=== PATIENT | female | born 1930 | race Caucasian/White ===

== ENCOUNTER 2018-10-23 19:58 | Emergency (ER) | payer MEDICARE ==
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
[2018-10-23 20:38] LABS: ABS Basophils 0 10^3/ul (0-0.2); ABS Eosinophils 0 10^3/ul (0-0.6); ABS Lymphocytes 1.3 10^3/ul (1.0-4.8); ABS Monocytes 0.5 10^3/ul (0-0.8); ABS Neutrophils 2.3 10^3/ul (1.5-7.7); ABS Nucleated RBC 0 10^3/ul; Hematocrit 35 % (33-41); Lymphocyte % 30.7 %; Mean Corpuscular HGB Conc 34 g/dL (31-36); Mean Corpuscular Hemoglobin 31 pg (27-31); Mean Corpuscular Volume 90 fL (80-97); Mean Platelet Volume 8.4 fL (7.4-10.4); Nucleated Red Blood Cells % 0; Platelet Count 196 10^3/uL (150-450); Red Blood Count 3.91 10^6 /uL (3.70-4.87); Red Cell Distribution Width 14 % (10.5-15); White Blood Count 4.1 10^3/uL (3.5-10.8)
[2018-10-23 20:58] LABS: Albumin 4.2 g/dL (3.2-5.2); Albumin/Globulin Ratio 1.6 (1-3); BUN/Creatinine Ratio 32.9 (8-20); Calcium 9.5 mg/dL (8.6-10.3); EGFR Non-African American 75.2 (>60); Globulin 2.7 g/dL (2-4); Total Bilirubin 0.3 mg/dL (0.2-1.0); Total Protein 6.9 g/dL (6.4-8.9)
[2018-10-23 21:25] LABS: TSH (Thyroid Stimulating Horm) 1.6 mcIU/mL (0.34-5.60)
[2018-10-23 22:38] LABS: Urine Appearance Cloudy; Urine Bacteria Absent (Absent); Urine Bilirubin Negative (Negative); Urine Blood Negative (Negative); Urine Color Yellow; Urine Glucose Negative (Negative); Urine Ketones Negative (Negative); Urine Nitrite Negative (Negative); Urine Protein Negative (Negative); Urine Red Blood Cell Trace(0-2/hpf) (Absent); Urine Specific Gravity 1.014 (1.010-1.030); Urine Squamous Epithelial Cell Present (Absent); Urine Urobilinogen Negative (Negative); Urine White Blood Cell Trace(0-5/hpf) (Absent)
[2018-10-24 02:00] VITALS: BP 172/67
== END 2018-10-24 02:04 | disposition home or self-care (01) ==
LOC: ED 19:58
DX: G30.9 Alzheimer's disease, unspecified (principal); F02.81 Dementia in other diseases classified elsewhere, unspecified severity, with behavioral disturbance; R42 Dizziness and giddiness; R19.7 Diarrhea, unspecified; I10 Essential (primary) hypertension; K21.9 Gastro-esophageal reflux disease without esophagitis; F32.9 Major depressive disorder, single episode, unspecified; Z88.6 Allergy status to analgesic agent; Z88.4 Allergy status to anesthetic agent; Z88.5 Allergy status to narcotic agent; Z88.0 Allergy status to penicillin
CPT/HCPCS: 36415; 80053; 81003; 81015; 84443; 85025; 87086; 99284

== ENCOUNTER 2019-06-10 03:41 | Emergency (ER) | payer MEDICARE ==
[2019-06-10] MEDS ORDERED: Acetaminophen TAB* 325 MG PO ONE (03:51)
--- OUTSIDE RECORDS SUMMARY | 2019-06-10 04:03 | XMS REPORT | Continuity of Care Document ---
:1930 External Reference #:[id number] Author Name Manan Muniz N.P. (transmitted by agent of provider Arminda Reyes) Address [address], [address] Unavailable [place] [id number] Care Team Providers Name Role Phone Other Physician Practices Care Team Information Attending Ambulatory Care Unavailable Marcel Guadarrama D.O. - Family Medicine Care Team Information Attending Ambulatory Care [phone] Problems Description No Information Available Social History Type Date Description Comments Sex Female ETOH Use Denies alcohol use Tobacco Use Start: Unknown End: Unknown Patient is a former smoker Smoking Status Reviewed: 04/25/19 Patient is a former smoker Allergies, Adverse Reactions, Alerts Active Allergies Reaction Severity Comments Date Aspirin 04/25/2019 Dilaudid 04/25/2019 Morphine 04/25/2019 Naproxen 04/25/2019 Novocaine 04/25/2019 NSAIDS 04/25/2019 Penicillin 04/25/2019 Tramadol 04/25/2019 Medications Active Medications SIG Qnty Indications Ordering Provider Date Tylenol 8 Hour 1 by mouth three Unknown 650mg Tablets times a day as ER needed for pain Calcium one by mouth Unknown Carb-Cholecalciferol twice daily [id number] Tablets Citalopram Hydrobromide 1 by mouth every Unknown 20mg day Tablets Restasis Unknown 0.05% Emulsion Donepezil HCL 1 every day Unknown 5mg Tablets Ferrous Fumarate 1 tab by mouth a Unknown 324(106Fe) day mg Tablets Latanoprost 1 drop at Unknown 0.005% Solution bedtime Imodium A-D take 1 tablets Unknown 2mg Capsules as needed Melatonin take 6 mg at Unknown 1mg Capsules bedtime as needed Methylcellulose take 1 packet Unknown Powder twice daily Lopressor take 1 tab twice Unknown 50mg Tablets daily Omeprazole 1 by mouth every Unknown 40mg Capsules DR day Rivastigmine Tartrate 1 by mouth twice Unknown 1.5mg a day Capsules Immunizations Description No Information Available Vital Signs Date Vital Result Comment 04/25/2019 1:47pm Height 62 inches 5'2" Weight 157.00 lb Heart Rate 74 /min BP Systolic Sitting 120 mmHg BP Diastolic Sitting 62 mmHg Respiratory Rate 18 /min BMI (Body Mass Index) 28.7 kg/m2 Results Description No Information Available Procedures Description No Information Available Medical Devices Description No Information Available Encounters Description No Information Available Assessments Date Code Description Provider 04/25/2019 R41.3 Other amnesia Manan Muniz, N.P. 04/25/2019 R53.83 Other fatigue Manan Muniz N.P. 04/25/2019 R25.1 Tremor, unspecified Manan Muniz N.P. Plan of Treatment Future Appointment(s):2019 3:45 pm - Dell Cope M.D. at [facility]04/25/2019 - Manan Muniz, N.P.R41.3 Other amnesiaFollow up:[address] Willoughbymendations:HUMERA I need the disc from your MRI please sign a release for this.R53.83 Other [id number] Tremor, unspecified Functional Status Description No Information Available Mental Status Description No Information Available Referrals Description No Information Available
--- NOTE | 2019-06-10 04:23 | ED ---
Complex/Multi-Sys Presentation - HPI Summary HPI Summary: Patient is an 88 y/o F presenting to the ED via EMS for a chief complaint of headache after a fall out of her bed. Patient has several abrasions on her forehead, pain in the lumbar region, and a headache. Patient was found on the floor and is unsure how long she was on the floor. Patient is able to walk with a walker. Patient is a resident at [facility]. - History Of Current Complaint Chief Complaint: EDFall Hx Obtained From: Patient Onset/Duration: Sudden Onset, Resolved Timing: Constant Severity Currently: Moderate Severity Initially: Moderate Associated Signs And Symptoms: Positive: Headache, Back Pain - Lumbar region, Other - Positive abrasions on the forehead - Allergies/Home Medications Allergies/Adverse Reactions: Allergies Allergy/AdvReac Type Severity Reaction Status Date / Time aspirin Allergy Unknown Verified 06/10/19 03:53 Reaction Details hydromorphone [From Dilaudid] Allergy Unknown Verified 06/10/19 03:53 Reaction Details morphine Allergy Unknown Verified 06/10/19 03:53 Reaction Details naproxen Allergy Unknown Verified 06/10/19 03:53 Reaction Details NSAIDS (Non-Steroidal Allergy Unknown Verified 06/10/19 03:53 Anti-Inflamma Reaction Details Penicillins Allergy Unknown Verified 06/10/19 03:53 Reaction Details procaine [From Novocain] Allergy Unknown Verified 06/10/19 03:53 Reaction Details tramadol Allergy Unknown Verified 06/10/19 03:53 Reaction Details Home Medications: Home Medications Diphenoxylat/Atrop 2.5-0.025M* [Lomotil TAB*] 1 tab PO SEE INSTRUCTIONS PRN 07/17 [History Confirmed 06/10/19] Loperamide CAP* [Imodium CAP*] 2 mg PO SEE INSTRUCTIONS PRN 06/10/19 [History Confirmed 06/10/19] Vit C/E/Zn/Coppr/Lutein/Zeaxan [Preservision Areds 2 Softgel] 1 cap PO BID 06/10 [History Confirmed 06/10/19] PMH/Surg Hx/FS Hx/Imm Hx Previously Healthy: Yes Endocrine/Hematology History: Denies: Hx Diabetes Cardiovascular History: Reports: Hx Hypertension Denies: Hx Hypercholesterolemia GI History: Reports: Hx Diverticulosis, Hx Gastroesophageal Reflux Disease, Hx Irritable Bowel Sensory History: Denies: Hx Legally Blind, Hx Deafness Opthamlomology History: Denies: Hx Legally Blind EENT History: Denies: Hx Deafness Neurological History: Reports: Hx Dementia, Other Neuro Impairments/Disorders - Alz Psychiatric History: Reports: Hx Depression, Hx of Violent Episodes Against Others - Surgical History Surgical History: None Surgery Procedure, Year, and Place: None - Immunization History Date of Influenza Vaccine: UTD Infectious Disease History: No Infectious Disease History: Denies: Traveled Outside the [place] in Last 30 Days - Family History Known Family History: Negative: Cardiac Disease Family History: LEVEL 5: FHx limited due to pt condition, dementia, alz. - Social History Occupation: Retired Lives: Assisted Living Alcohol Use: Occasionally Hx Substance Use: No Substance Use Type: Reports: None Hx Tobacco Use: Yes Smoking Status (MU): Former Smoker Review of Systems Positive: Myalgia - Back pain in lumbar region Positive: Other - Positive abrasions on forehead Positive: Headache All Other Systems Reviewed And Are Negative: Yes Physical Exam - Summary Physical Exam Summary: Appearance: Well-appearing, Well-nourished, lying in bed comfortably. Elderly woman in no acute distress Skin: Warm, dry, no obvious rash Eyes: sclera anicteric, no conjunctival pallor ENT: mucous membranes moist, pharynx appears normal. Abrasion on the bridge of the nose and contusions on the adjacent forehead, no periorbital tenderness, eyes do not appear injured. Neck: Supple, nontender Respiratory: Clear to auscultation, no signs of respiratory distress Cardiovascular: Normal S1, S2. No murmurs. Normal distal pulses in tibial and radial bilaterally. Abdomen: Soft, nontender, normal active bowel sounds present Musculoskeletal: Normal, Strength/ROM Intact Neurological: A&Ox3, awake and alert, mentation is normal, speech is fluent and appropriate Psychiatric: affect is normal, does not appear anxious or depressed Triage Information Reviewed: Yes Vital Signs On Initial Exam: Initial Vitals Temp Pulse Resp BP Pulse Ox 98.1 F 69 17 162/71 94 06/10/19 03:47 06/10/19 03:47 06/10/19 03:47 06/10/19 03:47 06/10/19 03:47 Vital Signs Reviewed: Yes - Radha Coma Scale Best Eye Response: 4 - Spontaneous Best Motor Response: 6 - Obeys Commands Best Verbal Response: 5 - Oriented Coma Scale Total: 15 Procedures - Sedation Patient Received Moderate/Deep Sedation with Procedure: No Diagnostics - Vital Signs Vital Signs Temp Pulse Resp BP Pulse Ox 06/10/19 03:47 98.1 F 69 17 162/71 94 - Laboratory Lab Statement: Any lab studies that have been ordered have been reviewed, and results considered in the medical decision making process. - CT Brain CT CT Interpretation Completed By: Radiologist Summary of CT Findings: Brain CT IMPRESSION: No acute intracranial abnormality. Reviewed by ED physician. Complex Multi-Symp Course/Dx Course Of Treatment: Patient is an 88 y/o F presenting to the ED via EMS for a chief complaint of headache after a fall out of her bed. Patient has several abrasions on her forehead, pain in the lumbar region, and a headache. Patient was found on the floor and is unsure how long she was on the floor. Patient is able to walk with a walker. Patient is a resident at [facility]. On exam, elderly woman in no acute distress, abrasion on the bridge of the nose and contusions on the adjacent forehead, no periorbial tenderness, eyes do not appear injured. In the ED course, patient was given acetaminophen [address] IMPRESSION: No acute intracranial abnormality. Patient will be discharged with a diagnosis of fall and facial contusion. Follow up with PCP in 2 days. - Diagnoses Provider Diagnoses: Fall, Facial contusion Discharge ED - Sign-Out/Discharge Documenting (check all that apply): Patient Departure - Discharge - Discharge Plan Condition: Good Disposition: HOME Patient Education Materials: Black Eye (ED), Fall Prevention for Older Adults ( ED) Referrals: Marcel Guadarrama DO [Primary Care Provider] - If Needed - Billing Disposition and Condition Condition: GOOD Disposition: Home - Attestation Statements Document Initiated by Scribe: Yes Documenting Scribe: Shira Mcfadden Provider For Whom Alcon is Documenting (Include Credential): Stanton Manning MD Scribe Attestation: Shira Feng scribed for Stanton Manning MD on 06/13/19 at 0310. Scribe Documentation Reviewed: Yes Provider Attestation: The documentation as recorded by the Shira wisdom accurately reflects the service I personally performed and the decisions made by Stanton jimenez MD Status of Scribe Document: Viewed
[2019-06-10 07:51] VITALS: BP 136/79
== END 2019-06-10 07:52 | disposition home or self-care (01) ==
LOC: ED 03:41
DX: S00.83XA Contusion of other part of head, initial encounter (principal); S00.81XA Abrasion of other part of head, initial encounter; S00.31XA Abrasion of nose, initial encounter; M54.5 Low back pain; R51 Headache; W06.XXXA Fall from bed, initial encounter; Y92.122 Bedroom in nursing home as the place of occurrence of the external cause; I10 Essential (primary) hypertension; G30.9 Alzheimer's disease, unspecified; F02.80 Dementia in other diseases classified elsewhere, unspecified severity, without behavioral disturbance, psychotic disturbance, mood disturbance, and anxiety; Z88.6 Allergy status to analgesic agent; Z88.4 Allergy status to anesthetic agent; Z88.5 Allergy status to narcotic agent; Z88.0 Allergy status to penicillin; Z87.891 Personal history of nicotine dependence
CPT/HCPCS: 70450; 99283; A9270-GY

== ENCOUNTER 2019-07-13 22:50 | Emergency (ER) | payer MEDICARE ==
--- NOTE | 2019-07-13 23:05 | ED ---
Complex/Multi-Sys Presentation - HPI Summary HPI Summary: 89 year old F brought in by EMS to [facility] from [place] complains of left knee pain rated 7/10 in severity s/p mechanical fall from standing position minutes prior to arrival. Patient states she was lying in bed, got up to turn on the radio in her room, and had mechanical fall from standing. Unsure why she fell. Patient states she is almost blind and is supposed to use walker but didn't use one to get up to turn on the radio this evening. Was unable to get up after she fell. Crawled into the hallway and had someone help her. Patient states she has been feeling unwell, and has had decreased appetite and urinary incontinence recently. No fever, cough, congestion, abdominal pain, fecal dysfunction. Symptoms aggravated by nothing. Symptoms alleviated by nothing. - History Of Current Complaint Time Seen by Provider: 07/13/19 22:54 Hx Obtained From: Patient Onset/Duration: Lasting Minutes, Still Present Timing: Constant Severity Currently: Moderate - 7/10 Aggravating Factor(s): Nothing Alleviating Factor(s): Nothing - Allergies/Home Medications Allergies/Adverse Reactions: Allergies Allergy/AdvReac Type Severity Reaction Status Date / Time aspirin Allergy Unknown Verified 07/13/19 22:58 Reaction Details hydromorphone [From Dilaudid] Allergy Unknown Verified 07/13/19 22:58 Reaction Details morphine Allergy Unknown Verified 07/13/19 22:58 Reaction Details naproxen Allergy Unknown Verified 07/13/19 22:58 Reaction Details NSAIDS (Non-Steroidal Allergy Unknown Verified 07/13/19 22:58 Anti-Inflamma Reaction Details Penicillins Allergy Unknown Verified 07/13/19 22:58 Reaction Details procaine [From Novocain] Allergy Unknown Verified 07/13/19 22:58 Reaction Details tramadol Allergy Unknown Verified 07/13/19 22:58 Reaction Details PMH/Surg Hx/FS Hx/Imm Hx Endocrine/Hematology History: Denies: Hx Diabetes Cardiovascular History: Reports: Hx Hypertension Denies: Hx Hypercholesterolemia GI History: Reports: Hx Diverticulosis, Hx Gastroesophageal Reflux Disease, Hx Irritable Bowel Sensory History: Denies: Hx Legally Blind, Hx Deafness Opthamlomology History: Denies: Hx Legally Blind Neurological History: Reports: Hx Dementia, Other Neuro Impairments/Disorders - Alz Psychiatric History: Reports: Hx Depression, Hx of Violent Episodes Against Others - Surgical History Surgery Procedure, Year, and Place: hip - Immunization History Date of Influenza Vaccine: UTD Infectious Disease History: No Infectious Disease History: Denies: Traveled Outside the [place] in Last 30 Days - Family History Known Family History: Negative: Cardiac Disease - Social History Alcohol Use: None Hx Substance Use: No Substance Use Type: Reports: None Hx Tobacco Use: Yes Smoking Status (MU): Former Smoker Review of Systems Negative: Fever ENT: Negative - congestion Negative: Cough Gastrointestinal: Negative - fecal dysfunction Positive: Other - decreased appetite. Negative: Abdominal Pain Positive: incontinence Positive: Other - left knee pain All Other Systems Reviewed And Are Negative: Yes Physical Exam - Summary Physical Exam Summary: Appearance: Well-appearing, Well-nourished, lying in bed comfortably Skin: Warm, dry, no obvious rash Eyes: sclera anicteric, no conjunctival pallor ENT: mucous membranes moist, pharynx appears normal Neck: Supple, nontender Respiratory: Clear to auscultation, no signs of respiratory distress Cardiovascular: Normal S1, S2. No murmurs. Normal distal pulses in tibial and radial bilaterally. Abdomen: Soft, nontender, normal active bowel sounds present Musculoskeletal: Normal, Strength/ROM Intact Neurological: A&Ox3, awake and alert, mentation is normal, speech is fluent and appropriate Psychiatric: affect is normal, does not appear anxious or depressed Triage Information Reviewed: Yes Vital Signs On Initial Exam: Initial Vitals Temp Pulse Resp BP Pulse Ox 99.1 F 64 22 135/52 97 07/13/19 22:54 07/13/19 22:54 07/13/19 22:54 07/13/19 22:54 07/13/19 22:54 Vital Signs Reviewed: Yes Procedures - Sedation Patient Received Moderate/Deep Sedation with Procedure: No Diagnostics - Vital Signs Vital Signs Temp Pulse Resp BP Pulse Ox 07/13/19 22:54 99.1 F 64 22 135/52 97 - Laboratory Result Diagrams: 07/13/19 23:28 07/13/19 23:28 Lab Statement: Any lab studies that have been ordered have been reviewed, and results considered in the medical decision making process. Complex Multi-Symp Course/Dx Course Of Treatment: 89 year old F brought in by EMS from [place] complains of left knee pain s/p mechanical fall from standing position minutes prior to arrival. Unsure why she fell. Was unable to get up after she fell. Crawled into the hallway and had someone help her. Patient states she has been feeling unwell , and has had decreased appetite and urinary incontinence recently. Physical exam unremarkable. Bloodwork results with no significant abnormalities except for RBC 3.61, Hgb 11.5, Hct 34, MCH 32, platelets 141, BUN/creatinine 21.4, total protein 6.3. Urinalysis results with no significant abnormalities except for specific gravity 1.006, trace leukocyte estserase, squamous epithelial cells , and ascorbic acid. Patient will be discharged home with follow up from primary care provider as soon as possible. Patient was instructed to return to Emergency Department for new or worsening symptoms. Patient understands and is agreeable to this plan. - Diagnoses Provider Diagnoses: Fall Discharge ED - Sign-Out/Discharge Documenting (check all that apply): Patient Departure - Discharge Plan Condition: Good Disposition: HOME Patient Education Materials: Fall Prevention for Older Adults (ED) Referrals: Marcel Guadarrama, DO [Primary Care Provider] - As Soon As Possible - Billing Disposition and Condition Condition: GOOD Disposition: Home - Attestation Statements Document Initiated by Alcon: Yes Documenting Scribe: Amalia Orellana Provider For Whom Alcon is Documenting (Include Credential): Stanton Manning MD Scribe Attestation: IAmalia, scribed for Stanton Manning MD on 07/14/19 at 0544. Scribe Documentation Reviewed: Yes Provider Attestation: The documentation as recorded by the Amalia wisdom accurately reflects the service I personally performed and the decisions made by me, Stanton Manning MD Status of Scribe Document: Viewed
--- OUTSIDE RECORDS SUMMARY | 2019-07-13 23:16 | XMS REPORT ---
:1930 Author Organization [facility] Care Team Providers Name Role Phone Unavailable Unavailable Unavailable Problems Condition Condition Condition Status Onset Resolution Last Treating Comments Name Details Category Date Date Treatment Clinician Date Pain frequent Pain Mgmt Active 2018-07 Breana pain 08-19 (Marina) 08:40: Escobar 00 [id number] Respiratory dyspnea Respirator Active 2018-07 Breana present y 08-19 (Marina) 08:40: Escobar 00 [id number] Sensory impaired Sensory Active 2018-07 Breana hearing 08-19 (Marina) 08:40: Escobar 00 [id number] Integument skin Integument Active 2018-07 Breana integrity 08-19 (Marina) risk 08:40: Escobar 00 [id number] Elimination urinary Eliminatio Active 2018-07 Breana incontinenc n 08-19 (Marina) e 08:40: Escobar 00 [id number] Neuro confusion Neuro/Emot Active 2018-07 Breana present ion 08-19 (Marina) 08:40: Escobar 00 [id number] 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 ion 08-19 (Marina) anatoliy 08:40: Escobar 00 [id number] Neuro memory Neuro/Emot Active 2018-07 Breana deficit ion 08-19 (Marina) needing 08:40: Escobar supervision 00 [id number] Activity ADL Activity Active 2018-07 Breana assistance 08-19 (Marina) required 08:40: Escobar 00 [id number] Activity self-care Activity Active 2018-07 Breana deficit 08-19 (Marina) 08:40: Escobar 00 [id number] Safety fall risk Safety Active 2018-07 Breana factor 08-19 (Marina) present 08:40: Escobar 00 [id number] Safety cannot be Safety Active 2018-07 Breana left alone 08-19 (Marina) 08:40: Escobar 00 [id number] Safety risk for Safety Active 2018-07 Breana hospitaliza 08-19 (Marina) tion 08:40: Escobar [id number] Medication oral med Meds Active 2018-07 Breana assistance 08-19 (Marina) required 08:40: Escobar [id number] Musculoskel transfer Musculoske Active 2018-07 Breana etal assistance letal 08-19 (Marina) required 08:40: Escobar [id number] Musculoskel requires Musculoske Active 2018-07 Breana etal human letal 08-19 (Marina) assist to 08:40: Escobar leave home [id number] Safety knowledge/s Safety Active 2018-07 Betsy kill 08-19 Isaacs deficit: pt 14:36: [id number] Bed mobility/tr PT/OT: Bed Active 2018-07 Betsy Mobility/Tr ansfer Mobility/T 08-19 Isaacs ansfer device ransfer 14:36: [id number] present 00 Bed transfer PT/OT: Bed Active 2018-07 Betsy Mobility/Tr deficit: Mobility/T 08-19 Isaacs ansfer sit/stand ransfer 14:36: [id number] 00 Bed transfer PT/OT: Bed Active 2018-07 Betsy Mobility/Tr deficit: Mobility/T 08-19 Isaacs ansfer standing ransfer 14:36: [id number] pivot 00 Bed transfer PT/OT: Bed Active 2018-07 Betsy Mobility/Tr deficit: Mobility/T 08-19 Isaacs ansfer toilet/comm ransfer 14:36: [id number] ode 00 Bed transfer PT/OT: Bed Active 2018-07 Betsy Mobility/Tr deficit: Mobility/T 08-19 Isaacs ansfer shower/tub ransfer 14:36: [id number] 00 Bed bed PT/OT: Bed Active 2018-07 Betsy Mobility/Tr mobility Mobility/T 08-19 Isaacs ansfer deficit ransfer 14:36: [id number] 00 Balance/End balance/career services coordinator PT/OT: Active 2018-07 Betsy urance rdination Balance/En 08-19 Isaacs deficit durance 14:36: [id number] 00 Gait/Locomo gait PT/OT: Active 2018-07 Betsy tion assistive Gait/Locom 08-19 Isaacs problems device otion 14:36: [id number] present 00 Gait/Locomo gait PT/OT: Active 2018-07 Betsy tion deficit Gait/Locom 08-19 Isaacs problems otion 14:36: [id number] 00 Allergies, Adverse Reactions, Alerts Allergy Name Allergy Status Severity Reaction(s) Onset Inactive Treating Comments Type Date Date Clinician aspirin Base Active Unknown Reaction 2018-07 Andreia Beam Ingredient Unknown 08-18 Dilaudid Medication Active Unknown Reaction 2018-07 Andreia Beam Name ID Unknown 08-18 morphine Base Active Unknown Reaction 2018-07 Andreia Beam Ingredient Unknown 08-18 naproxen Base Active Unknown Reaction 2018-07 Andreia Beam Ingredient Unknown 08-18 Novocain Medication Active Unknown Reaction 2018-07 Andreia Beam Name ID Unknown 08-18 NSAIDS Allergen Active Unknown Reaction 2018-07 Andreia Beam (Non-Steroid Group Unknown 08-18 al Anti-Inflamm atory Drug) Penicillins Allergen Active Unknown Reaction 2018-07 Andreia Beam Group Unknown 08-18 tramadol Base Active Unknown Reaction 2018-07 Andreia Beam Ingredient Unknown 08-18 Medications Ordered Filled Start Stop Current Ordering Indication Dosage Frequency Signature Comments Components Medication Medication Date Date Medication? Clinician (SIG) Name Name Tylenol Tylenol 2018-07 Yes Anatoliy Unknown Unknown Arthritis Arthritis 08-19 Noel [place] Pain 650 mg Pain 650 mg pher M tablet,exte tablet,exte nded nded release release Calcium 600 Calcium 600 2018-07 Yes Unknown Unknown + D(3) 600 + D(3) 600 08-19 Noel [place] mg (1,500 mg (1,500 pher M mg)-400 mg)-400 unit tablet unit tablet citalopram citalopram 2018-07 Yes Anatoliy Unknown Unknown 20 mg 20 mg 08-19 Noel [place] tablet tablet pher M Restasis Restasis 2018-07 Yes Anatoliy Unknown Unknown MultiDose MultiDose 08-19 Noel [place] 0.05 % eye 0.05 % eye pher M drops drops ferrous ferrous 2018-07 Yes Anatoliy Unknown Unknown fumarate fumarate 08-19 Noel [place] 324 mg (106 324 mg (106 pher M mg iron) mg iron) tablet tablet latanoprost latanoprost 2018-07 Yes Anatoliy Unknown Unknown 0.005 % eye 0.005 % eye 08-19 Noel [place] drops drops pher M Imodium A-D Imodium A-D 2018-07 Yes Anatoliy Unknown Unknown 2 mg tablet 2 mg tablet 08-19 Noel [place] pher M melatonin 1 melatonin 1 2018-07 Yes Anatoliy Unknown Unknown mg tablet mg tablet 08-19 Noel [place] pher M methylcellu methylcellu 2018-07 Yes Anatoliy Unknown Unknown lose lose 08-19 Noel [place] (laxative) (laxative) pher M oral powder oral powder Lopressor Lopressor 2018-07 Yes Anatoliy Unknown Unknown 50 mg 50 mg 08-19 Noel [place] tablet tablet pher M omeprazole omeprazole 2018-07 Yes Anatoliy Unknown Unknown 40 mg 40 mg 08-19 Noel [place] capsule,del capsule,del pher M ayed ayed release release rivastigmin rivastigmin 2018-07 Yes Anatoliy Unknown Unknown e 1.5 mg e 1.5 mg 08-19 Noel [place] capsule capsule pher M donepezil 5 donepezil 5 2018-07 Yes Anatoliy Unknown Unknown mg tablet mg tablet 08-19 Noel [place] pher M Vital Signs Vital Name Observation Time Observation Value Comments SYSTOLIC mm[Hg] 2019-07-10 18:09:19 120 mm[Hg] mm[Hg] Method: Sit SYSTOLIC mm[Hg] 2019-06-22 18:09:01 130 mm[Hg] mm[Hg] Method: Stand DIASTOLIC mm[Hg] 2019-07-10 18:09:19 70 mm[Hg] mm[Hg] Method: Sit DIASTOLIC mm[Hg] 2019-06-22 18:09:01 76 mm[Hg] mm[Hg] Method: Stand PULSE 2019-07-10 18:09:19 68 /min /min RESP RATE 2019-06-22 18:09:01 17 /min /min TEMP 2019-07-10 18:09:19 98.4 [degF] Procedures This patient has no known procedures. Results This patient has no known results.
--- OUTSIDE RECORDS SUMMARY | 2019-07-13 23:16 | XMS REPORT ---
:1930 Author Organization [facility] Care Team Providers Name Role Phone Unavailable Unavailable Unavailable Problems Condition Condition Condition Status Onset Resolution Last Treating Comments Name Details Category Date Date Treatment Clinician Date Pain frequent Pain Mgmt Active 2018-07 Breana pain 08-19 (Marina) 08:40: Escobar 00 [id number] Respiratory dyspnea Respirator Active 2018-07 Breana present y 08-19 (Marina) 08:40: Escobar 00 [id number] Sensory impaired Sensory Active 2018-07 Breana hearing 08-19 (Marina) 08:40: Escobar 00 [id number] Integument skin Integument Active 2018-07 Breana integrity 08-19 (Marina) risk 08:40: Escobar 00 [id number] Elimination urinary Eliminatio Active 2018-07 Breana incontinenc n 08-19 (Marina) e 08:40: Escobar 00 [id number] Neuro confusion Neuro/Emot Active 2018-07 Breana present ion 08-19 (Marina) 08:40: Escobar 00 [id number] 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 ion 08-19 (Marina) anatoliy 08:40: Escobar 00 [id number] Neuro memory Neuro/Emot Active 2018-07 Breana deficit ion 08-19 (Marina) needing 08:40: Escobar supervision 00 [id number] Activity ADL Activity Active 2018-07 Berana assistance 08-19 (Marina) required 08:40: Escobar 00 [id number] Activity self-care Activity Active 2018-07 Breana deficit 08-19 (Marina) 08:40: Escobar 00 [id number] Safety fall risk Safety Active 2018-07 Breana factor 08-19 (Marina) present 08:40: Escobar 00 [id number] Safety cannot be Safety Active 2018-07 Breana left alone 08-19 (Marina) 08:40: Escobar 00 [id number] Safety risk for Safety Active 2018-07 Breana hospitaliza 08-19 (Marina) tion 08:40: Escobar [id number] Medication oral med Meds Active 2018-07 Breana assistance 08-19 (Marina) required 08:40: Escobar [id number] Musculoskel transfer Musculoske Active 2018-07 Breana etal assistance letal 08-19 (Marina) required 08:40: Escobar [id number] Musculoskel requires Musculoske Active 2018-07 Breana etal human letal 08-19 (Marina) assist to 08:40: Escobar leave home [id number] Safety knowledge/s Safety Active 2018-07 Betsy kill 08-19 Isaacs deficit: pt 14:36: [id number] 00 Bed mobility/tr PT/OT: Bed Active 2018-07 Betsy Mobility/Tr ansfer Mobility/T 08-19 Isaacs ansfer device ransfer 14:36: [id number] present 00 Bed transfer PT/OT: Bed Active 2018-07 Betsy Mobility/Tr deficit: Mobility/T 08-19 Isaacs ansfer sit/stand ransfer 14:36: [id number] 00 Bed transfer PT/OT: Bed Active 2018-07 Betsy Mobility/Tr deficit: Mobility/T 08-19 Isaacs ansfer standing ransfer 14:36: [id number] pivot 00 Bed transfer PT/OT: Bed Active 2018-07 Betsy Mobility/Tr deficit: Mobility/T 08-19 Isaacs ansfer toilet/comm ransfer 14:36: [id number] ode 00 Bed transfer PT/OT: Bed Active 2018-07 Betsy Mobility/Tr deficit: Mobility/T 08-19 Isaacs ansfer shower/tub ransfer 14:36: [id number] 00 Bed bed PT/OT: Bed Active 2018-07 Betsy Mobility/Tr mobility Mobility/T 08-19 Isaacs ansfer deficit ransfer 14:36: [id number] 00 Balance/End balance/coordinating producer PT/OT: Active 2018-07 Betsy urance rdination Balance/En 08-19 Isaacs deficit durance 14:36: [id number] 00 Gait/Locomo gait PT/OT: Active 2018-07 Betsy tion assistive Gait/Locom 08-19 Isaacs problems device otion 14:36: [id number] present 00 Gait/Locomo gait PT/OT: Active 2018-07 Betsy tion deficit Gait/Locom 08-19 Isaacs problems otion 14:36: [id number] 00 Allergies, Adverse Reactions, Alerts Allergy Name [...]
--- OUTSIDE RECORDS SUMMARY | 2019-07-13 23:16 | XMS REPORT ---
:1930 Author Organization [facility] Care Team Providers Name Role Phone Unavailable Unavailable Unavailable Problems Condition Condition Condition Status Onset Resolution Last Treating Comments Name Details Category Date Date Treatment Clinician Date Pain frequent Pain Mgmt Active 2018-07 Breana pain 08-19 (Marina) 08:40: Escobar 00 [id number] Respiratory dyspnea Respirator Active 2018-07 Breana present y 08-19 (Marina) 08:40: Escobar 00 [id number] Sensory impaired Sensory Active 2018-07 Breana hearing 08-19 (Marina) 08:40: Escobar 00 [id number] Integument skin Integument Active 2018-07 Breana integrity 08-19 (Marina) risk 08:40: Escobar 00 [id number] Elimination urinary Eliminatio Active 2018-07 Breana incontinenc n 08-19 (Marina) e 08:40: Escobar 00 [id number] Neuro confusion Neuro/Emot Active 2018-07 Breana present ion 08-19 (Marina) 08:40: Escobar 00 [id number] 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 ion 08-19 (Marina) anatoliy 08:40: Escobar 00 [id number] Neuro memory Neuro/Emot Active 2018-07 Breana deficit ion 08-19 (Marina) needing 08:40: Escobar supervision 00 [id number] Activity ADL Activity Active 2018-07 Breana assistance 08-19 (Marnia) required 08:40: Escobar 00 [id number] Activity self-care Activity Active 2018-07 Breana deficit 08-19 (Marina) 08:40: Escobar 00 [id number] Safety fall risk Safety Active 2018-07 Breana factor 08-19 (Marina) present 08:40: Escobar 00 [id number] Safety cannot be Safety Active 2018-07 Breana left alone 08-19 (Marina) 08:40: Escobar 00 [id number] Safety risk for Safety Active 2018-07 Breana hospitaliza 08-19 (Marina) tion 08:40: Escobar [id number] Medication oral med Meds Active 2018-07 Breana assistance 08-19 (Marina) required 08:40: Escobar [id number] Musculoskel transfer Musculoske Active 2018-07 Breana etal assistance letal 08-19 (Marina) required 08:40: Escobar [id number] Musculoskel requires Musculoske Active 2018-07 Breana etal human letal 08-19 (Marina) assist to 08:40: Escobar leave home [id number] Safety knowledge/s Safety Active 2018-07 Betsy kill 08-19 Isaacs deficit: pt 14:36: [id number] 00 Bed mobility/tr PT/OT: Bed Active 2018-07 Betsy Mobility/Tr ansfer Mobility/T 08-19 Isaacs ansfer device ransfer 14:36: [id number] present 00 Bed transfer PT/OT: Bed Active 2018-07 Betsy Mobility/Tr deficit: Mobility/T 08-19 Isaacs ansfer sit/stand ransfer 14:36: [id number] 00 Bed transfer PT/OT: Bed Active 2018-07 Betsy Mobility/Tr deficit: Mobility/T 08-19 Isaacs ansfer standing ransfer 14:36: [id number] pivot 00 Bed transfer PT/OT: Bed Active 2018-07 Betsy Mobility/Tr deficit: Mobility/T 08-19 Isaacs ansfer toilet/comm ransfer 14:36: [id number] ode 00 Bed transfer PT/OT: Bed Active 2018-07 Betsy Mobility/Tr deficit: Mobility/T 08-19 Isaacs ansfer shower/tub ransfer 14:36: [id number] 00 Bed bed PT/OT: Bed Active 2018-07 Ebtsy Mobility/Tr mobility Mobility/T 08-19 Isaacs ansfer deficit ransfer 14:36: [id number] 00 Balance/End balance/cookie mixer helper PT/OT: Active 2018-07 Betsy urance rdination Balance/En 08-19 Isaacs deficit durance 14:36: [id number] 00 Gait/Locomo gait PT/OT: Active 2018-07 Betsy tion assistive Gait/Locom 08-19 Isaacs problems device otion 14:36: [id number] present 00 Gait/Locomo gait PT/OT: Active 2018-07 Betsy tion deficit Gait/Locom 08-19 Isaacs problems otion 14:36: [id number] 00 Allergies, Adverse Reactions, Alerts Allergy Name [...] Observation Time Observation Value Comments SYSTOLIC mm[Hg] 2019-07-07 18:09:16 120 mm[Hg] mm[Hg] Method: Sit SYSTOLIC mm[Hg] 2019-06-22 18:09:01 130 mm[Hg] mm[Hg] Method: Stand DIASTOLIC mm[Hg] 2019-07-07 18:09:16 70 mm[Hg] mm[Hg] Method: Sit DIASTOLIC mm[Hg] 2019-06-22 18:09:01 76 mm[Hg] mm[Hg] Method: Stand PULSE 2019-07-07 18:09:16 68 /min /min RESP RATE 2019-06-22 18:09:01 17 /min /min TEMP 2019-07-07 18:09:16 98.2 [degF] Procedures This patient has no known procedures. Results This patient has no known results.
--- OUTSIDE RECORDS SUMMARY | 2019-07-13 23:17 | XMS REPORT ---
:1930 Author Organization [facility] Care Team Providers Name Role Phone Unavailable Unavailable Unavailable Problems Condition Condition Condition Status Onset Resolution Last Treating Comments Name Details Category Date Date Treatment Clinician Date Safety knowledge/s Safety Active 2018-07 Betsy kill 08-19 Isaacs deficit: pt 14:36: [id number] 00 Safety fall risk Safety Active 2018-07 Betsy factor 08-19 Isaacs present 14:36: [id number] 00 Bed mobility/tr PT/OT: Bed Active 2018-07 Betsy Mobility/Tr ansfer Mobility/T 08-19 Isaacs ansfer device ransfer 14:36: [id number] present 00 Bed transfer PT/OT: Bed Active 2018-07 Betsy Mobility/Tr deficit: Mobility/T 08-19 Isaacs ansfer sit/stand ransfer 14:36: [id number] Bed transfer PT/OT: Bed Active 2018-07 Betsy Mobility/Tr deficit: Mobility/T 08-19 Isaacs ansfer standing ransfer 14:36: [id number] pivot 00 Bed transfer PT/OT: Bed Active 2018-07 Betsy Mobility/Tr deficit: Mobility/T 08-19 Isaacs ansfer toilet/comm ransfer 14:36: [id number] ode 00 Bed transfer PT/OT: Bed Active 2018-07 Betsy Mobility/Tr deficit: Mobility/T 08-19 Isaacs ansfer shower/tub ransfer 14:36: [id number] 00 Bed bed PT/OT: Bed Active 2018-07 Betsy Mobility/Tr mobility Mobility/T 08-19 Isaacs ansfer deficit ransfer 14:36: [id number] 00 Balance/End balance/management coordinator PT/OT: Active 2018-07 Betsy urance rdination Balance/En 08-19 Isaacs deficit durance 14:36: [id number] 00 Gait/Locomo gait PT/OT: Active 2018-07 Betsy tion assistive Gait/Locom - Isaacs problems device otion 14:36: [id number] present 00 Gait/Locomo gait PT/OT: Active 2018-07 Betsy tion deficit Gait/Locom - Isaacs problems otion 14:36: [id number] 00 Allergies, Adverse Reactions, Alerts Allergy Name [...] Reaction 2018-07 Andreia Beam Name ID Unknown - NSAIDS Allergen Active Unknown Reaction 2018-07 Andreia Beam (Non-Steroid Group Unknown 08-18 al Anti-Inflamm atory Drug) Penicillins Allergen Active Unknown Reaction 2018-07 Andreia Beam Group Unknown 08-18 tramadol Base Active Unknown Reaction 2018-07 Andreia Beam Ingredient Unknown 20 Medications Ordered Filled Start Stop Current Ordering Indication Dosage Frequency Signature Comments Components Medication Medication Date Date Medication? Clinician (SIG) Name Name No Known No Known No None None None Medications Medications For This For This Patient Patient Vital Signs Vital Name Observation Time Observation Value Comments SYSTOLIC mm[Hg] 2019-06-19 18:08:58 140 mm[Hg] mm[Hg] Method: Sit DIASTOLIC mm[Hg] 2019-06-19 18:08:58 70 mm[Hg] mm[Hg] Method: Sit PULSE 2019-06-19 18:08:58 64 /min /min TEMP 2019-06-19 18:08:58 98.6 [degF] Procedures This patient has no known procedures. Results This patient has no known results.
--- OUTSIDE RECORDS SUMMARY | 2019-07-13 23:17 | XMS REPORT ---
:1930 Author Organization [facility] Care Team Providers Name Role Phone Unavailable Unavailable Unavailable Problems Condition Condition Condition Status Onset Resolution Last Treating Comments Name Details Category Date Date Treatment Clinician Date Pain frequent Pain Mgmt Active 2018-07 Breana pain 08-19 (Marina) 08:40: Escobar 00 [id number] Respiratory dyspnea Respirator Active 2018-07 Breana present y 08-19 (Marina) 08:40: Escobar 00 [id number] Sensory impaired Sensory Active 2018-07 Breana hearing 08-19 (Marina) 08:40: Escobar 00 [id number] Integument skin Integument Active 2018-07 Breana integrity 08-19 (Marina) risk 08:40: Escobar 00 [id number] Elimination urinary Eliminatio Active 2018-07 Breana incontinenc n 08-19 (Marina) e 08:40: Escobar 00 [id number] Neuro confusion Neuro/Emot Active 2018-07 Breana present ion 08-19 (Marina) 08:40: Escobar 00 [id number] 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 ion 08-19 (Marina) anatoliy 08:40: Escobar 00 [id number] Neuro memory Neuro/Emot Active 2018-07 Breana deficit ion 08-19 (Marina) needing 08:40: Escobar supervision 00 [id number] Activity ADL Activity Active 2018-07 Breana assistance 08-19 (Marina) required 08:40: Escobar 00 [id number] Activity self-care Activity Active 2018-07 Breana deficit 08-19 (Marina) 08:40: Escobar 00 [id number] Safety fall risk Safety Active 2018-07 Breana factor 08-19 (Marina) present 08:40: Escobar 00 [id number] Safety cannot be Safety Active 2018-07 Breana left alone 08-19 (Marina) 08:40: Escobar 00 [id number] Safety risk for Safety Active 2018-07 Breana hospitaliza 08-19 (Marina) tion 08:40: Escobar [id number] Medication oral med Meds Active 2018-07 Breana assistance 08-19 (Marina) required 08:40: Escobar [id number] Musculoskel transfer Musculoske Active 2018-07 Breana etal assistance letal 08-19 (Marina) required 08:40: Escobar [id number] Musculoskel requires Musculoske Active 2018-07 Breana etal human letal 08-19 (Marina) assist to 08:40: Escobar leave home [id number] Safety knowledge/s Safety Active 2018-07 Betsy kill 08-19 Isaacs deficit: pt 14:36: [id number] 00 Bed mobility/tr PT/OT: Bed Active 2018-07 Betsy Mobility/Tr ansfer Mobility/T 08-19 Isaacs ansfer device ransfer 14:36: [id number] present 00 Bed transfer PT/OT: Bed Active 2018-07 Betsy Mobility/Tr deficit: Mobility/T 08-19 Isaacs ansfer sit/stand ransfer 14:36: [id number] 00 Bed transfer PT/OT: Bed Active 2018-07 Betsy Mobility/Tr deficit: Mobility/T 08-19 Isaacs ansfer standing ransfer 14:36: [id number] pivot 00 Bed transfer PT/OT: Bed Active 2018-07 Betsy Mobility/Tr deficit: Mobility/T 08-19 Isaacs ansfer toilet/comm ransfer 14:36: [id number] ode 00 Bed transfer PT/OT: Bed Active 2018-07 Betsy Mobility/Tr deficit: Mobility/T 08-19 Isaacs ansfer shower/tub ransfer 14:36: [id number] 00 Bed bed PT/OT: Bed Active 2018-07 Betsy Mobility/Tr mobility Mobility/T 08-19 Isaacs ansfer deficit ransfer 14:36: [id number] 00 Balance/End balance/care team coordinator scheduler PT/OT: Active 2018-07 Betsy urance rdination Balance/En 08-19 Isaacs deficit durance 14:36: [id number] 00 Gait/Locomo gait PT/OT: Active 2018-07 Betsy tion assistive Gait/Locom 08-19 Isaacs problems device otion 14:36: [id number] present 00 Gait/Locomo gait PT/OT: Active 2018-07 Betsy tion deficit Gait/Locom 08-19 Isaacs problems otion 14:36: [id number] 00 Allergies, Adverse Reactions, Alerts Allergy Name [...] Observation Time Observation Value Comments SYSTOLIC mm[Hg] 2019-06-22 18:09:01 160 mm[Hg] mm[Hg] Method: Sit SYSTOLIC mm[Hg] 2019-06-22 18:09:01 130 mm[Hg] mm[Hg] Method: Stand DIASTOLIC mm[Hg] 2019-06-22 18:09:01 60 mm[Hg] mm[Hg] Method: Sit DIASTOLIC mm[Hg] 2019-06-22 18:09:01 76 mm[Hg] mm[Hg] Method: Stand PULSE 2019-06-22 18:09:01 68 /min /min RESP RATE 2019-06-22 18:09:01 17 /min /min TEMP 2019-06-22 18:09:01 99.3 [degF] Procedures This patient has no known procedures. Results This patient has no known results.
--- OUTSIDE RECORDS SUMMARY | 2019-07-13 23:17 | XMS REPORT ---
:1930 Author Organization [facility] Care Team Providers Name Role Phone Unavailable Unavailable Unavailable Problems Condition Condition Condition Status Onset Resolution Last Treating Comments Name Details Category Date Date Treatment Clinician Date Pain frequent Pain Mgmt Active 2018-07 Breana pain 08-19 (Marina) 08:40: Escobar 00 [id number] Respiratory dyspnea Respirator Active 2018-07 Breana present y 08-19 (Marina) 08:40: Escobar 00 [id number] Sensory impaired Sensory Active 2018-07 Breana hearing 08-19 (Marina) 08:40: Escobar 00 [id number] Integument skin Integument Active 2018-07 Breana integrity 08-19 (Marina) risk 08:40: Escobar 00 [id number] Elimination urinary Eliminatio Active 2018-07 Breana incontinenc n 08-19 (Marina) e 08:40: Escobar 00 [id number] Neuro confusion Neuro/Emot Active 2018-07 Breana present ion 08-19 (Marina) 08:40: Escobar 00 [id number] 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 ion 08-19 (Marina) anatoily 08:40: Escobar 00 [id number] Neuro memory Neuro/Emot Active 2018-07 Breana deficit ion 08-19 (Marina) needing 08:40: Escobar supervision 00 [id number] Activity ADL Activity Active 2018-07 Breana assistance 08-19 (Marina) required 08:40: Escobar 00 [id number] Activity self-care Activity Active 2018-07 Breana deficit 08-19 (Marina) 08:40: Escobar 00 [id number] Safety fall risk Safety Active 2018-07 Breana factor 08-19 (Marina) present 08:40: Escobar 00 [id number] Safety cannot be Safety Active 2018-07 Breana left alone 08-19 (Marina) 08:40: Escobar 00 [id number] Safety risk for Safety Active 2018-07 Breana hospitaliza 08-19 (Marina) tion 08:40: Escobar [id number] Medication oral med Meds Active 2018-07 Breana assistance 08-19 (Marina) required 08:40: Escobar [id number] Musculoskel transfer Musculoske Active 2018-07 Breana etal assistance letal 08-19 (Marina) required 08:40: Escobar [id number] Musculoskel requires Musculoske Active 2018-07 Breana etal human letal 08-19 (Marina) assist to 08:40: Escobar leave home [id number] Safety knowledge/s Safety Active 2018-07 Betsy kill 08-19 Isaacs deficit: pt 14:36: [id number] 00 Bed mobility/tr PT/OT: Bed Active 2018-07 Betsy Mobility/Tr ansfer Mobility/T 08-19 Isaacs ansfer device ransfer 14:36: [id number] present 00 Bed transfer PT/OT: Bed Active 2018-07 Betsy Mobility/Tr deficit: Mobility/T 08-19 Isaacs ansfer sit/stand ransfer 14:36: [id number] 00 Bed transfer PT/OT: Bed Active 2018-07 Betsy Mobility/Tr deficit: Mobility/T 08-19 Isaacs ansfer standing ransfer 14:36: [id number] pivot 00 Bed transfer PT/OT: Bed Active 2018-07 Betsy Mobility/Tr deficit: Mobility/T 08-19 Isaacs ansfer toilet/comm ransfer 14:36: [id number] ode 00 Bed transfer PT/OT: Bed Active 2018-07 Betsy Mobility/Tr deficit: Mobility/T 08-19 Isaacs ansfer shower/tub ransfer 14:36: [id number] 00 Bed bed PT/OT: Bed Active 2018-07 Betsy Mobility/Tr mobility Mobility/T 08-19 Isaacs ansfer deficit ransfer 14:36: [id number] 00 Balance/End balance/cook dinner PT/OT: Active 2018-07 Betsy urance rdination Balance/En 08-19 Isaacs deficit durance 14:36: [id number] 00 Gait/Locomo gait PT/OT: Active 2018-07 Betsy tion assistive Gait/Locom 08-19 Isaacs problems device otion 14:36: [id number] present 00 Gait/Locomo gait PT/OT: Active 2018-07 Betsy tion deficit Gait/Locom 08-19 Isaacs problems otion 14:36: [id number] 00 Allergies, Adverse Reactions, Alerts Allergy Name [...] Observation Time Observation Value Comments SYSTOLIC mm[Hg] 2019-06-26 18:09:05 110 mm[Hg] mm[Hg] Method: Sit SYSTOLIC mm[Hg] 2019-06-22 18:09:01 130 mm[Hg] mm[Hg] Method: Stand DIASTOLIC mm[Hg] 2019-06-26 18:09:05 70 mm[Hg] mm[Hg] Method: Sit DIASTOLIC mm[Hg] 2019-06-22 18:09:01 76 mm[Hg] mm[Hg] Method: Stand PULSE 2019-06-26 18:09:05 68 /min /min RESP RATE 2019-06-22 18:09:01 17 /min /min TEMP 2019-06-26 18:09:05 98.5 [degF] Procedures This patient has no known procedures. Results This patient has no known results.
--- OUTSIDE RECORDS SUMMARY | 2019-07-13 23:17 | XMS REPORT ---
:1930 Author Organization [facility] Care Team Providers Name Role Phone Unavailable Unavailable Unavailable Problems This patient has no known problems. Allergies, Adverse Reactions, Alerts Allergy Name Allergy Status Severity Reaction(s) Onset Inactive Treating Comments Type Date Date Clinician aspirin Base Active Unknown Reaction 2018-07 Andreia Beam Ingredient Unknown 1-20 Dilaudid Medication Active Unknown Reaction 2018-07 Andreia Beam Name ID Unknown 1-20 morphine Base Active Unknown Reaction 2018-07 Andreia Beam Ingredient Unknown 1-20 naproxen Base Active Unknown Reaction 2018-07 Andreia Beam Ingredient Unknown 1-20 Novocain Medication Active Unknown Reaction 2018-07 Andreia Beam Name ID Unknown 1-20 NSAIDS Allergen Active Unknown Reaction 2018-07 Andreia Beam (Non-Steroid Group Unknown 1-20 al Anti-Inflamm atory Drug) Penicillins Allergen Active Unknown Reaction 2018-07 Andreia Beam Group Unknown 1-20 tramadol Base Active Unknown Reaction 2018-07 Andreia Beam Ingredient Unknown 1-20 Medications Ordered Filled Start Stop Current Ordering [...]
--- OUTSIDE RECORDS SUMMARY | 2019-07-13 23:17 | XMS REPORT ---
:1930 Author Organization [facility] Care Team Providers Name Role Phone Unavailable Unavailable Unavailable Problems Condition Condition Condition Status Onset Resolution Last Treating Comments Name Details Category Date Date Treatment Clinician Date Pain frequent Pain Mgmt Active 2018-07 Breana pain 08-19 (Marina) 08:40: Escobar 00 [id number] Respiratory dyspnea Respirator Active 2018-07 Breana present y 08-19 (Marina) 08:40: Escobar 00 [id number] Sensory impaired Sensory Active 2018-07 Breana hearing 08-19 (Marina) 08:40: Escobar 00 [id number] Integument skin Integument Active 2018-07 Breana integrity 08-19 (Marina) risk 08:40: Escobar 00 [id number] Elimination urinary Eliminatio Active 2018-07 Breana incontinenc n 08-19 (Marina) e 08:40: Escobar 00 [id number] Neuro confusion Neuro/Emot Active 2018-07 Breana present ion 08-19 (Marina) 08:40: Escobar 00 [id number] 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 ion 08-19 (Marina) anatoliy 08:40: Escobar 00 [id number] Neuro memory Neuro/Emot Active 2018-07 Breana deficit ion 08-19 (Marina) needing 08:40: Escobar supervision 00 [id number] Activity ADL Activity Active 2018-07 Breana assistance 08-19 (Marina) required 08:40: Escobar 00 [id number] Activity self-care Activity Active 2018-07 Breana deficit 08-19 (Marina) 08:40: Escobar 00 [id number] Safety fall risk Safety Active 2018-07 Breana factor 08-19 (Marina) present 08:40: Escobar 00 [id number] Safety cannot be Safety Active 2018-07 Breana left alone 08-19 (Marina) 08:40: Escobar 00 [id number] Safety risk for Safety Active 2018-07 Breana hospitaliza 08-19 (Marina) tion 08:40: Escobar [id number] Medication oral med Meds Active 2018-07 Breana assistance 08-19 (Marina) required 08:40: Escobar [id number] Musculoskel transfer Musculoske Active 2018-07 Breana etal assistance letal 08-19 (Marina) required 08:40: Escobar [id number] Musculoskel requires Musculoske Active 2018-07 Breana etal human letal 08-19 (Marina) assist to 08:40: Escobar leave home [id number] Safety knowledge/s Safety Active 2018-07 Betsy kill 08-19 Isaacs deficit: pt 14:36: [id number] 00 Bed mobility/tr PT/OT: Bed Active 2018-07 Betsy Mobility/Tr ansfer Mobility/T 08-19 Isaacs ansfer device ransfer 14:36: [id number] present 00 Bed transfer PT/OT: Bed Active 2018-07 Betsy Mobility/Tr deficit: Mobility/T 08-19 Isaacs ansfer sit/stand ransfer 14:36: [id number] 00 Bed transfer PT/OT: Bed Active 2018-07 Betsy Mobility/Tr deficit: Mobility/T 08-19 Isaacs ansfer standing ransfer 14:36: [id number] pivot 00 Bed transfer PT/OT: Bed Active 2018-07 Betsy Mobility/Tr deficit: Mobility/T 08-19 Isaacs ansfer toilet/comm ransfer 14:36: [id number] ode 00 Bed transfer PT/OT: Bed Active 2018-07 Betsy Mobility/Tr deficit: Mobility/T 08-19 Isaacs ansfer shower/tub ransfer 14:36: [id number] 00 Bed bed PT/OT: Bed Active 2018-07 Betsy Mobility/Tr mobility Mobility/T 08-19 Isaacs ansfer deficit ransfer 14:36: [id number] 00 Balance/End balance/content coordinator PT/OT: Active 2018-07 Betsy urance rdination Balance/En 08-19 Isaacs deficit durance 14:36: [id number] 00 Gait/Locomo gait PT/OT: Active 2018-07 Betsy tion assistive Gait/Locom 08-19 Isaacs problems device otion 14:36: [id number] present 00 Gait/Locomo gait PT/OT: Active 2018-07 Betsy tion deficit Gait/Locom 08-19 Isaacs problems otion 14:36: [id number] 00 Allergies, Adverse Reactions, Alerts Allergy Name [...]
--- OUTSIDE RECORDS SUMMARY | 2019-07-13 23:17 | XMS REPORT ---
:1930 Author Organization [facility] Care Team Providers Name Role Phone Unavailable Unavailable Unavailable Problems Condition Condition Condition Status Onset Resolution Last Treating Comments Name Details Category Date Date Treatment Clinician Date Pain frequent Pain Mgmt Active 2018-07 Breana pain 08-19 (Marina) 08:40: Escobar 00 [id number] Respiratory dyspnea Respirator Active 2018-07 Breana present y 08-19 (Marina) 08:40: Escobar 00 [id number] Sensory impaired Sensory Active 2018-07 Breana hearing 08-19 (Marina) 08:40: Escobar 00 [id number] Integument skin Integument Active 2018-07 Breana integrity 08-19 (Marina) risk 08:40: Escobar 00 [id number] Elimination urinary Eliminatio Active 2018-07 Breana incontinenc n 08-19 (Marina) e 08:40: Escobar 00 [id number] Neuro confusion Neuro/Emot Active 2018-07 Breana present ion 08-19 (Marina) 08:40: Escobar 00 [id number] 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 ion 08-19 (Marina) anatoliy 08:40: Escobar 00 [id number] Neuro memory Neuro/Emot Active 2018-07 Breana deficit ion 08-19 (Marina) needing 08:40: Escobar supervision 00 [id number] Activity ADL Activity Active 2018-07 Breana assistance 08-19 (Marina) required 08:40: Escobar 00 [id number] Activity self-care Activity Active 2018-07 Breana deficit 08-19 (Marina) 08:40: Escobar 00 [id number] Safety fall risk Safety Active 2018-07 Breana factor 08-19 (Marina) present 08:40: Escobar 00 [id number] Safety cannot be Safety Active 2018-07 Breana left alone 08-19 (Marina) 08:40: Escobar 00 [id number] Safety risk for Safety Active 2018-07 Breana hospitaliza 08-19 (Marina) tion 08:40: Escobar [id number] Medication oral med Meds Active 2018-07 Breana assistance 08-19 (Marina) required 08:40: Escobar [id number] Musculoskel transfer Musculoske Active 2018-07 Breana etal assistance letal 08-19 (Marina) required 08:40: Escobar [id number] Musculoskel requires Musculoske Active 2018-07 Breana etal human letal 08-19 (Marina) assist to 08:40: Escobar leave home [id number] Safety knowledge/s Safety Active 2018-07 Betsy kill 08-19 Isaacs deficit: pt 14:36: [id number] 00 Bed mobility/tr PT/OT: Bed Active 2018-07 Betsy Mobility/Tr ansfer Mobility/T 08-19 Isaacs ansfer device ransfer 14:36: [id number] present 00 Bed transfer PT/OT: Bed Active 2018-07 Betsy Mobility/Tr deficit: Mobility/T 08-19 Isaacs ansfer sit/stand ransfer 14:36: [id number] 00 Bed transfer PT/OT: Bed Active 2018-07 Betsy Mobility/Tr deficit: Mobility/T 08-19 Isaacs ansfer standing ransfer 14:36: [id number] pivot 00 Bed transfer PT/OT: Bed Active 2018-07 Betsy Mobility/Tr deficit: Mobility/T 08-19 Isaacs ansfer toilet/comm ransfer 14:36: [id number] ode 00 Bed transfer PT/OT: Bed Active 2018-07 Betsy Mobility/Tr deficit: Mobility/T 08-19 Isaacs ansfer shower/tub ransfer 14:36: [id number] 00 Bed bed PT/OT: Bed Active 2018-07 Betsy Mobility/Tr mobility Mobility/T 08-19 Isaacs ansfer deficit ransfer 14:36: [id number] 00 Balance/End balance/vocational coordinator PT/OT: Active 2018-07 Betsy urance rdination Balance/En 08-19 Isaacs deficit durance 14:36: [id number] 00 Gait/Locomo gait PT/OT: Active 2018-07 Betsy tion assistive Gait/Locom 08-19 Isaacs problems device otion 14:36: [id number] present 00 Gait/Locomo gait PT/OT: Active 2018-07 Betsy tion deficit Gait/Locom 08-19 Isaacs problems otion 14:36: [id number] 00 Allergies, Adverse Reactions, Alerts Allergy Name [...] Observation Time Observation Value Comments SYSTOLIC mm[Hg] 2019-07-03 18:09:12 110 mm[Hg] mm[Hg] Method: Sit SYSTOLIC mm[Hg] 2019-06-22 18:09:01 130 mm[Hg] mm[Hg] Method: Stand DIASTOLIC mm[Hg] 2019-07-03 18:09:12 70 mm[Hg] mm[Hg] Method: Sit DIASTOLIC mm[Hg] 2019-06-22 18:09:01 76 mm[Hg] mm[Hg] Method: Stand PULSE 2019-07-03 18:09:12 72 /min /min RESP RATE 2019-06-22 18:09:01 17 /min /min TEMP 2019-07-03 18:09:12 98.2 [degF] Procedures This patient has no known procedures. Results This patient has no known results.
--- OUTSIDE RECORDS SUMMARY | 2019-07-13 23:17 | XMS REPORT ---
:1930 Author Organization [facility] Care Team Providers Name Role Phone Unavailable Unavailable Unavailable Problems Condition Condition Condition Status Onset Resolution Last Treating Comments Name Details Category Date Date Treatment Clinician Date Pain frequent Pain Mgmt Active 2018-07 Breana pain 08-19 (Marina) 08:40: Escobar 00 [id number] Respiratory dyspnea Respirator Active 2018-07 Breana present y 08-19 (Marina) 08:40: Escobar 00 [id number] Sensory impaired Sensory Active 2018-07 Breana hearing 08-19 (Marina) 08:40: Escobar 00 [id number] Integument skin Integument Active 2018-07 Breana integrity 08-19 (Marina) risk 08:40: Escobar 00 [id number] Elimination urinary Eliminatio Active 2018-07 Breana incontinenc n 08-19 (Marina) e 08:40: Escobar 00 [id number] Neuro confusion Neuro/Emot Active 2018-07 Breana present ion 08-19 (Marina) 08:40: Escobar 00 [id number] 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 ion 08-19 (Marina) anatoliy 08:40: Escobar 00 [id number] Neuro memory Neuro/Emot Active 2018-07 Breana deficit ion 08-19 (Marina) needing 08:40: Escobar supervision 00 [id number] Activity ADL Activity Active 2018-07 Breana assistance 08-19 (Marina) required 08:40: Escobar 00 [id number] Activity self-care Activity Active 2018-07 Breana deficit 08-19 (Marina) 08:40: Escobar 00 [id number] Safety fall risk Safety Active 2018-07 Breana factor 08-19 (Marina) present 08:40: Escobar 00 [id number] Safety cannot be Safety Active 2018-07 Breana left alone 08-19 (Marina) 08:40: Escobar 00 [id number] Safety risk for Safety Active 2018-07 Breana hospitaliza 08-19 (Marina) tion 08:40: Escobar [id number] Medication oral med Meds Active 2018-07 Breana assistance 08-19 (Marina) required 08:40: Escobar [id number] Musculoskel transfer Musculoske Active 2018-07 Breana etal assistance letal 08-19 (Marina) required 08:40: Escobar [id number] Musculoskel requires Musculoske Active 2018-07 Breana etal human letal 08-19 (Marina) assist to 08:40: Escobar leave home [id number] Safety knowledge/s Safety Active 2018-07 Betsy kill 08-19 Isaacs deficit: pt 14:36: [id number] 00 Bed mobility/tr PT/OT: Bed Active 2018-07 Betsy Mobility/Tr ansfer Mobility/T 08-19 Isaacs ansfer device ransfer 14:36: [id number] present 00 Bed transfer PT/OT: Bed Active 2018-07 Betsy Mobility/Tr deficit: Mobility/T 08-19 Isaacs ansfer sit/stand ransfer 14:36: [id number] 00 Bed transfer PT/OT: Bed Active 2018-07 Betsy Mobility/Tr deficit: Mobility/T 08-19 Isaacs ansfer standing ransfer 14:36: [id number] pivot 00 Bed transfer PT/OT: Bed Active 2018-07 Betsy Mobility/Tr deficit: Mobility/T 08-19 Isaacs ansfer toilet/comm ransfer 14:36: [id number] ode 00 Bed transfer PT/OT: Bed Active 2018-07 Betsy Mobility/Tr deficit: Mobility/T 08-19 Isaacs ansfer shower/tub ransfer 14:36: [id number] 00 Bed bed PT/OT: Bed Active 2018-07 Betsy Mobility/Tr mobility Mobility/T 08-19 Isaacs ansfer deficit ransfer 14:36: [id number] 00 Balance/End balance/client services coordinator PT/OT: Active 2018-07 Betsy urance rdination Balance/En 08-19 Isaacs deficit durance 14:36: [id number] 00 Gait/Locomo gait PT/OT: Active 2018-07 Betsy tion assistive Gait/Locom 08-19 Isaacs problems device otion 14:36: [id number] present 00 Gait/Locomo gait PT/OT: Active 2018-07 Betsy tion deficit Gait/Locom 08-19 Isaacs problems otion 14:36: [id number] 00 Allergies, Adverse Reactions, Alerts Allergy Name [...] Unknown mg tablet mg tablet 08-19 Noel CUNINNGHAM pher M methylcellu methylcellu 2018-07 Yes Anatoliy [...] Observation Time Observation Value Comments SYSTOLIC mm[Hg] 2019-06-30 18:09:09 130 mm[Hg] mm[Hg] Method: Sit SYSTOLIC mm[Hg] 2019-06-22 18:09:01 130 mm[Hg] mm[Hg] Method: Stand DIASTOLIC mm[Hg] 2019-06-30 18:09:09 70 mm[Hg] mm[Hg] Method: Sit DIASTOLIC mm[Hg] 2019-06-22 18:09:01 76 mm[Hg] mm[Hg] Method: Stand PULSE 2019-06-30 18:09:09 72 /min /min RESP RATE 2019-06-22 18:09:01 17 /min /min TEMP 2019-06-30 18:09:09 98.5 [degF] Procedures This patient has no known procedures. Results This patient has no known results.
--- OUTSIDE RECORDS SUMMARY | 2019-07-13 23:17 | XMS REPORT ---
:1930 Author Organization [facility] Care Team Providers Name Role Phone Unavailable Unavailable Unavailable Problems Condition Condition Condition Status Onset Resolution Last Treating Comments Name Details Category Date Date Treatment Clinician Date Pain frequent Pain Mgmt Active 2018-07 Breana pain 08-19 (Marina) 08:40: Escobar 00 [id number] Respiratory dyspnea Respirator Active 2018-07 Breana present y 08-19 (Marina) 08:40: Escobar 00 [id number] Sensory impaired Sensory Active 2018-07 Breana hearing 08-19 (Marina) 08:40: Escobar 00 [id number] Integument skin Integument Active 2018-07 Breana integrity 08-19 (Marina) risk 08:40: Escobar 00 [id number] Elimination urinary Eliminatio Active 2018-07 Breana incontinenc n 08-19 (Marina) e 08:40: Escobar 00 [id number] Neuro confusion Neuro/Emot Active 2018-07 Breana present ion 08-19 (Marina) 08:40: Escobar 00 [id number] 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 ion 08-19 (Marina) anatoliy 08:40: Escobar 00 [id number] Neuro memory Neuro/Emot Active 2018-07 Breana deficit ion 08-19 (Marina) needing 08:40: Escobar supervision 00 [id number] Activity ADL Activity Active 2018-07 Breana assistance 08-19 (Marina) required 08:40: Escobar 00 [id number] Activity self-care Activity Active 2018-07 Breana deficit 08-19 (Marina) 08:40: Escobar 00 [id number] Safety fall risk Safety Active 2018-07 Breana factor 08-19 (Marina) present 08:40: Escobar 00 [id number] Safety cannot be Safety Active 2018-07 Breana left alone 08-19 (Marina) 08:40: Escobar 00 [id number] Safety risk for Safety Active 2018-07 Breana hospitaliza 08-19 (Marina) tion 08:40: Escobar [id number] Medication oral med Meds Active 2018-07 Breana assistance 08-19 (Marina) required 08:40: Escobar [id number] Musculoskel transfer Musculoske Active 2018-07 Breana etal assistance letal 08-19 (Marina) required 08:40: Escobar [id number] Musculoskel requires Musculoske Active 2018-07 Breana etal human letal 08-19 (Marina) assist to 08:40: Escobar leave home [id number] Safety knowledge/s Safety Active 2018-07 Betsy kill 08-19 Isaacs deficit: pt 14:36: [id number] 00 Bed mobility/tr PT/OT: Bed Active 2018-07 Betsy Mobility/Tr ansfer Mobility/T 08-19 Isaacs ansfer device ransfer 14:36: [id number] present 00 Bed transfer PT/OT: Bed Active 2018-07 Betsy Mobility/Tr deficit: Mobility/T 08-19 Isaacs ansfer sit/stand ransfer 14:36: [id number] 00 Bed transfer PT/OT: Bed Active 2018-07 Betsy Mobility/Tr deficit: Mobility/T 08-19 Isaacs ansfer standing ransfer 14:36: [id number] pivot 00 Bed transfer PT/OT: Bed Active 2018-07 Betsy Mobility/Tr deficit: Mobility/T 08-19 Isaacs ansfer toilet/comm ransfer 14:36: [id number] ode 00 Bed transfer PT/OT: Bed Active 2018-07 Betsy Mobility/Tr deficit: Mobility/T 08-19 Isaacs ansfer shower/tub ransfer 14:36: [id number] 00 Bed bed PT/OT: Bed Active 2018-07 Betsy Mobility/Tr mobility Mobility/T 08-19 Isaacs ansfer deficit ransfer 14:36: [id number] 00 Balance/End balance/clinical rehabilitation coordinator PT/OT: Active 2018-07 Betsy urance rdination Balance/En 08-19 Isaacs deficit durance 14:36: [id number] 00 Gait/Locomo gait PT/OT: Active 2018-07 Betsy tion assistive Gait/Locom 08-19 Isaacs problems device otion 14:36: [id number] present 00 Gait/Locomo gait PT/OT: Active 2018-07 Betsy tion deficit Gait/Locom 08-19 Isaacs problems otion 14:36: [id number] 00 Allergies, Adverse Reactions, Alerts Allergy Name [...]
--- OUTSIDE RECORDS SUMMARY | 2019-07-13 23:17 | XMS REPORT ---
:1930 Author Organization [facility] Care Team Providers Name Role Phone Unavailable Unavailable Unavailable Problems Condition Condition Condition Status Onset Resolution Last Treating Comments Name Details Category Date Date Treatment Clinician Date Pain frequent Pain Mgmt Active 2018-07 Breana pain 08-19 (Marina) 08:40: Escobar 00 [id number] Respiratory dyspnea Respirator Active 2018-07 Breana present y 08-19 (Marina) 08:40: Escobar 00 [id number] Sensory impaired Sensory Active 2018-07 Breana hearing 08-19 (Marina) 08:40: Escobar 00 [id number] Integument skin Integument Active 2018-07 Breana integrity 08-19 (Marina) risk 08:40: Escobar 00 [id number] Elimination urinary Eliminatio Active 2018-07 Breana incontinenc n 08-19 (Marina) e 08:40: Escobar 00 [id number] Neuro confusion Neuro/Emot Active 2018-07 Breana present ion 08-19 (Marina) 08:40: Escobar 00 [id number] 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 ion 08-19 (Marina) anatoliy 08:40: Escobar 00 [id number] Neuro memory Neuro/Emot Active 2018-07 Breana deficit ion 08-19 (Marina) needing 08:40: Escobar supervision 00 [id number] Activity ADL Activity Active 2018-07 Breana assistance 08-19 (Marina) required 08:40: Escobar 00 [id number] Activity self-care Activity Active 2018-07 Breana deficit 08-19 (Marina) 08:40: Escobar 00 [id number] Safety fall risk Safety Active 2018-07 Breana factor 08-19 (Marina) present 08:40: Escobar 00 [id number] Safety cannot be Safety Active 2018-07 Breana left alone 08-19 (Marina) 08:40: Escobar 00 [id number] Safety risk for Safety Active 2018-07 Breana hospitaliza 08-19 (Marina) tion 08:40: Escobar [id number] Medication oral med Meds Active 2018-07 Breana assistance 08-19 (Marina) required 08:40: Escobar [id number] Musculoskel transfer Musculoske Active 2018-07 Breana etal assistance letal 08-19 (Marina) required 08:40: Escobar [id number] Musculoskel requires Musculoske Active 2018-07 Breana etal human letal 08-19 (Marina) assist to 08:40: Escobar leave home [id number] Safety knowledge/s Safety Active 2018-07 Betsy kill 08-19 Isaacs deficit: pt 14:36: [id number] 00 Bed mobility/tr PT/OT: Bed Active 2018-07 Betsy Mobility/Tr ansfer Mobility/T 08-19 Isaacs ansfer device ransfer 14:36: [id number] present 00 Bed transfer PT/OT: Bed Active 2018-07 Betsy Mobility/Tr deficit: Mobility/T 08-19 Isaacs ansfer sit/stand ransfer 14:36: [id number] 00 Bed transfer PT/OT: Bed Active 2018-07 Betsy Mobility/Tr deficit: Mobility/T 08-19 Isaacs ansfer standing ransfer 14:36: [id number] pivot 00 Bed transfer PT/OT: Bed Active 2018-07 Betsy Mobility/Tr deficit: Mobility/T 08-19 Isaacs ansfer toilet/comm ransfer 14:36: [id number] ode 00 Bed transfer PT/OT: Bed Active 2018-07 Betsy Mobility/Tr deficit: Mobility/T 08-19 Isaacs ansfer shower/tub ransfer 14:36: [id number] 00 Bed bed PT/OT: Bed Active 2018-07 Betsy Mobility/Tr mobility Mobility/T 08-19 Isaacs ansfer deficit ransfer 14:36: [id number] 00 Balance/End balance/emergency response coordinator PT/OT: Active 2018-07 Betsy urance rdination Balance/En 08-19 Isaacs deficit durance 14:36: [id number] 00 Gait/Locomo gait PT/OT: Active 2018-07 Betsy tion assistive Gait/Locom 08-19 Isaacs problems device otion 14:36: [id number] present 00 Gait/Locomo gait PT/OT: Active 2018-07 Betsy tion deficit Gait/Locom 08-19 Isaacs problems otion 14:36: [id number] 00 Allergies, Adverse Reactions, Alerts Allergy Name [...]
--- OUTSIDE RECORDS SUMMARY | 2019-07-13 23:17 | XMS REPORT ---
:1930 Author Organization [facility] Care Team Providers Name Role Phone Unavailable [...] Medications For This For This Patient Patient Procedures This patient has no known procedures. Results This patient has no known results.
--- OUTSIDE RECORDS SUMMARY | 2019-07-13 23:17 | XMS REPORT ---
:1930 Author Organization [facility] Care Team Providers Name Role Phone Unavailable Unavailable Unavailable Problems Condition Condition Condition Status Onset Resolution Last Treating Comments Name Details Category Date Date Treatment Clinician Date Pain frequent Pain Mgmt Active 2018-07 Breana pain 08-19 (Marian) 08:40: Escobar 00 [id number] Respiratory dyspnea Respirator Active 2018-07 Breana present y 08-19 (Marina) 08:40: Escobar 00 [id number] Sensory impaired Sensory Active 2018-07 Breana hearing 08-19 (Marina) 08:40: Escobar 00 [id number] Integument skin Integument Active 2018-07 Breana integrity 08-19 (Marina) risk 08:40: Escobar 00 [id number] Elimination urinary Eliminatio Active 2018-07 Breana incontinenc n 08-19 (Marina) e 08:40: Escobar 00 [id number] Neuro confusion Neuro/Emot Active 2018-07 Breana present ion 08-19 (Marina) 08:40: Escobar 00 [id number] 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 ion 08-19 (Marina) anatoliy 08:40: Escobar 00 [id number] Neuro memory Neuro/Emot Active 2018-07 Breana deficit ion 08-19 (Marina) needing 08:40: Escobar supervision 00 [id number] Activity ADL Activity Active 2018-07 Breana assistance 08-19 (Marina) required 08:40: Escobar 00 [id number] Activity self-care Activity Active 2018-07 Breana deficit 08-19 (Marina) 08:40: Escobar 00 [id number] Safety fall risk Safety Active 2018-07 Breana factor 08-19 (Marina) present 08:40: Escobar 00 [id number] Safety cannot be Safety Active 2018-07 Breana left alone 08-19 (Marina) 08:40: Escobar 00 [id number] Safety risk for Safety Active 2018-07 Breana hospitaliza 08-19 (Marina) tion 08:40: Escobar [id number] Medication oral med Meds Active 2018-07 Breana assistance 08-19 (Marina) required 08:40: Escobar [id number] Musculoskel transfer Musculoske Active 2018-07 Breana etal assistance letal 08-19 (Marina) required 08:40: Escobar [id number] Musculoskel requires Musculoske Active 2018-07 Breana etal human letal 08-19 (Marina) assist to 08:40: Escobar leave home [id number] Safety knowledge/s Safety Active 2018-07 Betsy kill 08-19 Isaacs deficit: pt 14:36: [id number] Bed mobility/tr PT/OT: Bed Active 2018-07 Betsy Mobility/Tr ansfer Mobility/T 08-19 Isaacs ansfer device ransfer 14:36: [id number] present 00 Bed transfer PT/OT: Bed Active 2018-07 Betsy Mobility/Tr deficit: Mobility/T 08-19 Isaacs ansfer sit/stand ransfer 14:36: [id number] Bed transfer PT/OT: Bed Active 2018-07 Betsy Mobility/Tr deficit: Mobility/T 08-19 Isaacs ansfer standing ransfer 14:36: [id number] pivot 00 Bed transfer PT/OT: Bed Active 2018-07 Betsy Mobility/Tr deficit: Mobility/T 08-19 Isaacs ansfer toilet/comm ransfer 14:36: [id number] ode 00 Bed transfer PT/OT: Bed Active 2018-07 Betsy Mobility/Tr deficit: Mobility/T 08-19 Isaacs ansfer shower/tub ransfer 14:36: [id number] Bed bed PT/OT: Bed Active 2018-07 Betsy Mobility/Tr mobility Mobility/T 08-19 Isaacs ansfer deficit ransfer 14:36: [id number] 00 Balance/End balance/agency service coordinator PT/OT: Active 2018-07 Betsy urance rdination Balance/En 08-19 Isaacs deficit durance 14:36: [id number] 00 Gait/Locomo gait PT/OT: Active 2018-07 Betsy tion assistive Gait/Locom 08-19 Isaacs problems device otion 14:36: [id number] present 00 Gait/Locomo gait PT/OT: Active 2018-07 Betsy tion deficit Gait/Locom 08-19 Isaacs problems otion 14:36: [id number] 00 Allergies, Adverse Reactions, Alerts Allergy Name [...]
--- OUTSIDE RECORDS SUMMARY | 2019-07-13 23:17 | XMS REPORT ---
:1930 Author Organization [facility] Care Team Providers Name Role Phone Unavailable Unavailable Unavailable Problems Condition Condition Condition Status Onset Resolution Last Treating Comments Name Details Category Date Date Treatment Clinician Date Safety knowledge/s Safety Active 2018-07 Betsy kill 08-19 Isaacs deficit: pt 14:36: [id number] Allergies, Adverse Reactions, Alerts Allergy Name [...] Reaction 2018-07 Andreia Beam (Non-Steroid Group Unknown -20 al Anti-Inflamm atory Drug) Penicillins Allergen Active [...]
--- OUTSIDE RECORDS SUMMARY | 2019-07-13 23:17 | XMS REPORT ---
:1930 Author Organization [facility] Care Team Providers Name Role Phone Unavailable Unavailable Unavailable Problems Condition Condition Condition Status Onset Resolution Last Treating Comments Name Details Category Date Date Treatment Clinician Date Pain frequent Pain Mgmt Active 2018-07 Breana pain 08-19 (Marina) 08:40: Escobar 00 [id number] Respiratory dyspnea Respirator Active 2018-07 Breana present y 08-19 (Marina) 08:40: Escobar 00 [id number] Sensory impaired Sensory Active 2018-07 Breana hearing 08-19 (Marina) 08:40: Escobar 00 [id number] Integument skin Integument Active 2018-07 Breana integrity 08-19 (Marina) risk 08:40: Escobar 00 [id number] Elimination urinary Eliminatio Active 2018-07 Berana incontinenc n 08-19 (Marina) e 08:40: Escobar 00 [id number] Neuro confusion Neuro/Emot Active 2018-07 Breana present ion 08-19 (Marina) 08:40: Escobar 00 [id number] 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 ion 08-19 (Marina) anatoliy 08:40: Escobar 00 [id number] Neuro memory Neuro/Emot Active 2018-07 Breana deficit ion 08-19 (Marina) needing 08:40: Escobar supervision 00 [id number] Activity ADL Activity Active 2018-07 Breana assistance 08-19 (Marina) required 08:40: Escobar 00 [id number] Activity self-care Activity Active 2018-07 Breana deficit 08-19 (Marina) 08:40: Escobar 00 [id number] Safety fall risk Safety Active 2018-07 Breana factor 08-19 (Marina) present 08:40: Escobar 00 [id number] Safety cannot be Safety Active 2018-07 Breana left alone 08-19 (Marina) 08:40: Escobar 00 [id number] Safety risk for Safety Active 2018-07 Breana hospitaliza 08-19 (Marina) tion 08:40: Escobar [id number] Medication oral med Meds Active 2018-07 Breana assistance 08-19 (Marina) required 08:40: Escobar [id number] Musculoskel transfer Musculoske Active 2018-07 Breana etal assistance letal 08-19 (Marina) required 08:40: Escobar [id number] Musculoskel requires Musculoske Active 2018-07 Breana etal human letal 08-19 (Marina) assist to 08:40: Escobar leave home [id number] Safety knowledge/s Safety Active 2018-07 Betsy kill 08-19 Isaacs deficit: pt 14:36: [id number] 00 Bed mobility/tr PT/OT: Bed Active 2018-07 Betsy Mobility/Tr ansfer Mobility/T 08-19 Isaacs ansfer device ransfer 14:36: [id number] present 00 Bed transfer PT/OT: Bed Active 2018-07 Betsy Mobility/Tr deficit: Mobility/T 08-19 Isaacs ansfer sit/stand ransfer 14:36: [id number] 00 Bed transfer PT/OT: Bed Active 2018-07 Betsy Mobility/Tr deficit: Mobility/T 08-19 Isaacs ansfer standing ransfer 14:36: [id number] pivot 00 Bed transfer PT/OT: Bed Active 2018-07 Betsy Mobility/Tr deficit: Mobility/T 08-19 Isaacs ansfer toilet/comm ransfer 14:36: [id number] ode 00 Bed transfer PT/OT: Bed Active 2018-07 Betsy Mobility/Tr deficit: Mobility/T 08-19 Isaacs ansfer shower/tub ransfer 14:36: [id number] 00 Bed bed PT/OT: Bed Active 2018-07 Betsy Mobility/Tr mobility Mobility/T 08-19 Isaacs ansfer deficit ransfer 14:36: [id number] Balance/End balance/community outreach coordinator PT/OT: Active 2018-07 Betsy urance rdination Balance/En 08-19 Isaacs deficit durance 14:36: [id number] 00 Gait/Locomo gait PT/OT: Active 2018-07 Betsy tion assistive Gait/Locom 08-19 Isaacs problems device otion 14:36: [id number] present 00 Gait/Locomo gait PT/OT: Active 2018-07 Betsy tion deficit Gait/Locom 08-19 Isaacs problems otion 14:36: [id number] 00 Allergies, Adverse Reactions, Alerts Allergy Name [...]
--- OUTSIDE RECORDS SUMMARY | 2019-07-13 23:17 | XMS REPORT ---
:1930 Author Organization [facility] Care Team Providers Name Role Phone Unavailable Unavailable Unavailable Problems Condition Condition Condition Status Onset Resolution Last Treating Comments Name Details Category Date Date Treatment Clinician Date Pain frequent Pain Mgmt Active 2018-07 Breana pain 08-19 (Marina) 08:40: Escobar 00 [id number] Respiratory dyspnea Respirator Active 2018-07 Breana present y 08-19 (Marina) 08:40: Escobar 00 [id number] Sensory impaired Sensory Active 2018-07 Breana hearing 08-19 (Marina) 08:40: Escobar 00 [id number] Integument skin Integument Active 2018-07 Breana integrity 08-19 (Marina) risk 08:40: Escobar 00 [id number] Elimination urinary Eliminatio Active 2018-07 Breana incontinenc n 08-19 (Marina) e 08:40: Escobar 00 [id number] Neuro confusion Neuro/Emot Active 2018-07 Breana present ion 08-19 (Marina) 08:40: Escobar 00 [id number] 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 ion 08-19 (Marina) anatoliy 08:40: Escobar 00 [id number] Neuro memory Neuro/Emot Active 2018-07 Breana deficit ion 08-19 (Marina) needing 08:40: Escobar supervision 00 [id number] Activity ADL Activity Active 2018-07 Breana assistance 08-19 (Marina) required 08:40: Escobar 00 [id number] Activity self-care Activity Active 2018-07 Breana deficit 08-19 (Marina) 08:40: Escobar 00 [id number] Safety fall risk Safety Active 2018-07 Breana factor 08-19 (Marina) present 08:40: Escobar 00 [id number] Safety cannot be Safety Active 2018-07 Breana left alone 08-19 (Marina) 08:40: Escobar 00 [id number] Safety risk for Safety Active 2018-07 Breana hospitaliza 08-19 (Marina) tion 08:40: Escobar [id number] Medication oral med Meds Active 2018-07 Breana assistance 08-19 (Marina) required 08:40: Escobar [id number] Musculoskel transfer Musculoske Active 2018-07 Breana etal assistance letal 08-19 (Marina) required 08:40: Escobar [id number] Musculoskel requires Musculoske Active 2018-07 Breana etal human letal 08-19 (Marina) assist to 08:40: Escobar leave home [id number] Safety knowledge/s Safety Active 2018-07 Betsy kill 08-19 Isaacs deficit: pt 14:36: [id number] 00 Bed mobility/tr PT/OT: Bed Active 2018-07 Betsy Mobility/Tr ansfer Mobility/T 08-19 Isaacs ansfer device ransfer 14:36: [id number] present 00 Bed transfer PT/OT: Bed Active 2018-07 Betsy Mobility/Tr deficit: Mobility/T 08-19 Isaacs ansfer sit/stand ransfer 14:36: [id number] 00 Bed transfer PT/OT: Bed Active 2018-07 Betsy Mobility/Tr deficit: Mobility/T 08-19 Isaacs ansfer standing ransfer 14:36: [id number] pivot 00 Bed transfer PT/OT: Bed Active 2018-07 Betsy Mobility/Tr deficit: Mobility/T 08-19 Isaacs ansfer toilet/comm ransfer 14:36: [id number] ode 00 Bed transfer PT/OT: Bed Active 2018-07 Betsy Mobility/Tr deficit: Mobility/T 08-19 Isaacs ansfer shower/tub ransfer 14:36: [id number] 00 Bed bed PT/OT: Bed Active 2018-07 Betsy Mobility/Tr mobility Mobility/T 08-19 Isaacs ansfer deficit ransfer 14:36: [id number] 00 Balance/End balance/import coordination and production head PT/OT: Active 2018-07 Betsy urance rdination Balance/En 08-19 Isaacs deficit durance 14:36: [id number] 00 Gait/Locomo gait PT/OT: Active 2018-07 Betsy tion assistive Gait/Locom 08-19 Isaacs problems device otion 14:36: [id number] present 00 Gait/Locomo gait PT/OT: Active 2018-07 Betsy tion deficit Gait/Locom 08-19 Isaacs problems otion 14:36: [id number] 00 Allergies, Adverse Reactions, Alerts Allergy Name [...]
--- OUTSIDE RECORDS SUMMARY | 2019-07-13 23:17 | XMS REPORT | Continuity of Care Document ---
:1930 External Reference #:[id number] Author Name Dell Cope M.D. (transmitted by agent of provider Nikki Xavier) Address [address], [address] Unavailable [place] [id number] Care Team Providers Name Role Phone Other Physician Practices Care Team Information Quality Control Representative Unavailable Marcel Salinas D.O. - Family Medicine Care Team Information Quality Control Representative Problems Active Problems Provider Date Abnormal involuntary movement Dell Cope M.D. Onset: 2019 Amnesia Dell Cope M.D. Onset: 2019 Social History Type Date Description Comments Sex Female ETOH Use Denies alcohol use Tobacco Use Start: Unknown End: Unknown Patient is a former smoker Recreational Drug Use Denies Drug Use Smoking Status Reviewed: 06/16/19 Patient is a former smoker Allergies, Adverse Reactions, Alerts Active Allergies Reaction Severity Comments Date Aspirin 04/25/2019 Dilaudid 04/25/2019 Morphine 04/25/2019 Naproxen 04/25/2019 Novocaine 04/25/2019 NSAIDS 04/25/2019 Penicillin 04/25/2019 Tramadol 04/25/2019 Medications Active Medications SIG Qnty Indications Ordering Provider Date Donepezil HCL 1 by mouth 30tabs R41.3 Dell Cope, 2019 10mg Tablets every day M.D. Tylenol 8 Hour 1 by mouth Unknown 650mg three times a Tablets ER day as needed for pain Calcium one by mouth Unknown Carb-Cholecalciferol twice daily [id number] Tablets Citalopram Hydrobromide 1 by mouth Unknown every day 20mg Tablets Restasis Unknown 0.05% Emulsion Ferrous Fumarate 1 tab by mouth Unknown 324(106Fe) a day mg Tablets Latanoprost 1 drop at Unknown 0.005% Solution bedtime Imodium A-D take 1 tablets Unknown 2mg Capsules as needed Melatonin take 6 mg at Unknown 1mg Capsules bedtime as needed Methylcellulose take 1 packet Unknown Powder twice daily Lopressor take 1 tab Unknown 50mg Tablets twice daily Omeprazole 1 by mouth Unknown 40mg Capsules DR every day Rivastigmine Tartrate 1 by mouth Unknown 1.5mg twice a day Capsules History Medications Donepezil HCL 1 tablet twice 60tabs R41.3 Dell Cope, 2019 - 5mg a day M.D. 2019 Tablets Immunizations Description No Information Available Vital Signs Date Vital Result Comment 2019 3:40pm Height 62 inches 5'2" Weight 153.00 lb Heart Rate 73 /min BP Systolic 102 mmHg BP Diastolic 66 mmHg BMI (Body Mass Index) 28.0 kg/m2 04/25/2019 1:47pm Height 62 inches 5'2" Weight 157.00 lb Heart Rate 74 /min BP Systolic Sitting 120 mmHg BP Diastolic Sitting 62 mmHg Respiratory Rate 18 /min BMI (Body Mass Index) 28.7 kg/m2 Results Test Acquired Date Facility Test Result H/L Range Note CBC Auto 04/25/2019 [facility] White Blood 4.0 10^3/uL Normal 3.5-10.[address] [place] [address] [phone] Red Blood Count 3.76 10^6/uL Normal 3.70-4.87 Hemoglobin 12.0 g/dL Normal 12.0-16.0 Hematocrit 35 % Normal 35-47 Mean Corpuscular Volume 94 fL Normal 80-97 Mean Corpuscular Hemoglobin 32 pg High 27-31 Mean Corpuscular HGB Conc 34 g/dL Normal 31-36 Red Cell Distribution Width 14 % Normal 10-15 Platelet Count 163 10^3/uL Normal 150-450 Mean Platelet Volume 9.1 fL Normal 7.4-10.4 Abs Neutrophils 2.2 10^3/uL Normal 1.5-7.7 Abs Lymphocytes 1.3 10^3/uL Normal 1.0-4.8 Abs Monocytes 0.4 10^3/uL Normal 0-0.8 Abs Eosinophils 0.0 10^3/uL Normal 0-0.6 Abs Basophils 0.0 10^3/uL Normal 0-0.2 Abs Nucleated RBC 0.0 10^3/uL Granulocyte % 56.1 % Lymphocyte % 31.8 % Monocyte % 10.7 % Eosinophil % 0.8 % Basophil % 0.6 % Nucleated Red Blood Cells % 0.1 Comp Metabolic 04/25/2019 [facility] Sodium 135 mmol/L Normal 135-[address] [place] [address] [phone] Potassium 4.2 mmol/L Normal 3.5-5.0 Chloride 100 mmol/L Low 101-111 Co2 Carbon Dioxide 30 mmol/L Normal 22-32 Anion Gap 5 mmol/L Normal 2-11 Glucose 97 mg/dL Normal 70-100 Blood Urea Nitrogen 17 mg/dL Normal 6-24 Creatinine 0.67 mg/dL Normal 0.51-0.95 BUN/Creatinine Ratio 25.4 High 8-20 Calcium 9.3 mg/dL Normal 8.6-10.3 Total Protein 6.7 g/dL Normal 6.4-8.9 Albumin 4.2 g/dL Normal 3.2-5.2 Globulin 2.5 g/dL Normal 2-4 Albumin/Globulin Ratio 1.7 Normal 1-3 Total Bilirubin 0.30 mg/dL Normal 0.2-1.0 Alkaline Phosphatase 51 U/L Normal 34-104 Alt 6 U/L Low 7-52 Ast 13 U/L Normal 13-39 Egfr Non- 83.1 >60 Egfr 100.5 >60 1 Laboratory test 04/25/2019 [facility] Erythrocyte Sed 52 mm/Hr High 0-29 [address] [place] [address] [phone] C Reactive Protein 1.14 mg/L Normal <8.01 3 Vitamin B12 04/25/2019 [facility] Vitamin B12 334 pg/mL Normal 180-914 [address] Folate [address] [place] [address] [phone] Folic Acid (Folate) 8.88 ng/mL >3.99 5 Laboratory 04/25/2019 [facility] TSH (Thyroid 1.32 Normal 0.34 -5.60 [address] Stim Horm) mcIU/[place] [address] [phone] Free T4 (Free Thyroxine) 0.66 ng/dL Normal 0.61-1.12 7 Copper, Serum 0.83 g/mL 0.75-1.45 8 Ceruloplasmin 20.2 mg/dL 9 1 Because ethnic data is not always readily available, this report includes an eGFR for both -Americans and non- Americans. The National Kidney Disease Education Program (NKDEP) does not endorse the use of the MDRD equation for patients that are not between the ages of 18 and 70, are , have extremes of body size, muscle mass, or nutritional status, or are non- or non-. According to the National Kidney Foundation, irrespective of diagnosis, the stage of the disease is based on the level of kidney function: Stage Description GFR(mL/min/1.73 m(2)) 1 Kidney damage with normal or decreased GFR 90 2 Kidney damage with mild decrease in GFR 60-89 3 Moderate decrease in GFR 30-59 4 Severe decrease in GFR 15-29 5 Kidney failure <15 (or dialysis) 2 Copy Result to: MARCEL SALINAS ([id number]) 3 Copy Result to: MARCEL SALINAS ([id number]) 4 Normal Range 180 to 914 Indeterminate Range 145 to 180 Deficient Range <145 5 Copy Result to: MARCEL SALINAS ([id number]) 6 Copy Result to: MARCEL SALINAS ([id number]) 7 Copy Result to: MARCEL SALINAS ([id number]) 8 ADDITIONAL INFORMATION This test was developed and its performance characteristics determined by [facility] in a manner consistent with CLIA requirements. This test has not been cleared or approved by the U.S. Food and Drug Administration. Test Performed by: [facility] [address] [place] [address] Association Executive: Hieu Cohn M.D. Ph.D.; CLIA# [id number] 9 REFERENCE VALUE 20.0 - 51.0 Test Performed by: [address] [address] Association Executive: Hieu Cohn M.D. Ph.D.; CLIA# [id number] Procedures Description No Information Available Medical Devices Description No Information Available Encounters Type Date Location Provider Dx Diagnosis Office Visit 2019 [facility] Dell Cope R41.3 Other amnesia 3:[facility] R25.1 Tremor, unspecified Assessments Date Code Description Provider 2019 R41.3 Other amnesia Dell Cope M.D. 2019 R25.1 Tremor, unspecified Dell Cope M.D. 04/25/2019 R41.3 Other amnesia Manan Muniz, N.P. 04/25/2019 R53.83 Other fatigue Manan Muniz, N.P. 04/25/2019 R25.1 Tremor, unspecified Manan Muniz, N.P. Plan of Treatment Future Appointment(s):09/26/2019 2:15 pm - Dell Cope M.D. at [facility]2019 - Dell Cope M.D.R41.3 Other amnesiaNew Medication:Donepezil HCL 10 mg - 1 by mouth every dayDonepezil HCL 5 mg - 1 tablet twice a dayFollow up:Follow up in 3 monthsRecommendations:The plan is to increase her her Donepezil to 10mg once a day. Use your walker AT ALL NXGNIG28.1 Tremor, unspecified Functional Status Description No Information Available Mental Status Description No Information Available Referrals Refer to Reason for Referral Status Appt Date [facility] [address] [place] [address] [phone]
[2019-07-13 23:34] LABS: ABS Lymphocytes 1.4 10^3/ul (1.0-4.8); ABS Monocytes 0.5 10^3/ul (0-0.8); ABS Neutrophils 2.2 10^3/ul (1.5-7.7); Eosinophil % 0.6 %; Hematocrit 34 % (35-47); Hemoglobin 11.5 g/dL (12.0-16.0); Lymphocyte % 34.9 %; Mean Corpuscular HGB Conc 34 g/dL (31-36); Mean Corpuscular Hemoglobin 32 pg (27-31); Mean Corpuscular Volume 94 fL (80-97); Nucleated Red Blood Cells % 0.1; Platelet Count 141 10^3/uL (150-450); Red Blood Count 3.61 10^6 /uL (3.70-4.87); Red Cell Distribution Width 14 % (10-15); White Blood Count 4.1 10^3/uL (3.5-10.8)
[2019-07-13 23:51] LABS: Albumin 3.7 g/dL (3.2-5.2); Albumin/Globulin Ratio 1.4 (1-3); BUN/Creatinine Ratio 21.4 (8-20); Calcium 9.5 mg/dL (8.6-10.3); EGFR African American 95.3 (>60); EGFR Non-African American 78.8 (>60); Globulin 2.6 g/dL (2-4); Potassium 3.8 mmol/L (3.5-5.0); Total Bilirubin 0.7 mg/dL (0.2-1.0); Total Protein 6.3 g/dL (6.4-8.9)
[2019-07-14 02:05] LABS: Urine Appearance Clear; Urine Bilirubin Negative (Negative); Urine Blood Negative (Negative); Urine Color Straw; Urine Glucose Negative (Negative); Urine Ketones Negative (Negative); Urine Nitrite Negative (Negative); Urine Protein Negative (Negative); Urine Specific Gravity 1.006 (1.010-1.030); Urine Urobilinogen Negative (Negative)
[2019-07-14 02:07] LABS: Urine Bacteria Absent (Absent); Urine Red Blood Cell Trace(0-2/hpf) (Absent); Urine Squamous Epithelial Cell Present (Absent); Urine White Blood Cell Trace(0-5/hpf) (Absent)
[2019-07-14 04:45] VITALS: BP 122/66
== END 2019-07-14 04:13 | disposition home or self-care (01) ==
LOC: ED 22:50
DX: M25.562 Pain in left knee (principal); Z91.81 History of falling; Z87.891 Personal history of nicotine dependence; I10 Essential (primary) hypertension; K21.9 Gastro-esophageal reflux disease without esophagitis; K57.90 Diverticulosis of intestine, part unspecified, without perforation or abscess without bleeding; F32.9 Major depressive disorder, single episode, unspecified
CPT/HCPCS: 36415; 80053; 81003; 81015; 83605; 85025; 87086; 99282

== ENCOUNTER 2019-09-10 18:28 | Emergency (ER) | payer MEDICARE ==
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
--- OUTSIDE RECORDS SUMMARY | 2019-09-10 18:59 | XMS REPORT ---
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 08-19 Alon [id number] Cardiac Cardiac Diagnosis Active 2018-07 Joni arrhythmia, arrhythmia, 08-19 Alon unspecified unspecified [id number] History of History of Diagnosis Active 2018-07 Joni falling falling 08-19 Alon [id number] Pain frequent Pain Mgmt Resolve 2018-072019-08-14 Breana pain d 08-19 13:00:00 (Marina) 08:40: Escobar 00 [id number] Respiratory dyspnea Respirator Resolve 2018-072019-08-14 Breana present y d 08-19 13:00:00 (Marina) 08:40: Escobar 00 [id number] Sensory impaired Sensory Resolve 2018-072019-08-14 Breana hearing d 08-19 13:00:00 (Marina) 08:40: Escobar 00 [id number] Integument skin Integument Resolve 2018-072019-08-14 Breana integrity d 08-19 13:00:00 (Marina) risk 08:40: Escobar 00 [id number] Elimination urinary Eliminatio Resolve 2018-072019-08-14 Breana incontinenc n d 08-19 13:00:00 (Marina) e 08:40: Escobar 00 [id number] Neuro confusion Neuro/Emot Resolve 2018-072019-08-14 Breana present ion d 08-19 13:00:00 (Marina) 08:40: Escobar 00 [id number] Neuro impaired Neuro/Emot Resolve 2018-072019-08-14 Breana decision-ma ion d 08-19 13:00:00 (Marina) anatoliy 08:40: Escobar 00 [id number] Neuro memory Neuro/Emot Resolve 2018-072019-08-14 Breana deficit ion d - 13:00:00 (Marina) needing 08:40: Escobar supervision 00 [id number] Activity ADL Activity Resolve 2018-072019-08-14 Breana assistance d - 13:00:00 (Marina) required 08:40: Escobar 00 [id number] Activity self-care Activity Resolve 2018-072019-08-14 Breana deficit d 08-19 13:00:00 (Marina) 08:40: Escobar 00 [id number] Safety fall risk Safety Resolve 2018-072019-08-14 Breana factor d 08-19 13:00:00 (Marina) present 08:40: Escobar 00 [id number] Safety cannot be Safety Resolve 2018-072019-08-14 Breana left alone d 08-19 13:00:00 (Marina) 08:40: Escobar 00 [id number] Safety risk for Safety Resolve 2018-072019-08-14 Breana hospitaliza d 08-19 13:00:00 (Marina) tion 08:40: Escobar 00 [id number] Medication oral med Meds Resolve 2018-072019-08-14 Breana assistance d 08-19 13:00:00 (Marina) required 08:40: Escobar 00 [id number] Musculoskel transfer Musculoske Resolve 2018-072019-08-14 Breana etal assistance letal d 08-19 13:00:00 (Marina) required 08:40: Escobar 00 [id number] Musculoskel requires Musculoske Resolve 2018-072019-08-14 Breana etal human letal d 08-19 13:00:00 (Marina) assist to 08:40: Escobar leave home 00 [id number] Safety knowledge/s Safety Resolve 2018-072019-08-14 Betsy kill d 08-19 13:00:00 Isaacs deficit: pt 14:36: [id number] Bed mobility/tr PT/OT: Bed Resolve 2018-072019-08-14 Betsy Mobility/Tr ansfer Mobility/T d 08-19 13:00:00 Isaacs ansfer device ransfer 14:36: [id number] present 00 Bed transfer PT/OT: Bed Resolve 2018-072019-08-14 Betsy Mobility/Tr deficit: Mobility/T d 08-19 13:00:00 Isaacs ansfer sit/stand ransfer 14:36: [id number] 00 Bed transfer PT/OT: Bed Resolve 2018-072019-08-14 Betsy Mobility/Tr deficit: Mobility/T d 1-21 13:00:00 Ferny sofia standing ransfer 14:36: [id number] pivot 00 Bed transfer PT/OT: Bed Resolve 2018-072019-08-14 Betsy Mobility/Tr deficit: Mobility/T d 1-21 13:00:00 Ferny sofia toilet/comm ransfer 14:36: [id number] ode 00 Bed transfer PT/OT: Bed Resolve 2018-072019-08-14 Betsy Mobility/Tr deficit: Mobility/T d 1- 13:00:00 Ferny sofia shower/tub ransfer 14:36: [id number] 00 Bed bed PT/OT: Bed Resolve 2018-072019-08-14 Betsy Mobility/Tr mobility Mobility/T d 1 13:00:00 Ferny sofia deficit ransfer 14:36: [id number] 00 Balance/End balance/chuck wagon cook PT/OT: Resolve 2018-072019-08-14 Betsy urance rdination Balance/En d 08-19 13:00:00 Isaacs deficit durance 14:36: [id number] 00 Gait/Locomo gait PT/OT: Resolve 2018-072019-08-14 Betsy tion assistive Gait/Locom d 1-21 13:00:00 Isaacs problems device otion 14:36: [id number] present 00 Gait/Locomo gait PT/OT: Resolve 2018-072019-08-14 Betsy tion deficit Gait/Locom d 08-19 13:00:00 Isaacs problems otion 14:36: [id number] 00 Allergies, Adverse Reactions, Alerts Allergy Name [...] Medication? Clinician (SIG) Name Name Tylenol Tylenol 2018-07- Yes Anatoliy Unknown Unknown Arthritis Arthritis 08-19 Noel [place] Pain 650 mg Pain 650 mg pher M tablet,exte tablet,exte nded nded release release Calcium 600 Calcium 600 2018-07- Yes Anatoliy Unknown Unknown + D(3) 600 + D(3) 600 08-19 Noel [place] mg (1,500 mg (1,500 pher M mg)-400 mg)-400 unit tablet unit tablet citalopram citalopram 2018-07- Yes Anatoliy Unknown Unknown 20 mg 20 mg 08-19 Noel [place] tablet tablet pher M Restasis Restasis 2018-07- Yes Anatoliy Unknown Unknown MultiDose MultiDose 08-19 Noel [place] 0.05 % eye 0.05 % eye pher M drops drops ferrous ferrous 2018-07- Yes Anatoliy Unknown Unknown fumarate fumarate 08-19 Noel [place] 324 mg (106 324 mg (106 pher M mg iron) mg iron) tablet tablet latanoprost latanoprost 2018-07- Yes Anatoliy Unknown Unknown 0.005 % eye 0.005 % eye 08-19 Noel [place] drops drops pher M Imodium A-D Imodium A-D 2018-07- Yes Anatoliy Unknown Unknown 2 mg tablet 2 mg tablet 08-19 Noel [place] pher M melatonin 1 melatonin 1 2018-07- Yes Anatoliy Unknown Unknown mg tablet mg tablet 08-19 Noel [place] pher M methylcellu methylcellu 2018-07- Yes Anatoliy Unknown Unknown lose lose 08-19 Noel [place] (laxative) (laxative) pher M oral powder oral powder Lopressor Lopressor 2018-07- Yes Anatoliy Unknown Unknown 50 mg 50 mg 08-19 Noel [place] tablet tablet pher M omeprazole omeprazole 2018-07- Yes Unknown Unknown 40 mg 40 mg 08-19 ,Noel capsule,del capsule,del pher M ayed ayed release release rivastigmin rivastigmin 2018-07- Yes Unknown Unknown e 1.5 mg e 1.5 mg 08-19 ,Noel capsule capsule pher M donepezil 5 donepezil 5 2018-07- Yes Unknown Unknown mg tablet mg tablet 08-19 Noel [place] pher M Vital Signs Vital Name Observation Time Observation Value Comments SYSTOLIC mm[Hg] 2019-08-15 18:09:55 130 mm[Hg] mm[Hg] Method: Sit SYSTOLIC mm[Hg] 2019-06-22 18:09:01 130 mm[Hg] mm[Hg] Method: Stand DIASTOLIC mm[Hg] 2019-08-15 18:09:55 80 mm[Hg] mm[Hg] Method: Sit DIASTOLIC mm[Hg] 2019-06-22 18:09:01 76 mm[Hg] mm[Hg] Method: Stand PULSE 2019-08-15 18:09:55 60 /min /min TEMP 2019-08-15 18:09:55 98.2 [degF] Procedures This patient has no known procedures. Results This patient has no known results.
--- OUTSIDE RECORDS SUMMARY | 2019-09-10 18:59 | XMS REPORT ---
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 08-19 Alon [id number] Cardiac Cardiac Diagnosis Active 2018-07 Joni arrhythmia, arrhythmia, 08-19 Alon unspecified unspecified [id number] History of History of Diagnosis Active 2018-07 Joni falling falling 08-19 Alon [id number] Pain frequent Pain Mgmt Active 2018-07 Breana pain 08-19 (Marina) 08:40: Shawn [id number] Respiratory dyspnea Respirator Active 2018-07 Breana present y 08-19 (Marina) 08:40: Shawn [id number] Sensory impaired Sensory Active 2018-07 Breana hearing 08-19 (Marina) 08:40: Escobar [id number] Integument skin Integument Active 2018-07 Breana integrity 08-19 (Marina) risk 08:40: Escobar [id number] Elimination urinary Eliminatio Active 2018-07 Breana incontinenc n 08-19 (Marina) e 08:40: Shawn [id number] Neuro confusion Neuro/Emot Active 2018-07 Breana present ion 08-19 (Marina) 08:40: Escobar [id number] 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 ion 08-19 (Marina) anatoliy 08:40: Shawn [id number] Neuro memory Neuro/Emot Active 2018-07 Breana deficit ion 08-19 (Marina) needing 08:40: Shawn supervision 00 [id number] Activity ADL Activity Active 2018-07 Breana assistance 08-19 (Marina) required 08:40: Shawn [id number] Activity self-care Activity Active 2018-07 Breana deficit 08-19 (Marina) 08:40: Shawn [id number] Safety fall risk Safety Active 2018-07 Breana factor 08-19 (Marina) present 08:40: Escobar [id number] Safety cannot be Safety Active 2018-07 Breana left alone 08-19 (Marina) 08:40: Escobar [id number] Safety risk for Safety Active 2018-07 Breana hospitaliza 08-19 (Marina) tion 08:40: Escobar [id number] Medication oral med Meds Active 2018-07 Breana assistance 08-19 (Marina) required 08:40: Escobra [id number] Musculoskel transfer Musculoske Active 2018-07 Breana etal assistance letal 08-19 (Marina) required 08:40: Escobar [id number] Musculoskel requires Musculoske Active 2018-07 Breana etal human letal 08-19 (Marina) assist to 08:40: Shawn leave home [id number] Safety knowledge/s Safety Active 2018-07 Betsy kill 08-19 Isaacs deficit: pt 14:36: [id number] Bed mobility/tr PT/OT: Bed Active 2018-07 Betsy Mobility/Tr ansfer Mobility/T 08-19 Isaacs ansfer device ransfer 14:36: [id number] present 00 Bed transfer PT/OT: Bed Active 2018-07 Betsy Mobility/Tr deficit: Mobility/T 08-19 Isaacs ansfer sit/stand ransfer 14:36: [id number] Bed transfer PT/OT: Bed Active 2018-07 Betsy Mobility/Tr deficit: Mobility/T 08-19 Isaacs ansfer standing ransfer 14:36: [id number] pivot 00 Bed transfer PT/OT: Bed Active 2018-07 Betsy Mobility/Tr deficit: Mobility/T 08-19 Isaacs ansfer toilet/comm ransfer 14:36: [id number] ode 00 Bed transfer PT/OT: Bed Active 2018-07 Betsy Mobility/Tr deficit: Mobility/T 08-19 Isaacs ansfer shower/tub ransfer 14:36: [id number] 00 Bed bed PT/OT: Bed Active 2018-07 Betsy Mobility/Tr mobility Mobility/T 08-19 Isaacs ansfer deficit ransfer 14:36: [id number] 00 Balance/End balance/title i coordinator PT/OT: Active 2018-07 Betsy curryance rdination Balance/En 08-19 Isaacs deficit durance 14:36: [id number] 00 Gait/Locomo gait PT/OT: Active 2018-07 Betsy tion assistive Gait/Locom 08-19 Isaacs problems device otion 14:36: [id number] present 00 Gait/Locomo gait PT/OT: Active 2018-07 Betsy tion deficit Gait/Locom 08-19 Isaacs problems otion 14:36: [id number] 00 Allergies, Adverse Reactions, Alerts Allergy Name [...] release Calcium 600 Calcium 600 2018-07 Yes Anatoliy Unknown Unknown + D(3) 600 [...] Observation Time Observation Value Comments SYSTOLIC mm[Hg] 2019-08-07 18:09:47 110 mm[Hg] mm[Hg] Method: Sit SYSTOLIC mm[Hg] 2019-06-22 18:09:01 130 mm[Hg] mm[Hg] Method: Stand DIASTOLIC mm[Hg] 2019-08-07 18:09:47 60 mm[Hg] mm[Hg] Method: Sit DIASTOLIC mm[Hg] 2019-06-22 18:09:01 76 mm[Hg] mm[Hg] Method: Stand PULSE 2019-08-07 18:09:47 68 /min /min RESP RATE 2019-06-22 18:09:01 17 /min /min TEMP 2019-08-07 18:09:47 98.2 [degF] Procedures This patient has no known procedures. Results This patient has no known results.
--- OUTSIDE RECORDS SUMMARY | 2019-09-10 18:59 | XMS REPORT ---
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 08-19 Alon [id number] Cardiac Cardiac Diagnosis Active 2018-07 Joni arrhythmia, arrhythmia, 08-19 Alon unspecified unspecified [id number] History of History of Diagnosis Active 2018-07 Joni falling falling 08-19 Alon [id number] Pain frequent Pain Mgmt Active 2018-07 Breana pain 08-19 (Marina) 08:40: Shawn [id number] Respiratory dyspnea Respirator Active 2018-07 Breana present y 08-19 (Marina) 08:40: Shawn [id number] Sensory impaired Sensory Active 2018-07 Breana hearing 08-19 (Marina) 08:40: Escobar [id number] Integument skin Integument Active 2018-07 Breana integrity 08-19 (Marina) risk 08:40: Escobar [id number] Elimination urinary Eliminatio Active 2018-07 Breana incontinenc n 08-19 (Marina) e 08:40: Shawn [id number] Neuro confusion Neuro/Emot Active 2018-07 Breana present ion 08-19 (Marina) 08:40: Escobar [id number] 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 ion 08-19 (Marina) anatoliy 08:40: Shawn [id number] Neuro memory Neuro/Emot Active 2018-07 Breana deficit ion 08-19 (Marina) needing 08:40: Shawn supervision 00 [id number] Activity ADL Activity Active 2018-07 Breana assistance 08-19 (Marina) required 08:40: Shawn [id number] Activity self-care Activity Active 2018-07 Breana deficit 08-19 (Marina) 08:40: Shawn [id number] Safety fall risk Safety Active 2018-07 Breana factor 08-19 (Marina) present 08:40: Escobar [id number] Safety cannot be Safety Active 2018-07 Breana left alone 08-19 (Marian) 08:40: Escobar [id number] Safety risk for Safety Active 2018-07 Breana hospitaliza 08-19 (Marina) tion 08:40: Escobar [id number] Medication oral med Meds Active 2018-07 Breana assistance 08-19 (Marina) required 08:40: Escobar [id number] Musculoskel transfer Musculoske Active 2018-07 Breaan etal assistance letal 08-19 (Marina) required 08:40: Escobar [id number] Musculoskel requires Musculoske Active 2018-07 Breana etal human letal 08-19 (Marina) assist to 08:40: Shawn leave home [id number] Safety knowledge/s Safety Active 2018-07 Betsy kill 08-19 Isaacs deficit: pt 14:36: [id number] Bed mobility/tr PT/OT: Bed Active 2018-07 Betsy Mobility/Tr ansfer Mobility/T 08-19 Isaacs ansfer device ransfer 14:36: [id number] present 00 Bed transfer PT/OT: Bed Active 2018-07 Betsy Mobility/Tr deficit: Mobility/T 08-19 Isaacs ansfer sit/stand ransfer 14:36: [id number] 00 Bed transfer PT/OT: Bed Active 2018-07 Betsy Mobility/Tr deficit: Mobility/T 08-19 Isaacs ansfer standing ransfer 14:36: [id number] pivot 00 Bed transfer PT/OT: Bed Active 2018-07 Betsy Mobility/Tr deficit: Mobility/T 08-19 Isaacs ansfer toilet/comm ransfer 14:36: [id number] ode 00 Bed transfer PT/OT: Bed Active 2018-07 Betsy Mobility/Tr deficit: Mobility/T 08-19 Isaacs ansfer shower/tub ransfer 14:36: [id number] 00 Bed bed PT/OT: Bed Active 2018-07 Betsy Mobility/Tr mobility Mobility/T 08-19 Isaacs ansfer deficit ransfer 14:36: [id number] 00 Balance/End balance/cook jelly PT/OT: Active 2018-07 Betsy curryance rdination Balance/En 08-19 Isaacs deficit durance 14:36: [id number] 00 Gait/Locomo gait PT/OT: Active 2018-07 Betsy tion assistive Gait/Locom 08-19 Isaacs problems device otion 14:36: [id number] present 00 Gait/Locomo gait PT/OT: Active 2018-07 Betsy tion deficit Gait/Locom 08-19 Isaacs problems otion 14:36: [id number] 00 Allergies, Adverse Reactions, Alerts Allergy Name [...] Observation Time Observation Value Comments SYSTOLIC mm[Hg] 2019-07-31 18:09:40 130 mm[Hg] mm[Hg] Method: Sit SYSTOLIC mm[Hg] 2019-06-22 18:09:01 130 mm[Hg] mm[Hg] Method: Stand DIASTOLIC mm[Hg] 2019-07-31 18:09:40 70 mm[Hg] mm[Hg] Method: Sit DIASTOLIC mm[Hg] 2019-06-22 18:09:01 76 mm[Hg] mm[Hg] Method: Stand PULSE 2019-07-31 18:09:40 64 /min /min RESP RATE 2019-06-22 18:09:01 17 /min /min TEMP 2019-07-31 18:09:40 98.7 [degF] Procedures This patient has no known procedures. Results This patient has no known results.
--- OUTSIDE RECORDS SUMMARY | 2019-09-10 18:59 | XMS REPORT ---
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 08-19 Alon [id number] Cardiac Cardiac Diagnosis Active 2018-07 Joni arrhythmia, arrhythmia, 08-19 Alon unspecified unspecified [id number] History of History of Diagnosis Active 2018-07 Joni falling falling 08-19 Alon [id number] Pain frequent Pain Mgmt Resolve 2018-072019-08-14 Breana pain d 08-19 13:00:00 (Marina) 08:40: Escobar 00 [id number] Respiratory dyspnea Respirator Resolve 2018-072019-08-14 Breana present y d 08-19 13:00:00 (Marina) 08:40: Escobar 00 [id number] Sensory impaired Sensory Resolve 2018-072019-08-14 Breana hearing d 08-19 13:00:00 (Marina) 08:40: Escobar 00 [id number] Integument skin Integument Resolve 2018-072019-08-14 Breana integrity d 08-19 13:00:00 (Marina) risk 08:40: Escobar 00 [id number] Elimination urinary Eliminatio Resolve 2018-072019-08-14 Breana incontinenc n d 08-19 13:00:00 (Marina) e 08:40: Escobar 00 [id number] Neuro confusion Neuro/Emot Resolve 2018-072019-08-14 Breana present ion d 08-19 13:00:00 (Marina) 08:40: Escobar 00 [id number] Neuro impaired Neuro/Emot Resolve 2018-072019-08-14 Breana decision-ma ion d 08-19 13:00:00 (Marina) anatoliy 08:40: Escobar 00 [id number] Neuro memory Neuro/Emot Resolve 2018-072019-08-14 Breana deficit ion d - 13:00:00 (Marina) needing 08:40: Escobar supervision 00 [id number] Activity ADL Activity Resolve 2018-072019-08-14 Breana assistance d - 13:00:00 (Marina) required 08:40: Escobar 00 [id number] Activity self-care Activity Resolve 2018-072019-08-14 Breana deficit d 08-19 13:00:00 (Marina) 08:40: Escobar 00 [id number] Safety fall risk Safety Resolve 2018-072019-08-14 Breana factor d 08-19 13:00:00 (Marina) present 08:40: Escobar 00 [id number] Safety cannot be Safety Resolve 2018-072019-08-14 Breana left alone d 08-19 13:00:00 (Marina) 08:40: Escobar 00 [id number] Safety risk for Safety Resolve 2018-072019-08-14 Breana hospitaliza d 08-19 13:00:00 (Marina) tion 08:40: Escobar 00 [id number] Medication oral med Meds Resolve 2018-072019-08-14 Breana assistance d 08-19 13:00:00 (Marina) required 08:40: Escobar 00 [id number] Musculoskel transfer Musculoske Resolve 2018-072019-08-14 Breana etal assistance letal d 08-19 13:00:00 (Marina) required 08:40: Escobar 00 [id number] Musculoskel requires Musculoske Resolve 2018-072019-08-14 Breana etal human letal d 08-19 13:00:00 (Marina) assist to 08:40: Escobar leave home 00 [id number] Safety knowledge/s Safety Resolve 2018-072019-08-14 Betsy kill d 08-19 13:00:00 Isaacs deficit: pt 14:36: [id number] 00 Bed mobility/tr PT/OT: Bed Resolve 2018-072019-08-14 Betsy Mobility/Tr ansfer Mobility/T d 08-19 13:00:00 Isaacs ansfer device ransfer 14:36: [id number] present 00 Bed transfer PT/OT: Bed Resolve 2018-072019-08-14 Betsy Mobility/Tr deficit: Mobility/T d 08-19 13:00:00 Isaacs ansfer sit/stand ransfer 14:36: [id number] 00 Bed transfer PT/OT: Bed Resolve 2018-072019-08-14 Betsy Mobility/Tr deficit: Mobility/T d 1-21 13:00:00 Ferny sofia standing ransfer 14:36: [id number] pivot 00 Bed transfer PT/OT: Bed Resolve 2018-072019-08-14 Betsy Mobility/Tr deficit: Mobility/T d 1-21 13:00:00 Ferny sofia toilet/comm ransfer 14:36: [id number] ode 00 Bed transfer PT/OT: Bed Resolve 2018-072019-08-14 Betsy Mobility/Tr deficit: Mobility/T d 1- 13:00:00 Ferny sofia shower/tub ransfer 14:36: [id number] 00 Bed bed PT/OT: Bed Resolve 2018-072019-08-14 Betsy Mobility/Tr mobility Mobility/T d 1 13:00:00 Ferny sofia deficit ransfer 14:36: [id number] 00 Balance/End balance/prep cook PT/OT: Resolve 2018-072019-08-14 Betsy urance rdination Balance/En d 08-19 13:00:00 Isaacs deficit durance 14:36: [id number] 00 Gait/Locomo gait PT/OT: Resolve 2018-072019-08-14 Betsy tion assistive Gait/Locom d 1-21 13:00:00 Isaacs problems device otion 14:36: [id number] present 00 Gait/Locomo gait PT/OT: Resolve 2018-072019-08-14 Betsy tion deficit Gait/Locom d 08-19 13:00:00 Isaacs problems otion 14:36: [id number] 00 Allergies, Adverse Reactions, Alerts Allergy Name [...]
--- OUTSIDE RECORDS SUMMARY | 2019-09-10 18:59 | XMS REPORT ---
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 08-19 Alon [id number] Cardiac Cardiac Diagnosis Active 2018-07 Joni arrhythmia, arrhythmia, 08-19 Alon unspecified unspecified [id number] History of History of Diagnosis Active 2018-07 Joni falling falling 08-19 Alon [id number] Pain frequent Pain Mgmt Active 2018-07 Breana pain 08-19 (Marina) 08:40: Shawn [id number] Respiratory dyspnea Respirator Active 2018-07 Breana present y 08-19 (Marina) 08:40: Shawn [id number] Sensory impaired Sensory Active 2018-07 Breana hearing 08-19 (Marina) 08:40: Escobar [id number] Integument skin Integument Active 2018-07 Breana integrity 08-19 (Marina) risk 08:40: Escobar [id number] Elimination urinary Eliminatio Active 2018-07 Breana incontinenc n 08-19 (Marina) e 08:40: Shawn [id number] Neuro confusion Neuro/Emot Active 2018-07 Breana present ion 08-19 (Marina) 08:40: Escobar [id number] 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 ion 08-19 (Marina) anatoliy 08:40: Shawn [id number] Neuro memory Neuro/Emot Active 2018-07 Breana deficit ion 08-19 (Marina) needing 08:40: Shawn supervision 00 [id number] Activity ADL Activity Active 2018-07 Breana assistance 08-19 (Marina) required 08:40: Shawn [id number] Activity self-care Activity Active 2018-07 Breana deficit 08-19 (Marina) 08:40: Shawn [id number] Safety fall risk Safety Active 2018-07 Breana factor 08-19 (Marina) present 08:40: Escobar [id number] Safety cannot be Safety Active 2018-07 Breana left alone 08-19 (Marina) 08:40: Escobar [id number] Safety risk for Safety Active 2018-07 Breana hospitaliza 08-19 (Marina) tion 08:40: Escobar [id number] Medication oral med Meds Active 2018-07 Breana assistance 08-19 (Marina) required 08:40: Escobar [id number] Musculoskel transfer Musculoske Active 2018-07 Breana etal assistance letal 08-19 (Marina) required 08:40: Escobar [id number] Musculoskel requires Musculoske Active 2018-07 Breana etal human letal 08-19 (Marina) assist to 08:40: Shawn leave home [id number] Safety knowledge/s Safety Active 2018-07 Betsy kill 08-19 Isaacs deficit: pt 14:36: [id number] 00 Bed mobility/tr PT/OT: Bed Active 2018-07 Betsy Mobility/Tr ansfer Mobility/T 08-19 Isaacs ansfer device ransfer 14:36: [id number] present 00 Bed transfer PT/OT: Bed Active 2018-07 Betsy Mobility/Tr deficit: Mobility/T 08-19 Isaacs ansfer sit/stand ransfer 14:36: [id number] 00 Bed transfer PT/OT: Bed Active 2018-07 Betsy Mobility/Tr deficit: Mobility/T 08-19 Isaacs ansfer standing ransfer 14:36: [id number] pivot 00 Bed transfer PT/OT: Bed Active 2018-07 Betsy Mobility/Tr deficit: Mobility/T 08-19 Isaacs ansfer toilet/comm ransfer 14:36: [id number] ode 00 Bed transfer PT/OT: Bed Active 2018-07 Betsy Mobility/Tr deficit: Mobility/T 08-19 Isaacs ansfer shower/tub ransfer 14:36: [id number] 00 Bed bed PT/OT: Bed Active 2018-07 Betsy Mobility/Tr mobility Mobility/T 08-19 Isaacs ansfer deficit ransfer 14:36: [id number] 00 Balance/End balance/taxicab coordinator PT/OT: Active 2018-07 Betsy curryance rdination Balance/En 08-19 Isaacs deficit durance 14:36: [id number] 00 Gait/Locomo gait PT/OT: Active 2018-07 Betsy tion assistive Gait/Locom 08-19 Isaacs problems device otion 14:36: [id number] present 00 Gait/Locomo gait PT/OT: Active 2018-07 Betsy tion deficit Gait/Locom 08-19 Isaacs problems otion 14:36: [id number] 00 Allergies, Adverse Reactions, Alerts Allergy Name [...]
--- OUTSIDE RECORDS SUMMARY | 2019-09-10 18:59 | XMS REPORT ---
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 08-19 Alon [id number] Cardiac Cardiac Diagnosis Active 2018-07 Joni arrhythmia, arrhythmia, 08-19 Alon unspecified unspecified [id number] History of History of Diagnosis Active 2018-07 Joni falling falling 08-19 Alon [id number] Pain frequent Pain Mgmt Active 2018-07 Breana pain 08-19 (Marina) 08:40: Shawn [id number] Respiratory dyspnea Respirator Active 2018-07 Breana present y 08-19 (Marina) 08:40: Shawn [id number] Sensory impaired Sensory Active 2018-07 Breana hearing 08-19 (Marina) 08:40: Escobar [id number] Integument skin Integument Active 2018-07 Breana integrity 08-19 (Marina) risk 08:40: Escobar [id number] Elimination urinary Eliminatio Active 2018-07 Breana incontinenc n 08-19 (Marina) e 08:40: Shawn [id number] Neuro confusion Neuro/Emot Active 2018-07 Breana present ion 08-19 (Marina) 08:40: Escobar [id number] 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 ion 08-19 (Marina) anatoliy 08:40: Escobar [id number] Neuro memory Neuro/Emot Active 2018-07 Breana deficit ion 08-19 (Marina) needing 08:40: Shawn supervision 00 [id number] Activity ADL Activity Active 2018-07 Breana assistance 08-19 (Marina) required 08:40: Shawn [id number] Activity self-care Activity Active 2018-07 Breana deficit 08-19 (Marina) 08:40: Shawn [id number] Safety fall risk Safety Active 2018-07 Breana factor 08-19 (Marina) present 08:40: Escobar [id number] Safety cannot be Safety Active 2018-07 Breana left alone 08-19 (Marina) 08:40: Escobar [id number] Safety risk for Safety Active 2018-07 Breana hospitaliza 08-19 (Marina) tion 08:40: Escobar [id number] Medication oral med Meds Active 2018-07 Breana assistance 08-19 (Marina) required 08:40: Escobar [id number] Musculoskel transfer Musculoske Active 2018-07 Breana etal assistance letal 08-19 (Marina) required 08:40: Escobar [id number] Musculoskel requires Musculoske Active 2018-07 Breana etal human letal 08-19 (Marina) assist to 08:40: Shawn leave home [id number] Safety knowledge/s Safety Active 2018-07 Betsy kill 08-19 Isaacs deficit: pt 14:36: [id number] Bed mobility/tr PT/OT: Bed Active 2018-07 Betsy Mobility/Tr ansfer Mobility/T 08-19 Isaacs ansfer device ransfer 14:36: [id number] present 00 Bed transfer PT/OT: Bed Active 2018-07 Betsy Mobility/Tr deficit: Mobility/T 08-19 Isaacs ansfer sit/stand ransfer 14:36: [id number] 00 Bed transfer PT/OT: Bed Active 2018-07 Betsy Mobility/Tr deficit: Mobility/T 08-19 Isaacs ansfer standing ransfer 14:36: [id number] pivot 00 Bed transfer PT/OT: Bed Active 2018-07 Betsy Mobility/Tr deficit: Mobility/T 08-19 Isaacs ansfer toilet/comm ransfer 14:36: [id number] ode 00 Bed transfer PT/OT: Bed Active 2018-07 Betsy Mobility/Tr deficit: Mobility/T 08-19 Isaacs ansfer shower/tub ransfer 14:36: [id number] Bed bed PT/OT: Bed Active 2018-07 Betsy Mobility/Tr mobility Mobility/T 08-19 Isaacs ansfer deficit ransfer 14:36: [id number] 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/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/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 PT/OT: Active 2018-07 Betsy curryance rdination Balance/En 08-19 Isaacs deficit durance 14:36: [id number] 00 Gait/Locomo gait PT/OT: Active 2018-07 Betsy tion assistive Gait/Locom 08-19 Isaacs problems device otion 14:36: [id number] present 00 Gait/Locomo gait PT/OT: Active 2018-07 Betsy tion deficit Gait/Locom 08-19 Isaacs problems otion 14:36: [id number] 00 Allergies, Adverse Reactions, Alerts Allergy Name [...] Observation Time Observation Value Comments SYSTOLIC mm[Hg] 2019-07-28 18:09:37 100 mm[Hg] mm[Hg] Method: Sit SYSTOLIC mm[Hg] 2019-06-22 18:09:01 130 mm[Hg] mm[Hg] Method: Stand DIASTOLIC mm[Hg] 2019-07-28 18:09:37 60 mm[Hg] mm[Hg] Method: Sit DIASTOLIC mm[Hg] 2019-06-22 18:09:01 76 mm[Hg] mm[Hg] Method: Stand PULSE 2019-07-28 18:09:37 60 /min /min RESP RATE 2019-06-22 18:09:01 17 /min /min TEMP 2019-07-28 18:09:37 98.9 [degF] Procedures This patient has no known procedures. Results This patient has no known results.
--- OUTSIDE RECORDS SUMMARY | 2019-09-10 18:59 | XMS REPORT ---
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 08-19 Alon [id number] Cardiac Cardiac Diagnosis Active 2018-07 Joni arrhythmia, arrhythmia, 08-19 Alon unspecified unspecified [id number] History of History of Diagnosis Active 2018-07 Joni falling falling 08-19 Alon [id number] Pain frequent Pain Mgmt Active 2018-07 Breana pain 08-19 (Marina) 08:40: Shawn [id number] Respiratory dyspnea Respirator Active 2018-07 Breana present y 08-19 (Marina) 08:40: Shawn [id number] Sensory impaired Sensory Active 2018-07 Breana hearing 08-19 (Marina) 08:40: Escobar [id number] Integument skin Integument Active 2018-07 Breana integrity 08-19 (Marina) risk 08:40: Escobar [id number] Elimination urinary Eliminatio Active 2018-07 Breana incontinenc n 08-19 (Marina) e 08:40: Shawn [id number] Neuro confusion Neuro/Emot Active 2018-07 Breana present ion 08-19 (Marina) 08:40: Escobar [id number] 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 ion 08-19 (Marina) anatoliy 08:40: Shawn [id number] Neuro memory Neuro/Emot Active 2018-07 Breana deficit ion 08-19 (Marina) needing 08:40: Shawn supervision 00 [id number] Activity ADL Activity Active 2018-07 Breana assistance 08-19 (Marina) required 08:40: Shawn [id number] Activity self-care Activity Active 2018-07 Breana deficit 08-19 (Marina) 08:40: Shawn [id number] Safety fall risk Safety Active 2018-07 Breana factor 08-19 (Marina) present 08:40: Escobar [id number] Safety cannot be Safety Active 2018-07 Breana left alone 08-19 (Marina) 08:40: Escobar [id number] Safety risk for Safety Active 2018-07 Breana hospitaliza 08-19 (Marina) tion 08:40: Escobar [id number] Medication oral med Meds Active 2018-07 Breana assistance 08-19 (Marina) required 08:40: Escobar [id number] Musculoskel transfer Musculoske Active 2018-07 Breana etal assistance letal 08-19 (Marina) required 08:40: Escobar [id number] Musculoskel requires Musculoske Active 2018-07 Breana etal human letal 08-19 (Marina) assist to 08:40: Shawn leave home [id number] Safety knowledge/s Safety Active 2018-07 Betsy kill 08-19 Isaacs deficit: pt 14:36: [id number] Bed mobility/tr PT/OT: Bed Active 2018-07 Betsy Mobility/Tr ansfer Mobility/T 08-19 Isaacs ansfer device ransfer 14:36: [id number] present 00 Bed transfer PT/OT: Bed Active 2018-07 Betsy Mobility/Tr deficit: Mobility/T 08-19 Isaacs ansfer sit/stand ransfer 14:36: [id number] 00 Bed transfer PT/OT: Bed Active 2018-07 Betsy Mobility/Tr deficit: Mobility/T 08-19 Isaacs ansfer standing ransfer 14:36: [id number] pivot 00 Bed transfer PT/OT: Bed Active 2018-07 Betsy Mobility/Tr deficit: Mobility/T 08-19 Isaacs ansfer toilet/comm ransfer 14:36: [id number] ode 00 Bed transfer PT/OT: Bed Active 2018-07 Betsy Mobility/Tr deficit: Mobility/T 08-19 Isaacs ansfer shower/tub ransfer 14:36: [id number] 00 Bed bed PT/OT: Bed Active 2018-07 Betsy Mobility/Tr mobility Mobility/T 08-19 Isaacs ansfer deficit ransfer 14:36: [id number] 00 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 PT/OT: Active 2018-07 Betsy curryance rdination Balance/En 08-19 Isaacs deficit durance 14:36: [id number] 00 Gait/Locomo gait PT/OT: Active 2018-07 Betsy tion assistive Gait/Locom 08-19 Isaacs problems device otion 14:36: [id number] present 00 Gait/Locomo gait PT/OT: Active 2018-07 Betsy tion deficit Gait/Locom 08-19 Isaacs problems otion 14:36: [id number] 00 Allergies, Adverse Reactions, Alerts Allergy Name [...] powder oral powder Lopressor Lopressor 2018-07 Yes Naatoliy Unknown Unknown 50 mg 50 mg 08-19 [...] Observation Time Observation Value Comments SYSTOLIC mm[Hg] 2019-08-11 18:09:51 130 mm[Hg] mm[Hg] Method: Sit SYSTOLIC mm[Hg] 2019-06-22 18:09:01 130 mm[Hg] mm[Hg] Method: Stand DIASTOLIC mm[Hg] 2019-08-11 18:09:51 70 mm[Hg] mm[Hg] Method: Sit DIASTOLIC mm[Hg] 2019-06-22 18:09:01 76 mm[Hg] mm[Hg] Method: Stand PULSE 2019-08-11 18:09:51 68 /min /min RESP RATE 2019-06-22 18:09:01 17 /min /min TEMP 2019-08-11 18:09:51 98.2 [degF] Procedures This patient has no known procedures. Results This patient has no known results.
--- OUTSIDE RECORDS SUMMARY | 2019-09-10 18:59 | XMS REPORT ---
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 08-19 Alon [id number] Cardiac Cardiac Diagnosis Active 2018-07 Joni arrhythmia, arrhythmia, 08-19 Alon unspecified unspecified [id number] History of History of Diagnosis Active 2018-07 Joni falling falling 08-19 Alon [id number] Pain frequent Pain Mgmt Active 2018-07 Breana pain 08-19 (Marina) 08:40: Shawn [id number] Respiratory dyspnea Respirator Active 2018-07 Breana present y 08-19 (Marina) 08:40: Shawn [id number] Sensory impaired Sensory Active 2018-07 Breana hearing 08-19 (Marina) 08:40: Escobar [id number] Integument skin Integument Active 2018-07 Breana integrity 08-19 (Marina) risk 08:40: Escobar [id number] Elimination urinary Eliminatio Active 2018-07 Breana incontinenc n 08-19 (Marina) e 08:40: Shawn [id number] Neuro confusion Neuro/Emot Active 2018-07 Breana present ion 08-19 (Marina) 08:40: Escobar [id number] 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 ion 08-19 (Marina) anatoliy 08:40: Shawn [id number] Neuro memory Neuro/Emot Active 2018-07 Breana deficit ion 08-19 (Marina) needing 08:40: Shawn supervision 00 [id number] Activity ADL Activity Active 2018-07 Breana assistance 08-19 (Marina) required 08:40: Shawn [id number] Activity self-care Activity Active 2018-07 Breana deficit 08-19 (Marina) 08:40: Shawn [id number] Safety fall risk Safety Active 2018-07 Breana factor 08-19 (Marina) present 08:40: Escobar [id number] Safety cannot be Safety Active 2018-07 Breana left alone 08-19 (Marina) 08:40: Escobar [id number] Safety risk for Safety Active 2018-07 Breana hospitaliza 08-19 (Marina) tion 08:40: Escobar [id number] Medication oral med Meds Active 2018-07 Breana assistance 08-19 (Marina) required 08:40: Escobar [id number] Musculoskel transfer Musculoske Active 2018-07 Breana etal assistance letal 08-19 (Marina) required 08:40: Escobar [id number] Musculoskel requires Musculoske Active 2018-07 Breana etal human letal 08-19 (Marina) assist to 08:40: Shawn leave home [id number] Safety knowledge/s Safety Active 2018-07 Betsy kill 08-19 Isaacs deficit: pt 14:36: [id number] Bed mobility/tr PT/OT: Bed Active 2018-07 Betsy Mobility/Tr ansfer Mobility/T 08-19 Isaacs ansfer device ransfer 14:36: [id number] present 00 Bed transfer PT/OT: Bed Active 2018-07 Betsy Mobility/Tr deficit: Mobility/T 08-19 Isaacs ansfer sit/stand ransfer 14:36: [id number] 00 Bed transfer PT/OT: Bed Active 2018-07 Betsy Mobility/Tr deficit: Mobility/T 08-19 Isaacs ansfer standing ransfer 14:36: [id number] pivot 00 Bed transfer PT/OT: Bed Active 2018-07 Betsy Mobility/Tr deficit: Mobility/T 08-19 Isaacs ansfer toilet/comm ransfer 14:36: [id number] ode 00 Bed transfer PT/OT: Bed Active 2018-07 Betsy Mobility/Tr deficit: Mobility/T 08-19 Isaacs ansfer shower/tub ransfer 14:36: [id number] 00 Bed bed PT/OT: Bed Active 2018-07 Betsy Mobility/Tr mobility Mobility/T 08-19 Isaacs ansfer deficit ransfer 14:36: [id number] 00 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
--- OUTSIDE RECORDS SUMMARY | 2019-09-10 18:59 | XMS REPORT ---
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 08-19 Alon [id number] Cardiac Cardiac Diagnosis Active 2018-07 Joni arrhythmia, arrhythmia, 08-19 Alon unspecified unspecified [id number] History of History of Diagnosis Active 2018-07 Joni falling falling 08-19 Alon [id number] Pain frequent Pain Mgmt Resolve 2018-072019-08-14 Breana pain d 08-19 13:00:00 (Marina) 08:40: Escobar 00 [id number] Respiratory dyspnea Respirator Resolve 2018-072019-08-14 Breana present y d 08-19 13:00:00 (Marina) 08:40: Escobar 00 [id number] Sensory impaired Sensory Resolve 2018-072019-08-14 Breana hearing d 08-19 13:00:00 (Marina) 08:40: Escobar 00 [id number] Integument skin Integument Resolve 2018-072019-08-14 Breana integrity d 08-19 13:00:00 (Marina) risk 08:40: Escobar 00 [id number] Elimination urinary Eliminatio Resolve 2018-072019-08-14 Breana incontinenc n d 08-19 13:00:00 (Marina) e 08:40: Escobar 00 [id number] Neuro confusion Neuro/Emot Resolve 2018-072019-08-14 Breana present ion d 08-19 13:00:00 (Marina) 08:40: Escobar 00 [id number] Neuro impaired Neuro/Emot Resolve 2018-072019-08-14 Breana decision-ma ion d 08-19 13:00:00 (Marina) anatoliy 08:40: Escobar 00 [id number] Neuro memory Neuro/Emot Resolve 2018-072019-08-14 Breana deficit ion d - 13:00:00 (Marina) needing 08:40: Escobar supervision 00 [id number] Activity ADL Activity Resolve 2018-072019-08-14 Breana assistance d - 13:00:00 (Marina) required 08:40: Escobar 00 [id number] Activity self-care Activity Resolve 2018-072019-08-14 Breana deficit d 08-19 13:00:00 (Marina) 08:40: Escobar 00 [id number] Safety fall risk Safety Resolve 2018-072019-08-14 Breana factor d 08-19 13:00:00 (Marina) present 08:40: Escobar 00 [id number] Safety cannot be Safety Resolve 2018-072019-08-14 Breana left alone d 08-19 13:00:00 (Marina) 08:40: Escobar 00 [id number] Safety risk for Safety Resolve 2018-072019-08-14 Breana hospitaliza d 08-19 13:00:00 (Marina) tion 08:40: Escobar 00 [id number] Medication oral med Meds Resolve 2018-072019-08-14 Breana assistance d 08-19 13:00:00 (Marina) required 08:40: Escobar 00 [id number] Musculoskel transfer Musculoske Resolve 2018-072019-08-14 Breana etal assistance letal d 08-19 13:00:00 (Marina) required 08:40: Escobar 00 [id number] Musculoskel requires Musculoske Resolve 2018-072019-08-14 Breana etal human letal d 08-19 13:00:00 (Marina) assist to 08:40: Escobar leave home 00 [id number] Safety knowledge/s Safety Resolve 2018-072019-08-14 Betsy kill d 08-19 13:00:00 Isaacs deficit: pt 14:36: [id number] 00 Bed mobility/tr PT/OT: Bed Resolve 2018-072019-08-14 Betsy Mobility/Tr ansfer Mobility/T d 08-19 13:00:00 Isaacs ansfer device ransfer 14:36: [id number] present 00 Bed transfer PT/OT: Bed Resolve 2018-072019-08-14 Betsy Mobility/Tr deficit: Mobility/T d 08-19 13:00:00 Isaacs ansfer sit/stand ransfer 14:36: [id number] 00 Bed transfer PT/OT: Bed Resolve 2018-072019-08-14 Betsy Mobility/Tr deficit: Mobility/T d 1-21 13:00:00 Ferny sofia standing ransfer 14:36: [id number] pivot 00 Bed transfer PT/OT: Bed Resolve 2018-072019-08-14 Betsy Mobility/Tr deficit: Mobility/T d 1-21 13:00:00 Ferny sofia toilet/comm ransfer 14:36: [id number] ode 00 Bed transfer PT/OT: Bed Resolve 2018-072019-08-14 Betsy Mobility/Tr deficit: Mobility/T d 1- 13:00:00 Ferny sofia shower/tub ransfer 14:36: [id number] 00 Bed bed PT/OT: Bed Resolve 2018-072019-08-14 Betsy Mobility/Tr mobility Mobility/T d 1 13:00:00 Ferny sofia deficit ransfer 14:36: [id number] 00 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/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
--- OUTSIDE RECORDS SUMMARY | 2019-09-10 18:59 | XMS REPORT ---
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 08-19 Alon [id number] Cardiac Cardiac Diagnosis Active 2018-07 Joni arrhythmia, arrhythmia, 08-19 Alon unspecified unspecified [id number] History of History of Diagnosis Active 2018-07 Joni falling falling 08-19 Alon [id number] Pain frequent Pain Mgmt Active 2018-07 Breana pain 08-19 (Marina) 08:40: Shawn [id number] Respiratory dyspnea Respirator Active 2018-07 Breana present y 08-19 (Marina) 08:40: Shawn [id number] Sensory impaired Sensory Active 2018-07 Breana hearing 08-19 (Marina) 08:40: Escobar [id number] Integument skin Integument Active 2018-07 Breana integrity 08-19 (Marina) risk 08:40: Escobar [id number] Elimination urinary Eliminatio Active 2018-07 Breana incontinenc n 08-19 (Marina) e 08:40: Shawn [id number] Neuro confusion Neuro/Emot Active 2018-07 Breana present ion 08-19 (Marina) 08:40: Escobar [id number] 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 ion 08-19 (Marina) anatoliy 08:40: Escobar [id number] Neuro memory Neuro/Emot Active 2018-07 Breana deficit ion 08-19 (Marina) needing 08:40: Shawn supervision 00 [id number] Activity ADL Activity Active 2018-07 Breana assistance 08-19 (Marina) required 08:40: Shawn [id number] Activity self-care Activity Active 2018-07 Breana deficit 08-19 (Marina) 08:40: Shawn [id number] Safety fall risk Safety Active 2018-07 Breana factor 08-19 (Marina) present 08:40: Escobar [id number] Safety cannot be Safety Active 2018-07 Breana left alone 08-19 (Marina) 08:40: Escobar [id number] Safety risk for Safety Active 2018-07 Breana hospitaliza 08-19 (Marina) tion 08:40: Escobar [id number] Medication oral med Meds Active 2018-07 Breana assistance 08-19 (Marina) required 08:40: Escobar [id number] Musculoskel transfer Musculoske Active 2018-07 Breana etal assistance letal 08-19 (Marina) required 08:40: Escobar [id number] Musculoskel requires Musculoske Active 2018-07 Breana etal human letal 08-19 (Marina) assist to 08:40: Shawn leave home [id number] Safety knowledge/s Safety Active 2018-07 Betsy kill 08-19 Isaacs deficit: pt 14:36: [id number] 00 Bed mobility/tr PT/OT: Bed Active 2018-07 Betsy Mobility/Tr ansfer Mobility/T 08-19 Isaacs ansfer device ransfer 14:36: [id number] present 00 Bed transfer PT/OT: Bed Active 2018-07 Betsy Mobility/Tr deficit: Mobility/T 08-19 Isaacs ansfer sit/stand ransfer 14:36: [id number] 00 Bed transfer PT/OT: Bed Active 2018-07 Betsy Mobility/Tr deficit: Mobility/T 08-19 Isaacs ansfer standing ransfer 14:36: [id number] pivot 00 Bed transfer PT/OT: Bed Active 2018-07 Betsy Mobility/Tr deficit: Mobility/T 08-19 Isaacs ansfer toilet/comm ransfer 14:36: [id number] ode 00 Bed transfer PT/OT: Bed Active 2018-07 Betsy Mobility/Tr deficit: Mobility/T 08-19 Isaacs ansfer shower/tub ransfer 14:36: [id number] 00 Bed bed PT/OT: Bed Active 2018-07 Betsy Mobility/Tr mobility Mobility/T 08-19 Isaacs ansfer deficit ransfer 14:36: [id number] 00 Balance/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 balance/health and safety coordinator PT/OT: Active 2018-07 Betsy curryance rdination Balance/En 08-19 Isaacs deficit durance 14:36: [id number] 00 Gait/Locomo gait PT/OT: Active 2018-07 Betsy tion assistive Gait/Locom 08-19 Isaacs problems device otion 14:36: [id number] present 00 Gait/Locomo gait PT/OT: Active 2018-07 Betsy tion deficit Gait/Locom 08-19 Isaacs problems otion 14:36: [id number] 00 Allergies, Adverse Reactions, Alerts Allergy Name [...] Observation Time Observation Value Comments SYSTOLIC mm[Hg] 2019-07-24 18:09:33 110 mm[Hg] mm[Hg] Method: Sit SYSTOLIC mm[Hg] 2019-06-22 18:09:01 130 mm[Hg] mm[Hg] Method: Stand DIASTOLIC mm[Hg] 2019-07-24 18:09:33 60 mm[Hg] mm[Hg] Method: Sit DIASTOLIC mm[Hg] 2019-06-22 18:09:01 76 mm[Hg] mm[Hg] Method: Stand PULSE 2019-07-24 18:09:33 60 /min /min RESP RATE 2019-06-22 18:09:01 17 /min /min TEMP 2019-07-24 18:09:33 99.0 [degF] Procedures This patient has no known procedures. Results This patient has no known results.
--- OUTSIDE RECORDS SUMMARY | 2019-09-10 18:59 | XMS REPORT ---
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 08-19 Alon [id number] Cardiac Cardiac Diagnosis Active 2018-07 Joni arrhythmia, arrhythmia, 08-19 Alon unspecified unspecified [id number] History of History of Diagnosis Active 2018-07 Joni falling falling 08-19 Alon [id number] Pain frequent Pain Mgmt Resolve 2018-072019-08-14 Breana pain d 08-19 13:00:00 (Marina) 08:40: Escobar 00 [id number] Respiratory dyspnea Respirator Resolve 2018-072019-08-14 Breana present y d 08-19 13:00:00 (Marina) 08:40: Escobar 00 [id number] Sensory impaired Sensory Resolve 2018-072019-08-14 Breana hearing d 08-19 13:00:00 (Marina) 08:40: Escobar 00 [id number] Integument skin Integument Resolve 2018-072019-08-14 Breana integrity d 08-19 13:00:00 (Marina) risk 08:40: Escobar 00 [id number] Elimination urinary Eliminatio Resolve 2018-072019-08-14 Breana incontinenc n d 08-19 13:00:00 (Marina) e 08:40: Escobar 00 [id number] Neuro confusion Neuro/Emot Resolve 2018-072019-08-14 Breana present ion d 08-19 13:00:00 (Marina) 08:40: Escobar 00 [id number] Neuro impaired Neuro/Emot Resolve 2018-072019-08-14 Breana decision-ma ion d 08-19 13:00:00 (Marina) anatoliy 08:40: Escobar 00 [id number] Neuro memory Neuro/Emot Resolve 2018-072019-08-14 Breana deficit ion d - 13:00:00 (Marina) needing 08:40: Escobar supervision 00 [id number] Activity ADL Activity Resolve 2018-072019-08-14 Breana assistance d - 13:00:00 (Marina) required 08:40: Escobar 00 [id number] Activity self-care Activity Resolve 2018-072019-08-14 Breana deficit d 08-19 13:00:00 (Marina) 08:40: Escobar 00 [id number] Safety fall risk Safety Resolve 2018-072019-08-14 Breana factor d 08-19 13:00:00 (Marina) present 08:40: Escobar 00 [id number] Safety cannot be Safety Resolve 2018-072019-08-14 Breana left alone d 08-19 13:00:00 (Marina) 08:40: Escobar 00 [id number] Safety risk for Safety Resolve 2018-072019-08-14 Breana hospitaliza d 08-19 13:00:00 (Marina) tion 08:40: Escobar 00 [id number] Medication oral med Meds Resolve 2018-072019-08-14 Breana assistance d 08-19 13:00:00 (Marina) required 08:40: Escobar 00 [id number] Musculoskel transfer Musculoske Resolve 2018-072019-08-14 Breana etal assistance letal d 08-19 13:00:00 (Marina) required 08:40: Escobar 00 [id number] Musculoskel requires Musculoske Resolve 2018-072019-08-14 Breana etal human letal d 08-19 13:00:00 (Marina) assist to 08:40: Escobar leave home 00 [id number] Safety knowledge/s Safety Resolve 2018-072019-08-14 Betsy kill d 08-19 13:00:00 Isaacs deficit: pt 14:36: [id number] 00 Bed mobility/tr PT/OT: Bed Resolve 2018-072019-08-14 Betsy Mobility/Tr ansfer Mobility/T d 08-19 13:00:00 Isaacs ansfer device ransfer 14:36: [id number] present 00 Bed transfer PT/OT: Bed Resolve 2018-072019-08-14 Betsy Mobility/Tr deficit: Mobility/T d 08-19 13:00:00 Isaacs ansfer sit/stand ransfer 14:36: [id number] 00 Bed transfer PT/OT: Bed Resolve 2018-072019-08-14 Betsy Mobility/Tr deficit: Mobility/T d 1-21 13:00:00 Ferny sofia standing ransfer 14:36: [id number] pivot 00 Bed transfer PT/OT: Bed Resolve 2018-072019-08-14 Betsy Mobility/Tr deficit: Mobility/T d 1-21 13:00:00 Ferny sofia toilet/comm ransfer 14:36: [id number] ode 00 Bed transfer PT/OT: Bed Resolve 2018-072019-08-14 Betsy Mobility/Tr deficit: Mobility/T d 1- 13:00:00 Ferny sofia shower/tub ransfer 14:36: [id number] 00 Bed bed PT/OT: Bed Resolve 2018-072019-08-14 Betsy Mobility/Tr mobility Mobility/T d 1 13:00:00 Ferny sofia deficit ransfer 14:36: [id number] 00 Balance/End balance/lactation coordinator PT/OT: Resolve 2018-072019-08-14 Betsy urance rdination Balance/En d 08-19 13:00:00 Isaacs deficit durance 14:36: [id number] 00 Gait/Locomo gait PT/OT: Resolve 2018-072019-08-14 Betsy tion assistive Gait/Locom d 1-21 13:00:00 Isaacs problems device otion 14:36: [id number] present 00 Gait/Locomo gait PT/OT: Resolve 2018-072019-08-14 Betsy tion deficit Gait/Locom d 08-19 13:00:00 Isaacs problems otion 14:36: [id number] 00 Allergies, Adverse Reactions, Alerts Allergy Name [...] Yes Anatoliy Unknown Unknown Arthritis Arthritis 08-19 oNel CUNN[place] Pain 650 mg Pain 650 mg [...]
--- OUTSIDE RECORDS SUMMARY | 2019-09-10 18:59 | XMS REPORT ---
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 08-19 Alon [id number] Cardiac Cardiac Diagnosis Active 2018-07 Joni arrhythmia, arrhythmia, 08-19 Alon unspecified unspecified [id number] History of History of Diagnosis Active 2018-07 Joni falling falling 08-19 Alon [id number] Pain frequent Pain Mgmt Active 2018-07 Breana pain 08-19 (Marina) 08:40: Shawn [id number] Respiratory dyspnea Respirator Active 2018-07 Breana present y 08-19 (Marina) 08:40: Shawn [id number] Sensory impaired Sensory Active 2018-07 Breana hearing 08-19 (Marina) 08:40: Escobar [id number] Integument skin Integument Active 2018-07 Breana integrity 08-19 (Marina) risk 08:40: Escobar [id number] Elimination urinary Eliminatio Active 2018-07 Breana incontinenc n 08-19 (Marina) e 08:40: Shawn [id number] Neuro confusion Neuro/Emot Active 2018-07 Breana present ion 08-19 (Marina) 08:40: Escobar [id number] 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 ion 08-19 (Marina) anatoliy 08:40: Shawn [id number] Neuro memory Neuro/Emot Active 2018-07 Breana deficit ion 08-19 (Marina) needing 08:40: Shawn supervision 00 [id number] Activity ADL Activity Active 2018-07 Breana assistance 08-19 (Marina) required 08:40: Shawn [id number] Activity self-care Activity Active 2018-07 Breana deficit 08-19 (Marina) 08:40: Shawn [id number] Safety fall risk Safety Active 2018-07 Breana factor 08-19 (Marina) present 08:40: Escobar [id number] Safety cannot be Safety Active 2018-07 Breana left alone 08-19 (Marina) 08:40: Escobar [id number] Safety risk for Safety Active 2018-07 Breana hospitaliza 08-19 (Marina) tion 08:40: Escobar [id number] Medication oral med Meds Active 2018-07 Breana assistance 08-19 (Marina) required 08:40: Escobar [id number] Musculoskel transfer Musculoske Active 2018-07 Breana etal assistance letal 08-19 (Marina) required 08:40: Escobar [id number] Musculoskel requires Musculoske Active 2018-07 Breana etal human letal 08-19 (Marina) assist to 08:40: Shawn leave home [id number] Safety knowledge/s Safety Active 2018-07 Betsy kill 08-19 Isaacs deficit: pt 14:36: [id number] Bed mobility/tr PT/OT: Bed Active 2018-07 Betsy Mobility/Tr ansfer Mobility/T 08-19 Isaacs ansfer device ransfer 14:36: [id number] present 00 Bed transfer PT/OT: Bed Active 2018-07 Betsy Mobility/Tr deficit: Mobility/T 08-19 Isaacs ansfer sit/stand ransfer 14:36: [id number] 00 Bed transfer PT/OT: Bed Active 2018-07 Betsy Mobility/Tr deficit: Mobility/T 08-19 Isaacs ansfer standing ransfer 14:36: [id number] pivot 00 Bed transfer PT/OT: Bed Active 2018-07 Betsy Mobility/Tr deficit: Mobility/T 08-19 Isaacs ansfer toilet/comm ransfer 14:36: [id number] ode 00 Bed transfer PT/OT: Bed Active 2018-07 Betsy Mobility/Tr deficit: Mobility/T 08-19 Isaacs ansfer shower/tub ransfer 14:36: [id number] 00 Bed bed PT/OT: Bed Active 2018-07 Betsy Mobility/Tr mobility Mobility/T 08-19 Isaacs ansfer deficit ransfer 14:36: [id number] 00 Balance/End balance/production control coordinator PT/OT: Active 2018-07 Betsy curryance rdination Balance/En 08-19 Isaacs deficit durance 14:36: [id number] 00 Gait/Locomo gait PT/OT: Active 2018-07 Betsy tion assistive Gait/Locom 08-19 Isaacs problems device otion 14:36: [id number] present 00 Gait/Locomo gait PT/OT: Active 2018-07 Betsy tion deficit Gait/Locom 08-19 Isaacs problems otion 14:36: [id number] 00 Allergies, Adverse Reactions, Alerts Allergy Name [...]
--- OUTSIDE RECORDS SUMMARY | 2019-09-10 18:59 | XMS REPORT ---
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 08-19 Alon [id number] Cardiac Cardiac Diagnosis Active 2018-07 Joni arrhythmia, arrhythmia, 08-19 Alon unspecified unspecified [id number] History of History of Diagnosis Active 2018-07 Joni falling falling 08-19 Alon [id number] Pain frequent Pain Mgmt Active 2018-07 Breana pain 08-19 (Marina) 08:40: Shawn [id number] Respiratory dyspnea Respirator Active 2018-07 Breana present y 08-19 (Marina) 08:40: Shawn [id number] Sensory impaired Sensory Active 2018-07 Breana hearing 08-19 (Marina) 08:40: Escobar [id number] Integument skin Integument Active 2018-07 Breana integrity 08-19 (Marina) risk 08:40: Escobar [id number] Elimination urinary Eliminatio Active 2018-07 Breana incontinenc n 08-19 (Marina) e 08:40: Shawn [id number] Neuro confusion Neuro/Emot Active 2018-07 Breana present ion 08-19 (Marina) 08:40: Escobar [id number] 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 ion 08-19 (Marina) anatoliy 08:40: Shanw [id number] Neuro memory Neuro/Emot Active 2018-07 Breana deficit ion 08-19 (Marina) needing 08:40: Shawn supervision 00 [id number] Activity ADL Activity Active 2018-07 Breana assistance 08-19 (Marina) required 08:40: Shawn [id number] Activity self-care Activity Active 2018-07 Breana deficit 08-19 (Marina) 08:40: Shawn [id number] Safety fall risk Safety Active 2018-07 Breana factor 08-19 (Marina) present 08:40: Escobar [id number] Safety cannot be Safety Active 2018-07 Breana left alone 08-19 (Marina) 08:40: Escobar [id number] Safety risk for Safety Active 2018-07 Breana hospitaliza 08-19 (Marina) tion 08:40: Escobar [id number] Medication oral med Meds Active 2018-07 Breana assistance 08-19 (Marina) required 08:40: Escobar [id number] Musculoskel transfer Musculoske Active 2018-07 Breana etal assistance letal 08-19 (Marina) required 08:40: Escobar [id number] Musculoskel requires Musculoske Active 2018-07 Breana etal human letal 08-19 (Marina) assist to 08:40: Shawn leave home [id number] Safety knowledge/s Safety Active 2018-07 Betsy kill 08-19 Isaacs deficit: pt 14:36: [id number] 00 Bed mobility/tr PT/OT: Bed Active 2018-07 Betsy Mobility/Tr ansfer Mobility/T 08-19 Isaacs ansfer device ransfer 14:36: [id number] present 00 Bed transfer PT/OT: Bed Active 2018-07 Betsy Mobility/Tr deficit: Mobility/T 08-19 Isaacs ansfer sit/stand ransfer 14:36: [id number] 00 Bed transfer PT/OT: Bed Active 2018-07 Betsy Mobility/Tr deficit: Mobility/T 08-19 Isaacs ansfer standing ransfer 14:36: [id number] pivot 00 Bed transfer PT/OT: Bed Active 2018-07 Betsy Mobility/Tr deficit: Mobility/T 08-19 Isaacs ansfer toilet/comm ransfer 14:36: [id number] ode 00 Bed transfer PT/OT: Bed Active 2018-07 Betsy Mobility/Tr deficit: Mobility/T 08-19 Isaacs ansfer shower/tub ransfer 14:36: [id number] 00 Bed bed PT/OT: Bed Active 2018-07 Betsy Mobility/Tr mobility Mobility/T 08-19 Isaacs ansfer deficit ransfer 14:36: [id number] 00 Balance/End balance/review scheduling coordinator PT/OT: Active 2018-07 Betsy curryance rdination Balance/En 08-19 Isaacs deficit durance 14:36: [id number] 00 Gait/Locomo gait PT/OT: Active 2018-07 Betsy tion assistive Gait/Locom 08-19 Isaacs problems device otion 14:36: [id number] present 00 Gait/Locomo gait PT/OT: Active 2018-07 Betsy tion deficit Gait/Locom 08-19 Isaacs problems otion 14:36: [id number] 00 Allergies, Adverse Reactions, Alerts Allergy Name [...] Observation Time Observation Value Comments SYSTOLIC mm[Hg] 2019-08-04 18:09:44 110 mm[Hg] mm[Hg] Method: Sit SYSTOLIC mm[Hg] 2019-06-22 18:09:01 130 mm[Hg] mm[Hg] Method: Stand DIASTOLIC mm[Hg] 2019-08-04 18:09:44 60 mm[Hg] mm[Hg] Method: Sit DIASTOLIC mm[Hg] 2019-06-22 18:09:01 76 mm[Hg] mm[Hg] Method: Stand PULSE 2019-08-04 18:09:44 68 /min /min RESP RATE 2019-06-22 18:09:01 17 /min /min TEMP 2019-08-04 18:09:44 98.4 [degF] Procedures This patient has no known procedures. Results This patient has no known results.
--- OUTSIDE RECORDS SUMMARY | 2019-09-10 18:59 | XMS REPORT ---
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 08-19 Alon [id number] Cardiac Cardiac Diagnosis Active 2018-07 Joni arrhythmia, arrhythmia, 08-19 Alon unspecified unspecified [id number] History of History of Diagnosis Active 2018-07 Joni falling falling 08-19 Alon [id number] Pain frequent Pain Mgmt Active 2018-07 Breana pain 08-19 (Marina) 08:40: Shawn [id number] Respiratory dyspnea Respirator Active 2018-07 Breana present y 08-19 (Amrina) 08:40: hSawn [id number] Sensory impaired Sensory Active 2018-07 Breana hearing 08-19 (Marina) 08:40: Escobar [id number] Integument skin Integument Active 2018-07 Breana integrity 08-19 (Marina) risk 08:40: Escobar [id number] Elimination urinary Eliminatio Active 2018-07 Breana incontinenc n 08-19 (Marina) e 08:40: Shawn [id number] Neuro confusion Neuro/Emot Active 2018-07 Breana present ion 08-19 (Marina) 08:40: Escobar [id number] 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 ion 08-19 (Marina) anatoliy 08:40: Shawn [id number] Neuro memory Neuro/Emot Active 2018-07 Breana deficit ion 08-19 (Marina) needing 08:40: Shawn supervision 00 [id number] Activity ADL Activity Active 2018-07 Breana assistance 08-19 (Marina) required 08:40: Shawn [id number] Activity self-care Activity Active 2018-07 Breana deficit 08-19 (Marina) 08:40: Shawn [id number] Safety fall risk Safety Active 2018-07 Breana factor 08-19 (Marina) present 08:40: Escobar [id number] Safety cannot be Safety Active 2018-07 Breana left alone 08-19 (Marina) 08:40: Escobar [id number] Safety risk for Safety Active 2018-07 Breana hospitaliza 08-19 (Marina) tion 08:40: Escobar [id number] Medication oral med Meds Active 2018-07 Breana assistance 08-19 (Marina) required 08:40: Escobar [id number] Musculoskel transfer Musculoske Active 2018-07 Breana etal assistance letal 08-19 (Marina) required 08:40: Escobar [id number] Musculoskel requires Musculoske Active 2018-07 Breana etal human letal 08-19 (Marina) assist to 08:40: Shawn leave home [id number] Safety knowledge/s Safety Active 2018-07 Betsy kill 08-19 Isaacs deficit: pt 14:36: [id number] 00 Bed mobility/tr PT/OT: Bed Active 2018-07 Betsy Mobility/Tr ansfer Mobility/T 08-19 Isaacs ansfer device ransfer 14:36: [id number] present 00 Bed transfer PT/OT: Bed Active 2018-07 Betsy Mobility/Tr deficit: Mobility/T 08-19 Isaacs ansfer sit/stand ransfer 14:36: [id number] 00 Bed transfer PT/OT: Bed Active 2018-07 Betsy Mobility/Tr deficit: Mobility/T 08-19 Isaacs ansfer standing ransfer 14:36: [id number] pivot 00 Bed transfer PT/OT: Bed Active 2018-07 Betsy Mobility/Tr deficit: Mobility/T 08-19 Isaacs ansfer toilet/comm ransfer 14:36: [id number] ode 00 Bed transfer PT/OT: Bed Active 2018-07 Betsy Mobility/Tr deficit: Mobility/T 08-19 Isaacs ansfer shower/tub ransfer 14:36: [id number] 00 Bed bed PT/OT: Bed Active 2018-07 Betsy Mobility/Tr mobility Mobility/T 08-19 Isaacs ansfer deficit ransfer 14:36: [id number] 00 Balance/End balance/digital account coordinator PT/OT: Active 2018-07 Betsy curryance rdination Balance/En 08-19 Isaacs deficit durance 14:36: [id number] 00 Gait/Locomo gait PT/OT: Active 2018-07 Betsy tion assistive Gait/Locom 08-19 Isaacs problems device otion 14:36: [id number] present 00 Gait/Locomo gait PT/OT: Active 2018-07 Betsy tion deficit Gait/Locom 08-19 Isaacs problems otion 14:36: [id number] 00 Allergies, Adverse Reactions, Alerts Allergy Name [...]
--- OUTSIDE RECORDS SUMMARY | 2019-09-10 18:59 | XMS REPORT ---
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 08-19 Alon [id number] Cardiac Cardiac Diagnosis Active 2018-07 Joni arrhythmia, arrhythmia, 08-19 Alon unspecified unspecified [id number] History of History of Diagnosis Active 2018-07 Joni falling falling 08-19 Alon [id number] Pain frequent Pain Mgmt Active 2018-07 Breana pain 08-19 (Marina) 08:40: Shawn [id number] Respiratory dyspnea Respirator Active 2018-07 Breana present y 08-19 (Marina) 08:40: Shawn [id number] Sensory impaired Sensory Active 2018-07 Breana hearing 08-19 (Marina) 08:40: Escobar [id number] Integument skin Integument Active 2018-07 Breana integrity 08-19 (Marina) risk 08:40: Escobar [id number] Elimination urinary Eliminatio Active 2018-07 Breana incontinenc n 08-19 (Marina) e 08:40: Shawn [id number] Neuro confusion Neuro/Emot Active 2018-07 Breana present ion 08-19 (Marina) 08:40: Escobar [id number] 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 ion 08-19 (Marina) anatoliy 08:40: Escobar [id number] Neuro memory Neuro/Emot Active 2018-07 Breana deficit ion 08-19 (Marina) needing 08:40: Shawn supervision 00 [id number] Activity ADL Activity Active 2018-07 Breana assistance 08-19 (Marina) required 08:40: Shawn [id number] Activity self-care Activity Active 2018-07 Breana deficit 08-19 (Marina) 08:40: Shawn [id number] Safety fall risk Safety Active 2018-07 Breana factor 08-19 (Marina) present 08:40: Escobar [id number] Safety cannot be Safety Active 2018-07 Breana left alone 08-19 (Marina) 08:40: Escobar [id number] Safety risk for Safety Active 2018-07 Breana hospitaliza 08-19 (Marina) tion 08:40: Escobar [id number] Medication oral med Meds Active 2018-07 Breana assistance 08-19 (Marina) required 08:40: Escobar [id number] Musculoskel transfer Musculoske Active 2018-07 Breana etal assistance letal 08-19 (Marina) required 08:40: Escobar [id number] Musculoskel requires Musculoske Active 2018-07 Breana etal human letal 08-19 (Marina) assist to 08:40: Shawn leave home [id number] Safety knowledge/s Safety Active 2018-07 Betsy kill 08-19 Isaacs deficit: pt 14:36: [id number] 00 Bed mobility/tr PT/OT: Bed Active 2018-07 Betsy Mobility/Tr ansfer Mobility/T 08-19 Isaacs ansfer device ransfer 14:36: [id number] present 00 Bed transfer PT/OT: Bed Active 2018-07 Betsy Mobility/Tr deficit: Mobility/T 08-19 Isaacs ansfer sit/stand ransfer 14:36: [id number] 00 Bed transfer PT/OT: Bed Active 2018-07 Betsy Mobility/Tr deficit: Mobility/T 08-19 Isaacs ansfer standing ransfer 14:36: [id number] pivot 00 Bed transfer PT/OT: Bed Active 2018-07 Betsy Mobility/Tr deficit: Mobility/T 08-19 Isaacs ansfer toilet/comm ransfer 14:36: [id number] ode 00 Bed transfer PT/OT: Bed Active 2018-07 Betsy Mobility/Tr deficit: Mobility/T 08-19 Isaacs ansfer shower/tub ransfer 14:36: [id number] 00 Bed bed PT/OT: Bed Active 2018-07 Betsy Mobility/Tr mobility Mobility/T 08-19 Isaacs ansfer deficit ransfer 14:36: [id number] 00 Balance/End balance/blending coordinator PT/OT: Active 2018-07 Besty curryance rdination Balance/En 08-19 Isaacs deficit durance 14:36: [id number] 00 Gait/Locomo gait PT/OT: Active 2018-07 Betsy tion assistive Gait/Locom 08-19 Isaacs problems device otion 14:36: [id number] present 00 Gait/Locomo gait PT/OT: Active 2018-07 Betsy tion deficit Gait/Locom 08-19 Isaacs problems otion 14:36: [id number] 00 Allergies, Adverse Reactions, Alerts Allergy Name [...] Yes Anatoliy Unknown Unknown Arthritis Arthritis 08-19 Neol [place]UN[place] Pain 650 mg Pain 650 mg [...]
--- OUTSIDE RECORDS SUMMARY | 2019-09-10 18:59 | XMS REPORT ---
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 08-19 Alon [id number] Cardiac Cardiac Diagnosis Active 2018-07 Joni arrhythmia, arrhythmia, 08-19 Alon unspecified unspecified [id number] History of History of Diagnosis Active 2018-07 Joni falling falling 08-19 Alon [id number] Pain frequent Pain Mgmt Active 2018-07 Breana pain 08-19 (Marina) 08:40: Shawn [id number] Respiratory dyspnea Respirator Active 2018-07 Breana present y 08-19 (Marina) 08:40: Shawn [id number] Sensory impaired Sensory Active 2018-07 Breana hearing 08-19 (Marina) 08:40: Escobar [id number] Integument skin Integument Active 2018-07 Breana integrity 08-19 (Marina) risk 08:40: Escobar [id number] Elimination urinary Eliminatio Active 2018-07 Breana incontinenc n 08-19 (Marina) e 08:40: Shawn [id number] Neuro confusion Neuro/Emot Active 2018-07 Breana present ion 08-19 (Marina) 08:40: Escobar [id number] 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 ion 08-19 (Marina) anatoliy 08:40: Shawn [id number] Neuro memory Neuro/Emot Active 2018-07 Breana deficit ion 08-19 (Marina) needing 08:40: Shawn supervision 00 [id number] Activity ADL Activity Active 2018-07 Breana assistance 08-19 (Marina) required 08:40: Shawn [id number] Activity self-care Activity Active 2018-07 Breana deficit 08-19 (Marina) 08:40: Shawn [id number] Safety fall risk Safety Active 2018-07 Breana factor 08-19 (Marina) present 08:40: Escobar [id number] Safety cannot be Safety Active 2018-07 Breana left alone 08-19 (Marina) 08:40: Escobar [id number] Safety risk for Safety Active 2018-07 Breana hospitaliza 08-19 (Marina) tion 08:40: Escobar [id number] Medication oral med Meds Active 2018-07 Breana assistance 08-19 (Marina) required 08:40: Escobar [id number] Musculoskel transfer Musculoske Active 2018-07 Breana etal assistance letal 08-19 (Marina) required 08:40: Escobar [id number] Musculoskel requires Musculoske Active 2018-07 Breana etal human letal 08-19 (Marina) assist to 08:40: Shawn leave home [id number] Safety knowledge/s Safety Active 2018-07 Betsy kill 08-19 Isaacs deficit: pt 14:36: [id number] 00 Bed mobility/tr PT/OT: Bed Active 2018-07 Betsy Mobility/Tr ansfer Mobility/T 08-19 Isaacs ansfer device ransfer 14:36: [id number] present 00 Bed transfer PT/OT: Bed Active 2018-07 Betsy Mobility/Tr deficit: Mobility/T 08-19 Isaacs ansfer sit/stand ransfer 14:36: [id number] 00 Bed transfer PT/OT: Bed Active 2018-07 Betsy Mobility/Tr deficit: Mobility/T 08-19 Isaacs ansfer standing ransfer 14:36: [id number] pivot 00 Bed transfer PT/OT: Bed Active 2018-07 Betsy Mobility/Tr deficit: Mobility/T 08-19 Isaacs ansfer toilet/comm ransfer 14:36: [id number] ode 00 Bed transfer PT/OT: Bed Active 2018-07 Betsy Mobility/Tr deficit: Mobility/T 08-19 Isaacs ansfer shower/tub ransfer 14:36: [id number] 00 Bed bed PT/OT: Bed Active 2018-07 Betsy Mobility/Tr mobility Mobility/T 08-19 Isaacs ansfer deficit ransfer 14:36: [id number] 00 Balance/End balance/emergency management coordinator PT/OT: Active 2018-07 Betsy curryance rdination Balance/En 08-19 Isaacs deficit durance 14:36: [id number] 00 Gait/Locomo gait PT/OT: Active 2018-07 Betsy tion assistive Gait/Locom 08-19 Isaacs problems device otion 14:36: [id number] present 00 Gait/Locomo gait PT/OT: Active 2018-07 Betsy tion deficit Gait/Locom 08-19 Isaacs problems otion 14:36: [id number] 00 Allergies, Adverse Reactions, Alerts Allergy Name [...]
--- OUTSIDE RECORDS SUMMARY | 2019-09-10 18:59 | XMS REPORT ---
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 08-19 Alon [id number] Cardiac Cardiac Diagnosis Active 2018-07 Joni arrhythmia, arrhythmia, 08-19 Alon unspecified unspecified [id number] History of History of Diagnosis Active 2018-07 Joni falling falling 08-19 Alon [id number] Pain frequent Pain Mgmt Active 2018-07 Breana pain 08-19 (Marina) 08:40: Shawn [id number] Respiratory dyspnea Respirator Active 2018-07 Breana present y 08-19 (Marina) 08:40: Shawn [id number] Sensory impaired Sensory Active 2018-07 Breana hearing 08-19 (Marina) 08:40: Escobar [id number] Integument skin Integument Active 2018-07 Breana integrity 08-19 (Marina) risk 08:40: Escobar [id number] Elimination urinary Eliminatio Active 2018-07 Breana incontinenc n 08-19 (Marina) e 08:40: Shawn [id number] Neuro confusion Neuro/Emot Active 2018-07 Breana present ion 08-19 (Marina) 08:40: Escobar [id number] 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 ion 08-19 (Marina) anatoliy 08:40: Shawn [id number] Neuro memory Neuro/Emot Active 2018-07 Breana deficit ion 08-19 (Marina) needing 08:40: Shawn supervision 00 [id number] Activity ADL Activity Active 2018-07 Breana assistance 08-19 (Marina) required 08:40: Shawn [id number] Activity self-care Activity Active 2018-07 Breana deficit 08-19 (Marina) 08:40: Shawn [id number] Safety fall risk Safety Active 2018-07 Breana factor 08-19 (Marina) present 08:40: Escobar [id number] Safety cannot be Safety Active 2018-07 Breana left alone 08-19 (Marina) 08:40: Escobar [id number] Safety risk for Safety Active 2018-07 Breana hospitaliza 08-19 (Marina) tion 08:40: Escobar [id number] Medication oral med Meds Active 2018-07 Breana assistance 08-19 (Marina) required 08:40: Escobar [id number] Musculoskel transfer Musculoske Active 2018-07 Breana etal assistance letal 08-19 (Marina) required 08:40: Escobar [id number] Musculoskel requires Musculoske Active 2018-07 Breana etal human letal 08-19 (Marina) assist to 08:40: Shawn leave home [id number] Safety knowledge/s Safety Active 2018-07 Betsy kill 08-19 Isaacs deficit: pt 14:36: [id number] Bed mobility/tr PT/OT: Bed Active 2018-07 Betsy Mobility/Tr ansfer Mobility/T 08-19 Isaacs ansfer device ransfer 14:36: [id number] present 00 Bed transfer PT/OT: Bed Active 2018-07 Betsy Mobility/Tr deficit: Mobility/T 08-19 Isaacs ansfer sit/stand ransfer 14:36: [id number] 00 Bed transfer PT/OT: Bed Active 2018-07 Betsy Mobility/Tr deficit: Mobility/T 08-19 Isaacs ansfer standing ransfer 14:36: [id number] pivot 00 Bed transfer PT/OT: Bed Active 2018-07 Betsy Mobility/Tr deficit: Mobility/T 08-19 Isaacs ansfer toilet/comm ransfer 14:36: [id number] ode 00 Bed transfer PT/OT: Bed Active 2018-07 Betsy Mobility/Tr deficit: Mobility/T 08-19 Isaacs ansfer shower/tub ransfer 14:36: [id number] 00 Bed bed PT/OT: Bed Active 2018-07 Betsy Mobility/Tr mobility Mobility/T 08-19 Isaacs ansfer deficit ransfer 14:36: [id number] 00 Balance/End balance/grievance and appeals coordinator PT/OT: Active 2018-07 Betsy curryance rdination Balance/En 08-19 Isaacs deficit durance 14:36: [id number] 00 Gait/Locomo gait PT/OT: Active 2018-07 Betsy tion assistive Gait/Locom 08-19 Isaacs problems device otion 14:36: [id number] present 00 Gait/Locomo gait PT/OT: Active 2018-07 Betsy tion deficit Gait/Locom 08-19 Isaacs problems otion 14:36: [id number] 00 Allergies, Adverse Reactions, Alerts Allergy Name [...]
--- OUTSIDE RECORDS SUMMARY | 2019-09-10 18:59 | XMS REPORT ---
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 08-19 Alon [id number] Cardiac Cardiac Diagnosis Active 2018-07 Joni arrhythmia, arrhythmia, 08-19 Alon unspecified unspecified [id number] History of History of Diagnosis Active 2018-07 Joni falling falling 08-19 Alon [id number] Pain frequent Pain Mgmt Resolve 2018-072019-08-14 Breana pain d 08-19 13:00:00 (Marina) 08:40: Escobar 00 [id number] Respiratory dyspnea Respirator Resolve 2018-072019-08-14 Breana present y d 08-19 13:00:00 (Marina) 08:40: Escobar 00 [id number] Sensory impaired Sensory Resolve 2018-072019-08-14 Breana hearing d 08-19 13:00:00 (Marina) 08:40: Escobar 00 [id number] Integument skin Integument Resolve 2018-072019-08-14 Breana integrity d 08-19 13:00:00 (Marina) risk 08:40: Escobar 00 [id number] Elimination urinary Eliminatio Resolve 2018-072019-08-14 Breana incontinenc n d 08-19 13:00:00 (Marina) e 08:40: Escobar 00 [id number] Neuro confusion Neuro/Emot Resolve 2018-072019-08-14 Breana present ion d 08-19 13:00:00 (Marina) 08:40: Escobar 00 [id number] Neuro impaired Neuro/Emot Resolve 2018-072019-08-14 Breana decision-ma ion d 08-19 13:00:00 (Marina) anatoliy 08:40: Escobar 00 [id number] Neuro memory Neuro/Emot Resolve 2018-072019-08-14 Breana deficit ion d - 13:00:00 (Marina) needing 08:40: Escobar supervision 00 [id number] Activity ADL Activity Resolve 2018-072019-08-14 Breana assistance d - 13:00:00 (Marina) required 08:40: Escobar 00 [id number] Activity self-care Activity Resolve 2018-072019-08-14 Breana deficit d 08-19 13:00:00 (Marina) 08:40: Escobar 00 [id number] Safety fall risk Safety Resolve 2018-072019-08-14 Breana factor d 08-19 13:00:00 (Marina) present 08:40: Escobar 00 [id number] Safety cannot be Safety Resolve 2018-072019-08-14 Breana left alone d 08-19 13:00:00 (Marina) 08:40: Escobar 00 [id number] Safety risk for Safety Resolve 2018-072019-08-14 Breana hospitaliza d 08-19 13:00:00 (Marina) tion 08:40: Escobar 00 [id number] Medication oral med Meds Resolve 2018-072019-08-14 Breana assistance d 08-19 13:00:00 (Marina) required 08:40: Escobar 00 [id number] Musculoskel transfer Musculoske Resolve 2018-072019-08-14 Breana etal assistance letal d 08-19 13:00:00 (Marina) required 08:40: Escobar 00 [id number] Musculoskel requires Musculoske Resolve 2018-072019-08-14 Breana etal human letal d 08-19 13:00:00 (Marina) assist to 08:40: Escobar leave home 00 [id number] Safety knowledge/s Safety Resolve 2018-072019-08-14 Betsy kill d 08-19 13:00:00 Isaacs deficit: pt 14:36: [id number] Bed mobility/tr PT/OT: Bed Resolve 2018-072019-08-14 Betsy Mobility/Tr ansfer Mobility/T d 08-19 13:00:00 Isaacs ansfer device ransfer 14:36: [id number] present 00 Bed transfer PT/OT: Bed Resolve 2018-072019-08-14 Betsy Mobility/Tr deficit: Mobility/T d 08-19 13:00:00 Isaacs ansfer sit/stand ransfer 14:36: [id number] 00 Bed transfer PT/OT: Bed Resolve 2018-072019-08-14 Betsy Mobility/Tr deficit: Mobility/T d 1-21 13:00:00 Ferny sofia standing ransfer 14:36: [id number] pivot 00 Bed transfer PT/OT: Bed Resolve 2018-072019-08-14 Betsy Mobility/Tr deficit: Mobility/T d 1-21 13:00:00 Ferny sofia toilet/comm ransfer 14:36: [id number] ode 00 Bed transfer PT/OT: Bed Resolve 2018-072019-08-14 Betsy Mobility/Tr deficit: Mobility/T d 1- 13:00:00 Ferny sofia shower/tub ransfer 14:36: [id number] 00 Bed bed PT/OT: Bed Resolve 2018-072019-08-14 Betsy Mobility/Tr mobility Mobility/T d 1 13:00:00 Ferny sofia deficit ransfer 14:36: [id number] 00 Balance/End balance/ad operations coordinator PT/OT: Resolve 2018-072019-08-14 Betsy urance rdination Balance/En d 08-19 13:00:00 Isaacs deficit durance 14:36: [id number] 00 Gait/Locomo gait PT/OT: Resolve 2018-072019-08-14 Betsy tion assistive Gait/Locom d 1-21 13:00:00 Isaacs problems device otion 14:36: [id number] present 00 Gait/Locomo gait PT/OT: Resolve 2018-072019-08-14 Betsy tion deficit Gait/Locom d 08-19 13:00:00 Isaacs problems otion 14:36: [id number] 00 Allergies, Adverse Reactions, Alerts Allergy Name [...]
--- OUTSIDE RECORDS SUMMARY | 2019-09-10 18:59 | XMS REPORT ---
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 08-19 Alon [id number] Cardiac Cardiac Diagnosis Active 2018-07 Joni arrhythmia, arrhythmia, 08-19 Alon unspecified unspecified [id number] History of History of Diagnosis Active 2018-07 Joni falling falling 08-19 Alon [id number] Pain frequent Pain Mgmt Active 2018-07 Breana pain 08-19 (Marina) 08:40: Shawn [id number] Respiratory dyspnea Respirator Active 2018-07 Breana present y 08-19 (Marina) 08:40: Shawn [id number] Sensory impaired Sensory Active 2018-07 Breana hearing 08-19 (Marina) 08:40: Escobar [id number] Integument skin Integument Active 2018-07 Breana integrity 08-19 (Marina) risk 08:40: Escobar [id number] Elimination urinary Eliminatio Active 2018-07 Breana incontinenc n 08-19 (Marina) e 08:40: Shawn [id number] Neuro confusion Neuro/Emot Active 2018-07 Breana present ion 08-19 (Marina) 08:40: Escobar [id number] 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 ion 08-19 (Marina) anatoliy 08:40: Shawn [id number] Neuro memory Neuro/Emot Active 2018-07 Breana deficit ion 08-19 (Marina) needing 08:40: Shawn supervision 00 [id number] Activity ADL Activity Active 2018-07 Breana assistance 08-19 (Marina) required 08:40: Shawn [id number] Activity self-care Activity Active 2018-07 Breana deficit 08-19 (Marina) 08:40: Shawn [id number] Safety fall risk Safety Active 2018-07 Breana factor 08-19 (Marina) present 08:40: Escobar [id number] Safety cannot be Safety Active 2018-07 Breana left alone 08-19 (Marina) 08:40: Escobar [id number] Safety risk for Safety Active 2018-07 Breana hospitaliza 08-19 (Marina) tion 08:40: Escobar [id number] Medication oral med Meds Active 2018-07 Breana assistance 08-19 (Marina) required 08:40: Escobar [id number] Musculoskel transfer Musculoske Active 2018-07 Breana etal assistance letal 08-19 (Marina) required 08:40: Escobar [id number] Musculoskel requires Musculoske Active 2018-07 Breana etal human letal 08-19 (Marina) assist to 08:40: Shawn leave home [id number] Safety knowledge/s Safety Active 2018-07 Betsy kill 08-19 Isaacs deficit: pt 14:36: [id number] Bed mobility/tr PT/OT: Bed Active 2018-07 Betsy Mobility/Tr ansfer Mobility/T 08-19 Isaacs ansfer device ransfer 14:36: [id number] present 00 Bed transfer PT/OT: Bed Active 2018-07 Betsy Mobility/Tr deficit: Mobility/T 08-19 Isaacs ansfer sit/stand ransfer 14:36: [id number] 00 Bed transfer PT/OT: Bed Active 2018-07 Betsy Mobility/Tr deficit: Mobility/T 08-19 Isaacs ansfer standing ransfer 14:36: [id number] pivot 00 Bed transfer PT/OT: Bed Active 2018-07 Betsy Mobility/Tr deficit: Mobility/T 08-19 Isaacs ansfer toilet/comm ransfer 14:36: [id number] ode 00 Bed transfer PT/OT: Bed Active 2018-07 Betsy Mobility/Tr deficit: Mobility/T 08-19 Isaacs ansfer shower/tub ransfer 14:36: [id number] 00 Bed bed PT/OT: Bed Active 2018-07 Betsy Mobility/Tr mobility Mobility/T 08-19 Isaacs ansfer deficit ransfer 14:36: [id number] 00 Balance/End balance/pilates coordinator PT/OT: Active 2018-07 Betsy curryance rdination Balance/En 08-19 Isaacs deficit durance 14:36: [id number] 00 Gait/Locomo gait PT/OT: Active 2018-07 Betsy tion assistive Gait/Locom 08-19 Isaacs problems device otion 14:36: [id number] present 00 Gait/Locomo gait PT/OT: Active 2018-07 Betsy tion deficit Gait/Locom 08-19 Isaacs problems otion 14:36: [id number] 00 Allergies, Adverse Reactions, Alerts Allergy Name [...] tablet unit tablet citalopram citalopram 2018-07 Yes Naatoliy Unknown Unknown 20 mg 20 mg 08-19 [...]
--- OUTSIDE RECORDS SUMMARY | 2019-09-10 19:00 | XMS REPORT ---
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 08-19 Alon [id number] Cardiac Cardiac Diagnosis Active 2018-07 Joni arrhythmia, arrhythmia, 08-19 Alon unspecified unspecified [id number] History of History of Diagnosis Active 2018-07 Joni falling falling 08-19 Alon [id number] Pain frequent Pain Mgmt Active 2018-07 Breana pain 08-19 (Marina) 08:40: Shawn [id number] Respiratory dyspnea Respirator Active 2018-07 Breana present y 08-19 (Marina) 08:40: Shawn [id number] Sensory impaired Sensory Active 2018-07 Breana hearing 08-19 (Marina) 08:40: Escobar [id number] Integument skin Integument Active 2018-07 Breana integrity 08-19 (Marina) risk 08:40: Escobar [id number] Elimination urinary Eliminatio Active 2018-07 Breana incontinenc n 08-19 (Marina) e 08:40: Shawn [id number] Neuro confusion Neuro/Emot Active 2018-07 Breana present ion 08-19 (Marina) 08:40: Escobar [id number] 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 ion 08-19 (Marina) anatoliy 08:40: Escobar [id number] Neuro memory Neuro/Emot Active 2018-07 Breana deficit ion 08-19 (Marina) needing 08:40: Shawn supervision 00 [id number] Activity ADL Activity Active 2018-07 Breana assistance 08-19 (Marina) required 08:40: Shawn [id number] Activity self-care Activity Active 2018-07 Breana deficit 08-19 (Marina) 08:40: Shawn [id number] Safety fall risk Safety Active 2018-07 Breana factor 08-19 (Marina) present 08:40: Escobar [id number] Safety cannot be Safety Active 2018-07 Breana left alone 08-19 (Marina) 08:40: Escobar [id number] Safety risk for Safety Active 2018-07 Breana hospitaliza 08-19 (Marina) tion 08:40: Escobar [id number] Medication oral med Meds Active 2018-07 Breana assistance 08-19 (Marina) required 08:40: Escobar [id number] Musculoskel transfer Musculoske Active 2018-07 Breana etal assistance letal 08-19 (Marina) required 08:40: Escobar [id number] Musculoskel requires Musculoske Active 2018-07 Breana etal human letal 08-19 (Marina) assist to 08:40: Shawn leave home [id number] Safety knowledge/s Safety Active 2018-07 Betsy kill 08-19 Isaacs deficit: pt 14:36: [id number] 00 Bed mobility/tr PT/OT: Bed Active 2018-07 Betsy Mobility/Tr ansfer Mobility/T 08-19 Isaacs ansfer device ransfer 14:36: [id number] present 00 Bed transfer PT/OT: Bed Active 2018-07 Betsy Mobility/Tr deficit: Mobility/T 08-19 Isaacs ansfer sit/stand ransfer 14:36: [id number] 00 Bed transfer PT/OT: Bed Active 2018-07 Betsy Mobility/Tr deficit: Mobility/T 08-19 Isaacs ansfer standing ransfer 14:36: [id number] pivot 00 Bed transfer PT/OT: Bed Active 2018-07 Betsy Mobility/Tr deficit: Mobility/T 08-19 Isaacs ansfer toilet/comm ransfer 14:36: [id number] ode 00 Bed transfer PT/OT: Bed Active 2018-07 Betsy Mobility/Tr deficit: Mobility/T 08-19 Isaacs ansfer shower/tub ransfer 14:36: [id number] 00 Bed bed PT/OT: Bed Active 2018-07 Betsy Mobility/Tr mobility Mobility/T 08-19 Isaacs ansfer deficit ransfer 14:36: [id number] 00 Balance/End balance/scan coordinator PT/OT: Active 2018-07 Betsy curryance rdination Balance/En 08-19 Isaacs deficit durance 14:36: [id number] 00 Gait/Locomo gait PT/OT: Active 2018-07 Betsy tion assistive Gait/Locom 08-19 Isaacs problems device otion 14:36: [id number] present 00 Gait/Locomo gait PT/OT: Active 2018-07 Betsy tion deficit Gait/Locom 08-19 Isaacs problems otion 14:36: [id number] 00 Allergies, Adverse Reactions, Alerts Allergy Name [...] Observation Time Observation Value Comments SYSTOLIC mm[Hg] 2019-07-17 18:09:26 110 mm[Hg] mm[Hg] Method: Sit SYSTOLIC mm[Hg] 2019-06-22 18:09:01 130 mm[Hg] mm[Hg] Method: Stand DIASTOLIC mm[Hg] 2019-07-17 18:09:26 60 mm[Hg] mm[Hg] Method: Sit DIASTOLIC mm[Hg] 2019-06-22 18:09:01 76 mm[Hg] mm[Hg] Method: Stand PULSE 2019-07-17 18:09:26 64 /min /min RESP RATE 2019-06-22 18:09:01 17 /min /min TEMP 2019-07-17 18:09:26 98.9 [degF] Procedures This patient has no known procedures. Results This patient has no known results.
--- OUTSIDE RECORDS SUMMARY | 2019-09-10 19:00 | XMS REPORT ---
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 08-19 Alon [id number] Cardiac Cardiac Diagnosis Active 2018-07 Joni arrhythmia, arrhythmia, 08-19 Alon unspecified unspecified [id number] History of History of Diagnosis Active 2018-07 Joni falling falling 08-19 Alon [id number] Pain frequent Pain Mgmt Active 2018-07 Breana pain 08-19 (Marina) 08:40: Shawn [id number] Respiratory dyspnea Respirator Active 2018-07 Breana present y 08-19 (Marina) 08:40: Shawn [id number] Sensory impaired Sensory Active 2018-07 Breana hearing 08-19 (Marina) 08:40: Escobar [id number] Integument skin Integument Active 2018-07 Breana integrity 08-19 (Marina) risk 08:40: Escobar [id number] Elimination urinary Eliminatio Active 2018-07 Breana incontinenc n 08-19 (Marina) e 08:40: Shawn [id number] Neuro confusion Neuro/Emot Active 2018-07 Breana present ion 08-19 (Marina) 08:40: Escobar [id number] 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 ion 08-19 (Marina) anatoliy 08:40: Escobar [id number] Neuro memory Neuro/Emot Active 2018-07 Breana deficit ion 08-19 (Marina) needing 08:40: Shawn supervision 00 [id number] Activity ADL Activity Active 2018-07 Breana assistance 08-19 (Marina) required 08:40: Shawn [id number] Activity self-care Activity Active 2018-07 Breana deficit 08-19 (Marina) 08:40: Shawn [id number] Safety fall risk Safety Active 2018-07 Breana factor 08-19 (Marina) present 08:40: Escobar [id number] Safety cannot be Safety Active 2018-07 Breana left alone 08-19 (Marina) 08:40: Escobar [id number] Safety risk for Safety Active 2018-07 Breana hospitaliza 08-19 (Marina) tion 08:40: Escobar [id number] Medication oral med Meds Active 2018-07 Breana assistance 08-19 (Marina) required 08:40: Escobar [id number] Musculoskel transfer Musculoske Active 2018-07 Breana etal assistance letal 08-19 (Marina) required 08:40: Escobar [id number] Musculoskel requires Musculoske Active 2018-07 Breana etal human letal 08-19 (Marina) assist to 08:40: Shawn leave home [id number] Safety knowledge/s Safety Active 2018-07 Betsy kill 08-19 Isaacs deficit: pt 14:36: [id number] Bed mobility/tr PT/OT: Bed Active 2018-07 Betsy Mobility/Tr ansfer Mobility/T 08-19 Isaacs ansfer device ransfer 14:36: [id number] present 00 Bed transfer PT/OT: Bed Active 2018-07 Betsy Mobility/Tr deficit: Mobility/T 08-19 Isaacs ansfer sit/stand ransfer 14:36: [id number] 00 Bed transfer PT/OT: Bed Active 2018-07 Betsy Mobility/Tr deficit: Mobility/T 08-19 Isaacs ansfer standing ransfer 14:36: [id number] pivot 00 Bed transfer PT/OT: Bed Active 2018-07 Betsy Mobility/Tr deficit: Mobility/T 08-19 Isaacs ansfer toilet/comm ransfer 14:36: [id number] ode 00 Bed transfer PT/OT: Bed Active 2018-07 Betsy Mobility/Tr deficit: Mobility/T 08-19 Isaacs ansfer shower/tub ransfer 14:36: [id number] 00 Bed bed PT/OT: Bed Active 2018-07 Betsy Mobility/Tr mobility Mobility/T 08-19 Isaacs ansfer deficit ransfer 14:36: [id number] 00 Balance/End balance/volunteer recruitment coordinator PT/OT: Active 2018-07 Betsy curryance rdination Balance/En 08-19 Isaacs deficit durance 14:36: [id number] 00 Gait/Locomo gait PT/OT: Active 2018-07 Betsy tion assistive Gait/Locom 08-19 Isaacs problems device otion 14:36: [id number] present 00 Gait/Locomo gait PT/OT: Active 2018-07 Betsy tion deficit Gait/Locom 08-19 Isaacs problems otion 14:36: [id number] 00 Allergies, Adverse Reactions, Alerts Allergy Name [...] 08-18 NSAIDS Allergen Active Unknown Reaction 2018-07 Anrdeia Beam (Non-Steroid Group Unknown 08-18 al Anti-Inflamm [...] tablet pher M omeprazole omeprazole 2018-07 Yes Naatoliy Unknown Unknown 40 mg 40 mg 08-19 [...]
--- OUTSIDE RECORDS SUMMARY | 2019-09-10 19:00 | XMS REPORT ---
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 08-19 Alon [id number] Cardiac Cardiac Diagnosis Active 2018-07 Joni arrhythmia, arrhythmia, 08-19 Alon unspecified unspecified [id number] History of History of Diagnosis Active 2018-07 Joni falling falling 08-19 Alon [id number] Pain frequent Pain Mgmt Active 2018-07 Breana pain 08-19 (Marina) 08:40: Shawn [id number] Respiratory dyspnea Respirator Active 2018-07 Breana present y 08-19 (Marina) 08:40: Shawn [id number] Sensory impaired Sensory Active 2018-07 Breana hearing 08-19 (Marina) 08:40: Escobar [id number] Integument skin Integument Active 2018-07 Breana integrity 08-19 (Marina) risk 08:40: Escobar [id number] Elimination urinary Eliminatio Active 2018-07 Breana incontinenc n 08-19 (Marina) e 08:40: Shawn [id number] Neuro confusion Neuro/Emot Active 2018-07 Breana present ion 08-19 (Marina) 08:40: Escobar [id number] 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 ion 08-19 (Marina) anatoliy 08:40: Escobar [id number] Neuro memory Neuro/Emot Active 2018-07 Breana deficit ion 08-19 (Marina) needing 08:40: Shawn supervision 00 [id number] Activity ADL Activity Active 2018-07 Breana assistance 08-19 (Marina) required 08:40: Shawn [id number] Activity self-care Activity Active 2018-07 Breana deficit 08-19 (Marina) 08:40: Shawn [id number] Safety fall risk Safety Active 2018-07 Breana factor 08-19 (Marina) present 08:40: Escobar [id number] Safety cannot be Safety Active 2018-07 Breana left alone 08-19 (Marina) 08:40: Escobar [id number] Safety risk for Safety Active 2018-07 Breana hospitaliza 08-19 (Marina) tion 08:40: Escobar [id number] Medication oral med Meds Active 2018-07 Breana assistance 08-19 (Marina) required 08:40: Escobar [id number] Musculoskel transfer Musculoske Active 2018-07 Breana etal assistance letal 08-19 (Marina) required 08:40: Escobar [id number] Musculoskel requires Musculoske Active 2018-07 Breana etal human letal 08-19 (Marina) assist to 08:40: Shawn leave home [id number] Safety knowledge/s Safety Active 2018-07 Betsy kill 08-19 Isaacs deficit: pt 14:36: [id number] Bed mobility/tr PT/OT: Bed Active 2018-07 Betsy Mobility/Tr ansfer Mobility/T 08-19 Isaacs ansfer device ransfer 14:36: [id number] present 00 Bed transfer PT/OT: Bed Active 2018-07 Betsy Mobility/Tr deficit: Mobility/T 08-19 Isaacs ansfer sit/stand ransfer 14:36: [id number] Bed transfer PT/OT: Bed Active 2018-07 Betsy Mobility/Tr deficit: Mobility/T 08-19 Isaacs ansfer standing ransfer 14:36: [id number] pivot 00 Bed transfer PT/OT: Bed Active 2018-07 Betsy Mobility/Tr deficit: Mobility/T 08-19 Isaacs ansfer toilet/comm ransfer 14:36: [id number] ode 00 Bed transfer PT/OT: Bed Active 2018-07 Betsy Mobility/Tr deficit: Mobility/T 08-19 Isaacs ansfer shower/tub ransfer 14:36: [id number] Bed bed PT/OT: Bed Active 2018-07 Betsy Mobility/Tr mobility Mobility/T 08-19 Isaacs ansfer deficit ransfer 14:36: [id number] Balance/End balance/compensation coordinator PT/OT: Active 2018-07 Betsy curryance rdination Balance/En 08-19 Isaacs deficit durance 14:36: [id number] Gait/Locomo gait PT/OT: Active 2018-07 Betsy tion assistive Gait/Locom 08-19 Isaacs problems device otion 14:36: [id number] present 00 Gait/Locomo gait PT/OT: Active 2018-07 Betsy tion deficit Gait/Locom 08-19 Isaacs problems otion 14:36: [id number] 00 Allergies, Adverse Reactions, Alerts Allergy Name [...] Observation Time Observation Value Comments SYSTOLIC mm[Hg] 2019-07-21 18:09:30 120 mm[Hg] mm[Hg] Method: Sit SYSTOLIC mm[Hg] 2019-06-22 18:09:01 130 mm[Hg] mm[Hg] Method: Stand DIASTOLIC mm[Hg] 2019-07-21 18:09:30 60 mm[Hg] mm[Hg] Method: Sit DIASTOLIC mm[Hg] 2019-06-22 18:09:01 76 mm[Hg] mm[Hg] Method: Stand PULSE 2019-07-21 18:09:30 60 /min /min RESP RATE 2019-06-22 18:09:01 17 /min /min TEMP 2019-07-21 18:09:30 98.8 [degF] Procedures This patient has no known procedures. Results This patient has no known results.
--- OUTSIDE RECORDS SUMMARY | 2019-09-10 19:00 | XMS REPORT ---
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 08-19 Alon [id number] Cardiac Cardiac Diagnosis Active 2018-07 Joni arrhythmia, arrhythmia, 08-19 Alon unspecified unspecified [id number] History of History of Diagnosis Active 2018-07 Joni falling falling 08-19 Alon [id number] Pain frequent Pain Mgmt Active 2018-07 Breana pain 08-19 (Marina) 08:40: Shawn [id number] Respiratory dyspnea Respirator Active 2018-07 Breana present y 08-19 (Marina) 08:40: Shawn [id number] Sensory impaired Sensory Active 2018-07 Breana hearing 08-19 (Marina) 08:40: Escobar [id number] Integument skin Integument Active 2018-07 Breana integrity 08-19 (Marina) risk 08:40: Escobar [id number] Elimination urinary Eliminatio Active 2018-07 Breana incontinenc n 08-19 (Marina) e 08:40: Shawn [id number] Neuro confusion Neuro/Emot Active 2018-07 Breaan present ion 08-19 (Marina) 08:40: Escobar [id number] 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 ion 08-19 (Marina) anatoliy 08:40: Escobar [id number] Neuro memory Neuro/Emot Active 2018-07 Breana deficit ion 08-19 (Marina) needing 08:40: Shawn supervision 00 [id number] Activity ADL Activity Active 2018-07 Breana assistance 08-19 (Marina) required 08:40: Shawn [id number] Activity self-care Activity Active 2018-07 Breana deficit 08-19 (Marina) 08:40: Shawn [id number] Safety fall risk Safety Active 2018-07 Breana factor 08-19 (Marina) present 08:40: Escobar [id number] Safety cannot be Safety Active 2018-07 Breana left alone 08-19 (Marina) 08:40: Escobar [id number] Safety risk for Safety Active 2018-07 Breana hospitaliza 08-19 (Marina) tion 08:40: Escobar [id number] Medication oral med Meds Active 2018-07 Breana assistance 08-19 (Marina) required 08:40: Escobar [id number] Musculoskel transfer Musculoske Active 2018-07 Breana etal assistance letal 08-19 (Marina) required 08:40: Escobar [id number] Musculoskel requires Musculoske Active 2018-07 Breana etal human letal 08-19 (Marina) assist to 08:40: Shawn leave home [id number] Safety knowledge/s Safety Active 2018-07 Betsy kill 08-19 Isaacs deficit: pt 14:36: [id number] Bed mobility/tr PT/OT: Bed Active 2018-07 Betsy Mobility/Tr ansfer Mobility/T 08-19 Isaacs ansfer device ransfer 14:36: [id number] present 00 Bed transfer PT/OT: Bed Active 2018-07 Betsy Mobility/Tr deficit: Mobility/T 08-19 Isaacs ansfer sit/stand ransfer 14:36: [id number] Bed transfer PT/OT: Bed Active 2018-07 Betsy Mobility/Tr deficit: Mobility/T 08-19 Isaacs ansfer standing ransfer 14:36: [id number] pivot 00 Bed transfer PT/OT: Bed Active 2018-07 Betsy Mobility/Tr deficit: Mobility/T 08-19 Isaacs ansfer toilet/comm ransfer 14:36: [id number] ode 00 Bed transfer PT/OT: Bed Active 2018-07 Betsy Mobility/Tr deficit: Mobility/T 08-19 Isaacs ansfer shower/tub ransfer 14:36: [id number] Bed bed PT/OT: Bed Active 2018-07 Betsy Mobility/Tr mobility Mobility/T 08-19 Isaacs ansfer deficit ransfer 14:36: [id number] Balance/End balance/online content coordinator PT/OT: Active 2018-07 Betsy curryance rdination Balance/En 08-19 Isaacs deficit durance 14:36: [id number] Gait/Locomo gait PT/OT: Active 2018-07 Betsy tion assistive Gait/Locom 08-19 Isaacs problems device otion 14:36: [id number] present 00 Gait/Locomo gait PT/OT: Active 2018-07 Betsy tion deficit Gait/Locom 08-19 Isaacs problems otion 14:36: [id number] 00 Allergies, Adverse Reactions, Alerts Allergy Name [...] Observation Time Observation Value Comments SYSTOLIC mm[Hg] 2019-07-15 18:09:24 130 mm[Hg] mm[Hg] Method: Sit SYSTOLIC mm[Hg] 2019-06-22 18:09:01 130 mm[Hg] mm[Hg] Method: Stand DIASTOLIC mm[Hg] 2019-07-15 18:09:24 70 mm[Hg] mm[Hg] Method: Sit DIASTOLIC mm[Hg] 2019-06-22 18:09:01 76 mm[Hg] mm[Hg] Method: Stand PULSE 2019-07-15 18:09:24 76 /min /min RESP RATE 2019-06-22 18:09:01 17 /min /min TEMP 2019-07-15 18:09:24 98.3 [degF] Procedures This patient has no known procedures. Results This patient has no known results.
--- OUTSIDE RECORDS SUMMARY | 2019-09-10 19:00 | XMS REPORT ---
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 08-19 Alon [id number] Cardiac Cardiac Diagnosis Active 2018-07 Joni arrhythmia, arrhythmia, 08-19 Alon unspecified unspecified [id number] History of History of Diagnosis Active 2018-07 Joni falling falling 08-19 Alon [id number] Pain frequent Pain Mgmt Active 2018-07 Breana pain 08-19 (Marina) 08:40: Shawn [id number] Respiratory dyspnea Respirator Active 2018-07 Breana present y 08-19 (Marina) 08:40: Shawn [id number] Sensory impaired Sensory Active 2018-07 Breana hearing 08-19 (Marina) 08:40: Escobar [id number] Integument skin Integument Active 2018-07 Breana integrity 08-19 (Marina) risk 08:40: Escobar [id number] Elimination urinary Eliminatio Active 2018-07 Breana incontinenc n 08-19 (Marina) e 08:40: Shawn [id number] Neuro confusion Neuro/Emot Active 2018-07 Breana present ion 08-19 (Marina) 08:40: Escobar [id number] 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 ion 08-19 (Marina) anatoliy 08:40: Escobar [id number] Neuro memory Neuro/Emot Active 2018-07 Breana deficit ion 08-19 (Marina) needing 08:40: Shawn supervision 00 [id number] Activity ADL Activity Active 2018-07 Breana assistance 08-19 (Marina) required 08:40: Shawn [id number] Activity self-care Activity Active 2018-07 Breana deficit 08-19 (Marina) 08:40: Shawn [id number] Safety fall risk Safety Active 2018-07 Breana factor 08-19 (Marina) present 08:40: Escobar [id number] Safety cannot be Safety Active 2018-07 Breana left alone 08-19 (Marina) 08:40: Escobar [id number] Safety risk for Safety Active 2018-07 Breana hospitaliza 08-19 (Marina) tion 08:40: Escobar [id number] Medication oral med Meds Active 2018-07 Breana assistance 08-19 (Marina) required 08:40: Escobar [id number] Musculoskel transfer Musculoske Active 2018-07 Breana etal assistance letal 08-19 (Marina) required 08:40: Escobar [id number] Musculoskel requires Musculoske Active 2018-07 Breana etal human letal 08-19 (Marina) assist to 08:40: Shawn leave home [id number] Safety knowledge/s Safety Active 2018-07 Betsy kill 08-19 Isaacs deficit: pt 14:36: [id number] Bed mobility/tr PT/OT: Bed Active 2018-07 Betsy Mobility/Tr ansfer Mobility/T 08-19 Isaacs ansfer device ransfer 14:36: [id number] present 00 Bed transfer PT/OT: Bed Active 2018-07 Betsy Mobility/Tr deficit: Mobility/T 08-19 Isaacs ansfer sit/stand ransfer 14:36: [id number] 00 Bed transfer PT/OT: Bed Active 2018-07 Betsy Mobility/Tr deficit: Mobility/T 08-19 Isaacs ansfer standing ransfer 14:36: [id number] pivot 00 Bed transfer PT/OT: Bed Active 2018-07 Betsy Mobility/Tr deficit: Mobility/T 08-19 Isaacs ansfer toilet/comm ransfer 14:36: [id number] ode 00 Bed transfer PT/OT: Bed Active 2018-07 Betsy Mobility/Tr deficit: Mobility/T 08-19 Isaacs ansfer shower/tub ransfer 14:36: [id number] 00 Bed bed PT/OT: Bed Active 2018-07 Betsy Mobility/Tr mobility Mobility/T 08-19 Isaacs ansfer deficit ransfer 14:36: [id number] 00 Balance/End balance/cook short order PT/OT: Active 2018-07 Betsy curryance rdination Balance/En 08-19 Isaacs deficit durance 14:36: [id number] 00 Gait/Locomo gait PT/OT: Active 2018-07 Betsy tion assistive Gait/Locom 08-19 Isaacs problems device otion 14:36: [id number] present 00 Gait/Locomo gait PT/OT: Active 2018-07 Betsy tion deficit Gait/Locom 08-19 Isaacs problems otion 14:36: [id number] 00 Allergies, Adverse Reactions, Alerts Allergy Name [...]
--- OUTSIDE RECORDS SUMMARY | 2019-09-10 19:00 | XMS REPORT ---
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 08-19 Alon [id number] Cardiac Cardiac Diagnosis Active 2018-07 Joni arrhythmia, arrhythmia, 08-19 Alon unspecified unspecified [id number] History of History of Diagnosis Active 2018-07 Joni falling falling 08-19 Alon [id number] Pain frequent Pain Mgmt Active 2018-07 Breana pain 08-19 (Marina) 08:40: Shawn [id number] Respiratory dyspnea Respirator Active 2018-07 Breana present y 08-19 (Marina) 08:40: Shawn [id number] Sensory impaired Sensory Active 2018-07 Breana hearing 08-19 (Marina) 08:40: Escobar [id number] Integument skin Integument Active 2018-07 Breana integrity 08-19 (Marina) risk 08:40: Escobar [id number] Elimination urinary Eliminatio Active 2018-07 Breana incontinenc n 08-19 (Marina) e 08:40: Shawn [id number] Neuro confusion Neuro/Emot Active 2018-07 Breana present ion 08-19 (Marina) 08:40: Escobar [id number] 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 ion 08-19 (Marina) anatoliy 08:40: Escobar [id number] Neuro memory Neuro/Emot Active 2018-07 Breana deficit ion 08-19 (Marina) needing 08:40: Shawn supervision 00 [id number] Activity ADL Activity Active 2018-07 Breana assistance 08-19 (Marina) required 08:40: Shawn [id number] Activity self-care Activity Active 2018-07 Breana deficit 08-19 (Marina) 08:40: Shawn [id number] Safety fall risk Safety Active 2018-07 Breana factor 08-19 (Marina) present 08:40: Escobar [id number] Safety cannot be Safety Active 2018-07 Breana left alone 08-19 (Marina) 08:40: Escobar [id number] Safety risk for Safety Active 2018-07 Breana hospitaliza 08-19 (Marina) tion 08:40: Escobar [id number] Medication oral med Meds Active 2018-07 Breana assistance 08-19 (Marina) required 08:40: Escobar [id number] Musculoskel transfer Musculoske Active 2018-07 Breana etal assistance letal 08-19 (Marina) required 08:40: Escobar [id number] Musculoskel requires Musculoske Active 2018-07 Breana etal human letal 08-19 (Marina) assist to 08:40: Shawn leave home [id number] Safety knowledge/s Safety Active 2018-07 Betsy kill 08-19 Isaacs deficit: pt 14:36: [id number] Bed mobility/tr PT/OT: Bed Active 2018-07 Betsy Mobility/Tr ansfer Mobility/T 08-19 Isaacs ansfer device ransfer 14:36: [id number] present 00 Bed transfer PT/OT: Bed Active 2018-07 Betsy Mobility/Tr deficit: Mobility/T 08-19 Isaacs ansfer sit/stand ransfer 14:36: [id number] 00 Bed transfer PT/OT: Bed Active 2018-07 Betsy Mobility/Tr deficit: Mobility/T 08-19 Isaacs ansfer standing ransfer 14:36: [id number] pivot 00 Bed transfer PT/OT: Bed Active 2018-07 Betsy Mobility/Tr deficit: Mobility/T 08-19 Isaacs ansfer toilet/comm ransfer 14:36: [id number] ode 00 Bed transfer PT/OT: Bed Active 2018-07 Betsy Mobility/Tr deficit: Mobility/T 08-19 Isaacs ansfer shower/tub ransfer 14:36: [id number] 00 Bed bed PT/OT: Bed Active 2018-07 Betsy Mobility/Tr mobility Mobility/T 08-19 Isaacs ansfer deficit ransfer 14:36: [id number] 00 Balance/End balance/hospital cook PT/OT: Active 2018-07 Betsy curryance rdination Balance/En 08-19 Isaacs deficit durance 14:36: [id number] 00 Gait/Locomo gait PT/OT: Active 2018-07 Betsy tion assistive Gait/Locom 08-19 Isaacs problems device otion 14:36: [id number] present 00 Gait/Locomo gait PT/OT: Active 2018-07 Betsy tion deficit Gait/Locom 08-19 Isaacs problems otion 14:36: [id number] 00 Allergies, Adverse Reactions, Alerts Allergy Name [...]
[2019-09-10 19:05] LABS: ABS Lymphocytes 1.2 10^3/ul (1.0-4.8); ABS Monocytes 0.5 10^3/ul (0-0.8); ABS Neutrophils 2.2 10^3/ul (1.5-7.7); Eosinophil % 1.2 %; Hematocrit 32 % (35-47); Hemoglobin 11.2 g/dL (12.0-16.0); Lymphocyte % 30.6 %; Mean Corpuscular HGB Conc 35 g/dL (31-36); Mean Corpuscular Hemoglobin 32 pg (27-31); Mean Corpuscular Volume 91 fL (80-97); Mean Platelet Volume 8.5 fL (7.4-10.4); Nucleated Red Blood Cells % 0.1; Platelet Count 160 10^3/uL (150-450); Red Blood Count 3.49 10^6 /uL (3.70-4.87); Red Cell Distribution Width 14 % (10-15); White Blood Count 4.1 10^3/uL (3.5-10.8)
[2019-09-10 19:32] LABS: Albumin 4.1 g/dL (3.2-5.2); Albumin/Globulin Ratio 1.5 (1-3); Calcium 9.3 mg/dL (8.6-10.3); EGFR African American 92.3 (>60); EGFR Non-African American 76.3 (>60); Globulin 2.8 g/dL (2-4); Potassium 4.1 mmol/L (3.5-5.0); Total Bilirubin 0.3 mg/dL (0.2-1.0); Total Protein 6.9 g/dL (6.4-8.9)
[2019-09-10 20:46] LABS: Hepatitis B Surface Antigen Nonreactive (Nonreactive)
[2019-09-10 21:04] LABS: Hepatitis C Antibody Negative (Negative)
[2019-09-10 21:08] LABS: Urine Appearance Clear; Urine Bilirubin Negative (Negative); Urine Blood Negative (Negative); Urine Color Yellow; Urine Glucose Negative (Negative); Urine Ketones Negative (Negative); Urine Nitrite Negative (Negative); Urine Protein Negative (Negative); Urine Specific Gravity 1.011 (1.010-1.030); Urine Urobilinogen Negative (Negative)
[2019-09-10 21:15] LABS: Urine Bacteria Absent (Absent); Urine Red Blood Cell Trace(0-2/hpf) (Absent); Urine White Blood Cell Trace(0-5/hpf) (Absent)
[2019-09-10 22:26] VITALS: BP 158/80
[2019-09-11 14:28] LABS: Chlamydia trachomatis NAA Negative (Negative); Neisseria gonorrhoeae (GC) NAA Negative (Negative)
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
== END 2019-09-10 22:26 | disposition home or self-care (01) ==
LOC: ED 18:28
DX: T74.21XA Adult sexual abuse, confirmed, initial encounter (principal); Y92.129 Unspecified place in nursing home as the place of occurrence of the external cause; I10 Essential (primary) hypertension; K21.9 Gastro-esophageal reflux disease without esophagitis; F03.90 Unspecified dementia, unspecified severity, without behavioral disturbance, psychotic disturbance, mood disturbance, and anxiety; F32.9 Major depressive disorder, single episode, unspecified; Z90.49 Acquired absence of other specified parts of digestive tract; Z87.891 Personal history of nicotine dependence
CPT/HCPCS: 36415; 80053; 81003; 81015; 85025; 86803; 87077; 87086; 87186; 87340; 87491; 87591; 99284

== ENCOUNTER 2019-09-30 02:07 | Inpatient (IN) | payer MEDICARE ==
[2019-09-30] MEDS ORDERED: NS 0.9% 1000 ML** 1,000 ML IV ONE (02:18)
[2019-09-30] MEDS ORDERED: Ondansetron INJ* 2 MG/ML VIAL IV ONE (02:18)
--- NOTE | 2019-09-30 02:24 | ED ---
GI/ HPI - HPI Summary HPI Summary: 89-year-old male presents with vomiting and diarrhea today. She had diarrhea when she entered the room. She admits to abdominal pain. She states it feel that her stomach feels upset. She denies any chest pressure or shortness of breath. No cough. No urinary symptoms. Has not been on antibiotics recently. Has had her gallbladder appendix and uterus removed per the patient. She states she has history of diverticulitis. She denies any fevers. - History of Current Complaint Chief Complaint: EDNauseaVomitDiarrh Time Seen by Provider: 09/30/19 02:17 Stated Complaint: NAUSEA PER EMS Pain Intensity: 5 - Allergy/Home Medications Allergies/Adverse Reactions: Allergies Allergy/AdvReac Type Severity Reaction Status Date / Time aspirin Allergy Unknown Verified 09/30/19 02:09 Reaction Details hydromorphone [From Dilaudid] Allergy Unknown Verified 09/30/19 02:09 Reaction Details morphine Allergy Unknown Verified 09/30/19 02:09 Reaction Details naproxen Allergy Unknown Verified 09/30/19 02:09 Reaction Details NSAIDS (Non-Steroidal Allergy Unknown Verified 09/30/19 02:09 Anti-Inflamma Reaction Details Penicillins Allergy Unknown Verified 09/30/19 02:09 Reaction Details procaine [From Novocain] Allergy Unknown Verified 09/30/19 02:09 Reaction Details tramadol Allergy Unknown Verified 09/30/19 02:09 Reaction Details Home Medications: Home Medications Acetaminophen [Tylenol] 650 mg PO Q8HR PRN 10/23/18 [History Confirmed 09/30/19] Calcium Carbonate/Vitamin D3 [Calcium 600-Vit D3 400 Caplet] 1 tab PO BID [History Confirmed 09/30/19] Cyclosporine 0.05% OPHTH (NF) [Restasis 0.05% OPHTH] 1 drop BOTH EYES BID [History Confirmed 09/30/19] Latanoprost 0.005%* [Xalatan 0.005%*] 1 drop BOTH EYES BEDTIME 10/23/18 [ History Confirmed 09/30/19] Loperamide CAP* [Imodium CAP*] 2 mg PO DAILY PRN 06/10/19 [History Confirmed 10/16] Vit C/E/Zn/Coppr/Lutein/Zeaxan [Preservision Areds 2 Softgel] 1 cap PO BID 06/10 [History Confirmed 09/30/19] Acetaminophen TAB* [Tylenol TAB*] 650 mg PO TID 09/10/19 [History Confirmed 10/16] Citalopram TAB* [CeleXA TAB*] 30 mg PO DAILY 09/10/19 [History Confirmed ] Ferrous Fumarate 324 mg PO MOTHSA 09/10/19 [History Confirmed 09/30/19] Melatonin 1 mg PO BEDTIME 09/10/19 [History Confirmed 09/30/19] Memantine TAB* [Namenda TAB*] 5 mg PO BID 09/10/19 [History Confirmed 09/30/19] Metoprolol Tartrate TAB* [Lopressor TAB*] 25 mg PO QAM 09/10/19 [History Confirmed 09/30/19] Metoprolol Tartrate TAB* [Lopressor TAB*] 50 mg PO BEDTIME 09/10/19 [History Confirmed 09/30/19] Omeprazole (Nf) [Prilosec (NF)] 40 mg PO DAILY 09/10/19 [History Confirmed 09/29] PMH/Surg Hx/FS Hx/Imm Hx Endocrine/Hematology History: Denies: Hx Diabetes Cardiovascular History: Reports: Hx Hypertension Denies: Hx Hypercholesterolemia GI History: Reports: Hx Diverticulosis, Hx Gastroesophageal Reflux Disease, Hx Irritable Bowel Sensory History: Reports: Hx Contacts or Glasses, Hx Legally Blind Opthamlomology History: Reports: Hx Contacts or Glasses, Hx Legally Blind Neurological History: Reports: Hx Dementia, Other Neuro Impairments/Disorders - Alz Psychiatric History: Reports: Hx Depression, Hx of Violent Episodes Against Others - Surgical History Surgery Procedure, Year, and Place: right hip. cholecystectomy - Immunization History Date of Influenza Vaccine: UTD Infectious Disease History: No Infectious Disease History: Denies: Traveled Outside the [place] in Last 30 Days - Family History Known Family History: Negative: Cardiac Disease Family History: LEVEL 5: FHx limited due to pt condition, dementia, alz. - Social History Alcohol Use: None Hx Substance Use: No Substance Use Type: Reports: None Hx Tobacco Use: Yes Smoking Status (MU): Former Smoker Review of Systems Negative: Fever Negative: Chest Pain Negative: Shortness Of Breath Positive: Abdominal Pain, Vomiting, Diarrhea, Nausea All Other Systems Reviewed And Are Negative: Yes Physical Exam Triage Information Reviewed: Yes Vital Signs On Initial Exam: Initial Vitals Temp Pulse Resp BP Pulse Ox 99.5 F 75 18 159/78 98 09/30/19 02:12 09/30/19 02:12 09/30/19 02:12 09/30/19 02:12 09/30/19 02:12 Vital Signs Reviewed: Yes Appearance: Positive: Well-Appearing Skin: Positive: Warm, Dry Head/Face: Positive: Normal Head/Face Inspection Eyes: Positive: Normal, Conjunctiva Clear ENT: Positive: Pharynx normal Respiratory/Lung Sounds: Positive: Clear to Auscultation, Breath Sounds Present Cardiovascular: Positive: Normal, RRR Abdomen Description: Positive: Soft, Other: - tenderness in RUQ and RLQ Bowel Sounds: Positive: Present Musculoskeletal: Positive: Normal Neurological: Positive: Normal Psychiatric: Positive: Normal Procedures - Sedation Patient Received Moderate/Deep Sedation with Procedure: No Diagnostics - Vital Signs Vital Signs Temp Pulse Resp BP Pulse Ox 09/30/19 02:12 99.5 F 75 18 159/78 98 - Laboratory Lab Statement: Any lab studies that have been ordered have been reviewed, and results considered in the medical decision making process. GIGU Course/Dx - Course Course Of Treatment: 89-year-old male presents with vomiting and diarrhea today. She had diarrhea when she entered the room. She admits to abdominal pain. She states stomach feels upset. She denies any chest pressure or shortness of breath. No cough. No urinary symptoms. Has not been on antibiotics recently. Has had her gallbladder appendix and uterus removed per the patient. She states she has history of diverticulitis. She denies any fevers. On exam tenderness in the right upper quadrant and right lower quadrant. Patient signed out to Dr. Garcia pending lab work and CT. - Diagnoses Differential Diagnoses - Female: Colitis, Gastroenteritis (Viral), Gastroenteritis (Bacterial) Provider Diagnoses: Abdominal pain, Vomiting and diarrhea Discharge ED - Sign-Out/Discharge Documenting (check all that apply): Sign-Out Patient Signing out patient TO: Lilian Syed - Discharge Plan Condition: Stable Referrals: Marcel Guadarrama DO [Primary Care Provider] - - Billing Disposition and Condition Condition: STABLE
[2019-09-30 02:35] LABS: ABS Eosinophils 0.1 10^3/ul (0-0.6); ABS Lymphocytes 0.9 10^3/ul (1.0-4.8); ABS Monocytes 0.6 10^3/ul (0-0.8); ABS Neutrophils 4.5 10^3/ul (1.5-7.7); Eosinophil % 0.9 %; Hematocrit 38 % (35-47); Lymphocyte % 14.9 %; Mean Corpuscular HGB Conc 35 g/dL (31-36); Mean Corpuscular Hemoglobin 32 pg (27-31); Mean Corpuscular Volume 93 fL (80-97); Mean Platelet Volume 8.5 fL (7.4-10.4); Platelet Count 172 10^3/uL (150-450); Red Blood Count 4.06 10^6 /uL (3.70-4.87); Red Cell Distribution Width 14 % (10-15); White Blood Count 6.1 10^3/uL (3.5-10.8)
[2019-09-30 02:49] LABS: ALT 8 U/L (7-52); AST 17 U/L (13-39); Albumin 4.4 g/dL (3.2-5.2); Albumin/Globulin Ratio 1.4 (1-3); Alkaline Phosphatase 54 U/L (34-104); Anion Gap 8 mmol/L (2-11); BUN/Creatinine Ratio 17.9 (8-20); Blood Urea Nitrogen 12 mg/dL (6-24); C Reactive Protein < 1.00 mg/L (<8.01); CO2 Carbon Dioxide 27 mmol/L (22-32); Calcium 9.9 mg/dL (8.6-10.3); Chloride 101 mmol/L (101-111); EGFR African American 100.3 (>60); EGFR Non-African American 82.9 (>60); Globulin 3.1 g/dL (2-4); Glucose 123 mg/dL (70-100); Magnesium 2.1 mg/dL (1.9-2.7); Potassium 3.9 mmol/L (3.5-5.0); Sodium 136 mmol/L (135-145); Total Protein 7.5 g/dL (6.4-8.9)
--- NOTE | 2019-09-30 03:40 | ED ---
Progress - Progress Note Progress Note: The patient is a sign-out from ORLANDO Kinsey, to Dr. Lilian Rogers MD, at change of shift at 0230 on 09/30/2019, pending EKG, Abd/Pel CT, and disposition. Stool negative for C diff. EKG reveals normal sinus rhythm at 77 bpm, nml axis, nml HI, nml QRS, nml QTc, ST elevations in V1,V2, and V3, T wave nml. Abd/Pel CT impression is significant for umbilical hernia containing a loop of small bowel, a portion of which appears to be strangulated, small bowel obstruction proximal to the umbilical hernia, left renal mass, right renal cysts , hepatic cyst, coronary artery calcifications, and colonic diverticulosis. Dr. Davey from surgery will come see the patient in the ED with recommendation to have the hospitalist services become involved. Dr. Grossman is aware of the patient and accepts for admission. - Results/Orders Results/Orders: EKG [0433]: Normal sinus rhythm at 77 bpm, nml axis, nml HI, nml QRS, nml QTc, ST elevations in V1,V2, and V3, T wave nml. ED physician has reviewed and interpreted this EKG. Abd/Pel CT Impression: 1. Umbilical hernia which contains a loop of small bowel , a portion of which appears to be strangulated. 2. Small bowel obstruction proximal to the umbilical hernia. 3. Left renal mass. 4. Right renal cysts. 5. Hepatic cyst. 6. Coronary artery calcifications. 7. Colonic diverticulosis. ED physician has reviewed this report. Course/Dx - Course Course Of Treatment: The patient is a sign-out from ORLANDO Kinsey, to Dr. Lilian Syed MD, at change of shift at 0230 on 09/30/2019, pending EKG, Abd/Pel CT, and disposition. Stool negative for C diff. EKG reveals normal sinus rhythm at 77 bpm, nml axis, nml HI, nml QRS, nml QTc, ST elevations in V1,V2, and V3, T wave nml. Abd/Pel CT impression is significant for umbilical hernia containing a loop of small bowel, a portion of which appears to be strangulated, small bowel obstruction proximal to the umbilical hernia, left renal mass, right renal cysts, hepatic cyst, coronary artery calcifications, and colonic diverticulosis. Dr. Davey from surgery will come see the patient in the ED with recommendation to have the hospitalist services become involved. Dr. Grossman is aware of the patient and accepts for admission. - Diagnoses Provider Diagnoses: Diarrhea, Incarcerated hernia - Provider Notifications Discussed Care Of Patient With: Vidal Davey - surgery Time Discussed With Above Provider: 06:00 Instructed by Provider To: Other - I discussed the patients case with Dr. Davey, who will come see the patient in the ED with recommendation to have the hospitalist services become involved. Dr. Grossman is aware of the patient. Discharge ED - Sign-Out/Discharge Documenting (check all that apply): Patient Departure - Patient accepted for admission by Dr. Grossman., Receiving Sign-Out Receiving patient FROM: Ita Aj - Patient is a sign-out from ORLANDO Kinsey, at 0230 on 09/30/2019, pending EKG, Abd/Pel CT, and disposition. - Discharge Plan Condition: Stable Disposition: ADMITTED TO [facility] Referrals: Marcel Guadarrama DO [Primary Care Provider] - - Billing Disposition and Condition Condition: STABLE Disposition: Admitted to [facility] - Attestation Statements Document Initiated by Alcon: Yes Documenting Scribe: Dayanna Newman Provider For Whom lAcon is Documenting (Include Credential): Dr. Lilian Syed MD Scribe Attestation: Dayanna Feng scribed for Dr. Lilian Syed MD on 09/30/19 at 0659. Scribe Documentation Reviewed: Yes Provider Attestation: The documentation as recorded by the Dayanna wisdom accurately reflects the service I personally performed and the decisions made by me, Dr. Lilian Syed MD Status of Scribe Document: Viewed Procedures - Sedation Patient Received Moderate/Deep Sedation with Procedure: No
--- OUTSIDE RECORDS SUMMARY | 2019-09-30 03:46 | XMS REPORT | Continuity of Care Document ---
:1930 External Reference #:[id number] Author Name Hussein Manning M.D. Address [address] [place] [address] Care Team Providers Name Role Phone Marcel Guadarrama D.O. 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 Social History Type Date Description Comments Sex Unknown ETOH Use Rarely consumes liquor Tobacco Use Start: Unknown End: Unknown Patient is a former smoker Recreational Drug Use Denies Drug Use Smoking Status Reviewed: 09/17/19 Patient is a former smoker Allergies, Adverse Reactions, Alerts Active Allergies Reaction Severity Comments Date Aspirin 01/16/2019 Morphine 01/16/2019 Novocaine 01/16/2019 Naproxen 01/16/2019 NSAIDs 01/16/2019 Tramadol 01/16/2019 Dilaudid 01/16/2019 Penicillins 01/16/2019 Medications Active Medications SIG Qnty Indications Ordering Provider Date Prilosec 1 by mouth 60caps Hussein Manning, 01/16/[address] twice a day M.D. Preservision Areds 2 1 cap by mouth 360caps Hussein Manning, 01/16/2019 Areds twice a day M.DAnthony 2 Capsules Celexa Unknown 20mg Tablets Ferrous Sulfate Unknown Granules Calcium + Vitamin D3 Unknown [id number] Chewtabs Citrucel Unknown Powder Metoprolol Succinate ER Unknown 50mg Tablets ER 24HR Restasis 1 drops both 60units Hussein Manning, 0.05% Emulsion eyes twice a M.D. day Acetaminophen ER Unknown 650mg Tablets ER Latanoprost 1 drop both 7.5ml Hussein Manning, 0.005% Solution eyes every M.D. night Melatonin Unknown 3mg Capsules Loperamide HCL Unknown 2mg Capsules Tylenol Unknown 325mg Capsules Lomotil Unknown 2.5-0.025mg Tablets Immunizations Description No Information Available Vital Signs Description No Information Available Results Description No Information Available Procedures Description No Information Available Medical Devices Description No Information Available Encounters Description No Information Available Assessments Date Code Description Provider 09/17/2019 H35.3233 Exudative age-related macular Hussein Manning M.D. degeneration, bilateral, with 09/17/2019 H40.1131 Primary open-angle glaucoma, bilateral, Hussein Manning M.D. mild stage Plan of Treatment 09/17/2019 - Hussein Manning M.D.H35.3233 Exudative age-related macular degeneration, bilateral, withComments:Smoking can increase the risk of developing or worsening any eye related disease, as well as affect your overall health. If you are a smoker, we strongly recommend that you quit.If you are not a smoker, we strongly recommend that you do not start. The wet Macular Degeneration in both eyes appears danielle inactive at this time. Continue to monitor your vision, with each eye separately. Use your Amsler Grid and continue taking the AREDS 2 Formula Vitamins. If you notice any changes in your vision before your next appointment, please call the office at to schedule an appointment.Follow up:H40.1131 Primary open-angle glaucoma, bilateral, mild stageComments:Your glaucoma is stable at this time.Your eye pressure is within an acceptable range, and your testing does not show any further deterioration at this time. Please continue your treatment.Follow up:6 Month Follow Up IOP CHECK At your next visit, we are not planning to dilate your eyes. However, if you have any changes in your vision or new symptoms, there are certain situations that require us to dilate your eyes. If Dr. Manning requests any additional testing, that may require extra time. If you have any questions before your next appointment, please call our office at [phone]. Functional Status Description No Information Available Mental Status Description No Information Available Referrals Description No Information Available
[2019-09-30] MEDS ORDERED: Iohexol 300* (CONTRAST) 10 ML SDV IV ONE (03:49)
[2019-09-30 04:08] LABS: Urine Appearance Clear; Urine Bacteria Absent (Absent); Urine Bilirubin Negative (Negative); Urine Blood Negative (Negative); Urine Color Colorless; Urine Glucose Negative (Negative); Urine Ketones Negative (Negative); Urine Nitrite Negative (Negative); Urine Protein 1+(30 mg/dL) (Negative); Urine Red Blood Cell 2+(6-10/hpf) (Absent); Urine Specific Gravity 1.006 (1.010-1.030); Urine Urobilinogen Negative (Negative); Urine White Blood Cell Absent (Absent)
--- NOTE | 2019-09-30 07:47 | ED ---
Progress - Progress Note Progress Note: Patient is a sign out at 07:00 on 09/30/[address] Syed to Dr. Tori Morales at shift change, pending surgical consult and disposition. At 07:40, Dr. Vidal Davey assessed the patient and does not believe the patient requires surgery as her hernias are reducible. He recommends the hospitalist be consulted. At 07:43, Dr. Michelle Timmons reviewed the patients case and agrees to admit the patient to [facility] with a diagnosis of diarrhea. Course/Dx - Diagnoses Provider Diagnoses: Diarrhea, Incarcerated hernia - Provider Notifications Discussed Care Of Patient With: Vidal Davey - At 07:40, Dr. Vidal Davey assessed the patient and does not believe the patient requires surgery as her hernias are reducible. He recommends the hospitalist be consulted. At 07:43, Dr. Michelle Timmons reviewed the patients case and agrees to admit the patient to [facility] with a diagnosis of diarrhea. Time Discussed With Above Provider: 07:40 Instructed by Provider To: Admit As Inpatient Discharge ED - Sign-Out/Discharge Documenting (check all that apply): Patient Departure - Admit, Receiving Sign- Out Receiving patient FROM: Lilian Syed - Patient is a sign out at 07: 00 on 09/30/[address] Syed to Dr. Tori Morales at shift change, pending surgical consult and disposition. - Discharge Plan Condition: Stable Disposition: ADMITTED TO [facility] Referrals: Marcel Guadarrama DO [Primary Care Provider] - - Attestation Statements Document Initiated by Scribe: Yes Documenting Scribe: Shira Mcfadden Provider For Whom Scribe is Documenting (Include Credential): Tori Morales MD Scribe Attestation: Shira Feng, scribed for Tori Morales MD on 09/30/19 at 0749. Status of Scribe Document: Ready
--- NOTE | 2019-09-30 08:01 | PN ---
Progress Note - Progress Note Date of Service: 09/30/19 Note: Patient seen and examined She is a poor historian and is not oriented to place or time Records from [place] include only med list and legal paperwork-no clinical history for this visit Apparently sent to ER for N/V and copious diarrhea Labs noted CT reviewed-several midline hernias containing bowel. Abd is soft and non-distended--she has several midline incisional hernias that are easily reducible--fascial defects approximately 3-4 cms in diameter. No peritoneal irritation, bowel sounds present and not high pitched. No indication for emergent surgical intervention at this point. Recommend admission for observation for now. She is to be admitted to the hospitalist service.
[2019-09-30] MEDS ORDERED: Ondansetron INJ* 2 MG/ML VIAL IV PRN (08:49)
[2019-09-30] MEDS: Pantoprazole IV* 40 MG IV SCH (11:36)
[2019-09-30] MEDS: Metoprolol Tartrate IV* 1 MG/ML 5 ML VIAL IV SCH ×4 (11:36→22:25)
[2019-09-30] MEDS: NS 0.9% 1000 ML** 1,000 ML IV SCH (11:45)
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
[2019-09-30] MEDS: Heparin VIAL(*) 5000 UNITS/ML VIAL (FIVE THOUSAND) SUBCUT SCH ×2 (14:48→22:26)
--- NOTE | 2019-09-30 21:47 | HP ---
CC: Dr. Marcel Guadarrama * HISTORY AND PHYSICAL: DATE OF ADMISSION: 09/30/19 PRIMARY CARE PROVIDER: Dr. Marcel Guadarrama. CHIEF COMPLAINT: Abdominal pain, vomiting and diarrhea. HISTORY OF PRESENT ILLNESS: Ms. Bella is an 89-year-old female, resident of [facility], who was sent to the emergency room for evaluation of diarrhea and vomiting. The patient herself has a history of dementia and her history has been limited to the ER providers. Unfortunately at the time of my evaluation, she is drowsy. She wakes up and answers a couple questions for me, but she cannot provide any other history. According to ER notes on the afternoon of 09/29/19, she developed nausea, vomiting and diarrhea. She had been incontinent of stool. She underwent CT scan of the abdomen and pelvis, which revealed an umbilical hernia, which contains a loop of small bowel a portion of which appears to be strangulated. There is small bowel obstruction proximal to the umbilical hernia. There is a left renal mass, right renal cyst , hepatic cyst, coronary artery calcifications and colonic diverticulitis. Due to the concern for strangulated umbilical hernia with subsequent small bowel obstruction, General Surgery was consulted. Dr. aDvey evaluated the patient in the emergency room. He notes that she in fact had multiple abdominal wall hernias. He states that each of these was easily reducible. As there is a nonsurgical condition, I was asked that the hospitalist service admit the patient. PAST MEDICAL HISTORY: According to old records from [place]: 1. Hypertension. 2. Depression. 3. Dementia. 4. GERD. 5. Glaucoma. 6. Macular degeneration. PAST SURGICAL HISTORY: 1. Right hip surgery. 2. Appendectomy. 3. Cholecystectomy. 4. Hysterectomy. MEDICATIONS: 1. PreserVision AREDS 2 one cap p.o. b.i.d. 2. Omeprazole 40 mg p.o. daily. 3. Metoprolol tartrate 25 mg p.o. q.a.m., 50 mg p.o. q.h.s. 4. Tylenol 650 mg p.o. t.i.d. and q.8 hours p.r.n. pain. 5. Calcium plus D 1 tab p.o. b.i.d. 6. Celexa 30 mg p.o. daily. 7. Restasis 1 drop to both eyes b.i.d. 8. Ferrous fumarate 324 mg p.o. Sunday, , Sunday. 9. Xalatan 1 drop to both eyes at bedtime. 10. Loperamide 2 mg p.o. daily p.r.n. constipation. 11. Melatonin 1 mg p.o. q.h.s. 12. Namenda 5 mg p.o. b.i.d. ALLERGIES: ASPIRIN, DILAUDID, MORPHINE, NAPROXEN, NSAIDS, PENICILLINS, PROCAINE , TRAMADOL. FAMILY HISTORY: Unobtainable. SOCIAL HISTORY: Unobtainable. REVIEW OF SYSTEMS: Unobtainable from the patient. PHYSICAL EXAMINATION GENERAL: The patient is a well-developed elderly female seen lying on her left in the stretcher, in no acute distress. VITAL SIGNS: Blood pressure 110/74, pulse 83, respiration 20, temp 99.1, O2 sat 95% on room air. HEENT: Pupils are equal. Extraocular muscles are intact. Oropharynx is clear. Oral mucosa is somewhat dry. Her tongue has a brownish film. There is no submandibular, cervical, or supraclavicular adenopathy. PULMONARY: Lungs are clear to auscultation bilaterally. CARDIAC: Normal S1, S2. Regular rate and rhythm. I do not appreciate any murmurs. There is no lower extremity edema. ABDOMEN: Bowel sounds present. Abdomen is soft, nondistended. She is tender to palpation midline just under the umbilicus. MUSCULOSKELETAL: The patient moves all 4 extremities symmetrically and spontaneously. NEUROLOGIC: Unable to be performed as the patient does not cooperate. PSYCH: The patient is drowsy. SKIN: Visible areas of skin are warm, dry and without rash. DIAGNOSTIC STUDIES/LAB DATA: WBC 6.1, hemoglobin 13.0, hematocrit 38, platelets 172. Sodium 136, potassium 3.9, chloride 101, CO2 of 27, BUN 12, creatinine 0.67, glucose 123, lactic acid 1.6, calcium 9.9, magnesium 2.1. Bilirubin 0.5, AST 17, ALT 8, alk phos 54. CRP less than 1, albumin 4.4, lipase 60. Urinalysis reveals clear urine with specific gravity of 1.006, 2+ rbc, 1+ protein. CT abdomen and pelvis reveals an umbilical hernia, which contains a looped small bowel, a portion of which appears to be strangulated, so a small bowel obstruction proximal to the umbilical hernia. ASSESSMENT AND PLAN: Ms. Bella is an 89-year-old female with dementia, hypertension, and depression, who presented to the emergency room for nausea, vomiting, diarrhea and was found to have initial concern for strangulated umbilical hernia with subsequent small bowel obstruction and now is being admitted for management of small bowel obstruction. 1. Small bowel obstruction. The patient has been seen by General Surgery. At this time, she is felt to have a nonsurgical abdomen. They will continue to follow along. No NG tube is needed at this point. We will monitor for further episodes of vomiting or diarrhea. It is possible that she may have had a transient kink in her bowel leading to the obstruction. This may have resolved on its own or with the reducing of the umbilical hernia. I have a phone call out to the patient's son to talk with him about further her medical history as well as management options. 2. Hypertension. The patient typically takes metoprolol at baseline. Her blood pressures initially were quite elevated on presentation to the emergency room, but have improved over the course over time in the ER. We will continue to monitor this. 3. Dementia. The patient reportedly has violent outbursts. We will need to monitor for this. We will resume her Namenda when she is more alert and taking orals. 4. Depression. I am holding the patient's Celexa. 5. Gastroesophageal reflux disease. We will start IV Protonix. 6. DVT prophylaxis: According to the Adult Thrombosis Prophylaxis Risk Factor Assessment Guide, the patient has a total risk factor score of 4 making her high risk. She will be started on heparin 5000 units subcutaneous q.8 hours. 7. Code status is full as of now. We will discuss with the patient's son. TIME SPENT: Fifty minutes was spent reviewing past records and trying to obtain history and performing physical exam on the patient. [id number]/[facility] #: [id number] JULES
[2019-09-30] MEDS: Latanoprost 0.005%* 2.5 ml BTL BOTH EYES SCH (22:32)
[2019-10-01] MEDS: NS 0.9% 1000 ML** 1,000 ML IV SCH ×2 (00:31→14:39)
[2019-10-01] MEDS: Metoprolol Tartrate IV* 1 MG/ML 5 ML VIAL IV SCH ×4 (02:56→21:53)
[2019-10-01] MEDS: Heparin VIAL(*) 5000 UNITS/ML VIAL (FIVE THOUSAND) SUBCUT SCH ×3 (05:46→21:57)
--- NOTE | 2019-10-01 09:49 | PN ---
Subjective Date of Service: 10/01/19 Interval History: Pt is feeling poorly. She states she is tired and feels that her insides are "empty." She denies feeling hungry. She initially denies abdominal pain but then on exam she c/o diffuse abdominal pain. Objective Active Medications: Acetaminophen (Tylenol 650 Mg Supp) 650 mg ND Q4H PRN PRN Reason: MILD PAIN or TEMP > 100.4 Last Admin: 09/30/19 22:32 Dose: 650 mg Heparin Sodium (Porcine) (Heparin Vial(*)) 5,000 units SUBCUT Q8HR [facility] Last Admin: 10/01/19 05:46 Dose: 5,000 units Sodium Chloride (Ns 0.9% 1000 Ml) 1,000 mls @ 75 mls/hr IV PER RATE [facility] Last Admin: 10/01/19 00:31 Dose: 75 mls/hr Latanoprost (Xalatan 0.005%*) 1 drop BOTH EYES BEDTIME [facility] Last Admin: 09/30/19 22:32 Dose: 1 drop Metoprolol Tartrate (Lopressor Iv*) 5 mg IV Q6H [facility] Last Admin: 10/01/19 02:56 Dose: 5 mg Ondansetron HCl (Zofran Inj*) 4 mg IV Q6H PRN PRN Reason: NAUSEA Last Admin: 09/30/19 11:36 Dose: 4 mg Pantoprazole Sodium (Protonix Iv*) 40 mg IV DAILY [facility] Last Admin: 09/30/19 11:36 Dose: 40 mg Vital Signs - 8 hr 10/01/19 03:44 Temperature 98.8 F Pulse Rate 68 Respiratory 17 Rate Blood Pressure 116/53 (mmHg) O2 Sat by Pulse 95 Oximetry Oxygen Devices in Use Now: None Appearance: Elderly female laying on her L side in bed sleeping, awakens to voice, NAD Eyes: No Scleral Icterus Ears/Nose/Mouth/Throat: Mucous Membranes Moist Respiratory: Symmetrical Chest Expansion and Respiratory Effort, Clear to Auscultation Cardiovascular: NL Sounds; No Murmurs; No JVD, RRR, No Edema Abdominal: - - BS+ soft, ND, she is mildly diffusely tender to palpation Extremities: No Clubbing, Cyanosis Skin: No Nodules or Sclerosis Neurological: - - once awake, she is alert Result Diagrams: 09/30/19 02:25 09/30/19 02:25 Microbiology and Other Data: Microbiology 09/30/19 11:50 Nasal Screen MRSA (PCR) - Final Nasal Mrsa Not Detected 09/30/19 07:00 Nasal Screen MRSA (PCR) - Final Nasal Mrsa Not Detected 09/30/19 03:21 Stool Gross Appearance - Final Stool C. difficile DNA Amplification - Final 027 Presumptive NEGATIVE Toxigenic C.diff NEGATIVE 09/30/19 03:21 Stool Gross Appearance - Final Stool Assess/Plan/Problems-Billing Ms Bella is an 89 yo F who has a h/o HTN, dementia, GERD and multiple prior abdominal surgeries who presented to the ER with c/o profuse nausea, vomiting and diarrhea and was found to have a small bowel obstruction with initially concern for strangulated umbilical hernia but the hernia was easily reducible. - Patient Problems (1) Small bowel obstruction Current Visit: Yes Status: Acute Code(s): K56.609 - UNSP INTESTNL OBST, UNSP TO PARTIAL VERSUS COMPLETE OBST SNOMED Code(s): 308430685 Comment: Appears to be resolving. ? temporary kink in bowel related to it being herniated. She does continue to c/o abdominal pain on exam and she denies feeling hungry. AXR this am to me appears to have improvement. Await for further general surgery recommendations. (2) HTN (hypertension) Current Visit: Yes Status: Acute Code(s): I10 - ESSENTIAL (PRIMARY) HYPERTENSION SNOMED Code(s): 50879129 Comment: BP under acceptable control on IV metoprolol. (3) GERD (gastroesophageal reflux disease) Current Visit: Yes Status: Acute Code(s): K21.9 - GASTRO-ESOPHAGEAL REFLUX DISEASE WITHOUT ESOPHAGITIS SNOMED Code(s): 209191231 Comment: Continue IV protonix. (4) Dementia Current Visit: Yes Status: Acute Code(s): F03.90 - UNSPECIFIED DEMENTIA WITHOUT BEHAVIORAL DISTURBANCE SNOMED Code(s): 78560086 Comment: Seems less confused/agitated today. Monitor. (5) DVT prophylaxis Current Visit: Yes Status: Acute Code(s): Z29.9 - ENCOUNTER FOR PROPHYLACTIC MEASURES, UNSPECIFIED SNOMED Code(s): 419691674 Comment: SQ heparin (6) Full code status Current Visit: Yes Status: Acute Code(s): Z78.9 - OTHER SPECIFIED HEALTH STATUS SNOMED Code(s): 659205915
[2019-10-01] MEDS: Pantoprazole IV* 40 MG IV SCH (10:44)
[2019-10-01] MEDS ORDERED: Acetaminophen TAB* 325 MG PO PRN (13:34)
--- NOTE | 2019-10-01 13:34 | PN ---
Progress Note - Progress Note Date of Service: 10/01/19 SOAP: Subjective: NAD "I'm Thirsty" + BM's, No Nausea or vomiting, + BM's liquid stool [] Objective: Vital Signs Temp 97.5 F 10/01/19 11:37 Pulse 70 10/01/19 11:37 Resp 17 10/01/19 08:00 BP 130/63 10/01/19 11:37 Pulse Ox 94 10/01/19 11:37 Intake & Output 09/30/19 10/01/19 10/01/19 18:59 06:59 18:59 Intake Total 281 665 480 Balance 281 665 480 Weight 161 lb 6.4 oz Intake: IV Fluids 281 665 NS (0.9%) 281 665 Oral 0 0 480 Other: Estimated Void Medium # Bowel Movements 0 1 Estimated Stool Amount Medium Medium # Voids 1 PEX Gen: NAD, comfortable in bed Chest: CTAB CVS: CTAB ABD: soft, non distended, non tender, + BS's no hernias palpable Ext: calves soft, non tender [] Assessment: 89 yo female who presented with incarcerated, strangulated Abdominal hernias which were reduced in the ED by Dr Davey [] Plan: Start clears, advance diet as tolerated, OOB Ambulate, I's & O's, D/C Planning For D/C once tolerates diet trial. Patient also sen by Dr Davey []
[2019-10-01] MEDS: Latanoprost 0.005%* 2.5 ml BTL BOTH EYES SCH (21:53)
[2019-10-02] MEDS: Metoprolol Tartrate IV* 1 MG/ML 5 ML VIAL IV SCH ×2 (03:20→08:49)
[2019-10-02] MEDS: NS 0.9% 1000 ML** 1,000 ML IV SCH ×2 (04:25→17:58)
[2019-10-02] MEDS: Heparin VIAL(*) 5000 UNITS/ML VIAL (FIVE THOUSAND) SUBCUT SCH ×3 (05:43→21:05)
[2019-10-02] MEDS: Pantoprazole IV* 40 MG IV SCH (08:49)
[2019-10-02 09:26] LABS: Calcium 8.1 mg/dL (8.6-10.3); Potassium 3.7 mmol/L (3.5-5.0)
[2019-10-02 09:32] LABS: EGFR African American 140.6 (>60); EGFR Non-African American 116.2 (>60)
--- NOTE | 2019-10-02 09:50 | PN ---
Subjective Date of Service: 10/02/19 Interval History: Pt feels "terrible". Didn't sleep last night and is very tired, denies N/V, denies abd pain doesn't remember when her last BM was, but as per RN -pt had 2 BM's last night Objective Active Medications: Acetaminophen (Tylenol Tab*) 650 mg PO Q4H PRN PRN Reason: PAIN - MILD Last Admin: 10/01/19 13:49 Dose: 650 mg Heparin Sodium (Porcine) (Heparin Vial(*)) 5,000 units SUBCUT Q8HR [facility] Last Admin: 10/02/19 05:43 Dose: 5,000 units Sodium Chloride (Ns 0.9% 1000 Ml) 1,000 mls @ 75 mls/hr IV PER RATE [facility] Last Admin: 10/02/19 04:25 Dose: 75 mls/hr Latanoprost (Xalatan 0.005%*) 1 drop BOTH EYES BEDTIME [facility] Last Admin: 10/01/19 21:53 Dose: 1 drop Metoprolol Tartrate (Lopressor Iv*) 5 mg IV Q6H [facility] Last Admin: 10/02/19 08:49 Dose: 5 mg Ondansetron HCl (Zofran Inj*) 4 mg IV Q6H PRN PRN Reason: NAUSEA Last Admin: 09/30/19 11:36 Dose: 4 mg Pantoprazole Sodium (Protonix Iv*) 40 mg IV DAILY [facility] Last Admin: 10/02/19 08:49 Dose: 40 mg Vital Signs - 8 hr 10/02/19 10/02/19 03:15 07:20 Temperature 98.4 F 97.7 F Pulse Rate 71 69 Respiratory 16 Rate Blood Pressure 139/63 139/50 (mmHg) O2 Sat by Pulse 93 95 Oximetry Oxygen Devices in Use Now: None Appearance: 89 yo f in nAD, AAOx2 Eyes: No Scleral Icterus, PERRLA Ears/Nose/Mouth/Throat: NL Teeth, Lips, Gums, Mucous Membranes Moist Neck: NL Appearance and Movements; NL JVP, Trachea Midline Respiratory: Symmetrical Chest Expansion and Respiratory Effort, Clear to Auscultation Cardiovascular: NL Sounds; No Murmurs; No JVD, RRR Abdominal: - - mild tenderness, diffuse, no rebound, no guarding, BS+ Lymphatic: No Cervical Adenopathy Extremities: No Edema, No Clubbing, Cyanosis Skin: No Rash or Ulcers, No Nodules or Sclerosis Neurological: NL Muscle Strength and Tone Result Diagrams: 09/30/19 02:25 10/02/19 09:04 Microbiology and Other Data: Microbiology 09/30/19 11:50 Nasal Screen MRSA (PCR) - Final Nasal Mrsa Not Detected 09/30/19 07:00 Nasal Screen MRSA (PCR) - Final Nasal Mrsa Not Detected 09/30/19 03:21 Stool Gross Appearance - Final Stool C. difficile DNA Amplification - Final 027 Presumptive NEGATIVE Toxigenic C.diff NEGATIVE 09/30/19 03:21 Stool Gross Appearance - Final Stool Assess/Plan/Problems-Billing Ms Bella is an 89 yo F who has a h/o HTN, dementia, GERD and multiple prior abdominal surgeries who presented to the ER with c/o profuse nausea, vomiting and diarrhea and was found to have a small bowel obstruction with initially concern for strangulated umbilical hernia but the hernia was easily reducible. - Patient Problems (1) Small bowel obstruction Comment: Appears to be resolving. ? temporary kink in bowel related to it being herniated. She does continue to c/o abdominal tenderness. will advance diet to soft, monitor Await for further general surgery recommendations. (2) Dementia Comment: mild confusion at baseline. Monitor. (3) GERD (gastroesophageal reflux disease) Comment: Continue IV protonix. (4) HTN (hypertension) Comment: BP under acceptable control -will resume home metoprolol. (5) DVT prophylaxis Comment: SQ heparin
--- NOTE | 2019-10-02 11:57 | PN ---
Progress Note - Progress Note Date of Service: 10/02/19 SOAP: Subjective: NAD sleeping but arousable Has had Mult BM's [] Objective: Vital Signs Temp 98.5 F 10/02/19 11:40 Pulse 70 10/02/19 11:40 Resp 20 10/02/19 11:40 BP 173/73 10/02/19 11:40 Pulse Ox 95 10/02/19 11:40 Intake & Output 10/01/19 10/02/19 10/02/19 18:59 06:59 18:59 Intake Total 2425 702 0 Balance 2425 702 0 Intake: IV Fluids 1000 702 NS (0.9%) 1000 702 Oral 1425 0 0 Other: # Bowel Movements 1 Estimated Stool Amount Medium # Voids 2 PEX Gen: NAD, comfortable in bed Chest: CTAB CVS: RRR ABD: soft, non distended, minimal tenderness, + BS's no hernias palpable Ext: calves soft, non tender [] Assessment: 89 yo female who presented with incarcerated and strangulated Abdominal hernias which were reduced in the ED by Dr Davey tolerating diet, having bowel movements [] Plan: tolerated clears, would advance diet as tolerated, OOB Ambulate,no surgical issues at this time. D/W Dr Webb and Dr Davey
[2019-10-02] MEDS ORDERED: Metoprolol Tartrate TAB* 50 mg PO SCH (21:00)
[2019-10-02] MEDS: Latanoprost 0.005%* 2.5 ml BTL BOTH EYES SCH (21:05)
[2019-10-03] MEDS: Heparin VIAL(*) 5000 UNITS/ML VIAL (FIVE THOUSAND) SUBCUT SCH ×2 (06:20→14:04)
[2019-10-03] MEDS ORDERED: Metoprolol Tartrate TAB* 25 MG PO SCH (09:00)
[2019-10-03] MEDS: Pantoprazole IV* 40 MG IV SCH (10:48)
--- NOTE | 2019-10-03 12:01 | DS ---
CC: Primary care provider DISCHARGE SUMMARY: ADDENDUM: DATE OF DISCHARGE: 10/03/19 In regards to patient's 3.8 cm left kidney nodule/mass, I discussed this abnormality with the patient's healthcare proxy son, Lopez. At this point, Lopez is not sure if she would like any further evaluation. He is aware that his mother is not the best surgical candidate due to her advanced age and dementia. At this point, Lopez would like to discuss this abnormality with the patient's primary care provider, who knows her better. He knows that the option is to possibly another CT of the mass in 3 to 6 months to evaluate for increase in growth. Lopez was also offered an urology evaluation for further investigation of the mass, which he is aware of, but he would prefer to discuss it with the patient's primary care provider first. [id number]/[facility] #: [id number] MTDD
--- NOTE | 2019-10-03 12:01 | DS ---
ADDENDUM NOW INCLUDED ON THIS REPORT CC: Dr. Marcel Guadarrama; Dr. Davey * DISCHARGE SUMMARY: DATE OF ADMISSION: 09/30/19 DATE OF DISCHARGE: 10/03/19 PRIMARY CARE PROVIDER: Dr. Marcel Guadarrama. DISPOSITION AT DISCHARGE: To [facility]. CONDITION ON DISCHARGE: Stable. DIET AT DISCHARGE: Regular. DISCHARGE DIAGNOSIS: Small bowel obstruction due to incarcerated ventral incisional hernia that was reduced in the ED by Dr. Davey. SECONDARY DIAGNOSES: 1. Hypertension. 2. Depression. 3. Dementia. 4. Gastroesophageal reflux disease. 5. Glaucoma. 6. Macular degeneration. 7. Status post appendectomy. 8. History of cholecystectomy. 9. History of hysterectomy. MEDICATIONS AT DISCHARGE: Unchanged from admission and include: 1. Acetaminophen on a p.r.n. basis. 2. Calcium carbonate/vitamin D 1 tablet b.i.d. 3. Celexa 30 mg daily. 4. Cyclosporine ophthalmic solution 1 drop both eyes b.i.d. 5. Ferrous fumarate 324 mg on Mondays, , and Saturdays. 6. Xalatan eye drops 1 drop both eyes at bedtime. 7. Imodium 2 mg daily p.r.n. 8. Melatonin 1 mg at bedtime. 9. Namenda 5 mg b.i.d. 10. Metoprolol tartrate 25 mg q.a.m. and 50 mg at bedtime. 11. Prilosec 40 mg daily. 12. Multivitamin with zinc, copper, and lutein 1 tablet b.i.d. CONSULTATION DURING THE HOSPITAL STAY: Included Dr. Davey from Surgery. LABORATORY DATA AND STUDIES PERFORMED DURING THE HOSPITAL STAY: Included on 10/16, white blood cell count of 6.1, hemoglobin of 13, hematocrit of 38, and platelets of 171. On 10/02/19, sodium of 134, potassium 3.7, chloride 105, carbon dioxide 20, BUN 13, creatinine 0.5. CT of the abdomen and pelvis obtained at admission, impression: "Umbilical hernia which contains loop of small bowel, a portion of which appears to be strangulated. Small bowel obstruction proximal to the umbilical hernia. Left renal mass. Right renal cyst. Hepatic cyst. Coronary artery calcifications. Colonic diverticulosis." Furthermore in the body of the report, it was noted that the patient has left renal mass measuring 3.8 cm and simple right renal cyst measuring up to 5.9 cm. The patient also was noted to have old fracture deformities of the pubic ramus and transverse process of L3. Old compression fracture deformities of L2 and L3. HOSPITALIZATION COURSE: Chio Bella is an 89-year-old female who has history of dementia and she lives in assisted living facility, who presented complaining of abdominal pain. She was noted to have an incarcerated ventral abdominal hernia that was reduced in the ED. Inpatient admission for small bowel obstruction that was caused by an incarcerated abdominal hernia was requested by the ED provider. The patient was treated conservatively initially on n.p.o. diet and then diet was gradually reintroduced. Her abdomen continues to be "sore," but on the day of discharge she did not have any tenderness on palpation. She was tolerating soft diet on the day of discharge. Her hernia continued to be reduced and remained to be reduced throughout her hospital stay. She tolerated her p.o. diet and she had last bowel movement that was on 10/02/19 a day prior to discharge. She is going to be discharged back to her assisted living facility. We had a long discussion with the patient's son in regards to this abnormality and problems with her hernia may likely recur. She may have another episode of strangulation. She also may develop bowel necrosis from that. At this point, she is not a best candidate for surgery due to her advanced dementia and advanced age. We discussed it with surgeons, who at this point recommended conservative treatment. The son agrees with conservative treatment and continuation of diet, observation, and monitoring in her assisted living facility. It is recommended for the patient to follow up with Dr. Davey's service in 6 to 8 weeks in regards to further evaluation of her ventral hernias. The patient is also recommended to follow up with her primary care provider in approximately 3 to 7 days. PHYSICAL EXAMINATION: At the time of discharge, blood pressure of 136/60, heart rate of 63 and regular, respiratory rate 18, oxygen saturation 95% on room air, temperature 97.6. General: The patient is a very pleasant 89-year- old female, who is in no acute distress. The patient is oriented to self and she is able to provide me with correct information of her location. She does not remember her date of or the date. HEENT: Head: Atraumatic, normocephalic. Eyes: Pupils are equal, reactive to light and accommodation. Oropharynx is clear. Mucosa moist. Neck: Supple. No JVD. No bruits bilaterally. Cardiovascular: Regular rate and rhythm. No murmur. Respiratory : Clear to auscultation bilaterally. Abdomen: There are abdominal ventral defects noted on evaluation with mild hernias that contain no bowel at this point. Abdomen is soft, nontender. Bowel sounds are present in all 4 quadrants. Extremities: There is no edema. Pulses are 2+ bilaterally. No clubbing or cyanosis. On neuro evaluation, speech is clear. Cranial nerves II through XII grossly intact. Motor strength is 5/5 bilaterally. Please note that this is a short summary of the patient's hospital stay. Please refer to further medical records for details. TIME SPENT: Approximately 50 minutes was spent on the patient's discharge. ADDENDUM: DATE OF DISCHARGE: 10/03/19 In regards to patient's 3.8 cm left kidney nodule/mass, I discussed this abnormality with the patient's healthcare proxy son, Lopez. At this point, Lopez is not sure if she would like any further evaluation. He is aware that his mother is not the best surgical candidate due to her advanced age and dementia. At this point, Lopez would like to discuss this abnormality with the patient's primary care provider, who knows her better. He knows that the option is to possibly another CT of the mass in 3 to 6 months to evaluate for increase in growth. Lopez was also offered an urology evaluation for further investigation of the mass, which he is aware of, but he would prefer to discuss it with the patient's primary care provider first. [id number]/[facility] #: [id number] A- [id number]/[facility] #: [id number] MTDD
[2019-10-03 16:59] VITALS: BP 139/62
== END 2019-10-03 16:15 | DRG 395 ==
LOC: ED 02:07 → MED 08:49
PROVIDERS: ADMIT Hospitalist; ATTEND Internal Medicine
DX: K43.0 Incisional hernia with obstruction, without gangrene (principal); I10 Essential (primary) hypertension; K58.9 Irritable bowel syndrome, unspecified; F32.9 Major depressive disorder, single episode, unspecified; K57.90 Diverticulosis of intestine, part unspecified, without perforation or abscess without bleeding; H35.30 Unspecified macular degeneration; H54.8 Legal blindness, as defined in USA; K21.9 Gastro-esophageal reflux disease without esophagitis; G30.9 Alzheimer's disease, unspecified; F02.80 Dementia in other diseases classified elsewhere, unspecified severity, without behavioral disturbance, psychotic disturbance, mood disturbance, and anxiety; H40.9 Unspecified glaucoma; N28.89 Other specified disorders of kidney and ureter; N28.1 Cyst of kidney, acquired; Z90.710 Acquired absence of both cervix and uterus; Z88.6 Allergy status to analgesic agent; Z88.5 Allergy status to narcotic agent; Z87.891 Personal history of nicotine dependence; Z88.8 Allergy status to other drugs, medicaments and biological substances; Z88.0 Allergy status to penicillin; Z79.899 Other long term (current) drug therapy
CPT/HCPCS: 36415; 74018; 74177; 80048; 80053; 81003; 81015; 83605; 83690; 83735; 85025; 86140; 87045; 87046; 87077; 87493; 87641; 87899; 93005; 96374; 99284; A9270-GY; J1644; J2405; J3490; Q9967

== ENCOUNTER 2019-10-06 20:14 | Inpatient (IN) | payer MEDICARE ==
[2019-10-06] MEDS ORDERED: NS 0.9% 1000 ML** 1,000 ML IV ONE ×2 (20:39→21:56)
[2019-10-06] MEDS ORDERED: Pantoprazole IV* 40 MG IV ONE (20:39)
[2019-10-06] MEDS ORDERED: Ondansetron INJ* 2 MG/ML VIAL IV ONE (20:39)
[2019-10-06 21:03] LABS: ABS Lymphocytes 0.9 10^3/ul (1.0-4.8); ABS Monocytes 0.7 10^3/ul (0-0.8); ABS Neutrophils 4.6 10^3/ul (1.5-7.7); Eosinophil % 0.4 %; Hematocrit 41 % (35-47); Mean Corpuscular HGB Conc 34 g/dL (31-36); Mean Corpuscular Hemoglobin 32 pg (27-31); Mean Corpuscular Volume 93 fL (80-97); Mean Platelet Volume 8.7 fL (7.4-10.4); Nucleated Red Blood Cells % 0.1; Platelet Count 193 10^3/uL (150-450); Red Blood Count 4.44 10^6 /uL (3.70-4.87); Red Cell Distribution Width 14 % (10-15); White Blood Count 6.3 10^3/uL (3.5-10.8)
[2019-10-06 21:24] LABS: Albumin 5.1 g/dL (3.2-5.2); Albumin/Globulin Ratio 1.5 (1-3); BUN/Creatinine Ratio 22.1 (8-20); C Reactive Protein 1.48 mg/L (<8.01); Calcium 10.9 mg/dL (8.6-10.3); EGFR African American 75.2 (>60); EGFR Non-African American 62.1 (>60); Globulin 3.5 g/dL (2-4); Potassium 3.6 mmol/L (3.5-5.0); Total Bilirubin 0.6 mg/dL (0.2-1.0); Total Protein 8.6 g/dL (6.4-8.9)
[2019-10-06] MEDS ORDERED: Iohexol 300* (CONTRAST) 10 ML SDV IV ONE (21:29)
--- NOTE | 2019-10-06 23:09 | ED ---
GI/ HPI - HPI Summary HPI Summary: 89-year-old male presents with vomiting for the past couple days. She has also been experiencing weakness. She admits to abdominal pain in her epigastric region. She was admitted a week ago for a bowel obstruction and incarcerated hernia. She has been having diarrhea. has not had diarrhea in a couple days. she has not been on antibiotic recently. She denies any chest pressures or shortness of breath. No urinary symptoms. She has a history of dementia. - History of Current Complaint Chief Complaint: EDAbdPain Time Seen by Provider: 10/06/19 20:29 Stated Complaint: ABD PAIN PER EMS Pain Intensity: 4 - Additional Pertinent History Primary Care Physician: [id number] - Allergy/Home Medications Allergies/Adverse Reactions: Allergies Allergy/AdvReac Type Severity Reaction Status Date / Time aspirin Allergy Unknown Verified 10/06/19 20:28 Reaction Details hydromorphone [From Dilaudid] Allergy Unknown Verified 10/06/19 20:28 Reaction Details morphine Allergy Unknown Verified 10/06/19 20:28 Reaction Details naproxen Allergy Unknown Verified 10/06/19 20:28 Reaction Details NSAIDS (Non-Steroidal Allergy Unknown Verified 10/06/19 20:28 Anti-Inflamma Reaction Details Penicillins Allergy Unknown Verified 10/06/19 20:28 Reaction Details procaine [From Novocain] Allergy Unknown Verified 10/06/19 20:28 Reaction Details tramadol Allergy Unknown Verified 10/06/19 20:28 Reaction Details Home Medications: Home Medications Acetaminophen [Tylenol] 650 mg PO Q8HR 10/23/18 [History Confirmed 10/06/19] Calcium Carbonate/Vitamin D3 [Calcium 600-Vit D3 400 Caplet] 1 tab PO BID [History Confirmed 10/06/19] Cyclosporine 0.05% OPHTH (NF) [Restasis 0.05% OPHTH] 1 drop BOTH EYES BID [History Confirmed 10/06/19] Latanoprost 0.005%* [Xalatan 0.005%*] 1 drop BOTH EYES BEDTIME 10/23/18 [ History Confirmed 10/06/19] Loperamide CAP* [Imodium CAP*] 2 mg PO DAILY PRN 06/10/19 [History Confirmed 04/18] Citalopram TAB* [Celexa TAB*] 30 mg PO DAILY 09/10/19 [History Confirmed ] Ferrous Fumarate 324 mg PO EVERY OTHER DAY 09/10/19 [History Confirmed 10/06/19] Melatonin 1 mg PO BEDTIME 09/10/19 [History Confirmed 10/06/19] Memantine TAB* [Namenda TAB*] 5 mg PO BID 09/10/19 [History Confirmed 10/06/19] Metoprolol Tartrate TAB* [Lopressor TAB*] 25 mg PO QAM 09/10/19 [History Confirmed 10/06/19] Metoprolol Tartrate TAB* [Lopressor TAB*] 50 mg PO BEDTIME 09/10/19 [History Confirmed 10/06/19] Omeprazole (Nf) [Prilosec (NF)] 40 mg PO DAILY 09/10/19 [History Confirmed 10/05] PMH/Surg Hx/FS Hx/Imm Hx Endocrine/Hematology History: Denies: Hx Diabetes Cardiovascular History: Reports: Hx Hypertension Denies: Hx Hypercholesterolemia GI History: Reports: Hx Diverticulosis, Hx Gastroesophageal Reflux Disease, Hx Irritable Bowel History: Denies: Hx Dialysis Sensory History: Reports: Hx Contacts or Glasses, Hx Legally Blind Denies: Hx Hearing Aid Opthamlomology History: Reports: Hx Contacts or Glasses, Hx Legally Blind Neurological History: Reports: Hx Dementia, Other Neuro Impairments/Disorders - Alz Psychiatric History: Reports: Hx Depression, Hx of Violent Episodes Against Others - Surgical History Surgery Procedure, Year, and Place: right hip. cholecystectomy - Immunization History Date of Influenza Vaccine: UTD Infectious Disease History: No Infectious Disease History: Denies: Traveled Outside the [place] in Last 30 Days - Family History Known Family History: Negative: Cardiac Disease Family History: LEVEL 5: FHx limited due to pt condition, dementia, alz. - Social History Alcohol Use: Rare Hx Substance Use: No Substance Use Type: Reports: None Hx Tobacco Use: Yes Smoking Status (MU): Former Smoker Review of Systems Negative: Fever Negative: Chest Pain Negative: Shortness Of Breath Positive: Abdominal Pain, Vomiting, Diarrhea, Nausea All Other Systems Reviewed And Are Negative: Yes Physical Exam Triage Information Reviewed: Yes Vital Signs On Initial Exam: Initial Vitals Temp Pulse Resp BP Pulse Ox 99.1 F 75 15 164/65 95 10/06/19 20:25 10/06/19 20:25 10/06/19 20:25 10/06/19 20:25 10/06/19 20:25 Vital Signs Reviewed: Yes Appearance: Positive: Well-Appearing Skin: Positive: Warm, Dry Head/Face: Positive: Normal Head/Face Inspection Eyes: Positive: Normal, Conjunctiva Clear ENT: Positive: Pharynx normal Respiratory/Lung Sounds: Positive: Clear to Auscultation, Breath Sounds Present Cardiovascular: Positive: Normal, RRR Abdomen Description: Positive: Soft, Other: - tenderness in epigastric region Bowel Sounds: Positive: Present Musculoskeletal: Positive: Normal Neurological: Positive: Normal Psychiatric: Positive: Normal Procedures - Sedation Patient Received Moderate/Deep Sedation with Procedure: No Diagnostics - Vital Signs Vital Signs Temp Pulse Resp BP Pulse Ox 10/06/19 20:25 99.1 F 75 15 164/65 95 - Laboratory Lab Results: Lab Results 10/06/19 10/06/19 10/06/19 Range/Units 20:50 20:50 20:50 WBC 6.3 (3.5-10.8) 10^3/uL RBC 4.44 (3.70-4.87) 10^6 /uL Hgb 14.0 (12.0-16.0) g/dL Hct 41 (35-47) % MCV 93 (80-97) fL MCH 32 H (27-31) pg MCHC 34 (31-36) g/dL RDW 14 (10-15) % Plt Count 193 (150-450) 10^3/uL MPV 8.7 (7.4-10.4) fL Neut % (Auto) 73.5 % Lymph % (Auto) 14.0 % Nash % (Auto) 11.8 % Eos % (Auto) 0.4 % Baso % (Auto) 0.3 % Absolute Neuts (auto) 4.6 (1.5-7.7) 10^3/ul Absolute Lymphs (auto) 0.9 L (1.0-4.8) 10^3/ul Absolute Monos (auto) 0.7 (0-0.8) 10^3/ul Absolute Eos (auto) 0.0 (0-0.6) 10^3/ul Absolute Basos (auto) 0.0 (0-0.2) 10^3/ul Absolute Nucleated RBC 0.0 10^3/ul Nucleated RBC % 0.1 Sodium 137 (135-145) mmol/L Potassium 3.6 (3.5-5.0) mmol/L Chloride 100 L (101-111) mmol/L Carbon Dioxide 25 (22-32) mmol/L Anion Gap 12 H (2-11) mmol/L BUN 19 (6-24) mg/dL Creatinine 0.86 (0.51-0.95) mg/dL Est GFR ( Amer) 75.2 (>60) Est GFR (Non-Af Amer) 62.1 (>60) BUN/Creatinine Ratio 22.1 H (8-20) Glucose 101 H (70-100) mg/dL Lactic Acid 1.0 (0.5-2.0) mmol/L Calcium 10.9 H (8.6-10.3) mg/dL Total Bilirubin 0.60 (0.2-1.0) mg/dL AST 34 (13-39) U/L ALT 22 (7-52) U/L Alkaline Phosphatase 65 (34-104) U/L C-Reactive Protein 1.48 (<8.01) mg/L Total Protein 8.6 (6.4-8.9) g/dL Albumin 5.1 (3.2-5.2) g/dL Globulin 3.5 (2-4) g/dL Albumin/Globulin Ratio 1.5 (1-3) Lipase 54 (11.0-82.0) U/L Result Diagrams: 10/06/19 20:50 10/06/19 20:50 Lab Statement: Any lab studies that have been ordered have been reviewed, and results considered in the medical decision making process. - EKG No standard instances Cardiac Rate: NL EKG Rhythm: Sinus Rhythm EKG Comparison: No Significant Change Summary of EKG Findings: sinus rhythm, PVCs GIGU Course/Dx - Course Course Of Treatment: 89-year-old male presents with vomiting for the past couple days. She has also been experiencing weakness. She admits to abdominal pain in her epigastric region. She was admitted a week ago for a bowel obstruction and incarcerated hernia. She has been having diarrhea. has not had diarrhea in a couple days. she has not been on antibiotic recently. She denies any chest pressures or shortness of breath. No urinary symptoms. She has a history of dementia. On exam tenderness in the epigastric region. White blood count normal. CT shows improving SBO vs ileus. discussed with dr hadley who says would not do anything surgical for here. discussed with hospitalist who agree to admit. - Diagnoses Differential Diagnoses - Female: Bowel Obstruction, Gastroenteritis (Viral), Gastroenteritis (Bacterial) Provider Diagnoses: Partial small bowel obstruction Discharge ED - Sign-Out/Discharge Documenting (check all that apply): Patient Departure - Discharge Plan Condition: Stable Disposition: ADMITTED TO [facility] Referrals: Marcel Guadarrama DO [Primary Care Provider] - - Billing Disposition and Condition Condition: STABLE Disposition: Admitted to [facility]
[2019-10-06 23:25] LABS: Urine Appearance Cloudy; Urine Bilirubin Negative (Negative); Urine Blood 1+ (Negative); Urine Color Yellow; Urine Glucose Negative (Negative); Urine Ketones Negative (Negative); Urine Nitrite Negative (Negative); Urine Protein Negative (Negative); Urine Specific Gravity 1.017 (1.010-1.030); Urine Urobilinogen Negative (Negative)
[2019-10-06 23:53] LABS: Urine Bacteria Absent (Absent); Urine Red Blood Cell 3+(>10/hpf) (Absent); Urine White Blood Cell 3+(>20/hpf) (Absent)
[2019-10-07] MEDS ORDERED: Loperamide CAP* 2 MG PO PRN (04:28)
[2019-10-07] MEDS ORDERED: Enoxaparin(*) 40 MG/0.4 ML SYR SUBCUT SCH ×2 (05:00→09:00)
[2019-10-07] MEDS: NS 0.9% 1000 ML** 1,000 ML IV SCH ×2 (06:00→23:03)
--- NOTE | 2019-10-07 08:16 | PN ---
Progress Note - Progress Note Date of Service: 10/07/19 Note: Patient seen and examined Full consult dictated I saw her last week Re-admitted with N/V, abdominal pain and diarrhea CT reviewed ABD Exam--soft and non-distended. Normal bowel sounds throughout. Two midline incisional hernias that are reducible with pressure-mild pain (not incarcerated and no signs of strangulation). Hernias may be causing partial small bowel obstruction and pain, she also apparently has copious diarrhea. This is her second admission in a week-it is reasonable now to consider repair of hernias as these may be the source of her pain and N/V and to also prevent future hernia problems and admissions although reason for diarrhea should be investigated. C diff is pending. Will need to discuss with hospitalist service regarding risk assessment and family wishes regarding surgery. This surgery could probably be done with the laparoscope or robot. Will follow for now-no urgent indication for surgery at present.
[2019-10-07] MEDS: Acetaminophen TAB* 325 MG PO SCH ×2 (08:31→14:32)
[2019-10-07] MEDS ORDERED: Metoprolol Tartrate TAB* 25 MG PO SCH (09:00)
[2019-10-07] MEDS ORDERED: Citalopram TAB* 20 MG PO SCH (09:00)
[2019-10-07] MEDS ORDERED: Memantine TAB* 5 MG PO SCH (09:00)
[2019-10-07] MEDS ORDERED: OMEPRAZOLE 40 MG PO SCH (09:00)
[2019-10-07] MEDS ORDERED: FERROUS FUMARATE 324 MG PO SCH (09:00)
--- NOTE | 2019-10-07 10:18 | PN ---
Subjective Date of Service: 10/07/19 Interval History: Ms. Bella is laying in bed sleeping; she wakes easily. She is A/O x3, but has mild dementia and is confused; she is therefore a poor historian. She c/o continued nausea, and believes that she may have vomited yesterday. She also reports a BM yesterday; she has had diarrhea today, per nursing staff. No other complaints today. Objective Active Medications: Acetaminophen (Tylenol Tab*) 650 mg PO Q8HR [facility] Last Admin: 10/07/19 08:31 Dose: Not Given Citalopram Hydrobromide (Celexa Tab*) 30 mg PO DAILY [facility] Cyclosporine (Restasis 0.05% Ophth) 1 drop BOTH EYES BID [facility]; Protocol Enoxaparin Sodium (Lovenox(*)) 40 mg SUBCUT Q24H [facility] Sodium Chloride (Ns 0.9% 1000 Ml) 1,000 mls @ 125 mls/hr IV PER RATE [facility] Last Admin: 10/07/19 06:00 Dose: 125 mls/hr Latanoprost (Xalatan 0.005%*) 1 drop BOTH EYES BEDTIME [facility] Loperamide HCl (Imodium Cap*) 2 mg PO DAILY PRN PRN Reason: LOOSE STOOLS Melatonin (Melatonin) 3 mg PO BEDTIME [facility] Memantine (Namenda Tab*) 5 mg PO BID [facility] Metoprolol Tartrate (Lopressor Tab*) 25 mg PO QAM [facility] Metoprolol Tartrate (Lopressor Tab*) 50 mg PO BEDTIME [facility] Nft: Ferrous Fumarate [Ferrous Fumarate] 324 Mg 324 mg PO EVERY OTHER DAY [facility] Pantoprazole Sodium (Protonix Tab*) 40 mg PO DAILY [facility] Vital Signs: Temp Pulse Resp BP Pulse Ox 98.9 F 89 17 162/63 97 10/07/19 07:15 10/07/19 07:15 10/07/19 07:15 10/07/19 07:15 10/07/19 07:15 Oxygen Devices in Use Now: None Appearance: Ms. Bella is an elderly white woman who is laying in bed with eyes closed, grimacing; she wakes easily and appears uncomfortable. NGT in place. Eyes: No Scleral Icterus, PERRLA Ears/Nose/Mouth/Throat: NL Teeth, Lips, Gums, Clear Oropharnyx, - - dry oral mucosa Neck: NL Appearance and Movements; NL JVP, Trachea Midline Respiratory: Symmetrical Chest Expansion and Respiratory Effort, Clear to Auscultation Cardiovascular: NL Sounds; No Murmurs; No JVD, RRR, No Edema Abdominal: - - mild abdominal distention; BS hyperactive; abdomen soft with diffuse tenderness to palpation Extremities: No Edema, No Clubbing, Cyanosis Neurological: - - A/O x3 with mild confusion Result Diagrams: 10/06/19 20:50 10/06/19 20:50 Additional Lab and Data: Lab Results 10/06/19 10/06/19 10/06/19 Range/Units 20:50 20:50 20:50 WBC 6.3 (3.5-10.8) 10^3/uL RBC 4.44 (3.70-4.87) 10^6 /uL Hgb 14.0 (12.0-16.0) g/dL Hct 41 (35-47) % MCV 93 (80-97) fL MCH 32 H (27-31) pg MCHC 34 (31-36) g/dL RDW 14 (10-15) % Plt Count 193 (150-450) 10^3/uL MPV 8.7 (7.4-10.4) fL Neut % (Auto) 73.5 % Lymph % (Auto) 14.0 % [place] % (Auto) 11.8 % Eos % (Auto) 0.4 % Baso % (Auto) 0.3 % Absolute Neuts (auto) 4.6 (1.5-7.7) 10^3/ul Absolute Lymphs (auto) 0.9 L (1.0-4.8) 10^3/ul Absolute Monos (auto) 0.7 (0-0.8) 10^3/ul Absolute Eos (auto) 0.0 (0-0.6) 10^3/ul Absolute Basos (auto) 0.0 (0-0.2) 10^3/ul Absolute Nucleated RBC 0.0 10^3/ul Nucleated RBC % 0.1 Sodium 137 (135-145) mmol/L Potassium 3.6 (3.5-5.0) mmol/L Chloride 100 L (101-111) mmol/L Carbon Dioxide 25 (22-32) mmol/L Anion Gap 12 H (2-11) mmol/L BUN 19 (6-24) mg/dL Creatinine 0.86 (0.51-0.95) mg/dL Est GFR ( Amer) 75.2 (>60) Est GFR (Non-Af Amer) 62.1 (>60) BUN/Creatinine Ratio 22.1 H (8-20) Glucose 101 H (70-100) mg/dL Lactic Acid 1.0 (0.5-2.0) mmol/L Calcium 10.9 H (8.6-10.3) mg/dL Total Bilirubin 0.60 (0.2-1.0) mg/dL AST 34 (13-39) U/L ALT 22 (7-52) U/L Alkaline Phosphatase 65 (34-104) U/L C-Reactive Protein 1.48 (<8.01) mg/L Total Protein 8.6 (6.4-8.9) g/dL Albumin 5.1 (3.2-5.2) g/dL Globulin 3.5 (2-4) g/dL Albumin/Globulin Ratio 1.5 (1-3) Lipase 54 (11.0-82.0) U/L Assess/Plan/Problems-Billing Assessment: Ms. Bella is an 89 yof with PMHx of HTN, GERD, dementia who presented to the ER with complaints of vomiting and was found to have a SBO. - Patient Problems (1) Small bowel obstruction Comment: -CT abd/pel shows dilated loops of SB, improved from 09/29; possible SBO, although patient having diarrhea (may ne after transition point) -surgery following; recommend possible surgery -pt and sons have been updated and have yet to make a decision on surgical intervention; they request more info; Dr. Davey has agreed to follow up -continue NPO -NGT in place -continue nausea managment RCRI score is 0, calss I risk with 3.9% 30-day risk of , [place], or cardiac arrest. ALthough the patient is low risk, this does not take into account the patient's age or the patient's other co-morbid conditions. This will likely increase her risk of adverse outcomes from surgery. Recent chest x-ray shows R midlung atelectasis vs consolidation. Patient denies cough, fevers, but does c/ o chills; no leukocytosis, so suspect atelectasis. Recent EKG shows rate of 80 with PVC, no KRISTEL, depression; T wave inversions in V1 unchanged from last EKG; there is no recent echo seen upon chart review. (2) Diarrhea Comment: -incontinent of stool with diarrhea -stool for C. diff, culture (3) Left kidney mass Comment: -CT abdomen/pelvis with L kidney mass -should have outpatient follow up (4) Abdominal pain (5) HTN (hypertension) Comment: -variable; SBP 160-190's -likely a component of pain leading to elevation -continue home metoprolol -add on IV hydralazine p.r.n. (6) GERD (gastroesophageal reflux disease) Comment: -pantoprazole (7) Depression Comment: -citalopram (8) Glaucoma Comment: -latanoprost (9) Dementia Comment: -mild confusion at baseline -continue home memantine (10) DVT prophylaxis Comment: -chemoprophylaxis will be held in setting of possible surgery -SCDs (11) DNR (do not resuscitate) Comment: -Discussed with HCP/Lopez harrison and Luis, who state that patient has a living will requesting DNR/DNI. They would like to honor Ms. Bella' wishes and place her DNR/DNI status at this time. Status and Disposition: Inpatient. Discharge when stable.
[2019-10-07] MEDS ORDERED: hydrALAZINE IV* 20 MG/ML VIAL IV SLOW PU PRN (10:48)
--- NOTE | 2019-10-07 11:37 | HP ---
HISTORY AND PHYSICAL: ADDENDUM: ASSESSMENT AND PLAN: 1. DVT prophylaxis: Lovenox. 2. Code status: The patient will remain full code at this point in time. 3. Fluids, electrolytes, and nutrition: Fluids and electrolytes will be repleted as needed. Nutrition at this time, the patient will be n.p.o. until the patient can tolerate p.o. feeds. 4. Surgery has been consulted to evaluate the small bowel obstruction. TIME SPENT: Time spent on the admission is greater than 50 minutes, greater than half of that time was spent [id number] with the patient obtaining my history and physical, the other half of the time was spent going over the plan of care with the patient and implementing plan of care. Thank you very much for the opportunity to partake in the healthcare needs of this khris lady. [id number]/CPS #: [id number] JULES
--- NOTE | 2019-10-07 11:54 | HP ---
ADDENDUM NOW INCLUDED ON THIS REPORT HISTORY AND PHYSICAL: DATE OF ADMISSION: 10/07/19 HISTORY OF PRESENT ILLNESS: This is an 89-year-old female with past medical history consistent with hypertension, GERD, chronic anemia, who presented to the ED with recurrent abdominal pain in the epigastric region. She also has a history of small bowel obstruction. The patient had vomiting for the past couple of days. She has also been experiencing weakness and poor p.o. intake due to the vomiting and nausea. She said the epigastric pain and tenderness is worsening. She was admitted a week ago for bowel obstruction and incarcerated hernia, diarrhea which she still had in the past couple of days. She was taking Imodium and it responded to the medication. She denied any history of recent antibiotic use. She denies chest pain or shortness of breath. No urinary symptoms. She also has a history of dementia, for which she is taking Namenda. Denied fever. She is on rigors. PAST MEDICAL HISTORY: 1. Hypertension. 2. Dementia. 3. GERD. 4. Small bowel obstruction. PAST SURGICAL HISTORY: 1. Hysterectomy. 2. Cholecystectomy. 3. Right hip surgery. MEDICATIONS: Home medications include: 1. Tylenol for pain 650 mg q.8 as needed. 2. Calcium carbonate and vitamin D3 600/400 tablet 1 tablet twice daily. 3. Restasis 0.05% 1 drop both eyes b.i.d. 4. Latanoprost 0.005% 1 drop both eyes at bedtime. 5. Imodium 2 mg p.o. daily p.r.n. 6. Celexa 30 mg p.o. daily. 7. Ferrous fumarate 325 mg p.o. every other day. 8. Melatonin 1 mg p.o. at bedtime. 9. Namenda 5 mg p.o. b.i.d. 10. Metoprolol tartrate 25 mg p.o. a.m. and metoprolol tartrate 50 mg p.o. at bedtime. 11. Omeprazole 40 mg daily. ALLERGIES: ASPIRIN, unknown reaction; HYDROMORPHONE, unknown reaction; MORPHINE , unknown reaction; MECLIZINE, unknown reaction; NSAID, unknown reaction; PENICILLIN, unknown reaction; PROCAINE/NOVOCAIN, unknown reaction; TRAMADOL, unknown reaction. FAMILY HISTORY: Negative cardiac history in the family. Limited family history due to the patient's condition of dementia. SOCIAL HISTORY: She has 2 daughters and 1 son. Alcohol use rare. History of substance abuse, none. Former smoker, she states she quit that in her 20s. REVIEW OF SYSTEMS: There is no documented fever. There is no significant weight change. There is no double vision. No ear discharge. She denied having any rhinorrhea. Denied sore throat. No thyroid enlargement. Denied chest pain. Negative shortness of breath. Positive abdominal pain, vomiting, nausea, and diarrhea. Review of 14 systems completed, all others negative or as recorded in the HPI. PHYSICAL EXAMINATION GENERAL: An 89-year-old female, lying in bed, in no apparent distress, with distended abdomen. VITAL SIGNS: On admission, temperature 99.1, pulse 75, respiratory rate 16, blood pressure 164/65, pulse oximetry 95. HEENT: Head: Atraumatic, normocephalic. Eyes: EOM intact. Sclerae anicteric , not pale. Oral mucosa appears to be dry. No oropharyngeal erythema. RESPIRATORY: Clear to auscultation. Breath sound present. No crackles. CARDIOVASCULAR: S1, S2 heard. No murmurs, no rubs, no gallops. ABDOMEN: Soft, tender to deep palpation, mostly on the epigastric region. Bowel sounds heard, mildly exacerbated. No palpable masses. No guarding. No rebound tenderness. MUSCULOSKELETAL: Full range of motion. Acyanotic. No edema. NEUROLOGICAL: She is awake. She is alert to herself. She knows she is in the hospital, but seems very forgetful. Most of the questions she answered, "I don' t know, I can't remember." Shows element of dementia. PSYCHIATRIC: Normal mood and affect. DIAGNOSTIC STUDIES/LAB DATA: Hematology: WBC 6.3, RBC 4.44, hemoglobin 14.0, hematocrit 41, MCV 93, MCH 32, MCHC 34, RDW 14, platelet count 103, MPV 8.7, neutrophil percent is 75.5, lymphocytes 14.0, monocytes 11.8, eosinophil 0.4, basophil 0.3, absolute neutrophil 4.6. Chemistry: Sodium 137, potassium 3.6, chloride 100, carbon dioxide 25, anion gap 12, BUN 19, creatinine 0.86, estimated GFR non- 32.1, BUN/creatinine ratio 22.1, glucose 101. Lactic acid 1.0. Calcium 10.9. Total bilirubin 0.6, AST 34, ALT 22, alkaline phosphatase 65, C-reactive protein 1.48, total protein 8.6, albumin 5.1, globulin 3.5, albumin globulin ratio 1.5, lipase 64. CT abdomen and pelvis, impression: 1. A 3.8 cm mass in the mid pole of the left kidney which is similar in appearance compared to the prior CT abdomen and pelvis on 09/30/19 and suspicion for malignancy. Tissue correlation is suggested for a pathologic diagnosis. 2. Dilated loops of small bowel with air fluid levels, which have become less dilated compared to the prior CT abdomen and pelvis on 09/30/19 and with a transition from dilated to nondilated small bowel in a moderate size. Infraumbilical hernia containing a portion of the transvascular and loops of small bowel, which may be secondary to a partial small bowel obstruction or ileus. Enteric contrast material is noted distal to the transition point in the terminal ileum and cecum. No evidence for bowel strangulation. 3. Liquid feces in the colon, which will lead to diarrhea. 4. A 2.3 cm left renal cyst, which is unchanged compared to the prior CT abdomen and pelvis on 09/30/19. Further evaluation with a pelvic ultrasound is suggested, which can be performed on a nonemergency basis. ASSESSMENT AND PLAN: An 89-year-old female who presents with vomiting and nausea for the past couple of days and also weakness, with poor p.o. intake with a known history of small bowel obstruction secondary to incarcerated hernia. She will be admitted to the medical unit for small bowel obstruction, weakness, nausea, diarrhea, vomiting, abdominal pain, high blood pressure, gastroesophageal reflux disease as admitting diagnoses. 1. For small bowel obstruction, NG tube decompression, n.p.o. until the patient can tolerate, pain control. Weakness I suspect is probably related to dehydration, so I will continue normal saline rehydration at 125 mL/hour, 1 L bolus has already been given in the ER. Followup labs, repeat electrolytes as needed. 2. Nausea and vomiting. IV Zofran 4 mg q.4 p.r.n. Surgical consult to evaluate the patient for the small bowel obstruction. 3. For high blood pressure, the patient to continue with her home meds with holding parameters, metoprolol 25 mg a.m., metoprolol 50 mg at bedtime. 4. For dementia, the patient to continue with Namenda 5 mg p.o. b.i.d. ADDENDUM: ASSESSMENT AND PLAN: 1. DVT prophylaxis: Lovenox. 2. Code status: The patient will remain full code at this point in time. 3. Fluids, electrolytes, and nutrition: Fluids and electrolytes will be repleted as needed. Nutrition at this time, the patient will be n.p.o. until the patient can tolerate p.o. feeds. 4. Surgery has been consulted to evaluate the small bowel obstruction. TIME SPENT: Time spent on the admission is greater than 50 minutes, greater than half of that time was spent [id number] with the patient obtaining my history and physical, the other half of the time was spent going over the plan of care with the patient and implementing plan of care. Thank you very much for the opportunity to partake in the healthcare needs of this khris lady. [id number]/CPS #: [id number]/CPS #: [id number] JULES
[2019-10-07] MEDS: CMCS: Cyclosporine 0.05% OPHTH (NF) 0.4 ML VIAL BOTH EYES SCH ×2 (13:49→23:05)
--- NOTE | 2019-10-07 14:08 | PN ---
Progress Note - Progress Note Date of Service: 10/07/19 Note: Discussed care with patient's son Lopez ([phone]) and explained situation and care. I think it is reasonable to consider surgery if she is going to continue to return to ER with abdominal complaints. Risks and benefits of surgery explained and I explained to him that he would need to give consent ( not just the patient) to proceed with surgery. He is going to talk with the rest of his family tonight and I will discuss with him tomorrow.
[2019-10-07] MEDS: Citalopram TAB* 10 MG PO SCH (14:29)
[2019-10-07] MEDS: FERROUS FUMARATE 324 MG PO SCH (14:29)
[2019-10-07] MEDS: Memantine TAB* 5 MG PO SCH (14:30)
[2019-10-07] MEDS: Pantoprazole TAB * 40 MG TAB PO SCH (14:31)
[2019-10-07] MEDS: Metoprolol Tartrate TAB* 25 MG PO SCH (14:31)
--- NOTE | 2019-10-07 15:21 | CONS ---
CC: [facility]; Dr. Marcel Guadarrama * CONSULTATION REPORT: DATE OF CONSULT: 10/07/19 REFERRING PROVIDER: Dr. Quinonez, emergency room physician. REASON FOR CONSULT: Abdominal pain, nausea, vomiting, and known ventral incisional hernias. HISTORY OF PRESENT ILLNESS: Ms. Chio Bella is an 89-year-old woman who lives at [facility], who presented to the emergency room last night for evaluation of nausea, vomiting, abdominal pain, and copious amounts of diarrhea. She has history of dementia and the history is difficult to determine from the records. We do have records from last week when she was admitted with similar symptoms and complaints, had a CT scan that showed 2 small ventral incisional hernias that were easily reducible and not felt to be the cause of the bowel obstruction. She improved and was discharged home last week. Apparently, she has been having some vomiting the last several days once again with poor oral intake. She was to return to the emergency room. I am unable to obtain an adequate and informed history from the patient due to her dementia. In the emergency room, she was noted to have low-grade fever. Heart rate was in the 90s and she was hypertensive. Laboratory workup included a normal white blood cell count and BUN and creatinine. Electrolytes showed a slight decrease in her chloride. Lactic acid was normal. Liver transaminases were normal. Lipase was normal. She underwent a CT scan of the abdomen and pelvis again last night. I did review these images. This once again shows mildly dilated stomach. There were some dilated loops of small bowel with some air-fluid levels, which were less compared to the study done last week with 2 areas of apparent ventral incisional hernia in the midline with possibility of partial small bowel obstruction as there is enteric content beyond the transition point in the terminal ileum and cecum. There was large amount of liquid feces in the colon. PAST MEDICAL HISTORY: 1. Hypertension. 2. Depression. 3. Dementia. 4. GERD. 5. Glaucoma. 6. Macular degeneration. PAST SURGICAL HISTORY: 1. Right hip surgery. 2. Appendectomy. 3. Cholecystectomy. 4. Hysterectomy. MEDICATIONS: Include: 1. Omeprazole. 2. Metoprolol. 3. Tylenol. 4. Calcium. 5. Celexa. 6. Restasis. 7. Xalatan eye drops. 8. Loperamide. 9. Melatonin. 10. Namenda. ALLERGIES: ASPIRIN, DILAUDID, MORPHINE, NAPROXEN, NONSTEROIDALS, PENICILLINS, PROCAINE, and TRAMADOL. FAMILY HISTORY: Unobtainable from the patient. SOCIAL HISTORY: Unobtainable. REVIEW OF SYSTEMS: Unobtainable from the patient due to her mental status. PHYSICAL EXAM: 98.5, pulse 85, blood pressure 159/100. In general, she is an elderly female with nasogastric tube in place. She is pleasant, although she is not oriented to place or time. She is not able to give a history. Her lungs were clear to auscultation with normal respiratory effort. Heart was regular rate and rhythm without murmurs, rubs, or gallops. Her abdomen is soft and nondistended. She has a well-healed midline incision. There are 2 midline fascial defects that contained bowels, but these are reducible with persistent pressure and mildly tender. There are no overlying skin changes. She has no generalized peritonitis, rebound, or guarding. There is no distention. Her bowel sounds are normoactive throughout. Extremities show no cyanosis or edema. IMPRESSION AND PLAN: An 89-year-old woman with a history of dementia, now admitted for a second time with nausea, vomiting, and apparently copious diarrhea. She has had some abdominal pain and has had known incisional hernias. I do not believe that these are causing a complete bowel obstruction as these are reducible with mild pressure, but a CAT scan does show possibility of a partial small bowel obstruction. The hernias may be the cause of her admission. Last week, we had decided against surgery due to her age and mental status, but now with the second admission, certainly we should give consideration to surgical repair to prevent future bowel obstructions and readmissions to the hospital. For now, a C. diff toxin is pending to evaluate the cause of her diarrhea as I do not believe that this would be secondary to the hernias. We will require risk assessment for surgical intervention from hospitalist service and also we will need to discuss with the family regarding their wishes of care, i.e., whether they would like to proceed with surgery that may involve considerable risk. However, this may be able to be done with the laparoscope or robot. Thank you for the consultation. Continue the present care and await the C. diff toxin results. We will follow her closely with you. [id number]/[facility] #: [id number] [facility]
[2019-10-07] MEDS ORDERED: Cefepime 1 GM in Dextrose(*) 1 GM/50 ML BAG IV ONE (20:17)
--- NOTE | 2019-10-07 20:19 | PN ---
Sepsis Event Evaluation Date of Evaluation: 10/08/19 Time of Evaluation: 00:00 Current Stage of Sepsis: Sepsis Vital Signs - Last 12 Hours: Vital Signs - 12 hr Temp Pulse Resp BP Pulse Ox 10/07/19 19:47 101.5 F 102 16 148/67 95 10/07/19 15:15 98.4 F 94 19 152/60 95 10/07/19 11:15 98.2 F 79 19 149/67 95 Lactic Acid: 10/06/19 20:50 Lactic Acid 1.0 - Cardiopulmonary Exam Capillary Refill: Immediate Respiratory: Symmetrical Chest Expansion and Respiratory Effort - Peripheral Pulse Exam Radial Pulses: Bilateral Normal Pedal Pulses: Bilateral Normal - Skin Exam Skin Exam: Normal Turgor - Radha Coma Scale Best Eye Response: 4 - Spontaneous Best Motor Response: 6 - Obeys Commands Best Verbal Response: 5 - Oriented Coma Scale Total: 15 Assess/Plan/Problems-Billing Assessment: Ms. Bella is an 89 yof with PMHx of HTN, GERD, dementia who presented to the ER with complaints of vomiting and was found to have a SBO. tachycardia and fever improved, awaiitngt stool cx, no bm since yest afternoon, await cx results, CXR obtained, ? PNA, flu swa ordered, will continue abx with ceftriaxone and azithro, flagyl ordered as well given concern for cdiff, bp stable, will continue to follow lactics stable Status and Disposition: Inpatient. Discharge when stable.
--- NOTE | 2019-10-07 20:25 | PN ---
Hospitalist Progress Note Date of Service: 10/07/19 Called to bedside for concerns of fever. I noted fever 101.5 noted hr 101. Patient has been having diarrhea and taking imodium at home. Lungs cta, abd distended, bowel sounds hypoactive, diffuse tender noted. Patient awake and alert, slightly drowsy, ? source in abd possibel cdiff, can not have PO given SBO, will order, iv flagyl, will check blood cx, lactic, cxr, holding 30cc/kg ivf at this point given BP elevated, will given one dose of cefepime at this point as well, will increase vs to q 2hr, Dr [place] updated,
[2019-10-07] MEDS: metroNIDAZOLE IV 500 MG/100ML* 500 MG/100 ML BAG IVPB SCH (20:30)
[2019-10-07 20:37] LABS: ABS Lymphocytes 0.7 10^3/ul (1.0-4.8); ABS Neutrophils 4.5 10^3/ul (1.5-7.7); Eosinophil % 0.2 %; Hematocrit 35 % (35-47); Hemoglobin 11.9 g/dL (12.0-16.0); Lymphocyte % 10.7 %; Mean Corpuscular HGB Conc 34 g/dL (31-36); Mean Corpuscular Hemoglobin 32 pg (27-31); Mean Corpuscular Volume 92 fL (80-97); Mean Platelet Volume 8.4 fL (7.4-10.4); Platelet Count 173 10^3/uL (150-450); Red Blood Count 3.77 10^6 /uL (3.70-4.87); Red Cell Distribution Width 14 % (10-15); White Blood Count 6.2 10^3/uL (3.5-10.8)
[2019-10-07 20:51] LABS: Albumin/Globulin Ratio 1.5 (1-3); BUN/Creatinine Ratio 19.6 (8-20); C Reactive Protein 17.66 mg/L (<8.01); Calcium 8.6 mg/dL (8.6-10.3); EGFR African American 137.4 (>60); EGFR Non-African American 113.5 (>60); Globulin 2.7 g/dL (2-4); Potassium 3.2 mmol/L (3.5-5.0); Total Bilirubin 0.9 mg/dL (0.2-1.0); Total Protein 6.7 g/dL (6.4-8.9)
[2019-10-07] MEDS ORDERED: MELATONIN 1 MG PO SCH (21:00)
[2019-10-07] MEDS ORDERED: Latanoprost 0.005%* 2.5 ml BTL BOTH EYES SCH (21:00)
[2019-10-07] MEDS ORDERED: Metoprolol Tartrate TAB* 50 mg PO SCH (21:00)
[2019-10-07 21:50] LABS: Erythrocyte Sed Rate 41 mm/Hr (0-29)
[2019-10-07] MEDS ORDERED: Azithromycin 500 mg/250 ml NS 500 MG/250 ML BAG IVPB SCH (23:00)
[2019-10-07] MEDS: Latanoprost 0.005%* 2.5 ml BTL BOTH EYES SCH (23:06)
[2019-10-07 23:29] LABS: Urine Appearance Cloudy; Urine Bilirubin Negative (Negative); Urine Blood 3+ (Negative); Urine Color Yellow; Urine Glucose Negative (Negative); Urine Ketones 1+ (Negative); Urine Nitrite Negative (Negative); Urine Protein 2+(100 mg/dL) (Negative); Urine Specific Gravity 1.018 (1.010-1.030); Urine Urobilinogen Negative (Negative)
[2019-10-07 23:33] LABS: Urine Bacteria Absent (Absent); Urine Red Blood Cell 3+(>10/hpf) (Absent); Urine White Blood Cell 3+(>20/hpf) (Absent)
[2019-10-08] MEDS: Memantine TAB* 5 MG PO SCH ×3 (00:34→21:20)
[2019-10-08] MEDS: Acetaminophen TAB* 325 MG PO SCH ×4 (00:34→21:20)
[2019-10-08] MEDS: Metoprolol Tartrate TAB* 50 mg PO SCH ×2 (00:34→21:20)
[2019-10-08] MEDS: Melatonin 3 MG TAB PO SCH ×2 (00:34→21:20)
[2019-10-08] MEDS: KCL 10 MEQ/50 ML IVPREMIX* 10 MEQ/50 ML BAG IV SCH ×3 (00:34→02:56)
[2019-10-08] MEDS: metroNIDAZOLE IV 500 MG/100ML* 500 MG/100 ML BAG IVPB SCH (04:21)
[2019-10-08 05:09] LABS: ABS Lymphocytes 0.7 10^3/ul (1.0-4.8); ABS Monocytes 1.1 10^3/ul (0-0.8); ABS Neutrophils 4.4 10^3/ul (1.5-7.7); Eosinophil % 0.2 %; Hematocrit 32 % (35-47); Lymphocyte % 11.5 %; Mean Corpuscular HGB Conc 35 g/dL (31-36); Mean Corpuscular Hemoglobin 32 pg (27-31); Mean Corpuscular Volume 92 fL (80-97); Mean Platelet Volume 8.8 fL (7.4-10.4); Platelet Count 153 10^3/uL (150-450); Red Blood Count 3.47 10^6 /uL (3.70-4.87); Red Cell Distribution Width 14 % (10-15); White Blood Count 6.2 10^3/uL (3.5-10.8)
[2019-10-08 05:27] LABS: BUN/Creatinine Ratio 19.6 (8-20); Calcium 8.2 mg/dL (8.6-10.3); EGFR African American 154.8 (>60); EGFR Non-African American 127.9 (>60); Magnesium 1.5 mg/dL (1.9-2.7); Potassium 3.7 mmol/L (3.5-5.0)
[2019-10-08] MEDS ORDERED: Magnesium Sulfate 2 GM IV* 2 GM/50 ML BAG IVPB ONE (05:35)
[2019-10-08] MEDS ORDERED: Magnesium Sulfate IV* 3 GM in NS 0.9% 100 ML* 100 ML IVPB ONE (08:50)
[2019-10-08] MEDS ORDERED: cefTRIAXone(*) 1 GM in NS 0.9% 50 ML* 50 ML IVPB SCH (09:00)
[2019-10-08] MEDS: NS 0.9% 1000 ML** 1,000 ML IV SCH (11:00)
[2019-10-08] MEDS ORDERED: Cefepime 2 GM in Dextrose(*) 2 GM/50 ML BAG IV SCH (11:00)
--- NOTE | 2019-10-08 11:08 | PN ---
Progress Note - Progress Note Date of Service: 10/08/19 SOAP: Subjective: Lying in bed with her eyes closed Talks but is not cooperative and only oriented to name and knows she is "in a hospital" No complaints of abdominal pain Objective: Fever last night Temp Pulse Resp BP Pulse Ox 97.9 F 74 14 142/67 96 10/08/19 08:00 10/08/19 08:00 10/08/19 08:00 10/08/19 08:00 10/08/19 08:00 Intake & Output 10/06/19 10/07/19 10/08/19 10/09/19 06:59 06:59 06:59 06:59 Intake Total 19998 Output Total 150 675 Balance 1850 1603 Weight 172 lb 6.4 oz Intake: IV Fluids 1999 1977 NS 1612 azithromycin 266 flagyl 100 IVPB 300 azithromycin 50 flagyl 100 potassium 150 Oral 0 Output: NG Tube Drainage Amount 150 Biswas 675 Other: Estimated Void Medium # Bowel Movements 0 Estimated Stool Amount Large # Voids 0 PEX: Appears comfortable but is non-cooperative with discussion and combative at times of exam Abd is soft and non-distended. Bowel sounds are present and normoactive. Tenderness lower mid abdomen with palpable hernia defect-I do not appreciate bowel loops or incarcerated hernia. No skin redness. Exam difficult to perform Laboratory Results - last 24 hr 10/07/19 10/07/19 10/07/19 20:30 20:30 20:30 WBC 6.2 RBC 3.77 Hgb 11.9 L Hct 35 MCV 92 MCH 32 H MCHC 34 RDW 14 Plt Count 173 MPV 8.4 Neut % (Auto) 73.3 Lymph % (Auto) 10.7 [place] % (Auto) 15.6 Eos % (Auto) 0.2 Baso % (Auto) 0.2 Absolute Neuts (auto) 4.5 Absolute Lymphs (auto) 0.7 L Absolute Monos (auto) 1.0 H Absolute Eos (auto) 0.0 Absolute Basos (auto) 0.0 Absolute Nucleated RBC 0.0 Nucleated RBC % 0.0 ESR 41 H Sodium 134 L Potassium 3.2 L Chloride 101 Carbon Dioxide 26 Anion Gap 7 BUN 10 Creatinine 0.51 Est GFR ( Amer) 137.4 Est GFR (Non-Af Amer) 113.5 BUN/Creatinine Ratio 19.6 Glucose 92 Lactic Acid 0.6 Calcium 8.6 Magnesium Total Bilirubin 0.90 AST 19 ALT 14 Alkaline Phosphatase 54 C-Reactive Protein 17.66 H Total Protein 6.7 Albumin 4.0 Globulin 2.7 Albumin/Globulin Ratio 1.5 Urine Color Urine Appearance Urine pH Ur Specific Hawks Urine Protein Urine Ketones Urine Blood Urine Nitrate Urine Bilirubin Urine Urobilinogen Ur Leukocyte Esterase Urine WBC (Auto) Urine RBC (Auto) Urine Bacteria Urine Glucose 10/07/19 10/07/19 10/08/19 22:10 23:32 04:19 WBC 6.2 RBC 3.47 L Hgb 11.0 L Hct 32 L MCV 92 MCH 32 H MCHC 35 RDW 14 Plt Count 153 MPV 8.8 Neut % (Auto) 70.5 Lymph % (Auto) 11.5 [place] % (Auto) 17.5 Eos % (Auto) 0.2 Baso % (Auto) 0.3 Absolute Neuts (auto) 4.4 Absolute Lymphs (auto) 0.7 L Absolute Monos (auto) 1.1 H Absolute Eos (auto) 0.0 Absolute Basos (auto) 0.0 Absolute Nucleated RBC 0.0 Nucleated RBC % 0.0 ESR Sodium Potassium Chloride Carbon Dioxide Anion Gap BUN Creatinine Est GFR ( Amer) Est GFR (Non-Af Amer) BUN/Creatinine Ratio Glucose Lactic Acid 0.5 Calcium Magnesium Total Bilirubin AST ALT Alkaline Phosphatase C-Reactive Protein Total Protein Albumin Globulin Albumin/Globulin Ratio Urine Color Yellow Urine Appearance Cloudy Urine pH 5.0 Ur Specific [place] 1.018 Urine Protein 2+(100 mg/dl) A Urine Ketones 1+ A Urine Blood 3+ A Urine Nitrate Negative Urine Bilirubin Negative Urine Urobilinogen Negative Ur Leukocyte Esterase 2+ A Urine WBC (Auto) 3+(>20/hpf) A Urine RBC (Auto) 3+(>10/hpf) A Urine Bacteria Absent Urine Glucose Negative 10/08/19 04:19 WBC RBC Hgb Hct MCV MCH MCHC RDW Plt Count MPV Neut % (Auto) Lymph % (Auto) [place] % (Auto) Eos % (Auto) Baso % (Auto) Absolute Neuts (auto) Absolute Lymphs (auto) Absolute Monos (auto) Absolute Eos (auto) Absolute Basos (auto) Absolute Nucleated RBC Nucleated RBC % ESR Sodium 133 L Potassium 3.7 Chloride 103 Carbon Dioxide 25 Anion Gap 5 BUN 9 Creatinine 0.46 L Est GFR ( Amer) 154.8 Est GFR (Non-Af Amer) 127.9 BUN/Creatinine Ratio 19.6 Glucose 92 Lactic Acid Calcium 8.2 L Magnesium 1.5 L Total Bilirubin AST ALT Alkaline Phosphatase C-Reactive Protein Total Protein Albumin Globulin Albumin/Globulin Ratio Urine Color Urine Appearance Urine pH Ur Specific Hawks Urine Protein Urine Ketones Urine Blood Urine Nitrate Urine Bilirubin Urine Urobilinogen Ur Leukocyte Esterase Urine WBC (Auto) Urine RBC (Auto) Urine Bacteria Urine Glucose Patient Name: DANIELA MEDRANO Medical Record#: [id number] Ordering Physician: Nickie PERRY Acct.#: [id number] : 1930 Age: 89 Sex: F Location: [address] [place] [address] MEDICAL Exam Date: 10/07/191844 ADM Status: ADM IN Order Information: CHEST PA & LAT 2 VWS Accession Number: [id number] CPT: 99304 HISTORY: NG tube placement verification COMPARISONS: October 07, 2019 VIEWS: 2: Frontal and lateral views of the chest. FINDINGS: CARDIOMEDIASTINAL SILHOUETTE: The cardiac silhouette is mildly enlarged. The cardiomediastinal silhouette is otherwise normal. SALVADOR: The salvador are normal. PLEURA: The costophrenic angles are sharp. No pleural abnormalities are noted. LUNG PARENCHYMA: There is developing patchy alveolar opacification of the right lower lung. ABDOMEN: The upper abdomen is clear. There is no subphrenic gas. BONES AND SOFT TISSUES: No bone or soft tissue abnormalities are noted. OTHER: A gastric tube is noted with its tip in the left upper quadrant in a prepyloric position. IMPRESSION: 1. LINES AND TUBES ABOVE 2. PATCHY AIRSPACE DISEASE IN THE RIGHT LOWER LUNG. <Electronically signed by Dexter Garner MD in OV> 10/08/19 0745 Dictated By: Dexter Garner MD Dictated Date/Time: 10/08/19743 Transcribed Date/Time: 10/08/19743 Copy to: Assessment: Ventral incisional hernias with intermittent partial small bowel obstruction resulting in two hospital admissions over the past few weeks. No sign of strangulation or incarceration at this point and she is reportedly having BM's and there has been minimal NGT output. She continue to have abdominal pain. Fever last night-hospitalist service concerned about pneumonia and antibiotics have been started-normal WBC and now afebrile. I do not believe abdomen is source of fever. Dementia Options to avoid recurrent returns to the ER and admissions for her hernia and partial SBO's include surgical repair of hernias-this could probably be done with the laparoscope or the robot. Obviously this would be high risk for her but would improve her quality of life, reduce her pain and avoid ER visits and hospitalization. The non-operative option would requirement that patient and family understand that there is no medical treatment for hernias and that a strangulated incisional hernia or prolonged SBO could result in if not surgically repaired. I discussed all of this with the patient's son Lopez ([phone]) again on the phone-he talked with his brother and while he says there is some disagreement between the two of them regarding her mental competency, they would both like to consider surgery to improve her quality of life and reduce pain and hopefully eliminate visits to the ER. I explained the risks of, but not limited to, of bleeding, infection, bowel injury, intra-abdominal injury, abscess, open procedure, , cognitive decline, prolonged hospitalization, cardiopulmonary failure. I stressed to him that surgery may be difficult and associated with a long post-operative recovery and she may never return to her present medical and cognitive condition. I also explained that anesthesiologist may feel she is too high risk and not feel comfortable with a general anesthetic. Plan: Medical risk assessment for surgery-discussed with Nickie Simpson-for ECHO today D/C NGT IV abx for pneumonia-do not want to proceed with surgery with active pneumonia. Follow for now-she could have clear liquids and see how she does.
[2019-10-08] MEDS: Pantoprazole TAB * 40 MG TAB PO SCH (11:56)
[2019-10-08] MEDS: Metoprolol Tartrate TAB* 25 MG PO SCH (11:56)
[2019-10-08] MEDS: CMCS: Cyclosporine 0.05% OPHTH (NF) 0.4 ML VIAL BOTH EYES SCH ×2 (11:57→22:31)
[2019-10-08] MEDS: Citalopram TAB* 10 MG PO SCH (11:57)
--- NOTE | 2019-10-08 12:25 | PN ---
Subjective Date of Service: 10/08/19 Interval History: Ms. Bella answers "I don't know" or "I don't think so " for most questions. She does state she has pain "everywhere." Unable to clarify whether she has cough, shortness of breath, fevers, chills. Nursing reports some coughing and no BMs since yesterday afternoon. Objective Active Medications: Acetaminophen (Tylenol Tab*) 650 mg PO Q8HR [facility] Last Admin: 10/08/19 05:02 Dose: 650 mg Citalopram Hydrobromide (Celexa Tab*) 30 mg PO DAILY [facility] Last Admin: 10/08/19 11:57 Dose: 30 mg Cyclosporine (Restasis 0.05% Ophth) 1 drop BOTH EYES BID [facility]; Protocol Last Admin: 10/08/19 11:57 Dose: Not Given Hydralazine HCl (Apresoline Iv*) 5 mg IV SLOW PU Q6H PRN PRN Reason: SBP > 160 Sodium Chloride (Ns 0.9% 1000 Ml) 1,000 mls @ 125 mls/hr IV PER RATE [facility] Last Admin: 10/08/19 11:00 Dose: 125 mls/hr Azithromycin (Zithromax 500 Mg/250 Ml) 500 mg in 250 mls @ 250 mls/hr IVPB Q24H [facility] Last Admin: 10/08/19 05:19 Dose: 250 mls/hr Cefepime HCl (Maxipime 2 Gm In Dextrose Duplex (*)) 2 gm in 50 mls @ 100 mls/ hr IV Q8H [facility] Last Admin: 10/08/19 11:59 Dose: 100 mls/hr Latanoprost (Xalatan 0.005%*) 1 drop BOTH EYES BEDTIME [facility] Last Admin: 10/07/19 23:06 Dose: Not Given Loperamide HCl (Imodium Cap*) 2 mg PO DAILY PRN PRN Reason: LOOSE STOOLS Melatonin (Melatonin) 3 mg PO BEDTIME [facility] Last Admin: 10/08/19 00:34 Dose: 3 mg Memantine (Namenda Tab*) 5 mg PO BID [facility] Last Admin: 10/08/19 11:57 Dose: 5 mg Metoprolol Tartrate (Lopressor Tab*) 25 mg PO QAM [facility] Last Admin: 10/08/19 11:56 Dose: 25 mg Metoprolol Tartrate (Lopressor Tab*) 50 mg PO BEDTIME [facility] Last Admin: 10/08/19 00:34 Dose: 50 mg Nft: Ferrous Fumarate [Ferrous Fumarate] 324 Mg 324 mg PO EVERY OTHER DAY [facility] Last Admin: 10/07/19 14:29 Dose: Not Given Pantoprazole Sodium (Protonix Tab*) 40 mg PO DAILY [facility] Last Admin: 10/08/19 11:56 Dose: 40 mg Vital Signs: Temp Pulse Resp BP Pulse Ox 97.9 F 74 14 142/67 96 10/08/19 08:00 10/08/19 08:00 10/08/19 08:00 10/08/19 08:00 10/08/19 08:00 Oxygen Devices in Use Now: None Appearance: Ms. Bella is an elderly white female who is sitting up in bed with eyes closed. She appears uncomfortably and groggy, but wakes easily and is responsive. Ears/Nose/Mouth/Throat: NL Teeth, Lips, Gums, Clear Oropharnyx, - - dry oral mucosa Neck: NL Appearance and Movements; NL JVP, Trachea Midline Respiratory: Symmetrical Chest Expansion and Respiratory Effort, Clear to Auscultation Cardiovascular: NL Sounds; No Murmurs; No JVD, RRR, No Edema Abdominal: - - BS mildly hypoactive; abdomen non-distended; tender to palpation throughout Extremities: No Edema, No Clubbing, Cyanosis Neurological: Alert and Oriented x 3 Result Diagrams: 10/08/19 04:19 10/08/19 04:19 Additional Lab and Data: Lab Results 10/06/19 10/06/19 10/06/19 Range/Units 20:50 20:50 20:50 WBC 6.3 (3.5-10.8) 10^3/uL RBC 4.44 (3.70-4.87) 10^6 /uL Hgb 14.0 (12.0-16.0) g/dL Hct 41 (35-47) % MCV 93 (80-97) fL MCH 32 H (27-31) pg MCHC 34 (31-36) g/dL RDW 14 (10-15) % Plt Count 193 (150-450) 10^3/uL MPV 8.7 (7.4-10.4) fL Neut % (Auto) 73.5 % Lymph % (Auto) 14.0 % [place] % (Auto) 11.8 % Eos % (Auto) 0.4 % Baso % (Auto) 0.3 % Absolute Neuts (auto) 4.6 (1.5-7.7) 10^3/ul Absolute Lymphs (auto) 0.9 L (1.0-4.8) 10^3/ul Absolute Monos (auto) 0.7 (0-0.8) 10^3/ul Absolute Eos (auto) 0.0 (0-0.6) 10^3/ul Absolute Basos (auto) 0.0 (0-0.2) 10^3/ul Absolute Nucleated RBC 0.0 10^3/ul Nucleated RBC % 0.1 Sodium 137 (135-145) mmol/L Potassium 3.6 (3.5-5.0) mmol/L Chloride 100 L (101-111) mmol/L Carbon Dioxide 25 (22-32) mmol/L Anion Gap 12 H (2-11) mmol/L BUN 19 (6-24) mg/dL Creatinine 0.86 (0.51-0.95) mg/dL Est GFR ( Amer) 75.2 (>60) Est GFR (Non-Af Amer) 62.1 (>60) BUN/Creatinine Ratio 22.1 H (8-20) Glucose 101 H (70-100) mg/dL Lactic Acid 1.0 (0.5-2.0) mmol/L Calcium 10.9 H (8.6-10.3) mg/dL Total Bilirubin 0.60 (0.2-1.0) mg/dL AST 34 (13-39) U/L ALT 22 (7-52) U/L Alkaline Phosphatase 65 (34-104) U/L C-Reactive Protein 1.48 (<8.01) mg/L Total Protein 8.6 (6.4-8.9) g/dL Albumin 5.1 (3.2-5.2) g/dL Globulin 3.5 (2-4) g/dL Albumin/Globulin Ratio 1.5 (1-3) Lipase 54 (11.0-82.0) U/L Microbiology and Other Data: Microbiology 10/07/19 22:10 Legionella Urinary Antigen - Final Urine Negative Legionella Antigen Streptococcus pneumoniae Ag Screen - Final Negative S. pneumo Antigen Assess/Plan/Problems-Billing Assessment: Ms. Bella is an 89 yof with PMHx of HTN, GERD, dementia who presented to the ER with complaints of vomiting and was found to have a SBO. Hospital course complicated by sepsis, suspected pneumonia. - Patient Problems (1) Sepsis Comment: -fever 101.5, tachycardia; resolved -without leukocytosis, lactic acidosis -BC pending, flu pending -broad spectrum abx coverage with cefepime (2) Urinary tract infection Comment: -UTI with E. coli -likely cause of sepsis -continue ceftriaxone (3) Small bowel obstruction Comment: -CT abd/pel shows dilated loops of SB, improved from 09/29; possible SBO -diarrheal BM yesterday, none in last 24h -surgery following; recommend possible surgery; surgery will continue to discuss with patient and sons -NGT removed today; trial clears -continue nausea managment RCRI score is 0, calss I risk with 3.9% 30-day risk of , [place], or cardiac arrest. ALthough the patient is low risk, this does not take into account the patient's age or the patient's other co-morbid conditions. This will likely increase her risk of adverse outcomes from surgery. Recent chest x-ray shows R midlung atelectasis vs consolidation. Patient denies cough, fevers, but does c/ o chills; no leukocytosis, so suspect atelectasis. Recent EKG shows rate of 80 with PVC, no KRISTEL, depression; T wave inversions in V1 unchanged from last EKG. Echo pending (4) Diarrhea Comment: -incontinent of stool with diarrhea -no BM in appx 24h -will cancel stool for C. diff per protocol -stool culture as able if still with diarrhea (5) Left kidney mass Comment: -CT abdomen/pelvis with L kidney mass -should have outpatient follow up (6) HTN (hypertension) Comment: -SBP 140-150's -likely a component of pain leading to elevation; is under better control today -continue home metoprolol -add on IV hydralazine p.r.n. (7) GERD (gastroesophageal reflux disease) Comment: -pantoprazole (8) Depression Comment: -citalopram (9) Glaucoma Comment: -latanoprost (10) Dementia Comment: -mild confusion at baseline -continue home memantine (11) DVT prophylaxis Comment: -chemoprophylaxis will be held in setting of possible surgery -SCDs (12) DNR (do not resuscitate) Comment: -Discussed with HCP/hunter, Miguel, who state that patient has a living will requesting DNR/DNI. They would like to honor Ms. Bella' wishes and place her DNR/DNI status at this time. Status and Disposition: Inpatient. Discharge when stable.
--- NOTE | 2019-10-08 14:02 | ECHO ---
*[facility]* [place] [address] Fax #: [phone] Transthoracic Echocardiogram Patient: Chio Bella : 1930 Study Date: 10/08/2019 Age: 89 Gender: F HR: 83 bpm Height: 63 in /160 cm BSA: 1.81 m^2 Weight: 171.6 lb /78 kg BMI: 30.5 kg/m^2 *[place] Hold: * Stefany Meza RDCS RN *Referring Physician: * Nickie SimpsonReading Physician: * Marya Guerra MD Indications: Abnormal EKG. History: Hernias with partial SBO. Pneumonia. Dementia. Risk factors: Hypertension. Conclusions Summary: - Left ventricle: The cavity size is normal. Wall thickness is mildly to moderately increased. Systolic function is normal. The estimated ejection fraction is 60%. Wall motion is normal; there are no regional wall motion abnormalities. Doppler parameters are consistent with elevated ventricular end-diastolic filling pressure. - Right ventricle: Systolic function is normal. - Mitral valve: The mitral valve annulus appears mildly calcified. The leaflets are mildly thickened. There is mild regurgitation. - Aortic valve: The findings are consistent with mild stenosis. There is moderate regurgitation. The peak systolic velocity is 2.1 m/sec. The mean systolic gradient is 11.0 mm Hg. The LVOT to aortic valve VTI ratio is 0.53. The valve area by the velocity-time integral method is 1.70 cm^2. The valve area by the peak velocity method is 1.90 cm^2. - Pulmonary arteries: Systolic pressure is moderately to severely increased, estimated to be 56 mm Hg. - No prior echocardiogram to compare. Study data: Transthoracic echocardiogram. Procedure: Transthoracic echocardiography was performed. Image quality was fair. Complete 2D, spectral Doppler, and color flow Doppler. Location: Bedside. Patient status: Inpatient. Patient room number: 405. Rhythm: Normal sinus rhythm with PVCs. Findings Left ventricle: The cavity size is normal. Wall thickness is mildly to moderately increased. Systolic function is normal. The estimated ejection fraction is 55-60%. Wall motion is normal; there are no regional wall motion abnormalities. Doppler parameters are consistent with abnormal left ventricular relaxation (grade 1 diastolic dysfunction). Doppler parameters are consistent with elevated ventricular end-diastolic filling pressure. Right ventricle: The cavity size is normal. Systolic function is normal. Left atrium: The atrium is severely dilated. Right atrium: The atrium is mildly dilated. Mitral valve: The mitral valve annulus appears mildly calcified. The leaflets are mildly thickened. There is no evidence of stenosis. There is mild regurgitation. Aortic valve: The annulus is calcified. The valve is trileaflet. The leaflets are mildly thickened with mildly decreased excursion. The findings are consistent with mild stenosis. There is moderate regurgitation. Tricuspid valve: The leaflets are normal thickness. There is no evidence of stenosis. There is mild regurgitation. Pulmonic valve: The valve is structurally normal. There is no evidence of stenosis. There is trace regurgitation. Aorta: Aortic root: The aortic root is not dilated. Ascending aorta: The ascending aorta is not dilated. Aortic arch: The aortic arch is not visualized. Pericardium: There is no pericardial effusion. Pulmonary arteries: The main pulmonary artery is normal-sized. Systolic pressure is moderately to severely increased, estimated to be 56 mm Hg. Systemic veins: Inferior vena cava: The vessel is mildly dilated. There is (< 50%) respiratory change in the IVC dimension. Measurements Left ventricle Value Ref Aortic valve Value Ref JACY, LAX 4.1 cm 3.8 - [place] diam, ED 2.1 cm ---- 5.2 Peak v, S 2.1 m/sec ---- ESD, LAX 2.6 cm 2.2 - VTI, S 47.6 cm ---- 3.5 Mean grad, S 11.0 mm Hg ---- FS, LAX 35 % 27 - 45 Peak grad, S 18.0 mm Hg ---- PW, ED (H) 1.2 cm 0.6 - LVOT/AV, VTI ratio 0.53 ---- 0.9 DARÍO, VTI 1.70 cm^2 ---- IVS/PW, ED 1.19 -------- DARÍO, Vmax 1.90 cm^2 ---- E', lat adilene, TDI (L) 7.5 cm/sec >=10.0 AR peak v 4.72 m/sec --- - E/e', lat adilene, TDI 11 -------- AR PHT 352 ms ---- E', med adilene, TDI (L) 5.9 cm/sec >=7.0 AR peak grad 89 mm Hg --- - E/e', med adilene, TDI 15 -------- E', avg, TDI 6.7 cm/sec -------- Mitral valve Value Ref E/e', avg, TDI 13 <=14 Peak E 0.86 m/sec --- - Peak A 1.17 m/sec ---- LVOT Value Ref Decel time 194 ms ---- Diam, S 2.00 cm -------- Peak grad, D 3.0 mm Hg ---- Area 3.1 cm^2 -------- Peak E/A ratio 0.7 ---- Peak jovanny, S 1.3 m/sec -------- VTI, S 25.1 cm -------- Pulmonic valve Value Ref Peak grad, S 7 mm Hg -------- Peak v, S 0.69 m/sec ---- Mean grad, S 4 mm Hg -------- Peak grad, S 2.0 mm Hg ---- SV 79 ml -------- SV/bsa 44 ml/m^2 -------- Tricuspid valve Value Ref Peak RV-RA grad, S 41 mm Hg ---- Ventricular septum Value Ref Max TR jovanny 3.2 m/sec ---- IVS, ED (H) 1.4 cm 0.6 - 0.9 Aortic root Value Ref Root diam 2.9 cm <4.0 Right ventricle Value Ref JACY, LAX 3.5 cm -------- Ascending aorta Value Ref JACY minor ax, A4C 3.4 cm 1.9 - AAo AP diam, S 3.3 cm ---- mid 3.5 Pressure, S 56 mm Hg -------- Pulmonary artery Value Ref Pressure, S 56.0 mm Hg ---- Left atrium Value Ref ML dim, A4C 5.3 cm -------- Inferior vena cava Value Ref SI dim, A4C 6.8 cm -------- Diam 2.2 cm ---- Vol/bsa, ES, 1-p (H) 61 ml/m^2 11 - 40 A4C Vol/bsa, ES, A/L (H) 55 ml/m^2 16 - 34 Right atrium Value Ref ML dim, ES, A4C 4.1 cm 2.6 - 4.4 SI dim, ES, A4C (H) 5.5 cm 3.4 - 5.3 Estimated RAP 15 mm Hg -------- Legend: (L) and (H) debbie values outside specified reference range. Prepared and electronically signed by Marya Guerra MD 10/08/2019 14:01
[2019-10-08] MEDS ORDERED: NS 0.9% 500 ML* 500 ML IV ONE (14:51)
[2019-10-08] MEDS: Latanoprost 0.005%* 2.5 ml BTL BOTH EYES SCH (22:31)
[2019-10-09] MEDS: NS 0.9% 1000 ML** 1,000 ML IV SCH ×2 (04:35→16:48)
[2019-10-09 04:49] LABS: Influenza A Molecular Negative (Negative); Influenza B Molecular Negative (Negative)
[2019-10-09] MEDS: Acetaminophen TAB* 325 MG PO SCH ×3 (05:51→23:37)
[2019-10-09 06:44] LABS: ABS Lymphocytes 0.9 10^3/ul (1.0-4.8); ABS Monocytes 0.9 10^3/ul (0-0.8); ABS Neutrophils 3.6 10^3/ul (1.5-7.7); Eosinophil % 0.7 %; Hematocrit 29 % (35-47); Hemoglobin 10.1 g/dL (12.0-16.0); Lymphocyte % 16.7 %; Mean Corpuscular HGB Conc 35 g/dL (31-36); Mean Corpuscular Hemoglobin 32 pg (27-31); Mean Corpuscular Volume 91 fL (80-97); Mean Platelet Volume 8.8 fL (7.4-10.4); Platelet Count 131 10^3/uL (150-450); Red Blood Count 3.17 10^6 /uL (3.70-4.87); Red Cell Distribution Width 13 % (10-15); White Blood Count 5.5 10^3/uL (3.5-10.8)
[2019-10-09 06:52] LABS: BUN/Creatinine Ratio 15.9 (8-20); Calcium 7.6 mg/dL (8.6-10.3); EGFR African American 162.9 (>60); EGFR Non-African American 134.6 (>60); Magnesium 2.2 mg/dL (1.9-2.7); Potassium 3.1 mmol/L (3.5-5.0)
--- NOTE | 2019-10-09 08:42 | PN ---
Progress Note - Progress Note Date of Service: 10/09/19 SOAP: Subjective: Comfortable, eyes closed-combative when examined Objective: Temp Pulse Resp BP Pulse Ox 99.3 F 84 20 126/39 95 10/09/19 03:38 10/09/19 03:38 10/09/19 03:38 10/09/19 03:38 10/09/19 03:38 Intake & Output 10/07/19 10/08/19 10/09/19 10/10/19 06:59 06:59 06:59 06:59 Intake Total 19998 4541 Output Total 223 645 1969 450 Balance 1850 1603 191 -450 Weight 172 lb 6.4 oz Intake: IV Fluids 1999 1977 2900 NS 1612 2900 azithromycin 266 flagyl 100 IVPB 300 171 ABX - CEFEPIME 56 Magnesium 115 azithromycin 50 flagyl 100 potassium 150 Oral 0 1470 Output: NG Tube Drainage Amount 150 Urine 450 Biswas 675 4350 Other: Estimated Void Medium Large # Bowel Movements 0 1 Estimated Stool Amount Large Small # Voids 0 PEX: Comfortable until [id number] to questions Abd is soft and non-distended. Bowel sounds present and normoactive. Hernias soft and reducible although tender and she vigorously grabs my hands and becomes combative when examined. No rebound or guarding. Laboratory Results - last 24 hr 10/09/19 10/09/19 10/09/19 04:25 05:40 05:40 WBC 5.5 RBC 3.17 L Hgb 10.1 L Hct 29 L MCV 91 MCH 32 H MCHC 35 RDW 13 Plt Count 131 L MPV 8.8 Neut % (Auto) 65.5 Lymph % (Auto) 16.7 [place] % (Auto) 16.9 Eos % (Auto) 0.7 Baso % (Auto) 0.2 Absolute Neuts (auto) 3.6 Absolute Lymphs (auto) 0.9 L Absolute Monos (auto) 0.9 H Absolute Eos (auto) 0.0 Absolute Basos (auto) 0.0 Absolute Nucleated RBC 0.0 Nucleated RBC % 0.0 Sodium 133 L Potassium 3.1 L Chloride 103 Carbon Dioxide 24 Anion Gap 6 BUN 7 Creatinine 0.44 L Est GFR ( Amer) 162.9 Est GFR (Non-Af Amer) 134.6 BUN/Creatinine Ratio 15.9 Glucose 88 Calcium 7.6 L Magnesium 2.2 Influenza A (Rapid) Negative Influenza B (Rapid) Negative Urine Cx noted-UTI Assessment: Ventral incisional hernias-admitted with partial SBO-appears to have resolved now and hernias are reducible. UTI-presently on IV abx NGT out yesterday and no N/V Plan: At this point would attempt to avoid surgery-she is not obstructed and has UTI and should be treated with abx. She is at high risk for surgical complications and I suspect will have significant cognitive decline post-operatively. For now would advance to clear liquids and see how she does. Medical evaluation has been completed and she appears to be acceptable candidate from cardiopulmonary standpoint if surgery is needed in near future. Clear liquids Discussed with Nickie Simpson
[2019-10-09] MEDS: Metoprolol Tartrate TAB* 25 MG PO SCH ×2 (11:04→11:38)
[2019-10-09] MEDS: cefTRIAXone(*) 1 GM in NS 0.9% 50 ML* 50 ML IVPB SCH (11:04)
[2019-10-09] MEDS: Citalopram TAB* 10 MG PO SCH ×2 (11:05→11:38)
[2019-10-09] MEDS: Memantine TAB* 5 MG PO SCH ×3 (11:05→23:24)
[2019-10-09] MEDS: Pantoprazole TAB * 40 MG TAB PO SCH ×2 (11:05→11:39)
[2019-10-09] MEDS: Potassium Chlor TAB* 20 MEQ TAB.ER PO SCH ×4 (11:05→23:24)
[2019-10-09] MEDS: CMCS: Cyclosporine 0.05% OPHTH (NF) 0.4 ML VIAL BOTH EYES SCH ×2 (11:06→23:32)
[2019-10-09] MEDS: FERROUS FUMARATE 324 MG PO SCH (11:08)
[2019-10-09] MEDS ORDERED: Haloperidol INJ IV/IM* 5 MG/ML AMP IV SLOW PU PRN ×2 (11:59→21:13)
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
[2019-10-09] MEDS: KCL 20 MEQ/100 ML IVPREMIX* 20 MEQ/100 ML BAG IV SCH ×2 (14:26→19:20)
[2019-10-09] MEDS ORDERED: QUEtiapine TAB* 25 MG PO PRN (16:35)
[2019-10-09] MEDS ORDERED: Haloperidol INJ IV/IM* 5 MG/ML AMP ONE (21:51)
[2019-10-09] MEDS: Melatonin 3 MG TAB PO SCH (23:23)
[2019-10-09] MEDS: Metoprolol Tartrate TAB* 50 mg PO SCH (23:24)
[2019-10-09] MEDS: Latanoprost 0.005%* 2.5 ml BTL BOTH EYES SCH (23:25)
[2019-10-10] MEDS: Potassium Chlor TAB* 20 MEQ TAB.ER PO SCH (02:19)
[2019-10-10] MEDS: Potassium Chlor TAB* 20 MEQ TAB.ER PO ONE ×2 (03:51→06:20)
[2019-10-10] MEDS ORDERED: Haloperidol INJ IV/IM* 5 MG/ML AMP IM ONE (04:00)
[2019-10-10 05:47] LABS: ABS Eosinophils 0.1 10^3/ul (0-0.6); ABS Lymphocytes 1.3 10^3/ul (1.0-4.8); ABS Neutrophils 2.7 10^3/ul (1.5-7.7); Eosinophil % 1.6 %; Hematocrit 31 % (35-47); Hemoglobin 10.6 g/dL (12.0-16.0); Mean Corpuscular HGB Conc 35 g/dL (31-36); Mean Corpuscular Hemoglobin 32 pg (27-31); Mean Corpuscular Volume 92 fL (80-97); Mean Platelet Volume 8.2 fL (7.4-10.4); Platelet Count 148 10^3/uL (150-450); Red Blood Count 3.32 10^6 /uL (3.70-4.87); Red Cell Distribution Width 13 % (10-15); White Blood Count 5.1 10^3/uL (3.5-10.8)
[2019-10-10 06:02] LABS: BUN/Creatinine Ratio 10.9 (8-20); Calcium 8.2 mg/dL (8.6-10.3); EGFR African American 154.8 (>60); EGFR Non-African American 127.9 (>60); Potassium 3.7 mmol/L (3.5-5.0)
[2019-10-10] MEDS: KCL 20 MEQ/100 ML IVPREMIX* 20 MEQ/100 ML BAG IV SCH ×2 (06:11→09:45)
[2019-10-10] MEDS: Acetaminophen TAB* 325 MG PO SCH ×3 (06:17→21:31)
--- NOTE | 2019-10-10 07:59 | PN ---
Subjective Date of Service: 10/10/19 Interval History: Patient seen and examined at bedside Safety monitor in room Patient c/o wrist pain (IV is in wrist with K+ running) Denies CP, SOB but states "everything hurts" and then says "I'm fine." Unsure of where she is Reportedly combative and agitated overnight - received 2 doses of haloperidol. Family History: Unchanged from Admission Social History: Unchanged from Admission Past Medical History: Unchanged from Admission Objective Active Medications: Acetaminophen (Tylenol Tab*) 650 mg PO Q8HR [facility] Last Admin: 10/10/19 06:17 Dose: 650 mg Citalopram Hydrobromide (Celexa Tab*) 30 mg PO DAILY [facility] Last Admin: 10/09/19 11:38 Dose: Not Given Cyclosporine (Restasis 0.05% Oph) 1 drop BOTH EYES BID [facility]; Protocol Last Admin: 10/09/19 23:32 Dose: 1 drop Haloperidol Lactate (Haldol Inj Iv/Im*) 2.5 mg IV SLOW PU Q6H PRN PRN Reason: AGITATION Last Admin: 10/09/19 21:23 Dose: 2.5 mg Hydralazine HCl (Apresoline Iv*) 5 mg IV SLOW PU Q6H PRN PRN Reason: SBP > 160 Ceftriaxone Sodium 1 gm/ (Sodium Chloride) 50 mls @ 100 mls/hr IVPB Q24H [facility] Last Admin: 10/09/19 11:04 Dose: 100 mls/hr Potassium Chloride (Potassium Chloride 20 Meq/100 Ml Ivpremix*) 20 meq in 100 mls @ 50 mls/hr IV Q2H [facility] Stop: 10/10/19 08:59 Last Admin: 10/10/19 06:11 Dose: 50 mls/hr Latanoprost (Xalatan 0.005%*) 1 drop BOTH EYES BEDTIME [facility] Last Admin: 10/09/19 23:25 Dose: 1 drop Loperamide HCl (Imodium Cap*) 2 mg PO DAILY PRN PRN Reason: LOOSE STOOLS Melatonin (Melatonin) 3 mg PO BEDTIME [facility] Last Admin: 10/09/19 23:23 Dose: 3 mg Memantine (Namenda Tab*) 5 mg PO BID [facility] Last Admin: 10/09/19 23:24 Dose: 5 mg Metoprolol Tartrate (Lopressor Tab*) 25 mg PO QAM [facility] Last Admin: 10/09/19 11:38 Dose: Not Given Metoprolol Tartrate (Lopressor Tab*) 50 mg PO BEDTIME [facility] Last Admin: 10/09/19 23:24 Dose: 50 mg Nft: Ferrous Fumarate [Ferrous Fumarate] 324 Mg 324 mg PO EVERY OTHER DAY [facility] Last Admin: 10/09/19 11:08 Dose: Not Given Pantoprazole Sodium (Protonix Tab*) 40 mg PO DAILY [facility] Last Admin: 10/09/19 11:39 Dose: Not Given Quetiapine Fumarate (Seroquel Tab*) 25 mg PO BID PRN PRN Reason: aggitation Last Admin: 10/09/19 23:23 Dose: 25 mg Vital Signs - 8 hr 10/10/19 10/10/19 03:52 07:16 Temperature 98.6 F Pulse Rate 78 Respiratory 19 16 Rate Blood Pressure 106/94 (mmHg) O2 Sat by Pulse 96 Oximetry Oxygen Devices in Use Now: None Appearance: Elderly female, lying in bed, conversive but restless, NAD Eyes: No Scleral Icterus, PERRLA Ears/Nose/Mouth/Throat: Clear Oropharnyx, Mucous Membranes Moist Neck: NL Appearance and Movements; NL JVP Respiratory: Symmetrical Chest Expansion and Respiratory Effort, Clear to Auscultation Cardiovascular: NL Sounds; No Murmurs; No JVD, RRR Abdominal: NL Sounds; No Tenderness; No Distention Extremities: No Edema, No Clubbing, Cyanosis Skin: No Rash or Ulcers Neurological: - - Alert, oriented to self, confused to time and place Lines/Tubes/Other Access: Clean, Dry and Intact Peripheral IV Nutrition: Taking PO's Result Diagrams: 10/10/19 05:37 10/10/19 05:37 Additional Lab and Data: Lab Results 10/06/19 10/06/19 10/06/19 Range/Units 20:50 20:50 20:50 WBC 6.3 (3.5-10.8) 10^3/uL RBC 4.44 (3.70-4.87) 10^6 /uL Hgb 14.0 (12.0-16.0) g/dL Hct 41 (35-47) % MCV 93 (80-97) fL MCH 32 H (27-31) pg MCHC 34 (31-36) g/dL RDW 14 (10-15) % Plt Count 193 (150-450) 10^3/uL MPV 8.7 (7.4-10.4) fL Neut % (Auto) 73.5 % Lymph % (Auto) 14.0 % [place] % (Auto) 11.8 % Eos % (Auto) 0.4 % Baso % (Auto) 0.3 % Absolute Neuts (auto) 4.6 (1.5-7.7) 10^3/ul Absolute Lymphs (auto) 0.9 L (1.0-4.8) 10^3/ul Absolute Monos (auto) 0.7 (0-0.8) 10^3/ul Absolute Eos (auto) 0.0 (0-0.6) 10^3/ul Absolute Basos (auto) 0.0 (0-0.2) 10^3/ul Absolute Nucleated RBC 0.0 10^3/ul Nucleated RBC % 0.1 Sodium 137 (135-145) mmol/L Potassium 3.6 (3.5-5.0) mmol/L Chloride 100 L (101-111) mmol/L Carbon Dioxide 25 (22-32) mmol/L Anion Gap 12 H (2-11) mmol/L BUN 19 (6-24) mg/dL Creatinine 0.86 (0.51-0.95) mg/dL Est GFR ( Amer) 75.2 (>60) Est GFR (Non-Af Amer) 62.1 (>60) BUN/Creatinine Ratio 22.1 H (8-20) Glucose 101 H (70-100) mg/dL Lactic Acid 1.0 (0.5-2.0) mmol/L Calcium 10.9 H (8.6-10.3) mg/dL Total Bilirubin 0.60 (0.2-1.0) mg/dL AST 34 (13-39) U/L ALT 22 (7-52) U/L Alkaline Phosphatase 65 (34-104) U/L C-Reactive Protein 1.48 (<8.01) mg/L Total Protein 8.6 (6.4-8.9) g/dL Albumin 5.1 (3.2-5.2) g/dL Globulin 3.5 (2-4) g/dL Albumin/Globulin Ratio 1.5 (1-3) Lipase 54 (11.0-82.0) U/L Microbiology and Other Data: Microbiology 10/07/19 22:10 Legionella Urinary Antigen - Final Urine Negative Legionella Antigen Streptococcus pneumoniae Ag Screen - Final Negative S. pneumo Antigen Diagnostic Imaging: Renal US COMPARISON: A/P W CT ABD/PEL W 10/06/2019 10:44 PM FINDINGS: Right kidney: As previously seen, there is a simple appearing right renal cyst measuring a maximum of 6.4 cm. Also as previously seen, there is a small simple appearing cyst in the superior pole of the right kidney measuring a maximum of 1.7 cm. No right renal calculi or hydronephrosis. Left kidney: As seen on the prior CT, there is a solid heterogeneous mass lesion in the interpolar region of the left kidney measuring a maximum of 4.4 cm with some internal vascularity suspicious for renal cell carcinoma until proven otherwise. No left renal calculi or hydronephrosis. IMPRESSION: 1. As previously seen, there is a simple appearing right renal cyst measuring a maximum of 6.4 cm. Also as previously seen, there is a small simple appearing cyst in the superior pole of the right kidney measuring a maximum of 1.7 cm. 2. As seen on the prior CT, there is a solid heterogeneous mass lesion in the interpolar region of the left kidney measuring a maximum of 4.4 cm with some internal vascularity suspicious for renal cell carcinoma until proven otherwise. COMMENTS: Consistent with the [employer]'s Incidental Findings Committee white paper (J Am Dinorah Radiol 2018): Any incidental cystic renal lesion classified in this report as too small to characterize or simple appearing is likely a benign cyst. No follow-up imaging is recommended for these lesions per consensus recommendations based on imaging criteria. Dictated and Authenticated by: Eliezer Burkett MD 10/09/2019 6:17 PM Eastern Time ([place] and [place]) Assess/Plan/Problems-Billing Assessment: Ms. Bella is an 89 yof with PMHx of HTN, GERD, dementia who presented to the ER with complaints of vomiting and was found to have a SBO. Hospital course complicated by sepsis, suspected pneumonia. - Patient Problems (1) Sepsis Comment: -fever 101.5, tachycardia; resolved -without leukocytosis, lactic acidosis -BC NGTD -flu negative -continue ceftriaxone (2) Urinary tract infection Comment: -UTI with E. coli and enterococcus -likely cause of sepsis -continue ceftriaxone -d/c kendrick today -renal US ordered - shows right renal cyst and left renal mass. In review of records, the renal mass finding was disclosed on 10/03/[address] Webb to the HCP, Lopez, who was unsure if they would pursue any further evaluation, as she is not an ideal surgical candidate. Plan is to follow up with PCP for further discussion. (3) Aggressive behavior Code(s): R46.89 - OTHER SYMPTOMS AND SIGNS INVOLVING APPEARANCE AND BEHAVIOR Comment: -pt agitated, paranoid, aggressive towards staff -making multiple attempts to get out of bed, although unsteady gait and 2- person assist at this time -haldol 2.5 IV q6h prn agitation -seroquel 25 BID prn (4) Small bowel obstruction Code(s): K56.609 - UNSP INTESTNL OBST, UNSP TO PARTIAL VERSUS COMPLETE OBST Comment: -CT abd/pel shows dilated loops of SB, improved from 09/29; possible SBO -BM recorded this morning -surgery following; recommend conservative treatment at this time -NGT removed 10/07 -Continue to advance diet as tolerated -continue nausea managment (5) Diarrhea Code(s): R19.7 - DIARRHEA, UNSPECIFIED Comment: -incontinent of stool with diarrhea -stool for C. diff negative -stool culture negative (6) Left kidney mass Code(s): N28.89 - OTHER SPECIFIED DISORDERS OF KIDNEY AND URETER Comment: -CT abdomen/pelvis with L kidney mass -should have outpatient follow up (7) HTN (hypertension) Code(s): I10 - ESSENTIAL (PRIMARY) HYPERTENSION Comment: -SBP 120-160's -continue home metoprolol -p.r.n. IV hydralazine (8) GERD (gastroesophageal reflux disease) Code(s): K21.9 - GASTRO-ESOPHAGEAL REFLUX DISEASE WITHOUT ESOPHAGITIS Comment : -pantoprazole (9) Depression Code(s): F32.9 - MAJOR DEPRESSIVE DISORDER, SINGLE EPISODE, UNSPECIFIED Comment: -citalopram (10) Glaucoma Code(s): H40.9 - UNSPECIFIED GLAUCOMA Comment: -latanoprost (11) Dementia Code(s): F03.90 - UNSPECIFIED DEMENTIA WITHOUT BEHAVIORAL DISTURBANCE Comment : -mild confusion at baseline with episodes of aggression, agitation -continue home memantine (12) DVT prophylaxis Status: Acute Code(s): Z29.9 - ENCOUNTER FOR PROPHYLACTIC MEASURES, UNSPECIFIED Comment: -chemoprophylaxis will be held in setting of possible surgery -SCDs (13) Full code status Code(s): Z78.9 - OTHER SPECIFIED HEALTH STATUS Status and Disposition: Inpatient. Discharge when stable. Attending: Camila Peterson
[2019-10-10] MEDS: Citalopram TAB* 10 MG PO SCH (09:48)
[2019-10-10] MEDS: Metoprolol Tartrate TAB* 25 MG PO SCH (09:48)
[2019-10-10] MEDS: Memantine TAB* 5 MG PO SCH ×2 (09:48→21:31)
[2019-10-10] MEDS: Pantoprazole TAB * 40 MG TAB PO SCH (09:48)
[2019-10-10] MEDS: CMCS: Cyclosporine 0.05% OPHTH (NF) 0.4 ML VIAL BOTH EYES SCH ×2 (09:49→21:32)
[2019-10-10] MEDS ORDERED: Buffered Lidocaine 1% SYRIN* 1 ML/SYRINGE INTRADERM ONE ×2 (09:55→14:28)
[2019-10-10] MEDS: cefTRIAXone(*) 1 GM in NS 0.9% 50 ML* 50 ML IVPB SCH (12:04)
--- NOTE | 2019-10-10 13:36 | PN ---
Progress Note - Progress Note Date of Service: 10/10/19 SOAP: Subjective: Pt seen at 0830 this morning Calm and says she is having no abdominal pain Events of night noted Tolerated water and had BM No N/V vomiting reported Objective: Temp Pulse Resp BP Pulse Ox 98.7 F 69 22 164/63 96 10/10/19 11:47 10/10/19 11:47 10/10/19 11:47 10/10/19 11:47 10/10/19 11:47 Intake & Output 10/08/19 10/09/19 10/10/19 10/11/19 06:59 06:59 06:59 06:59 Intake Total 2278 4541 1300 480 Output Total 675 4350 3700 775 Balance 1603 191 -2400 -295 Intake: IV Fluids 1978 2900 100 Ceftriaxone 100 NS 1612 2900 azithromycin 266 flagyl 100 IVPB 300 171 ABX - CEFEPIME 56 Magnesium 115 azithromycin 50 flagyl 100 potassium 150 Oral 0 1470 1200 480 Output: Urine 450 [place] 675 4350 3250 775 Other: Estimated Void Medium Large # Bowel Movements 0 1 1 Estimated Stool Amount Large Small Large # Voids 0 PEX: Comfortable--oriented to name only ABD is soft and non-distended. Bowel sounds present and normoactive throughout. Hernias present but are easily reducible. Mild discomfort on deeper pressure and palpation. Labs noted Assessment: Ventral incisional hernias-reducible--partial SBO appears to be resolved Dementia UTI Plan: At this point will hold off on surgical repair-I feel she is a high risk for post-op complications and there is no urgent indication for surgery at this time. Would advance diet as tolerated for now and follow. Biswas to be removed Discussed with Sue Staples
[2019-10-10] MEDS ORDERED: Ferrous Sulfate TAB* 325 MG PO ONE (14:17)
[2019-10-10] MEDS: QUEtiapine TAB* 25 MG PO SCH (18:03)
[2019-10-10] MEDS: Metoprolol Tartrate TAB* 50 mg PO SCH (21:31)
[2019-10-10] MEDS: Nitrofurantoin Macrocrystals* 50 MG CAP PO SCH (21:31)
[2019-10-10] MEDS: Melatonin 3 MG TAB PO SCH (21:31)
[2019-10-10] MEDS: Latanoprost 0.005%* 2.5 ml BTL BOTH EYES SCH (21:36)
[2019-10-10 22:42] LABS: BUN/Creatinine Ratio 11.8 (8-20); Calcium 8.6 mg/dL (8.6-10.3); EGFR African American 137.4 (>60); EGFR Non-African American 113.5 (>60); Potassium 4.1 mmol/L (3.5-5.0)
[2019-10-10] MEDS ORDERED: hydrALAZINE TAB* 25 MG PO ONE (23:29)
[2019-10-11] MEDS: Acetaminophen TAB* 325 MG PO PRN (03:12)
[2019-10-11] MEDS ORDERED: hydrALAZINE TAB* 25 MG PO ONE (03:56)
[2019-10-11] MEDS: Acetaminophen TAB* 325 MG PO SCH ×3 (07:24→20:47)
[2019-10-11] MEDS: Pantoprazole TAB * 40 MG TAB PO SCH (07:24)
[2019-10-11] MEDS: Memantine TAB* 5 MG PO SCH ×2 (07:24→20:46)
[2019-10-11] MEDS: Nitrofurantoin Macrocrystals* 50 MG CAP PO SCH ×2 (07:24→23:38)
[2019-10-11] MEDS: Citalopram TAB* 10 MG PO SCH (07:24)
[2019-10-11] MEDS: Metoprolol Tartrate TAB* 25 MG PO SCH (07:25)
[2019-10-11] MEDS: CMCS: Cyclosporine 0.05% OPHTH (NF) 0.4 ML VIAL BOTH EYES SCH ×2 (07:25→20:46)
--- NOTE | 2019-10-11 09:50 | PN ---
Subjective Date of Service: 10/11/19 Interval History: Patient seen and examined at bedside. She is sleeping but arouses easily to voice. When asked how she is feeling, she states "tired." She states "no" when asked if she has any CP, SOB, stomach pain or other concern. She is tolerating PO intake. She was reported to have dark stools overnight but sample was mixed with urine, so stool occult not obtained. Per nursing, patient did not fall asleep until the middle of the night. Tele: SR with PVCs (?quadrigeminy), patient asymptomatic during occurrences Family History: Unchanged from Admission Social History: Unchanged from Admission Past Medical History: Unchanged from Admission Objective Active Medications: Acetaminophen (Tylenol Tab*) 650 mg PO Q8HR [facility] Last Admin: 10/11/19 07:24 Dose: 650 mg Acetaminophen (Tylenol Tab*) 650 mg PO Q6H PRN PRN Reason: MILD PAIN or TEMP > 100.4 Last Admin: 10/11/19 03:12 Dose: 650 mg Citalopram Hydrobromide (Celexa Tab*) 30 mg PO DAILY [facility] Last Admin: 10/11/19 07:24 Dose: 30 mg Cyclosporine (Restasis 0.05% Ophth) 1 drop BOTH EYES BID [facility]; Protocol Last Admin: 10/11/19 07:25 Dose: Not Given Haloperidol Lactate (Haldol Inj Iv/Im*) 2.5 mg IV SLOW PU Q6H PRN PRN Reason: AGITATION Last Admin: 10/09/19 21:23 Dose: 2.5 mg Heparin Sodium (Porcine) (Heparin Flush Picc/Ml/Cvc(*)) 0 ml FLUSH .PER PROTOCOL [facility] Last Admin: 10/10/19 23:52 Dose: 1 ml Hydralazine HCl (Apresoline Iv*) 5 mg IV SLOW PU Q6H PRN PRN Reason: SBP > 160 Ceftriaxone Sodium 1 gm/ (Sodium Chloride) 50 mls @ 100 mls/hr IVPB Q24H [facility] Last Admin: 10/10/19 12:04 Dose: 100 mls/hr Latanoprost (Xalatan 0.005%*) 1 drop BOTH EYES BEDTIME [facility] Last Admin: 10/10/19 21:36 Dose: 1 drop Loperamide HCl (Imodium Cap*) 2 mg PO DAILY PRN PRN Reason: LOOSE STOOLS Melatonin (Melatonin) 3 mg PO BEDTIME [facility] Last Admin: 10/10/19 21:31 Dose: 3 mg Memantine (Namenda Tab*) 5 mg PO BID [facility] Last Admin: 10/11/19 07:24 Dose: 5 mg Metoprolol Tartrate (Lopressor Tab*) 25 mg PO QAM [facility] Last Admin: 10/11/19 07:25 Dose: 25 mg Metoprolol Tartrate (Lopressor Tab*) 50 mg PO BEDTIME [facility] Last Admin: 10/10/19 21:31 Dose: 50 mg Nitrofurantoin Macrocrystals (Macrodantin*) 100 mg PO BID [facility] Last Admin: 10/11/19 07:24 Dose: 100 mg Pantoprazole Sodium (Protonix Tab*) 40 mg PO DAILY [facility] Last Admin: 10/11/19 07:24 Dose: 40 mg Quetiapine Fumarate (Seroquel Tab*) 25 mg PO QPM [facility] Last Admin: 10/10/19 18:03 Dose: 25 mg Vital Signs - 8 hr 10/11/19 10/11/19 10/11/19 03:42 05:30 07:20 Temperature 97.8 F 98.8 F 98.4 F Pulse Rate 75 63 65 Respiratory 18 18 18 Rate Blood Pressure 180/76 130/44 158/65 (mmHg) O2 Sat by Pulse 97 98 95 Oximetry 10/11/19 07:30 Temperature Pulse Rate Respiratory 18 Rate Blood Pressure (mmHg) O2 Sat by Pulse Oximetry Oxygen Devices in Use Now: None Appearance: Elderly female, lying in bed, arouses to vice and verbal stimuli, NAD Eyes: No Scleral Icterus, PERRLA Ears/Nose/Mouth/Throat: Clear Oropharnyx, Mucous Membranes Moist Neck: NL Appearance and Movements; NL JVP Respiratory: Symmetrical Chest Expansion and Respiratory Effort, Clear to Auscultation Cardiovascular: - - irregularly irregular, systolic murmur Abdominal: NL Sounds; No Tenderness; No Distention, - - declines ANASTASIA Extremities: No Clubbing, Cyanosis Skin: No Rash or Ulcers - oriented to self, answers simple questions appropriately Lines/Tubes/Other Access: Clean, Dry and Intact PICC Line - midline Nutrition: Taking PO's Result Diagrams: 10/10/19 05:37 10/10/19 22:20 Additional Lab and Data: Lab Results 10/06/19 10/06/19 10/06/19 Range/Units 20:50 20:50 20:50 WBC 6.3 (3.5-10.8) 10^3/uL RBC 4.44 (3.70-4.87) 10^6 /uL Hgb 14.0 (12.0-16.0) g/dL Hct 41 (35-47) % MCV 93 (80-97) fL MCH 32 H (27-31) pg MCHC 34 (31-36) g/dL RDW 14 (10-15) % Plt Count 193 (150-450) 10^3/uL MPV 8.7 (7.4-10.4) fL Neut % (Auto) 73.5 % Lymph % (Auto) 14.0 % [place] % (Auto) 11.8 % Eos % (Auto) 0.4 % Baso % (Auto) 0.3 % Absolute Neuts (auto) 4.6 (1.5-7.7) 10^3/ul Absolute Lymphs (auto) 0.9 L (1.0-4.8) 10^3/ul Absolute Monos (auto) 0.7 (0-0.8) 10^3/ul Absolute Eos (auto) 0.0 (0-0.6) 10^3/ul Absolute Basos (auto) 0.0 (0-0.2) 10^3/ul Absolute Nucleated RBC 0.0 10^3/ul Nucleated RBC % 0.1 Sodium 137 (135-145) mmol/L Potassium 3.6 (3.5-5.0) mmol/L Chloride 100 L (101-111) mmol/L Carbon Dioxide 25 (22-32) mmol/L Anion Gap 12 H (2-11) mmol/L BUN 19 (6-24) mg/dL Creatinine 0.86 (0.51-0.95) mg/dL Est GFR ( Amer) 75.2 (>60) Est GFR (Non-Af Amer) 62.1 (>60) BUN/Creatinine Ratio 22.1 H (8-20) Glucose 101 H (70-100) mg/dL Lactic Acid 1.0 (0.5-2.0) mmol/L Calcium 10.9 H (8.6-10.3) mg/dL Total Bilirubin 0.60 (0.2-1.0) mg/dL AST 34 (13-39) U/L ALT 22 (7-52) U/L Alkaline Phosphatase 65 (34-104) U/L C-Reactive Protein 1.48 (<8.01) mg/L Total Protein 8.6 (6.4-8.9) g/dL Albumin 5.1 (3.2-5.2) g/dL Globulin 3.5 (2-4) g/dL Albumin/Globulin Ratio 1.5 (1-3) Lipase 54 (11.0-82.0) U/L Microbiology and Other Data: Microbiology 10/07/19 22:10 Legionella Urinary Antigen - Final Urine Negative Legionella Antigen Streptococcus pneumoniae Ag Screen - Final Negative S. pneumo Antigen Diagnostic Imaging: Renal US COMPARISON: A/P W CT ABD/PEL W 10/06/2019 10:44 PM FINDINGS: Right kidney: As previously seen, there is a simple appearing right renal cyst measuring a maximum of 6.4 cm. Also as previously seen, there is a small simple appearing cyst in the superior pole of the right kidney measuring a maximum of 1.7 cm. No right renal calculi or hydronephrosis. Left kidney: As seen on the prior CT, there is a solid heterogeneous mass lesion in the interpolar region of the left kidney measuring a maximum of 4.4 cm with some internal vascularity suspicious for renal cell carcinoma until proven otherwise. No left renal calculi or hydronephrosis. IMPRESSION: 1. As previously seen, there is a simple appearing right renal cyst measuring a maximum of 6.4 cm. Also as previously seen, there is a small simple appearing cyst in the superior pole of the right kidney measuring a maximum of 1.7 cm. 2. As seen on the prior CT, there is a solid heterogeneous mass lesion in the interpolar region of the left kidney measuring a maximum of 4.4 cm with some internal vascularity suspicious for renal cell carcinoma until proven otherwise. COMMENTS: Consistent with the [employer]'s Incidental Findings Committee white paper (J Am Dinorah Radiol 2018): Any incidental cystic renal lesion classified in this report as too small to characterize or simple appearing is likely a benign cyst. No follow-up imaging is recommended for these lesions per consensus recommendations based on imaging criteria. Dictated and Authenticated by: Eliezer Burkett MD 10/09/2019 6:17 PM Eastern Time ([place] and [place]) Assess/Plan/Problems-Billing Assessment: Ms. Bella is an 89 yof with PMHx of HTN, GERD, dementia who presented to the ER with complaints of vomiting and was found to have a SBO. Hospital course complicated by sepsis, suspected pneumonia. - Patient Problems (1) Sepsis Comment: -fever 101.5, tachycardia; resolved -without leukocytosis, lactic acidosis -BC NGTD -flu negative -continue ceftriaxone, last dose today and then continue with nitrofurantoin (2) Urinary tract infection Comment: -UTI with E. coli and enterococcus -likely cause of sepsis -change ceftriaxone to nitrofurantoin (covers both E. coli and enterococcus, received 3 doses ceftriaxone) -renal US ordered - shows right renal cyst and left renal mass. In review of records, the renal mass finding was disclosed on 10/03/[address] Webb to the HCP, Lopez, who was unsure if they would pursue any further evaluation, as she is not an ideal surgical candidate. Plan is to follow up with PCP for further discussion. (3) Aggressive behavior Code(s): R46.89 - OTHER SYMPTOMS AND SIGNS INVOLVING APPEARANCE AND BEHAVIOR Comment: -pt agitated, paranoid, aggressive towards staff -making multiple attempts to get out of bed, although unsteady gait and 2- person assist at this time -haldol 2.5 IV q6h prn agitation -changed seroquel from prn to scheduled, start 25 mg qPM and titrate up as needed (4) Small bowel obstruction Code(s): K56.609 - UNSP INTESTNL OBST, UNSP TO PARTIAL VERSUS COMPLETE OBST Comment: -CT abd/pel shows dilated loops of SB, improved from 09/29; possible SBO -BM recorded this morning - need stool occult, pt declined ANASTASIA -surgery following; recommend conservative treatment at this time -NGT removed 10/07 -Continue to advance diet as tolerated -continue nausea management (5) Diarrhea Code(s): R19.7 - DIARRHEA, UNSPECIFIED Comment: -incontinent of stool with diarrhea -stool for C. diff negative -stool culture negative (6) Left kidney mass Code(s): N28.89 - OTHER SPECIFIED DISORDERS OF KIDNEY AND URETER Comment: -CT abdomen/pelvis with L kidney mass -should have outpatient follow up (7) HTN (hypertension) Code(s): I10 - ESSENTIAL (PRIMARY) HYPERTENSION Comment: -Normotensive to hypertensive -continue home metoprolol -p.r.n. IV hydralazine (8) Asymptomatic PVCs Code(s): I49.3 - VENTRICULAR PREMATURE DEPOLARIZATION Comment: -follow electrolytes (recently repleted) -could trial increase in metoprolol if needed but pt's HR run in the 60s (9) GERD (gastroesophageal reflux disease) Code(s): K21.9 - GASTRO-ESOPHAGEAL REFLUX DISEASE WITHOUT ESOPHAGITIS Comment : -pantoprazole (10) Depression Code(s): F32.9 - MAJOR DEPRESSIVE DISORDER, SINGLE EPISODE, UNSPECIFIED Comment: -citalopram (11) Glaucoma Code(s): H40.9 - UNSPECIFIED GLAUCOMA Comment: -latanoprost (12) Dementia Code(s): F03.90 - UNSPECIFIED DEMENTIA WITHOUT BEHAVIORAL DISTURBANCE Comment : -mild confusion at baseline with episodes of aggression, agitation -continue home memantine (13) DVT prophylaxis Status: Acute Code(s): Z29.9 - ENCOUNTER FOR PROPHYLACTIC MEASURES, UNSPECIFIED Comment: -chemoprophylaxis will be held in setting of possible surgery and reported dark stools -SCDs (14) Full code status Code(s): Z78.9 - OTHER SPECIFIED HEALTH STATUS Status and Disposition: Inpatient. Discharge when stable. Attending: Aleta Grossman
[2019-10-11] MEDS: cefTRIAXone(*) 1 GM in NS 0.9% 50 ML* 50 ML IVPB SCH (10:13)
[2019-10-11 12:02] LABS: ABS Eosinophils 0.1 10^3/ul (0-0.6); ABS Lymphocytes 1.1 10^3/ul (1.0-4.8); ABS Monocytes 0.5 10^3/ul (0-0.8); ABS Neutrophils 1.9 10^3/ul (1.5-7.7); Eosinophil % 2.7 %; Hematocrit 35 % (35-47); Hemoglobin 12.1 g/dL (12.0-16.0); Lymphocyte % 30.4 %; Mean Corpuscular HGB Conc 35 g/dL (31-36); Mean Corpuscular Hemoglobin 32 pg (27-31); Mean Corpuscular Volume 91 fL (80-97); Mean Platelet Volume 8.3 fL (7.4-10.4); Nucleated Red Blood Cells % 0.1; Platelet Count 199 10^3/uL (150-450); Red Blood Count 3.81 10^6 /uL (3.70-4.87); Red Cell Distribution Width 14 % (10-15); White Blood Count 3.6 10^3/uL (3.5-10.8)
[2019-10-11] MEDS: QUEtiapine TAB* 25 MG PO SCH (16:57)
[2019-10-11] MEDS: Melatonin 3 MG TAB PO SCH (20:46)
[2019-10-11] MEDS: Metoprolol Tartrate TAB* 50 mg PO SCH (20:46)
[2019-10-11] MEDS: Latanoprost 0.005%* 2.5 ml BTL BOTH EYES SCH (20:46)
[2019-10-12] MEDS: Acetaminophen TAB* 325 MG PO SCH ×3 (06:50→22:22)
--- NOTE | 2019-10-12 08:48 | PN ---
Subjective Date of Service: 10/12/19 Interval History: Ms. Bella is feeling fine this morning. She is tired and does not want to wake up to speak with me. She did sleep well overnight, but is still tired this morning. Not hungry right now. Offers no other complaints. No concerns from nursing. Family History: Unchanged from Admission Social History: Unchanged from Admission Past Medical History: Unchanged from Admission Objective Active Medications: Acetaminophen (Tylenol Tab*) 650 mg PO Q8HR [facility] Acetaminophen (Tylenol Tab*) 650 mg PO Q6H PRN MILD PAIN or TEMP > 100.4 Citalopram Hydrobromide (Celexa Tab*) 30 mg PO DAILY [facility] Cyclosporine (Restasis 0.05% Ophth) 1 drop BOTH EYES BID [facility]; Protocol Haloperidol Lactate (Haldol Inj Iv/Im*) 2.5 mg IV SLOW PU Q6H PRN AGITATION Heparin Sodium (Porcine) (Heparin Flush Picc/Ml/Cvc(*)) 0 ml FLUSH .PER PROTOCOL [facility] Hydralazine HCl (Apresoline Iv*) 5 mg IV SLOW PU Q6H PRN SBP > 160 Latanoprost (Xalatan 0.005%*) 1 drop BOTH EYES BEDTIME [facility] Loperamide HCl (Imodium Cap*) 2 mg PO DAILY PRN LOOSE STOOLS Melatonin (Melatonin) 3 mg PO BEDTIME [facility] Memantine (Namenda Tab*) 5 mg PO BID [facility] Metoprolol Tartrate (Lopressor Tab*) 25 mg PO QAM [facility] Metoprolol Tartrate (Lopressor Tab*) 50 mg PO BEDTIME [facility] Nitrofurantoin Macrocrystals (Macrodantin*) 100 mg PO BID [facility] Pantoprazole Sodium (Protonix Tab*) 40 mg PO DAILY [facility] Quetiapine Fumarate (Seroquel Tab*) 25 mg PO QPM [facility] Vital Signs - 8 hr 10/12/19 10/12/19 01:00 07:30 Temperature 97.5 F 97.9 F Pulse Rate 63 72 Respiratory 18 16 Rate Blood Pressure 139/54 151/68 (mmHg) O2 Sat by Pulse 98 99 Oximetry Oxygen Devices in Use Now: None Appearance: Elderly female lying in bed in NAD Ears/Nose/Mouth/Throat: Mucous Membranes Moist Neck: NL Appearance and Movements; NL JVP, Trachea Midline Respiratory: Symmetrical Chest Expansion and Respiratory Effort, Clear to Auscultation Cardiovascular: NL Sounds; No Murmurs; No JVD, RRR Abdominal: NL Sounds; No Tenderness; No Distention Extremities: No Edema Neurological: - - Drowsy Nutrition: Taking PO's Result Diagrams: 10/11/19 11:47 10/10/19 22:20 Assess/Plan/Problems-Billing Assessment: Ms. Bella is an 89 yof with PMHx of HTN, GERD, dementia who presented to the ER with complaints of vomiting and was found to have a SBO. Hospital course complicated by sepsis d/t UTI. - Patient Problems (1) Urinary tract infection Comment: - Urine culture growing E. coli and Enterococcus - Completed 5 day course of ceftriaxone - Continue Macrobid x2 days (2) Small bowel obstruction Code(s): K56.609 - UNSP INTESTNL OBST, UNSP TO PARTIAL VERSUS COMPLETE OBST Comment: - Resolved - CT abd/pelvis shows dilated loops of SB, improved from 09/30/19 - Stool occult negative - Surgery following; recommend conservative management - NGT removed 10/07 - Soft diet as tolerated (3) Sepsis Comment: - Resolved - Present on admission with fever, tachycardia; source is UTI - BC negative; flu negative (4) Aggressive behavior Code(s): R46.89 - OTHER SYMPTOMS AND SIGNS INVOLVING APPEARANCE AND BEHAVIOR Comment: - Occasional agitation - Continue Seroquel (5) Diarrhea Code(s): R19.7 - DIARRHEA, UNSPECIFIED Comment: - In the setting of SBO - Stool culture negative; C. diff negative (6) Asymptomatic PVCs Code(s): I49.3 - VENTRICULAR PREMATURE DEPOLARIZATION Comment: - Telemetry d/c'd (7) HTN (hypertension) Code(s): I10 - ESSENTIAL (PRIMARY) HYPERTENSION Comment: - Normotensive to mildly hypertensive - Continue metoprolol (8) Left kidney mass Code(s): N28.89 - OTHER SPECIFIED DISORDERS OF KIDNEY AND URETER SNOMED Code(s ): [id number] Comment: - Renal US shows right renal cyst and left renal mass - In review of records, the renal mass finding was disclosed on 10/03/[address] Webb to the HCP, Lopez, who was unsure if they would pursue any further evaluation, as she is not an ideal surgical candidate (9) Dementia Code(s): F03.90 - UNSPECIFIED DEMENTIA WITHOUT BEHAVIORAL DISTURBANCE Comment : - Mild confusion at baseline with episodes of aggression, agitation - Continue Namenda (10) GERD (gastroesophageal reflux disease) Code(s): K21.9 - GASTRO-ESOPHAGEAL REFLUX DISEASE WITHOUT ESOPHAGITIS Comment : - Continue pantoprazole (11) Depression Code(s): F32.9 - MAJOR DEPRESSIVE DISORDER, SINGLE EPISODE, UNSPECIFIED Comment: - Continue citalopram (12) Glaucoma Code(s): H40.9 - UNSPECIFIED GLAUCOMA Comment: - Continue latanoprost (13) DVT prophylaxis Code(s): Z29.9 - ENCOUNTER FOR PROPHYLACTIC MEASURES, UNSPECIFIED Comment: - SCDs (14) DNR (do not resuscitate) Comment: Status and Disposition: Inpatient. D/c to [facility] tomorrow if they are willing to accept patient back. Attending: Aleta Grossman
[2019-10-12] MEDS: Acetaminophen TAB* 325 MG PO PRN ×2 (10:28→19:57)
[2019-10-12] MEDS: Memantine TAB* 5 MG PO SCH ×2 (10:29→21:50)
[2019-10-12] MEDS: Pantoprazole TAB * 40 MG TAB PO SCH (10:29)
[2019-10-12] MEDS: Metoprolol Tartrate TAB* 25 MG PO SCH (10:29)
[2019-10-12] MEDS: Citalopram TAB* 10 MG PO SCH (10:29)
[2019-10-12] MEDS: CMCS: Cyclosporine 0.05% OPHTH (NF) 0.4 ML VIAL BOTH EYES SCH ×2 (10:33→21:50)
[2019-10-12] MEDS: Nitrofurantoin Macrocrystals* 100 MG CAP PO SCH ×2 (10:36→21:49)
[2019-10-12] MEDS: Nitrofurantoin Macrocrystals* 50 MG CAP PO SCH (10:45)
[2019-10-12] MEDS: QUEtiapine TAB* 25 MG PO SCH (17:58)
[2019-10-12] MEDS: Metoprolol Tartrate TAB* 50 mg PO SCH (21:48)
[2019-10-12] MEDS: Latanoprost 0.005%* 2.5 ml BTL BOTH EYES SCH (21:48)
[2019-10-12] MEDS: Melatonin 3 MG TAB PO SCH (21:49)
[2019-10-13] MEDS: Acetaminophen TAB* 325 MG PO PRN (01:15)
[2019-10-13] MEDS: Acetaminophen TAB* 325 MG PO SCH ×2 (05:33→14:11)
[2019-10-13] MEDS: Memantine TAB* 5 MG PO SCH (09:29)
[2019-10-13] MEDS: Citalopram TAB* 10 MG PO SCH (09:29)
[2019-10-13] MEDS: Nitrofurantoin Macrocrystals* 100 MG CAP PO SCH (09:30)
[2019-10-13] MEDS: Pantoprazole TAB * 40 MG TAB PO SCH (09:30)
[2019-10-13] MEDS: CMCS: Cyclosporine 0.05% OPHTH (NF) 0.4 ML VIAL BOTH EYES SCH (09:30)
[2019-10-13] MEDS: Metoprolol Tartrate TAB* 25 MG PO SCH (09:30)
[2019-10-13 11:37] VITALS: BP 146/62
--- NOTE | 2019-10-13 11:56 | PN ---
Progress Note - Progress Note Date of Service: 10/13/19 Note: S: States she is feeling fine and with no pain. Tolerating diet well. No nausea. Passing BMs. O: Temp Pulse Resp BP Pulse Ox 97.6 F 72 20 146/62 98 10/13/19 11:00 10/13/19 11:00 10/13/19 11:00 10/13/19 11:00 10/13/19 11:00 Intake and Output Last 24 Hours 10/11/19 10/12/19 10/13/19 10/14/19 06:59 06:59 06:59 06:59 Intake Total 2065 1710 270 600 Output Total 1775 Balance 290 1710 270 600 Intake: IV Fluids 130 0 ABX - CEFEPIME 0 Ceftriaxone 0 Magnesium 0 NS 130 potassium 0 IVPB 255 Ceftriaxone 55 potassium 200 Oral 1680 1710 270 600 Output: [place] 1775 Other: Estimated Void Large Small Medium # Bowel Movements 3 0 0 Estimated Stool Amount Small Medium Small # Voids 6 2 0 PEX General: Alert, in NAD. HEENT: Oropharynx clear. PERRLA> Heart: RRR, no MRG. Lungs: CTAB. ABD: BS present. Soft, nondistended. Hernias present, which are easily reducible. Mild tenderness upon deep palpation. No guarding or rebound tenderness. Extremities: Calves soft and nontender. Distal pulses intact bilaterally. No edema. Assessment and plan: 89 yo F with ventral hernias that are easily reducible, SBO that appears resolved, dementia. Continue non-operative management. Advance diet as tolerated.
[2019-10-13] MEDS ORDERED: Nitrofurantoin Macrocrystals* 100 MG CAP PO ONE (14:00)
--- NOTE | 2019-10-14 00:16 | DS ---
CC: Dr. Marcel Guadarrama; Dr. Vidal Davey * DISCHARGE SUMMARY: DATE OF ADMISSION: 10/07/19 DATE OF DISCHARGE: 10/13/19 PRIMARY CARE PROVIDER: Dr. Marcel Guadarrama. ATTENDING PHYSICIAN: Dr. Aleta Grossman.* (DICTATED BY RADHA CHUNG NP) PRIMARY DIAGNOSES: 1. Small bowel obstruction secondary to ventral hernia. 2. Urinary tract infection. 3. Sepsis. 4. Asymptomatic premature ventricular contractions. 5. Hospital-acquired delirium. SECONDARY DIAGNOSES: 1. Hypertension. 2. Dementia. 3. GERD. 4. Depression. 5. Glaucoma. 6. Left kidney mass. STUDIES WHILE IN THE HOSPITAL: 1. Abdomen and pelvis CT on 10/06/19 reads as a 3.8 cm mass in the mid pole of the left kidney, which is similar in appearance compared to the prior CT abdomen and pelvis on 09/30/19 and suspicious for malignancy. Tissue correlation is suggested for pathologic diagnosis. Dilated loops of small bowel with air-fluid levels, which have become less dilated compared to prior CT abdomen and pelvis on 09/30/19 and with a transition from dilated to nondilated small bowel in a moderate size infraumbilical hernia containing portion of the transverse colon and loops of small bowel, which may be secondary to a partial small bowel obstruction or ileus. Enteric contrast material is noted distal to the transition point at terminal ileum and cecum. No evidence for bowel strangulation. Liquid feces in the colon, which will lead to diarrhea. 2.3 cm left ovarian mass, which is unchanged compared to her prior CT abdomen and pelvis on 09/30/19. Further evaluation with a pelvic ultrasound is suggested and this can be performed on a nonemergent basis. 2. EKG on 10/06/19 shows normal sinus rhythm with a rate of 80, occasional PVC. No ST changes. 3. Chest x-ray on 10/07/19 reads as lines and tubes described in the body of the report. Right mid lung atelectasis versus consolidation. 4. Chest x-ray on 10/07/19 reads as lines and tubes described in the body of the report. Persistent airspace disease of the right mid lung. 5. Chest x-ray on 10/07/19 reads as kumar obscured by overlying lines. The enteric tube terminates in the left upper quadrant. 6. Chest x-ray on 10/07/19 reads as lines and tubes described in the body of the report. Patchy airspace disease in the right lower lung. 7. Transthoracic echocardiogram on 10/08/19 reads as the left ventricular cavity size is normal. Wall thickness was mildly to moderately increased. Systolic function was normal. The estimated ejection fraction was 60%. Wall motion is normal and there are no regional wall motion abnormalities. Doppler parameters are consistent with elevated ventricular end diastolic filling pressure. Right ventricular systolic function is normal. The mitral valve annulus appears mildly calcified. The leaflet was mildly thickened. There is mild MR. Findings are consistent with mild . There is moderate AR. Systolic pressure in the pulmonary artery is moderately to severely increased, estimated to be 56 mmHg. No prior echocardiogram for comparison. 8. Renal ultrasound on 10/09/19 reads as, as previously seen there is a simple appearing renal cyst measuring a maximum of 6.4 cm. Also, previously seen there is a small simple appearing cyst in the superior pole of the right kidney measuring a maximum of 1.7 cm. As seen on the prior CT, there is a solid heterogenous mass of the interpolar region of the left kidney measuring a maximum of 4.4 cm with some internal vascularity suspicious for renal cell carcinoma until proven otherwise. 9. EKG on 10/11/19 shows normal sinus rhythm with rate of 74, occasional PVCs consistent with previous EKG. CONSULTATIONS WHILE IN THE HOSPITAL: Dr. Davey from General Surgery. HISTORY OF PRESENT ILLNESS AND HOSPITAL COURSE: Ms. Bella is an 89-year-old female with past medical history of hypertension, GERD, dementia, and a recent small bowel obstruction, who presented to the emergency room on 10/07/19 with complaints of epigastric pain. Please see the history and physical by Dr. Washington for a complete summary of the events leading up to this hospitalization. In short, the patient was hospitalized at this facility from 09/30/19 to 10/02 for a small bowel obstruction due to an incarcerated ventral hernia. The patient was discharged home after clinical improvement and she had been doing well at [place], although then began developing some vomiting and poor oral intake. So, she presented back to the emergency room. She had imaging as noted above and there was suspicion for a recurrent small bowel obstruction. She was admitted by the hospitalist service. Surgery was consulted and the patient was seen by Dr. Davey initially on 05/18, at which time he recommended conservative management as she was very high risk for surgery. Because of her diarrhea, she was tested for C. diff and was noted to be negative. So, it was suspected that the diarrhea was secondary to small bowel obstruction. The patient did require an NG tube, which was ultimately removed after 10/08/19 after clinical improvement. Since that time, the patient's diet has been advanced and at this point, she is tolerating a soft diet without any symptoms of small bowel obstruction. I did speak with Surgery, who advised that the patient was stable for discharge from their perspective. The patient was noted to be septic on admission with fever and tachycardia. Source was determined to be urinary tract infection when the patient's urine culture grew E. coli. She was also noted to have a urine culture that grew enterococcus, though this had a low colony count and was suspected to be colonization. For the E. coli, she was treated with 5 days of ceftriaxone and then 2 days of nitrofurantoin. She was monitored on telemetry and was noted to have frequent PVCs at times, though was asymptomatic and so these are not concerning at this point. The patient was noted to have some agitation while here in the hospital, which was secondary to hospital delirium in a patient with already existing dementia. She was started on low-dose Seroquel, which did improve her symptoms while here in the hospital, though she generally has not been sleeping well. Today, Ms. Bella reports feeling well and offers no complaints. She denies any abdominal pain, nausea, or vomiting. She did eat nearly all of her breakfast this morning without difficulty. PHYSICAL EXAMINATION: On exam, she is alert and oriented to self, though otherwise confused, though she is calm and responds to questions appropriately. There are no focal neurological deficits. Heart has a regular rate and rhythm without murmurs, rubs or gallops. Lungs are clear to auscultation without rhonchi, wheezes or rubs. Abdomen is soft, nontender to palpation with normoactive bowel sounds. Physical exam is otherwise benign. Ms. Bella is stable for discharge. Most recent vital signs are as follows, temp 97.6, heart rate 72, respiratory rate 20, oxygen saturation 98% on room air , blood pressure 146/62. DISCHARGE MEDICATIONS: Continued: 1. Acetaminophen 650 mg p.o. q.8 hours. 2. Citalopram 30 mg p.o. daily. 3. Restasis 0.05% 1 drop both eyes b.i.d. 4. Latanoprost 0.005% 1 drop both eyes at bedtime. 5. Imodium 2 mg p.o. daily p.r.n. diarrhea. 6. Melatonin 1 mg p.o. at bedtime. 7. Namenda 5 mg p.o. b.i.d. 8. Metoprolol tartrate 50 mg p.o. at bedtime. 9. Metoprolol tartrate 25 mg p.o. every morning. 10. Omeprazole 40 mg p.o. daily. 11. Calcium plus vitamin D 1 tab p.o. b.i.d.. 12. Ferrous fumarate 324 mg p.o. every other day. DISCHARGE PLAN: Ms. Bella will be discharged back home to [place]. Activity will be as tolerated. Diet will be soft. Medications are noted above. The patient can resume her usual medications and there are no changes. Again, she has completed a full 7-day course of antibiotics while here in the hospital and does not need any further antibiotics going forward for this urinary tract infection. Regarding her diet, it is strongly encouraged that the patient eat only soft foods. She is at very high risk for recurrent bowel obstruction due to the known hernias, so she should be monitored closely for symptoms. I did speak with the patient's son and indicated to him that the patient was clinically improved. He was requesting a repeat CT with contrast prior to discharge, though I have advised him that is not indicated at this time due to clinical improvement and he is understanding of the plan. Of note, the patient is noted to have a renal mass, which was previously discussed with the patient's son during the last hospitalization and at that point, the family was unsure if they would pursue any further evaluation. So, I will defer this to the patient's PCP. There was also a recommendation that the patient have a transvaginal ultrasound due to an ovarian cyst and I will also defer this to the patient's PCP whether or not she will need to undergo a pelvic ultrasound. She should follow up with her primary care provider in the next 4 to 7 days. She should return to the emergency room or nearest hospital for any worsening of symptoms, shortness of breath, lightheadedness, dizziness, chest discomfort, high fever, chills, night sweats, loss of consciousness or any other worrisome signs or symptoms. Due to her age and health status, it is strongly advised that the patient stay out of large crowds and practice proper hand hygiene. DISCHARGE CONDITION: Stable. DISCHARGE DISPOSITION: Home, [place]. This is a summarized report of complex medical history and hospital stay. For further details, please see entire medical record. TIME SPENT: Approximately 45 minutes were spent on this discharge. RADHA CHUNG, LEARNING COACH [id number]/CPS #: [id number] JULES
== END 2019-10-13 17:15 | disposition home or self-care (01) | DRG 872 ==
LOC: ED 20:14 → MED 10-07 04:22 → ED 10-07 05:45
PROVIDERS: ADMIT Family Medicine; ATTEND Internal Medicine
DX: A41.51 Sepsis due to Escherichia coli [E. coli] (principal); K43.0 Incisional hernia with obstruction, without gangrene; N39.0 Urinary tract infection, site not specified; F05 Delirium due to known physiological condition; I10 Essential (primary) hypertension; F32.9 Major depressive disorder, single episode, unspecified; K21.9 Gastro-esophageal reflux disease without esophagitis; H40.9 Unspecified glaucoma; H35.30 Unspecified macular degeneration; I49.3 Ventricular premature depolarization; N28.89 Other specified disorders of kidney and ureter; I08.3 Combined rheumatic disorders of mitral, aortic and tricuspid valves; D64.9 Anemia, unspecified; E86.0 Dehydration; K58.0 Irritable bowel syndrome with diarrhea; K57.90 Diverticulosis of intestine, part unspecified, without perforation or abscess without bleeding; G30.9 Alzheimer's disease, unspecified; F02.80 Dementia in other diseases classified elsewhere, unspecified severity, without behavioral disturbance, psychotic disturbance, mood disturbance, and anxiety; Z66 Do not resuscitate; Z90.49 Acquired absence of other specified parts of digestive tract; Z90.710 Acquired absence of both cervix and uterus; Z88.6 Allergy status to analgesic agent; Z88.5 Allergy status to narcotic agent; Z88.0 Allergy status to penicillin; Z88.8 Allergy status to other drugs, medicaments and biological substances; Z79.899 Other long term (current) drug therapy; Z87.891 Personal history of nicotine dependence
CPT/HCPCS: 36415; 71045; 71046; 74177; 76775; 80048; 80053; 81003; 81015; 82270; 83605; 83690; 83735; 85025; 85652; 86140; 87040; 87045; 87046; 87077; 87086; 87186; 87493; 87899; 93005; 93306; 96361; 96374; 96375; 99285; A9270-GY; J0456; J0692; J0696; J1630; J2405; J3475; J3480; Q9967

== ENCOUNTER 2019-11-20 11:00 | Emergency (ER) | payer MEDICARE ==
--- NOTE | 2019-11-20 11:27 | ED ---
Complex/Multi-Sys Presentation - HPI Summary HPI Summary: 89 year old F presenting to [facility] with a chief complaint of right hand pain, left shoulder pain, left knee pain, left hip pain, and back pain secondary to a fall after putting away her clothes this morning. Patient reports that she hit the top of her head during the fall. The patient rates the pain 7/10 in severity. Symptoms aggravated by nothing. Symptoms alleviated by nothing. Patient reports that she does not think that she lost consciousness. Patient denies any fever, chills, erythema of eyes, sore throat, chest pain, shortness of breath, cough, abdominal pain, nausea/vomiting, dysuria, hematuria, myalgia, edema, rash, or dizziness. Medication list reviewed. Allergy list reviewed. - History Of Current Complaint Chief Complaint: EDFall Time Seen by Provider: 11/20/19 11:20 Hx Obtained From: Patient Onset/Duration: Sudden Onset Timing: Constant Severity Currently: Moderate Aggravating Factor(s): None Alleviating Factor(s): None Associated Signs And Symptoms: Positive: Back Pain, Other - Right hand pain, left shoulder pain, left knee pain, left hip pain. Negative: Dizziness, SOB, Cough, Chest Pain, Edema, Nausea, Vomiting, Abdominal Pain, Dysuria, Fever - Allergies/Home Medications Allergies/Adverse Reactions: Allergies Allergy/AdvReac Type Severity Reaction Status Date / Time aspirin Allergy Unknown Verified 11/20/19 11:10 Reaction Details hydromorphone [From Dilaudid] Allergy Unknown Verified 11/20/19 11:10 Reaction Details morphine Allergy Unknown Verified 11/20/19 11:10 Reaction Details naproxen Allergy Unknown Verified 11/20/19 11:10 Reaction Details NSAIDS (Non-Steroidal Allergy Unknown Verified 11/20/19 11:10 Anti-Inflamma Reaction Details Penicillins Allergy Unknown Verified 11/20/19 11:10 Reaction Details procaine [From Novocain] Allergy Unknown Verified 11/20/19 11:10 Reaction Details tramadol Allergy Unknown Verified 11/20/19 11:10 Reaction Details Home Medications: Home Medications Acetaminophen [Tylenol] 650 mg PO TID PRN 10/23/18 [History Confirmed 11/20/19] Calcium Carbonate/Vitamin D3 [Calcium 600-Vit D3 400 Caplet] 1 tab PO BID [History Confirmed 11/20/19] Cyclosporine 0.05% OPHTH (NF) [Restasis 0.05% OPHTH] 1 drop BOTH EYES BID [History Confirmed 11/20/19] Latanoprost 0.005%* [Xalatan 0.005%*] 1 drop BOTH EYES BEDTIME 10/23/18 [ History Confirmed 11/20/19] Loperamide CAP* [Imodium CAP*] 2 mg PO DAILY PRN 06/10/19 [History Confirmed ] Citalopram TAB* [Celexa TAB*] 30 mg PO DAILY 09/10/19 [History Confirmed ] Ferrous Fumarate 324 mg PO MOTHSA 09/10/19 [History Confirmed 11/20/19] Melatonin 1 mg PO BEDTIME 09/10/19 [History Confirmed 11/20/19] Memantine TAB* [Namenda TAB*] 5 mg PO BID 09/10/19 [History Confirmed 11/20/19] Omeprazole (Nf) [Prilosec (NF)] 40 mg PO DAILY 09/10/19 [History Confirmed 11/19] Diphenoxylat/Atrop 2.5-0.025M* [Lomotil TAB*] 1 tab PO DAILY PRN 11/20/19 [ History Confirmed 11/20/19] Methylcellulose [Citrucel Fiber Laxative] 2 gm PO DAILY PRN 11/20/19 [History Confirmed 11/20/19] Metoprolol Succinate XL TAB* [Toprol XL TAB*] 25 mg PO QAM 11/20/19 [History Confirmed 11/20/19] Metoprolol Succinate XL TAB* [Toprol XL TAB*] 50 mg PO BEDTIME 11/20/19 [ History Confirmed 11/20/19] Vit C/E/Zn/Coppr/Lutein/Zeaxan [Preservision Areds 2 Softgel] 1 each PO BID [History Confirmed 11/20/19] PMH/Surg Hx/FS Hx/Imm Hx Endocrine/Hematology History: Denies: Hx Diabetes Cardiovascular History: Reports: Hx Hypertension Denies: Hx Hypercholesterolemia GI History: Reports: Hx Diverticulosis, Hx Gastroesophageal Reflux Disease, Hx Irritable Bowel, Hx Obstructive Bowel - 09/2019, Other GI Disorders - Partial left colectomy History: Reports: Other Problems/Disorders - Left kidney mass Denies: Hx Dialysis Musculoskeletal History: Reports: Hx Arthritis Sensory History: Reports: Hx Contacts or Glasses, Hx Glaucoma, Hx Legally Blind , Hx Macular Degeneration, Hx Vision Problem Denies: Hx Deafness, Hx Hearing Aid, Other Sensory Impairments Opthamlomology History: Reports: Hx Contacts or Glasses, Hx Glaucoma, Hx Legally Blind, Hx Macular Degeneration, Hx Vision Problem Denies: Other Sensory Impairments Neurological History: Reports: Hx Dementia, Other Neuro Impairments/Disorders - Alz Psychiatric History: Reports: Hx Depression, Hx of Violent Episodes Against Others - Surgical History Surgical History: Yes Surgery Procedure, Year, and Place: right hip. cholecystectomy - Immunization History Date of Influenza Vaccine: UTD Infectious Disease History: No Infectious Disease History: Denies: Traveled Outside the [place] in Last 30 Days - Family History Known Family History: Negative: Cardiac Disease - Social History Alcohol Use: None Hx Substance Use: No Substance Use Type: Reports: None Hx Tobacco Use: Yes Smoking Status (MU): Former Smoker Review of Systems Negative: Fever, Chills Negative: Erythema Negative: Sore Throat Negative: Chest Pain Negative: Shortness Of Breath, Cough Negative: Abdominal Pain, Vomiting, Nausea Negative: dysuria, hematuria Positive: Other - Right hand pain, left shoulder pain, left knee pain, left hip pain, back pain. Negative: Myalgia, Edema Negative: Rash Neurological/Mental Status: Negative - Dizziness All Other Systems Reviewed And Are Negative: Yes Physical Exam - Summary Physical Exam Summary: Constitutional: Well-developed, Well-nourished, Alert, Cooperative Skin: Warm, Dry HENT: Normocephalic; No Racoons eyes; No murray's sign; No abrasion; No contusion; No hemotympanum; No maxilla facial tenderness or instability; Dentition are smooth; No dental trauma; No trismus Eyes: EOM normal, PERRL Neck: Trachea is midline. No stridor; No JVD; No step off; No posterior cervical spine tenderness Cardio: Rhythm regular, rate normal; Heart sounds normal; Intact distal pulses; The pedal pulses are 2+ and symmetric. Radial pulses are 2+ and symmetric. Pulmonary/Chest wall: Effort normal; Breath sounds normal; Equal chest rise; No flail segment; No rib tenderness; No sternal tenderness Abd: Soft, Appearance normal. No distension; No tenderness; No palpable pulsatile mass; No Cullens sign; No Sanchez-Turners sign Musculoskeletal: Left knee is swollen with intact range of motion; distal 5th metacarpal on the right hand is ecchymotic and tender; left hip has intact range of motion and no tenderness; paraspinal tenderness lower lumbar; No step off or deformity of the spine; Pelvis is stable to lateral compression and rock Neuro: Alert, Oriented x3, Strength 5/5 all extremities. GCS 15 : No blood at urethral meatus Psych: Mood and affect Normal Triage Information Reviewed: Yes Vital Signs On Initial Exam: Initial Vitals Temp Pulse Resp BP Pulse Ox 98.4 F 65 16 148/66 95 11/20/19 11:08 11/20/19 11:08 11/20/19 11:08 11/20/19 11:08 11/20/19 11:08 Vital Signs Reviewed: Yes - Bancroft Coma Scale Best Eye Response: 4 - Spontaneous Best Motor Response: 6 - Obeys Commands Best Verbal Response: 5 - Oriented Coma Scale Total: 15 Procedures - Sedation Patient Received Moderate/Deep Sedation with Procedure: No - Splinting Right 5th Digit Location: Right hand Hand-Made Type: orthoglass - 3 inch Splint: ulnar - 20 cm ulnar gutter splint Splint Applied by Provider: Yomi Marley - Checked CSM before and after procedure, it was intact. Diagnostics - Vital Signs Vital Signs Temp Pulse Resp BP Pulse Ox 11/20/19 11:08 98.4 F 65 16 148/66 95 - Laboratory Lab Statement: Any lab studies that have been ordered have been reviewed, and results considered in the medical decision making process. - Radiology Hand x-ray Radiology Interpretation Completed By: Radiologist Summary of Radiographic Findings: FRACTURE OF THE DISTAL FIFTH METACARPAL. OSTEOPENIA. OSTEOARTHRITIS. ED physician has reviewed this report. Lumbar Spine x-ray Radiology Interpretation Completed By: Radiologist Summary of Radiographic Findings: 1. SCOLIOSIS. 2. OSTEOPENIA. 3. DEGENERATIVE DISC DISEASE AND OSTEOARTHRITIS. 4. ATHEROSCLEROSIS. 5. AGE- INDETERMINATE A CHRONIC APPEARING COMPRESSION FRACTURE OF L2 WITHOUT OSSEOUS RETROPULSION. ED physician has reviewed this report. Knee x-ray Radiology Interpretation Completed By: Radiologist Summary of Radiographic Findings: 1. OSTEOPENIA. 2. OSTEOARTHRITIS. 3. NO ACUTE OSSEOUS INJURY. THE DEGREE OF OSTEOPENIA MAY MAKE A NONDISPLACED FRACTURE RADIOGRAPHICALLY OCCULT. IF SYMPTOMS PERSIST, RECOMMEND REPEAT IMAGING. ED physician has reviewed this report. Hip/Pelvis x-ray Radiology Interpretation Completed By: Radiologist Summary of Radiographic Findings: OSTEOPENIA. OSTEOARTHRITIS. NO RADIOGRAPHIC EVIDENCE FOR HIP FRACTURE. X-RAYS MAY BE NEGATIVE WITH NONDISPLACED HIP FRACTURE, IF THERE IS PERSISTENT CLINICAL CONCERN, RECOMMEND CONSIDERATION OF MRI. IN THE SETTING OF CONTRAINDICATION TO MRI OR LIMITATION IN EMERGENT ACCESS TO MRI, CT WOULD BE SUGGESTED. ED physician has reviewed this report. - CT Brain CT CT Interpretation Completed By: Radiologist Summary of CT Findings: NO ACUTE INTRACRANIAL PATHOLOGY. DIFFUSE INVOLUTIONAL CHANGE WITH CHRONIC SMALL VESSEL ISCHEMIC CHANGES. ED physician has reviewed this report. Cervical Spine CT CT Interpretation Completed By: Radiologist Summary of CT Findings: OSTEOPENIA. DEGENERATIVE DISC DISEASE AND OSTEOARTHRITIS. SCOLIOSIS. NO ACUTE OSSEOUS INJURY TO THE CERVICAL SPINE. ED physician has reviewed this report. Complex Multi-Symp Course/Dx Course Of Treatment: 89 year old F presenting to [facility] with a chief complaint of right hand pain, left shoulder pain, left knee pain, left hip pain, and back pain secondary to a fall after putting away her clothes this morning. Patient reports that she hit the top of her head during the fall. Physical exam findings : left knee is swollen with intact range of motion, distal 5th metacarpal on the right hand is ecchymotic and tender, left hip has intact range of motion and no tenderness, paraspinal tenderness lower lumbar, GCS 15. Brain CT reveals , per radiologist, NO ACUTE INTRACRANIAL PATHOLOGY. DIFFUSE INVOLUTIONAL CHANGE WITH CHRONIC SMALL VESSEL ISCHEMIC CHANGES. Cervical Spine CT reveals, per radiologist, OSTEOPENIA. DEGENERATIVE DISC DISEASE AND OSTEOARTHRITIS. SCOLIOSIS. NO ACUTE OSSEOUS INJURY TO THE CERVICAL SPINE. Hand x-ray reveals, per radiologist, FRACTURE OF THE DISTAL FIFTH METACARPAL. OSTEOPENIA. OSTEOARTHRITIS. Lumbar Spine x-ray reveals, per radiologist, 1. SCOLIOSIS. 2. OSTEOPENIA. 3. DEGENERATIVE DISC DISEASE AND OSTEOARTHRITIS 4. ATHEROSCLEROSIS 5. AGE-INDETERMINATE A CHRONIC APPEARING COMPRESSION FRACTURE OF L2 WITHOUT OSSEOUS RETROPULSION. Knee x-ray reveals, per radiologist, 1. OSTEOPENIA. 2. OSTEOARTHRITIS. 3. NO ACUTE OSSEOUS INJURY. THE DEGREE OF OSTEOPENIA MAY MAKE A NONDISPLACED FRACTURE RADIOGRAPHICALLY OCCULT. IF SYMPTOMS PERSIST, RECOMMEND REPEAT IMAGING. Hip/Pelvis x-ray reveals, per radiologist, OSTEOPENIA. OSTEOARTHRITIS. NO RADIOGRAPHIC EVIDENCE FOR HIP FRACTURE. X-RAYS MAY BE NEGATIVE WITH NONDISPLACED HIP FRACTURE, IF THERE IS PERSISTENT CLINICAL CONCERN, RECOMMEND CONSIDERATION OF MRI. IN THE SETTING OF CONTRAINDICATION TO MRI OR LIMITATION IN EMERGENT ACCESS TO MRI, CT WOULD BE SUGGESTED. In the ED course, the patient was given Tylenol 975 mg. She is able to ambulate, I do not suspect a hip fracture. Patient will be discharged with follow up from Dr. Cage. The patient is agreeable with this plan. - Diagnoses Provider Diagnoses: Fracture of fifth metacarpal bone of right hand, Fall - Critical Care Time Critical Care Statement: Critical care time is provided exclusive of any time spent performing procedures. Discharge ED - Sign-Out/Discharge Documenting (check all that apply): Patient Departure - Discharge Plan Condition: Stable Disposition: HOME Patient Education Materials: Hand Fracture (ED), Fall Prevention (ED) Referrals: Marce Cage MD [Primary Care Provider] - 3 Days Marguerite Chao MD [Medical Doctor] - 3 Days Additional Instructions: Follow-up with your PCP and Dr. Chao in 2-3 days. You can take Tylenol as needed for pain. You should elevate the extremity on a pillow for swelling. Return to the emergency department for changing or worsening symptoms. - Attestation Statements Document Initiated by Scribe: Yes Documenting Scribe: Rachael Bello Provider For Whom Scribe is Documenting (Include Credential): Yomi Marley MD Scribe Attestation: Rachael Feng, scribed for Yomi Marley MD on 11/20/19 at 1440. Status of Scribe Document: Ready
[2019-11-20] MEDS ORDERED: Acetaminophen TAB* 325 MG PO ONE (11:59)
--- OUTSIDE RECORDS SUMMARY | 2019-11-20 12:02 | XMS REPORT | Continuity of Care Document ---
:1930 External Reference #:[id number] Author Name Vidal Davey MD (transmitted by agent of provider Zara Kate) Address [address] [place] [address] Care Team Providers Name Role Phone Other Physician Practices Care Team Information Personnel Psychologist Unavailable Marcel Salinas D.O. - Family Medicine Care Team Information Personnel Psychologist Problems Active Problems Provider Date Amnesia Dell Cope M.D. Onset: 2019 Abnormal involuntary movement Dell Cope M.D. Onset: 2019 Social History [...] Medications SIG Qnty Indications Ordering Provider Date Namenda 1 tab by mouth 60tabs Dell Cope 07/25/2019 5mg Tablets twice a day M.D. Tylenol 8 Hour 1 by mouth Unknown 650mg three times a Tablets ER day as needed for pain Calcium one by mouth Unknown Carb-Cholecalciferol twice daily [id number] Tablets Citalopram Hydrobromide 1 by mouth Unknown [...] 1.5mg twice a day Capsules History Medications Namenda 1 tab po qd for 30tabs Dell Anatolyi, 06/18/2019 - 5mg 30 days then M.D. 07/25/2019 Tablets contact office Donepezil HCL 1 tablet twice a 60tabs R41.3 Dell Cope, 2019 - 5mg day M.D. 2019 Tablets Donepezil HCL 1 by mouth every 30tabs R41.3 Dell Cope, 2019 - day M.D. 06/17/2019 10mg Tablets Immunizations Description No Information Available Vital [...] Result H/L Range Note CBC Auto 04/25/2019 [facility] White Blood 4.0 10^3/uL Normal 3.5-10.[address] [place] [address] [phone] Red Blood Count 3.76 10^6/uL Normal 3.70-4.87 [...] Blood Cells % 0.1 Comp Metabolic 04/25/2019 [facility] Sodium 135 mmol/L Normal 135-[address] [place] [address] [phone] Potassium 4.2 mmol/L Normal 3.5-5.0 Chloride 100 [...] Egfr 100.5 >60 1 Laboratory test 04/25/2019 [facility] Erythrocyte Sed 52 mm/Hr High 0-29 [address] [place] [address] [phone] C Reactive Protein 1.14 mg/L Normal <8.01 3 Vitamin B12 04/25/2019 [facility] Vitamin B12 334 pg/mL Normal 180-914 [address] F[address] [place] [address] [phone] Folic Acid (Folate) 8.88 ng/mL >3.99 5 Laboratory 04/25/2019 [facility] TSH (Thyroid 1.32 Normal 0.34 -5.60 6 test finding [address] Stim Horm) mcIU/[place] [address] [phone] Free T4 (Free Thyroxine) 0.66 ng/dL Normal [...] dialysis) 2 Copy Result to: MARCEL SALINAS ([id number]) 3 Copy Result to: MARCEL SALINAS ([id number]) 4 Normal Range 180 to 914 Indeterminate Range 145 to 180 Deficient Range <145 5 Copy Result to: MARCEL SALINAS ([id number]) 6 Copy Result to: MARCEL SALINAS ([id number]) 7 Copy Result to: MARCEL SALINAS ([id number]) 8 ADDITIONAL INFORMATION This test was developed and its performance characteristics determined by [facility] in a manner consistent with CLIA requirements. This test has not been cleared or approved by the U.S. Food and Drug Administration. Test Performed by: [facility] - [facility] [address] [place] [address] Count Team Member: Hieu oChn M.D. Ph.D.; CLIA# [id number] 9 REFERENCE VALUE 20.0 - 51.0 Test Performed by: [facility] - [facility] [address] [place] [address] Count Team Member: Hieu Cohn M.D. 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 Office Visit 10/12/2019 12:59p [facility] Rosa Elena Zack, N39.0 Urinary tract Assoc,pc INTERNATIONAL SALES MANAGER infection, site Hospitalists not specified B96.20 Unsp Escherichia coli as the cause of diseases classd elswhr 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 I10 Essential (primary) hypertension Office Visit 10/11/2019 12:58p [facility] K56.609 Unsp intestnl Assoc,pc Touchsven, INTERNATIONAL SALES MANAGER obst, unsp as Hospitalists to partial versus complete obst 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 N39.0 Urinary tract infection, site not specified B96.20 Unsp Escherichia coli as the cause of diseases classd elswhr Office Visit 10/10/2019 12:58p [facility] K56.609 Unsp intestnl Assoc,pc Touchsven, INTERNATIONAL SALES MANAGER obst, unsp as Hospitalists to partial versus complete obst 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 N39.0 Urinary tract infection, site not specified B96.20 Unsp Escherichia coli as the cause of diseases classd elswhr Office Visit 10/09/2019 [facility] Nickie K56.609 Unsp intestnl 12:57p Assoc,[place] obst, unsp as Hospitalists to partial versus complete obst 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 N39.0 Urinary tract infection, site not specified B96.20 Unsp Escherichia coli as the cause of diseases classd elswhr R19.7 Diarrhea, unspecified [facility] K56.609 Unsp intestnl 12:57p Assoc,[place] obst, unsp as Hospitalists to partial versus complete obst B96.20 Unsp Escherichia coli as the cause of diseases classd elswhr N39.0 Urinary tract infection, site not specified R19.7 Diarrhea, unspecified I10 Essential (primary) hypertension Office Visit 10/08/2019 [facility] Vidal Matias K43.2 Incisional 7:00a [facility] Davey MD hernia without obstruction or gangrene Office Visit 10/07/2019 [facility] Nellieshant Webb K56.609 Unsp intestnl 12:57p Assflora mo M.D. obst, unsp as to Hospitalists partial versus complete obst R11.2 Nausea with vomiting, unspecified R19.7 Diarrhea, unspecified I10 Essential (primary) hypertension Office Visit 10/07/2019 [facility] Vidal Matias K43.2 Incisional 7:00a [facility] Davey MD hernia without obstruction or gangrene Office Visit 10/03/2019 [facility] Nellie Webb, K56.609 Unsp intestnl 1:10p Assflora mo M.D. obst, unsp as to Hospitalists partial versus complete obst Office Visit 10/02/2019 [facility] Nellie Webb, K56.609 Unsp intestnl 1:10p Assocflora M.D. obst, unsp as to Hospitalists partial versus complete obst Office Visit 10/02/2019 Surgical Travis Muñoz K42.0 Umbilical hernia 7:00a [facility] Abbasi PA-C with obstruction, without gangrene Office Visit 10/01/2019 [facility] Michelle Timmons, K56.609 Unsp intestnl 1:10p Assoc,flora ThomasOAnthony obst, unsp as to Hospitalists partial versus complete obst I10 Essential (primary) hypertension Office Visit 10/01/2019 Surgical Travis Muñoz K42.0 Umbilical hernia 7:00a 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 Hay R25.1 Tremor, unspecified R29.6 Repeated falls Office Visit 04/25/2019 1:30p [facility] Manan Muniz R41.3 Other amnesia [facility] N.PAnthony R53.83 Other fatigue R25.1 Tremor, unspecified Assessments Date Code Description Provider 10/13/2019 K56.609 Unspecified intestinal obstruction, Rosa Elena Zack, INTERNATIONAL SALES MANAGER unspecified as to partial versus complete obstruction 10/13/2019 N39.0 Urinary tract infection, site not Rosa Elena Zack, INTERNATIONAL SALES MANAGER specified 10/13/2019 B96.20 Unspecified Escherichia coli [E. coli] as Rosa Elena Zack, INTERNATIONAL SALES MANAGER the cause of diseases classified elsewhere 10/13/2019 F03.91 Unspecified dementia with behavioral Rosa Elena Zack, INTERNATIONAL SALES MANAGER disturbance 10/12/2019 N39.0 Urinary tract infection, site not Rosa Elena Zack, INTERNATIONAL SALES MANAGER specified 10/12/2019 B96.20 Unspecified Escherichia coli [E. coli] as Rosa Elena Zack, INTERNATIONAL SALES MANAGER the cause of diseases classified elsewhere 10/12/2019 F03.91 Unspecified dementia with behavioral Rosa Elena Zack, INTERNATIONAL SALES MANAGER disturbance 10/12/2019 I10 Essential (primary) hypertension Rosa Elena Zack, INTERNATIONAL SALES MANAGER 10/11/2019 K56.609 Unspecified intestinal obstruction, Kellen Staples, INTERNATIONAL SALES MANAGER unspecified as to partial versus complete obstruction 10/11/2019 F03.91 Unspecified dementia with behavioral Kellen Staples, INTERNATIONAL SALES MANAGER disturbance 10/11/2019 N39.0 Urinary tract infection, site not Kellen Staples, INTERNATIONAL SALES MANAGER specified 10/11/2019 B96.20 Unspecified Escherichia coli [E. coli] as Kellen Staples NP the cause of diseases classified elsewhere 10/10/2019 K43.2 Incisional hernia without obstruction or Vidal Davey MD gangrene 10/10/2019 K56.609 Unspecified intestinal obstruction, Kellen Staples INTERNATIONAL SALES MANAGER unspecified as to partial versus complete obstruction 10/10/2019 F03.91 Unspecified dementia with behavioral Kellen Staples, INTERNATIONAL SALES MANAGER disturbance 10/10/2019 N39.0 Urinary tract infection, site not Kellen Staples, INTERNATIONAL SALES MANAGER specified 10/10/2019 B96.20 Unspecified Escherichia coli [E. coli] as Kellen Staples NP the cause of diseases classified elsewhere 10/09/2019 K56.609 Unspecified intestinal obstruction, [place] unspecified as to partial versus complete obstruction 10/09/2019 F03.91 Unspecified dementia with behavioral [place] disturbance 10/09/2019 N39.0 Urinary tract infection, site not [place] specified 10/09/2019 B96.20 Unspecified Escherichia coli [E. coli] as [place]den the cause of diseases classified elsewhere 10/09/2019 R19.7 Diarrhea, unspecified [place] 10/08/2019 K43.2 Incisional hernia without obstruction or Vidal Davey MD gangrene 10/08/2019 K56.609 Unspecified intestinal obstruction, [place] unspecified as to partial versus complete obstruction 10/08/2019 R94.31 Abnormal electrocardiogram [ECG] [EKG] Marya Guerra M.D. 10/08/2019 B96.20 Unspecified Escherichia coli [E. coli] as [place] the cause of diseases classified elsewhere 10/08/2019 N39.0 Urinary tract infection, site not [place] specified 10/08/2019 R19.7 Diarrhea, unspecified [place]den 10/08/2019 I10 Essential (primary) hypertension [place] 10/07/2019 K43.2 Incisional hernia without obstruction or Vidal Davey MD gangrene 10/07/2019 K56.609 Unspecified intestinal obstruction, Nellie Webb M.D. unspecified as to partial versus complete obstruction 10/07/2019 R11.2 Nausea with vomiting, unspecified Nellie Webb M.D. 10/07/2019 R19.7 Diarrhea, unspecified Nellie Webb M.D. 10/07/2019 I10 Essential (primary) hypertension Nellie Webb M.D. 10/03/2019 K56.609 Unspecified intestinal obstruction, Nellie Webb M.D. unspecified as to partial versus complete obstruction 10/02/2019 K56.609 Unspecified intestinal obstruction, Nellie Webb M.D. unspecified as to partial versus complete obstruction 10/02/2019 K42.0 Umbilical hernia with obstruction, without Travis Abbasi PA-C gangrene 10/01/2019 K56.609 Unspecified intestinal obstruction, Michelle Timmons, D.O. unspecified as to partial versus complete obstruction 10/01/2019 K42.0 Umbilical hernia with obstruction, without Travis Abbasi PA-C gangrene 10/01/2019 I10 Essential (primary) hypertension Michelle Timmons, D.O. 09/30/2019 K56.609 Unspecified intestinal obstruction, Michelle Timmons, D.O. unspecified as to partial versus complete obstruction 09/30/2019 K42.0 Umbilical hernia with obstruction, without Vidal Davey MD gangrene 09/30/2019 I10 Essential (primary) hypertension Michelle Timmons D.O. 09/30/2019 K57.30 Diverticulosis of large intestine without Vidal Davey MD perforation or abscess without bleeding 09/30/2019 F03.90 Unspecified dementia without behavioral Michelle Timmons D.O. disturbance 09/30/2019 R19.7 Diarrhea, unspecified Vidal Davey MD 2019 R41.3 Other amnesia Dell Cope M.D. 2019 R25.1 Tremor, unspecified Dell Cope M.D. 2019 R29.6 Repeated falls Dell Cope M.D. 04/25/2019 R41.3 Other amnesia Manan Muniz, N.P. 04/25/2019 R53.83 Other fatigue Manan Muniz, N.P. 04/25/2019 R25.1 Tremor, unspecified Manan Muniz, N.P. Plan of Treatment Future Appointment(s):02/20/2020 8:15 am - Dell Cope M.D. at [facility]2019 - Dell Cope M.D.R41.3 Other amnesiaNew Medication:Donepezil HCL 5 mg - 1 tablet twice a dayDonepezil HCL 10 mg - 1 by mouth every dayNew Therapy:Physical TherapyFollow up:Follow up in 3 monthsRecommendations:The plan is to increase her her Donepezil to 10mg once a day. Use your walker AT ALL CIHFFV85.1 Tremor, unspecifiedNew Therapy:Physical QaerdxrV79.6 Repeated falls Functional Status Description No Information Available Mental Status Description No Information Available Referrals Refer to Reason for Referral Status Appt Date [facility] [address] [place] [address] [phone]
--- OUTSIDE RECORDS SUMMARY | 2019-11-20 12:02 | XMS REPORT | Continuity of Care Document ---
:1930 External Reference #:[id number] Author Name Rosa Elena Dixon NP (transmitted by agent of provider Alexa Hernandez) Address [address] [place] [address] Care Team Providers Name Role Phone Other Physician Practices Care Team Information Cardiac Technologist Unavailable Marcel Salinas D.O. - Family Medicine Care Team Information Cardiac Technologist [phone] Problems Active Problems Provider Date Amnesia Dell [...] Namenda 1 tab by mouth 60tabs Dell Cope, 07/25/2019 5mg Tablets twice a day M.D. Tylenol 8 Hour 1 by mouth Unknown 650mg three times a Tablets ER day as needed for pain Calcium one by mouth Unknown Carb-Cholecalciferol twice daily [id number] Tablets Citalopram Hydrobromide 1 by mouth Unknown [...] 1 tab po qd for 30tabs Dell Cope, 06/18/2019 - 5mg 30 days then M.D. [...] Result H/L Range Note CBC Auto 04/25/2019 [facility] White Blood 4.0 10^3/uL Normal 3.5-10.[address] [place] [address] [phone] Red Blood Count 3.76 10^6/uL Normal 3.70-4.87 [...] Blood Cells % 0.1 Comp Metabolic 04/25/2019 [facility] Sodium 135 mmol/L Normal 135-[address] [place] [address] [phone] Potassium 4.2 mmol/L Normal 3.5-5.0 Chloride 100 [...] Egfr 100.5 >60 1 Laboratory test 04/25/2019 [facility] Erythrocyte Sed 52 mm/Hr High 0-29 [address] [place] [address] [phone] C Reactive Protein 1.14 mg/L Normal <8.01 3 Vitamin B12 04/25/2019 [facility] Vitamin B12 334 pg/mL Normal 180-914 [address] [place] [address] [phone] Folic Acid (Folate) 8.88 ng/mL >3.99 5 Laboratory 04/25/2019 [facility] TSH (Thyroid 1.32 Normal 0.34 -5.60 6 test finding [address] Stim Horm) mcIU/[place] [address] [phone] Free T4 (Free Thyroxine) 0.66 ng/dL Normal [...] dialysis) 2 Copy Result to: MARCEL SALINAS ([id number]) 3 Copy Result to: MARCEL SALINAS ([id number]) 4 Normal Range 180 to 914 Indeterminate Range 145 to 180 Deficient Range <145 5 Copy Result to: MARCEL SALINAS ([id number]) 6 Copy Result to: MARCEL SALINAS ([id number]) 7 Copy Result to: MARCEL SALINAS ([id number]) 8 ADDITIONAL INFORMATION This test was developed and its performance characteristics determined by [facility] in a manner consistent with CLIA requirements. This test has not been cleared or approved by the U.S. Food and Drug Administration. Test Performed by: [facility] [address] [place] [address] Performance Test Engineer: Hieu Cohn M.D. Ph.D.; CLIA# [id number] REFERENCE VALUE 20.0 - 51.0 Test Performed by: [facility] ([facility] [address] [place] [address] Performance Test Engineer: Hieu Cohn M.D. Ph.D.; CLIA# [id number] Procedures Date Code Description Status 10/08/2019 61996 ECHO Transthorasic Realtime 2D W Doppler & Color Flow Hosp Completed Medical Devices Description No Information Available Encounters Type Date Location Provider Dx Diagnosis Office Visit 10/13/2019 [facility] Rosa Elena Zack, EDGERMAN K56.609 Unsp intestnl 2:59p Assoc,pc obst, unsp as to Hospitalists partial versus complete obst N39.0 Urinary tract infection, site not specified B96.20 Unsp Escherichia coli as the cause of diseases classd elsr 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 Office Visit 10/12/2019 12:59p [facility] Rosa Elena Zack, N39.0 Urinary tract Assoc,pc EDGERMAN infection, site Hospitalists not specified B96.20 Unsp Escherichia coli as the cause of diseases classd elswhr 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 I10 Essential (primary) hypertension Office Visit 10/11/2019 12:58p [facility] K56.609 Unsp intestnl Assoc,pc [place], EDGERMAN obst, unsp as Hospitalists to partial versus complete obst 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 N39.0 Urinary tract infection, site not specified B96.20 Unsp Escherichia coli as the cause of diseases classd elswhr Office Visit 10/10/2019 12:58p [facility] K56.609 Unsp intestnl Assoc,pc [place], EDGERMAN obst, unsp as Hospitalists to partial versus complete obst 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 N39.0 Urinary tract infection, site not specified B96.20 Unsp Escherichia coli as the cause of diseases classd elswhr [facility] K[facility]609 Unsp intestnl 12:57p Assoc,[place] obst, unsp as Hospitalists to partial versus complete obst 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 N39.0 Urinary tract infection, site not specified B96.20 Unsp Escherichia coli as the cause of diseases classd elswhr R19.7 Diarrhea, unspecified Office Visit 10/08/2019 [facility] K56.609 Unsp intestnl 12:57p Assoc,[place] obst, unsp as Hospitalists to partial versus complete obst B96.20 Unsp Escherichia coli as the cause of diseases classd elswhr N39.0 Urinary tract infection, site not specified R19.7 Diarrhea, unspecified I10 Essential (primary) hypertension Office Visit 10/07/2019 12:57p [facility] Nellie Webb, K56.609 Unsp intestnl Assoc,pc [place] obst, unsp as Hospitalists to partial versus complete obst R11.2 Nausea with vomiting, unspecified R19.7 Diarrhea, unspecified I10 Essential (primary) hypertension Office Visit 10/03/2019 [facility] Nellie Webb, K56.609 Unsp intestnl 1:10p Asschepe,flora Guido obst, unsp as Hospitalists to partial versus complete obst Office Visit 10/02/2019 [facility] Nellie Webb, K56.609 Unsp intestnl 1:10p Assoc,pc [place] obst, unsp as Hospitalists to partial versus complete obst Office Visit 10/02/2019 Surgical Travis Muñoz K42.0 Umbilical 7:00a [facility] Huang Abbasi PA-C hernia with obstruction, without gangrene Office Visit 10/01/2019 [facility] Michelle Timmons, K56.609 Unsp intestnl 1:10p Assoc,flora ThomasOAnthony obst, unsp as Hospitalists to partial versus complete obst I10 Essential (primary) hypertension Office Visit 10/01/2019 Surgical Travis Muñoz K42.0 Umbilical hernia 7:00a [facility] FIDELINA Abbasi with obstruction, without gangrene Office Visit 09/30/2019 [facility] Michelle K56.609 Unsp intestnl 1:09p Assoc,flora Timmons D.O. obst, unsp as to Hospitalists partial versus complete obst I10 Essential (primary) hypertension F03.90 Unspecified dementia without behavioral disturbance Office Visit 09/30/2019 Surgical Vidal SAnthony K42.0 Umbilical hernia 7:00a [facility] MD Petar with obstruction, [facility] without gangrene K57.30 Dvrtclos of lg int w/o perforation or abscess w/o bleeding R19.7 Diarrhea, unspecified Office Visit 2019 3:45p [facility] Dell Cope R41.3 Other amnesia [facility] Hay R25.1 Tremor, unspecified R29.6 Repeated falls Office Visit 04/25/2019 1:30p [facility] Manan Muniz R41.3 Other amnesia [facility] N.Damari R53.83 Other fatigue R25.1 Tremor, unspecified Assessments Date Code Description Provider 10/13/2019 K56.609 Unspecified intestinal obstruction, Rosa Elena Zack, EDGERMAN unspecified as to partial versus complete obstruction 10/13/2019 N39.0 Urinary tract infection, site not Rosa Elena Zack, EDGERMAN specified 10/13/2019 B96.20 Unspecified Escherichia coli [E. coli] as Rosa Elena Zack, EDGERMAN the cause of diseases classified elsewhere 10/13/2019 F03.91 Unspecified dementia with behavioral Rosa Elena Zack, EDGERMAN disturbance 10/12/2019 N39.0 Urinary tract infection, site not Rosa Elena Zack, EDGERMAN specified 10/12/2019 B96.20 Unspecified Escherichia coli [E. coli] as Rosa Elena Zack, EDGERMAN the cause of diseases classified elsewhere 10/12/2019 F03.91 Unspecified dementia with behavioral Rosa Elena Zack, EDGERMAN disturbance 10/12/2019 I10 Essential (primary) hypertension Rosa Elena Zack, EDGERMAN 10/11/2019 K56.609 Unspecified intestinal obstruction, Kellen Staples, MC unspecified as to partial versus complete obstruction 10/11/2019 F03.91 Unspecified dementia with behavioral Kellen [place], EDGERMAN disturbance 10/11/2019 N39.0 Urinary tract infection, site not Kellen Staples, EDGERMAN specified 10/11/2019 B96.20 Unspecified Escherichia coli [E. coli] as Kellen Staples EDGERMAN the cause of diseases classified elsewhere 10/10/2019 K56.609 Unspecified intestinal obstruction, Kellen Staples EDGERMAN unspecified as to partial versus complete obstruction 10/10/2019 F03.91 Unspecified dementia with behavioral Kellen Staples EDGERMAN disturbance 10/10/2019 N39.0 Urinary tract infection, site not Kellen Staples, EDGERMAN specified 10/10/2019 B96.20 Unspecified Escherichia coli [E. [...] 10/09/2019 R19.7 Diarrhea, unspecified [place] 10/08/2019 K56.609 Unspecified intestinal obstruction, [place] unspecified as to partial versus complete obstruction 10/08/2019 R94.31 Abnormal electrocardiogram [ECG] [EKG] Marya Guerra M.D. 10/08/2019 B96.20 Unspecified Escherichia coli [E. coli] as [place] the cause of diseases classified elsewhere 10/08/2019 N39.0 Urinary tract infection, site not [place] specified 10/08/2019 R19.7 Diarrhea, unspecified [place] 10/08/2019 I10 Essential (primary) hypertension [place] 10/07/2019 K56.609 Unspecified intestinal obstruction, Nellie Webb [...] PA-C gangrene 10/01/2019 K56.609 Unspecified intestinal obstruction, William PeresOAnthony unspecified as to partial versus complete obstruction 10/01/2019 K42.0 Umbilical hernia with obstruction, without Travis Abbasi PA-C gangrene 10/01/2019 I10 Essential (primary) hypertension William PeresO. 09/30/2019 K56.609 Unspecified intestinal obstruction, Netta Peres.OAnthony unspecified as to partial versus complete obstruction 09/30/2019 K42.0 Umbilical hernia with obstruction, without Vidal Davey MD gangrene 09/30/2019 I10 Essential (primary) hypertension William PeresO. 09/30/2019 K57.30 Diverticulosis of large intestine without Vidal Davey MD perforation or abscess without bleeding 09/30/2019 F03.90 Unspecified dementia without behavioral Netta Peres.O. disturbance 09/30/2019 R19.7 Diarrhea, unspecified Vidal Davey MD 2019 R41.3 Other amnesia Dell Cope M.D. 2019 R25.1 Tremor, unspecified Dell Cope M.D. 2019 R29.6 Repeated falls Dell Cope M.D. 04/25/2019 R41.3 Other amnesia Manan Muniz, N.P. 04/25/2019 R53.83 Other fatigue Manan Muniz, N.P. 04/25/2019 R25.1 Tremor, unspecified Manan Muniz N.P. Plan of Treatment Future Appointment(s):10/22/2019 3:00 pm - Vidal Davey MD at [facility]02/20/2020 8:15 am - Dell Cope M.D. at [facility]2019 - Dell Cope M.D.R41.3 Other amnesiaNew Medication:Donepezil HCL 5 mg - 1 tablet twice a dayDonepezil HCL 10 mg - 1 by mouth every dayNew Therapy:Physical TherapyFollow up:Follow up in 3 monthsRecommendations:The plan is to increase her her Donepezil to 10mg once a day. Use your walker AT ALL XQCRKY63.1 Tremor, unspecifiedNew Therapy:Physical XbjgajbY47.6 Repeated falls Functional Status Description No Information Available Mental Status Description No Information Available Referrals Refer to Dr Reason for Referral Status Appt Date [facility] [address] [place] [address] [phone]
--- OUTSIDE RECORDS SUMMARY | 2019-11-20 12:02 | XMS REPORT | Continuity of Care Document ---
:1930 External Reference #:[id number] Author Name Vidal Davey MD (transmitted by agent of provider Zara Kate) Address [address] [place] [address] Care Team Providers Name Role Phone Other Physician Practices Care Team Information Personnel Supervisor Unavailable Marcel Salinas D.O. - Family Medicine Care Team Information Personnel Supervisor [phone] Problems Active Problems Provider Date Amnesia Dell [...] one by mouth Unknown Carb-Cholecalciferol twice daily [id number] Tablets Citalopram Hydrobromide 1 by mouth Unknown [...] 1 tab po qd for 30tabs Dell Anatoliy, 06/18/2019 - 5mg 30 days then M.D. [...] Result H/L Range Note CBC Auto 04/25/2019 [facility] White Blood 4.0 10^3/uL Normal 3.5-10.[address] [place] [address] [phone] Red Blood Count 3.76 10^6/uL Normal 3.70-4.87 [...] Blood Cells % 0.1 Comp Metabolic 04/25/2019 [facility] Sodium 135 mmol/L Normal 135-[address] [place] [address] [phone] Potassium 4.2 mmol/L Normal 3.5-5.0 Chloride 100 [...] Egfr 100.5 >60 1 Laboratory test 04/25/2019 [facility] Erythrocyte Sed 52 mm/Hr High 0-29 [address] [place] [address] [phone] C Reactive Protein 1.14 mg/L Normal <8.01 3 Vitamin B12 04/25/2019 [facility] Vitamin B12 334 pg/mL Normal 180-914 4 And Folate [address] [place] [address] [phone] Folic Acid (Folate) 8.88 ng/mL >3.99 5 Laboratory 04/25/2019 [facility] TSH (Thyroid 1.32 Normal 0.34 -5.60 6 test finding [address] Stim Horm) mcIU/[place] [address] [phone] Free T4 (Free Thyroxine) 0.66 ng/dL Normal [...] dialysis) 2 Copy Result to: MARCEL SALINAS ([id number]) 3 Copy Result to: MARCEL SALINAS ([id number]) 4 Normal Range 180 to 914 Indeterminate Range 145 to 180 Deficient Range <145 5 Copy Result to: MARCEL SALINAS ([id number]) 6 Copy Result to: MARCEL SALINAS ([id number]) 7 Copy Result to: MARCEL SALINAS ([id number]) 8 ADDITIONAL INFORMATION This test was developed and its performance characteristics determined by [facility] in a manner consistent with CLIA requirements. This test has not been cleared or approved by the U.S. Food and Drug Administration. Test Performed by: [facility] [address] [place] [address] Egg Packer: Hieu Cohn M.D. Ph.D.; CLIA# [id number] REFERENCE VALUE 20.0 - 51.0 Test Performed by: [facility] [address] [place] [address] Egg Packer: Hieu Cohn M.D. 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 Rosa Elena Azck, N39.0 Urinary tract Assoc,pc HYDROGEOLOGY PROFESSOR infection, site Hospitalists not specified B96.20 Unsp Escherichia coli as the cause of diseases classd elswhr 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 I10 Essential (primary) hypertension Office Visit 10/11/2019 12:58p [facility] K56.609 Unsp intestnl Assoc,pc [place], HYDROGEOLOGY PROFESSOR obst, unsp as Hospitalists to partial versus complete obst 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 N39.0 Urinary tract infection, site not specified B96.20 Unsp Escherichia coli as the cause of diseases classd elswhr Office Visit 10/10/2019 12:58p [facility] K56.609 Unsp intestnl Assoc,pc [place], HYDROGEOLOGY PROFESSOR obst, unsp as Hospitalists to partial versus complete obst 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 N39.0 Urinary tract infection, site not specified B96.20 Unsp Escherichia coli as the cause of diseases classd elswhr Office Visit 10/09/2019 [facility] Nickie K56.609 Unsp intestnl 12:57p Assoc,[place] obst, unsp as Hospitalists to partial versus complete obst 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 N39.0 Urinary tract infection, site not specified B96.20 Unsp Escherichia coli as the cause of diseases classd elswhr R19.7 Diarrhea, unspecified [facility] K[facility]609 Unsp intestnl 12:57p Assoc,[place] obst, unsp as Hospitalists to partial versus complete obst B96.20 Unsp Escherichia coli as the cause of diseases classd elswhr N39.0 Urinary tract infection, site not specified R19.7 Diarrhea, unspecified I10 Essential (primary) hypertension Office Visit 10/08/2019 Surgical Vidal Matias K43.2 Incisional 7:00a [facility] Huang Davey MD hernia without obstruction or gangrene Office Visit 10/07/2019 [facility] Nellieshant Webb K56.609 Unsp intestnl 12:57p Assflora mo M.D. obst, unsp as to Hospitalists partial versus complete obst R11.2 Nausea with vomiting, unspecified R19.7 Diarrhea, unspecified I10 Essential (primary) hypertension Office Visit 10/07/2019 Surgical Vidal Matias K43.2 Incisional 7:00a [facility] Huang Davey MD hernia without obstruction or gangrene Office Visit 10/03/2019 [facility] Nellie Webb, K56.609 Unsp intestnl 1:10p Assflora mo M.D. obst, unsp as to Hospitalists partial versus complete obst Office Visit 10/02/2019 [facility] Nellie Webb, K56.609 Unsp intestnl 1:10p Assocflora M.D. obst, unsp as to Hospitalists partial versus complete obst Office Visit 10/02/2019 Surgical Travis Muñoz K42.0 Umbilical hernia 7:00a [facility] Abbasi PA-C with obstruction, without gangrene Office Visit 10/01/2019 [facility] Michelle Timmons, K56.609 Unsp intestnl 1:10p Assoc,flora ThomasOAnthony obst, unsp as to Hospitalists partial versus complete obst I10 Essential (primary) hypertension Office Visit 10/01/2019 Surgical Travis Muñoz K42.0 Umbilical hernia 7:00a [facility] FIDELINA Abbasi with obstruction, without gangrene Office Visit 09/30/2019 [facility] Michelle K56.609 Unsp intestnl 1:09p Assoc,pc Denise Timmons 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, Helminthology Teacher without gangrene K57.30 Dvrtclos of lg int w/o perforation or abscess w/o bleeding R19.7 Diarrhea, unspecified Office Visit 2019 3:45p [facility] Dell Cope, R41.3 Other [address] [facility] Hay R25.1 Tremor, unspecified R29.6 Repeated falls Office Visit 04/25/2019 1:30p [facility] Manan Muniz R41.[address] [facility] N.PAnthony R53.83 Other fatigue R25.1 Tremor, unspecified Assessments Date Code Description Provider 10/13/2019 K56.609 Unspecified intestinal obstruction, Rosa Elena Zack, HYDROGEOLOGY PROFESSOR unspecified as to partial versus complete obstruction 10/13/2019 N39.0 Urinary tract infection, site not Rosa Elena Zack, HYDROGEOLOGY PROFESSOR specified 10/13/2019 B96.20 Unspecified Escherichia coli [E. coli] as Rosa Elena Zack, HYDROGEOLOGY PROFESSOR the cause of diseases classified elsewhere 10/13/2019 F03.91 Unspecified dementia with behavioral Rosa Elena Zack, HYDROGEOLOGY PROFESSOR disturbance 10/12/2019 N39.0 Urinary tract infection, site not Rosa Elena Zack, HYDROGEOLOGY PROFESSOR specified 10/12/2019 B96.20 Unspecified Escherichia coli [E. coli] as Rosa Elena Zack, HYDROGEOLOGY PROFESSOR the cause of diseases classified elsewhere 10/12/2019 F03.91 Unspecified dementia with behavioral Rosa Elena Zack, HYDROGEOLOGY PROFESSOR disturbance 10/12/2019 I10 Essential (primary) hypertension Rosa Elena Zack, HYDROGEOLOGY PROFESSOR 10/11/2019 K56.609 Unspecified intestinal obstruction, Kellen Staples, HYDROGEOLOGY PROFESSOR unspecified as to partial versus complete obstruction 10/11/2019 F03.91 Unspecified dementia with behavioral Kellen Staples, HYDROGEOLOGY PROFESSOR disturbance 10/11/2019 N39.0 Urinary tract infection, site not Kellen Staples, HYDROGEOLOGY PROFESSOR specified 10/11/2019 B96.20 Unspecified Escherichia coli [E. coli] as Kellen Staples NP the cause of diseases classified elsewhere 10/10/2019 K43.2 Incisional hernia without obstruction or Vidal Davey MD gangrene 10/10/2019 K56.609 Unspecified intestinal obstruction, Kellen Staples HYDROGEOLOGY PROFESSOR unspecified as to partial versus complete obstruction 10/10/2019 F03.91 Unspecified dementia with behavioral Kellen Staples, HYDROGEOLOGY PROFESSOR disturbance 10/10/2019 N39.0 Urinary tract infection, site not Kellen Staples, HYDROGEOLOGY PROFESSOR specified 10/10/2019 B96.20 Unspecified Escherichia coli [E. [...] 8:15 am - Dell Cope M.D. at [facility]2019 - Dell Cope M.D.R41.3 Other amnesiaNew Medication:Donepezil HCL 5 mg - 1 tablet twice a dayDonepezil HCL 10 mg - 1 by mouth every dayNew Therapy:Physical TherapyFollow up:Follow up in 3 monthsRecommendations:The plan is to increase her her Donepezil to 10mg once a day. Use your walker AT ALL CXKWBW53.1 Tremor, unspecifiedNew Therapy:Physical TpdezclM84.6 Repeated falls Functional Status Description No Information Available Mental Status Description No Information Available Referrals Refer to Reason for Referral Status Appt Date [facility] [address] [place] [address] [phone]
--- OUTSIDE RECORDS SUMMARY | 2019-11-20 12:02 | XMS REPORT | Continuity of Care Document ---
:1930 External Reference #:[id number] Author Name Sagar Mccoy PA-C (transmitted by agent of provider Zara Kate) Address [address] [place] [address] [place] [address] Care Team Providers Name Role Phone Other Physician Practices Care Team Information Intensive Care Unit Registered Nurse Unavailable Marcel Salinas D.O. - Family Medicine Care Team Information Intensive Care Unit Registered Nurse [phone] Problems Active Problems Provider Date Amnesia Dell [...] one by mouth Unknown Carb-Cholecalciferol twice daily [id number] Tablets Citalopram Hydrobromide 1 by mouth Unknown [...] Result H/L Range Note CBC Auto 04/25/2019 [facility] White Blood 4.0 10^3/uL Normal 3.5-10.[address] [place] [address] [phone] Red Blood Count 3.76 10^6/uL Normal 3.70-4.87 [...] Blood Cells % 0.1 Comp Metabolic 04/25/2019 [facility] Sodium 135 mmol/L Normal 135-[address] [place] [address] [phone] Potassium 4.2 mmol/L Normal 3.5-5.0 Chloride 100 [...] Egfr 100.5 >60 1 Laboratory test 04/25/2019 [facility] Erythrocyte Sed 52 mm/Hr High 0-29 [address] [place] [address] [phone] C Reactive Protein 1.14 mg/L Normal <8.01 3 Vitamin B12 04/25/2019 [facility] Vitamin B12 334 pg/mL Normal 180-914 [address] F[address] [place] [address] [phone] Folic Acid (Folate) 8.88 ng/mL >3.99 5 Laboratory 04/25/2019 [facility] TSH (Thyroid 1.32 Normal 0.34 -5.60 6 test finding [address] Stim Horm) mcIU/[place] [address] [phone] Free T4 (Free Thyroxine) 0.66 ng/dL Normal [...] dialysis) 2 Copy Result to: MARCEL SALINAS ([id number]) 3 Copy Result to: MARCEL SALINAS ([id number]) 4 Normal Range 180 to 914 Indeterminate Range 145 to 180 Deficient Range <145 5 Copy Result to: MARCEL SALINAS ([id number]) 6 Copy Result to: MARCEL SALINAS ([id number]) 7 Copy Result to: MARCEL SALINSA ([id number]) 8 ADDITIONAL INFORMATION This test was developed and its performance characteristics determined by [facility] in a manner consistent with CLIA requirements. This test has not been cleared or approved by the U.S. Food and Drug Administration. Test Performed by: [facility] [place] [address] [place] [address] Electric Meter Installer: Hieu Cohn M.D. Ph.D.; CLIA# [id number] 9 REFERENCE VALUE 20.0 - 51.0 Test Performed by: [facility] - [facility] [address] [place] [address] Electric Meter Installer: Hieu Cohn M.D. Ph.D.; CLIA# [id number] Procedures Date Code Description Status 10/08/2019 88052 ECHO Transthorasic Realtime 2D W Doppler & Color Flow Hosp Completed Medical Devices Description No Information Available Encounters Type Date Location Provider Dx Diagnosis Office Visit 10/13/2019 [facility] Rosa Elena Dixon, NURSING HOME ADMINISTRATOR K56.609 Unsp intestnl 2:59p Assoc,pc obst, unsp as to Hospitalists partial versus complete obst N39.0 Urinary tract infection, site not specified B96.20 Unsp Escherichia coli as the cause of diseases classd elswhr 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 Office Visit 10/13/2019 Surgical Sagar Huizar K43.2 Incisional hernia 7:00a [facility] Mccoy PA-C without obstruction or gangrene Office Visit 10/12/2019 [facility] Rosa Elena Zack, N39.0 Urinary tract 12:59p Assoc,pc NURSING HOME ADMINISTRATOR infection, site Hospitalists not specified B96.20 Unsp Escherichia coli as the cause of diseases classd elswhr 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 I10 Essential (primary) hypertension [facility] K[facility]609 Unsp intestnl Assoc,pc MC Staples obst, unsp as Hospitalists to partial versus complete obst 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 N39.0 Urinary tract infection, site not specified B96.20 Unsp Escherichia coli as the cause of diseases classd elswhr Office Visit 10/10/2019 12:58p [facility] K56.609 Unsp intestnl Assoc,flora Staples NP obst, unsp as Hospitalists to partial versus complete obst 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 N39.0 Urinary tract infection, site not specified B96.20 Unsp Escherichia coli as the cause of diseases classd elswhr Office Visit 10/10/2019 Surgical Vidal S. K43.2 Incisional 7:00a [facility] Davey MD hernia without obstruction or gangrene Office Visit 10/09/2019 [facility] K56.609 Unsp intestnl 12:57p Assflora mo PA obst, unsp as to Hospitalists partial versus complete obst 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 N39.0 Urinary tract infection, site not specified B96.20 Unsp Escherichia coli as the cause of diseases classd elswhr R19.7 Diarrhea, unspecified Office Visit 10/08/2019 [facility] K56.609 Unsp intestnl 12:57p Assflora mo PA obst, unsp as Hospitalists to partial versus complete obst B96.20 Unsp Escherichia coli as the cause of diseases classd elswhr N39.0 Urinary tract infection, site not specified R19.7 Diarrhea, unspecified I10 Essential (primary) hypertension Office Visit 10/08/2019 Surgical Vidal S. K43.2 Incisional 7:00a [facility] Dave[facility] MD hernia without obstruction or gangrene Office Visit 10/07/2019 Surgical Vidal SAnthony K43.2 Incisional 7:00a [facility] MD hernia without obstruction or gangrene Office Visit 10/07/2019 [facility] Nellie Webb, K56.609 Unsp intestnl 12:57p flora Zimmer M.D. obst, unsp as to Hospitalists partial versus complete obst R11.2 Nausea with vomiting, unspecified R19.7 Diarrhea, unspecified I10 Essential (primary) hypertension Office Visit 10/03/2019 [facility] Nellie Webb, K56.609 Unsp intestnl 1:10p flora Zimmer M.D. obst, unsp as Hospitalists to partial versus complete obst Office Visit 10/02/2019 [facility] Nellie Webb, K56.609 Unsp intestnl 1:10p Assflora mo M.D. obst, unsrin as Hospitalists to partial versus complete obst Office Visit 10/02/2019 Surgical Travis Muñoz K42.0 Umbilical 7:00a [facility] Abbasi PA-C hernia with obstruction, without gangrene Office Visit 10/01/2019 [facility] Michelle Timmons K56.609 Unsp intestnl 1:10p Assoc,flora Walker obst, unsp as Hospitalists to partial versus complete obst I10 Essential (primary) hypertension Office Visit 10/01/2019 Surgical Travis Muñoz K42.0 Umbilical hernia 7:00a [facility] FIDELINA Abbasi with obstruction, without gangrene Office Visit 09/30/2019 [facility] Michelle K56.609 Unsp intestnl 1:09p Assoc,flora Timmons D.O. 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, Telephone Sales Agent without gangrene K57.30 Dvrtclos of lg int w/o perforation or abscess w/o bleeding R19.7 Diarrhea, unspecified Office Visit 2019 3:45p [facility] Dell Cope, R41.3 Other amnesia [facility] Hay R25.1 Tremor, unspecified R29.6 Repeated falls Office Visit 04/25/2019 1:30p [facility] Manan Muniz R41.3 Other amnesia [facility] N.PAnthony R53.83 Other fatigue R25.1 Tremor, unspecified Assessments Date Code Description Provider 10/13/2019 K43.2 Incisional hernia without obstruction or Sagar Mccoy PA-C gangrene 10/13/2019 K56.609 Unspecified intestinal obstruction, Rosa Elena Zack, NURSING HOME ADMINISTRATOR unspecified as to partial versus complete obstruction 10/13/2019 N39.0 Urinary tract infection, site not Rosa Elena Zack, NURSING HOME ADMINISTRATOR specified 10/13/2019 B96.20 Unspecified Escherichia coli [E. coli] Rosa Elena Zack, NURSING HOME ADMINISTRATOR as the cause of diseases classified elsewhere 10/13/2019 F03.91 Unspecified dementia with behavioral Rosa Elena Zack, NURSING HOME ADMINISTRATOR disturbance 10/12/2019 N39.0 Urinary tract infection, site not Rosa Elena Zack, NURSING HOME ADMINISTRATOR specified 10/12/2019 B96.20 Unspecified Escherichia coli [E. coli] Rosa Elena Zack, NURSING HOME ADMINISTRATOR as the cause of diseases classified elsewhere 10/12/2019 F03.91 Unspecified dementia with behavioral Rosa Elena Zack, NURSING HOME ADMINISTRATOR disturbance 10/12/2019 I10 Essential (primary) hypertension Rosa Elena Zack, NURSING HOME ADMINISTRATOR 10/11/2019 K56.609 Unspecified intestinal obstruction, Kellen Staples NURSING HOME ADMINISTRATOR unspecified as to partial versus complete obstruction 10/11/2019 F03.91 Unspecified dementia with behavioral Kellen Touchsven, NURSING HOME ADMINISTRATOR disturbance 10/11/2019 N39.0 Urinary tract infection, site not Kellen Staples, NURSING HOME ADMINISTRATOR specified 10/11/2019 B96.20 Unspecified Escherichia coli [E. coli] Kellen Staples NP as the cause of diseases classified elsewhere 10/10/2019 K43.2 Incisional hernia without obstruction or Vidal Davey MD gangrene 10/10/2019 K56.609 Unspecified intestinal obstruction, Kellen Staples NURSING HOME ADMINISTRATOR unspecified as to partial versus complete obstruction 10/10/2019 F03.91 Unspecified dementia with behavioral Kellne Staples, NURSING HOME ADMINISTRATOR disturbance 10/10/2019 N39.0 Urinary tract infection, site not Kellen Staples, NURSING HOME ADMINISTRATOR specified 10/10/2019 B96.20 Unspecified Escherichia coli [E. coli] Kellen Staples NP as the cause of diseases classified elsewhere 10/09/2019 K56.609 Unspecified intestinal obstruction, [place] Hayden unspecified as to partial versus complete obstruction 10/09/2019 F03.91 Unspecified dementia with behavioral [place] Hayden disturbance 10/09/2019 N39.0 Urinary tract infection, site not [place] Hayden specified 10/09/2019 B96.20 Unspecified Escherichia coli [E. coli] [place] Hayden as the cause of diseases classified elsewhere 10/09/2019 R19.7 Diarrhea, unspecified [place] Hayden 10/08/2019 K43.2 Incisional hernia without obstruction or Vidal Davey MD gangrene 10/08/2019 K56.609 Unspecified intestinal obstruction, [place] Hayden unspecified as to partial versus complete obstruction 10/08/2019 R94.31 Abnormal electrocardiogram [ECG] [EKG] Marya Guerra M.D. 10/08/2019 B96.20 Unspecified Escherichia coli [E. coli] [place] Hayden as the cause of diseases classified elsewhere 10/08/2019 [...] obstruction 10/02/2019 K42.0 Umbilical hernia with obstruction, Travis Abbasi PA-C without gangrene 10/01/2019 K56.609 Unspecified intestinal obstruction, William PeresOAnthony unspecified as to partial versus complete obstruction 10/01/2019 K42.0 Umbilical hernia with obstruction, Travis Abbasi PA-C without gangrene 10/01/2019 I10 Essential (primary) hypertension Michelle Timmons DAnthonyO. 09/30/2019 K56.609 Unspecified intestinal obstruction, Michelle Timmons D.O. unspecified as to partial versus complete obstruction 09/30/2019 K42.0 Umbilical hernia with obstruction, Vidal Davey MD without gangrene 09/30/2019 I10 Essential (primary) hypertension Michelle Timmons D.O. 09/30/2019 K57.30 Diverticulosis of large intestine Vidal Davey MD without perforation or abscess without bleeding 09/30/2019 F03.90 Unspecified dementia without behavioral Michelle Timmons D.O. disturbance 09/30/2019 R19.7 Diarrhea, unspecified Vidal Davey MD 2019 R41.3 Other amnesia Dell Cope M.D. 2019 R25.1 Tremor, unspecified Dell Cope M.D. 2019 R29.6 Repeated falls Dell Cope M.D. 04/25/2019 R41.3 Other amnesia Manan Muniz, N.P. 04/25/2019 R53.83 Other fatigue Manan Flavio, N.P. 04/25/2019 R25.1 Tremor, unspecified Manan Muniz, N.P. Plan of Treatment Future Appointment(s):02/20/2020 8:15 am - Dell Cope M.D. at [facility]2019 - Dell Cope M.D.R41.3 Other amnesiaNew Medication:Donepezil HCL 5 mg - 1 tablet twice a dayDonepezil HCL 10 mg - 1 by mouth every dayNew Therapy:Physical TherapyFollow up:Follow up in 3 monthsRecommendations:The plan is to increase her her Donepezil to 10mg once a day. Use your walker AT ALL LIUPOA14.1 Tremor, unspecifiedNew Therapy:Physical WpvknyvB13.6 Repeated falls Functional Status Description No Information Available Mental Status Description No Information Available Referrals Refer to Reason for Referral Status Appt Date [facility] [address] [place] [address] [phone]
--- OUTSIDE RECORDS SUMMARY | 2019-11-20 12:02 | XMS REPORT | Continuity of Care Document ---
:1930 External Reference #:[id number] Author Name Elma Eliane M.D. (transmitted by agent of provider Ita Magana) Address [address] [facility] [address] [place] [address] Care Team Providers Name Role Phone Other Physician Practices Care Team Information Nurse Tech Unavailable Marcel Guadarrama D.O. - Family Medicine Care Team Information Nurse Tech Problems Active Problems Provider Date Amnesia Dell [...] one by mouth Unknown Carb-Cholecalciferol twice daily [id number] Tablets Citalopram Hydrobromide 1 by mouth Unknown [...] kg/m2 Results Description No Information Available Procedures Date Code Description Status 10/11/2019 25326 EKG, Interpretation Only Completed 10/08/2019 17792 ECHO Transthorasic Realtime 2D W Doppler & Color Flow Hosp Completed Medical Devices Description No Information Available Encounters Type Date Location Provider Dx Diagnosis Office Visit 10/13/2019 [facility] Rosa Elena Dixon NP K56.609 Unsp intestnl 2:59p Assoc,pc obst, unsp as to Hospitalists partial versus complete obst N39.0 Urinary tract infection, site not specified B96.20 Unsp Escherichia coli as the cause of diseases classd elswhr 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 Office Visit 10/13/2019 Surgical Sagar Huizar K43.2 Incisional hernia 7:00a [facility] PA-C without obstruction or gangrene Office Visit 10/12/2019 [facility] Rosa Elena Zack, N39.0 Urinary tract 12:59p Assoc,pc EYE CARE PROFESSIONAL infection, site Hospitalists not specified B96.20 Unsp Escherichia coli as the cause of diseases classd elswhr 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 I10 Essential (primary) hypertension Office Visit 10/11/2019 12:58p [facility] K56.609 Unsp intestnl Assoc,pc [place], EYE CARE PROFESSIONAL obst, unsp as Hospitalists to partial versus complete obst 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 N39.0 Urinary tract infection, site not specified B96.20 Unsp Escherichia coli as the cause of diseases classd elswhr Office Visit 10/10/2019 12:58p [facility] K56.609 Unsp intestnl Assoc,pc [place], EYE CARE PROFESSIONAL obst, unsp as Hospitalists to partial versus complete obst 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 N39.0 Urinary tract infection, site not specified B96.20 Unsp Escherichia coli as the cause of diseases classd elswhr Office Visit 10/10/2019 Surgical Vidal Matias K43.2 Incisional 7:00a [facility] Davey MD hernia without obstruction or gangrene Office Visit 10/09/2019 [facility] K56.609 Unsp intestnl 12:57p Assoc,pc Calvin, PA obst, unsp as to Hospitalists partial versus complete obst 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 N39.0 Urinary tract infection, site not specified B96.20 Unsp Escherichia coli as the cause of diseases classd elswhr R19.7 Diarrhea, unspecified Office Visit 10/08/2019 Surgical Vidal Matias K43.2 Incisional 7:00a [facility] Davey MD hernia without obstruction or gangrene Office Visit 10/08/2019 [facility] K56.609 Unsp intestnl 12:57p Assoc,pc Calvin, [place] obst, unsp as to Hospitalists partial versus complete obst B96.20 Unsp Escherichia coli as the cause of diseases classd elswhr N39.0 Urinary tract infection, site not specified R19.7 Diarrhea, unspecified I10 Essential (primary) hypertension [facility] K56.609 Unsp intestnl Assoc,pc Hay obst, unsp as Hospitalists to partial versus complete obst R11.2 Nausea with vomiting, unspecified R19.7 Diarrhea, unspecified I10 Essential (primary) hypertension Office Visit 10/07/2019 Surgical Vidal Matias K43.2 Incisional 7:00a [facility] Davey MD hernia without obstruction or gangrene [facility], K56.609 Unsp intestnl 1:10p Assoc,flora Guido obst, unsp as to Hospitalists partial versus complete obst [facility], K56.609 Unsp intestnl 1:10p Assoc,pc Hay obst, unsp as to Hospitalists partial versus complete obst Office Visit 10/02/2019 Surgical Travis Muñoz K42.0 Umbilical hernia 7:00a [facility] Abbasi PA-C with obstruction, without gangrene Office Visit 10/01/2019 [facility] Michelle Timmons K56.609 Unsp intestnl 1:10p Assoc,flora D.OAnthony obst, unsp as to Hospitalists partial versus complete obst I10 Essential (primary) hypertension Office Visit 10/01/2019 Surgical Travis Muñoz K42.0 Umbilical hernia 7:00a [facility] Abbasi PA-C with obstruction, without gangrene Office Visit 09/30/2019 [facility] Michelle K56.609 Unsp intestnl 1:09p Assocflora D.O. 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, Retail Event And Sales Assistant without gangrene K57.30 Dvrtclos of lg int w/o perforation or abscess w/o bleeding R19.7 Diarrhea, unspecified Office Visit 2019 3:45p [place] [facility] Marioshe Anatoliy, R41.3 Other amnesia Services [facility] Huang Guido R25.1 Tremor, unspecified R29.6 Repeated falls Assessments Date Code Description Provider 10/13/2019 K43.2 Incisional hernia without obstruction Sagar Mccoy PA-C or gangrene 10/13/2019 K56.609 Unspecified intestinal obstruction, Rosa Elena Zack, EYE CARE PROFESSIONAL unspecified as to partial versus complete obstruction 10/13/2019 N39.0 Urinary tract infection, site not Rosa Elena Zack, EYE CARE PROFESSIONAL specified 10/13/2019 B96.20 Unspecified Escherichia coli [E. coli] Rosa Elena Zack, EYE CARE PROFESSIONAL as the cause of diseases classified elsewhere 10/13/2019 F03.91 Unspecified dementia with behavioral Rosa Elena Zack, EYE CARE PROFESSIONAL disturbance 10/12/2019 N39.0 Urinary tract infection, site not Rosa Elena Zack, EYE CARE PROFESSIONAL specified 10/12/2019 B96.20 Unspecified Escherichia coli [E. coli] Rosa Elena Zack, EYE CARE PROFESSIONAL as the cause of diseases classified elsewhere 10/12/2019 F03.91 Unspecified dementia with behavioral Rosa Elena Zack, EYE CARE PROFESSIONAL disturbance 10/12/2019 I10 Essential (primary) hypertension Rosa Elena Zack, EYE CARE PROFESSIONAL 10/11/2019 R94.31 Abnormal electrocardiogram [ECG] [EKG] Elma Elaine M.D. 10/11/2019 K56.609 Unspecified intestinal obstruction, Kellen [place], EYE CARE PROFESSIONAL unspecified as to partial versus complete obstruction 10/11/2019 F03.91 Unspecified dementia with behavioral Kellen [place], EYE CARE PROFESSIONAL disturbance 10/11/2019 N39.0 Urinary tract infection, site not Kellen [place], EYE CARE PROFESSIONAL specified 10/11/2019 B96.20 Unspecified Escherichia coli [E. coli] Kellen Touchsven EYE CARE PROFESSIONAL as the cause of diseases classified elsewhere 10/10/2019 K43.2 Incisional hernia without obstruction Vidal Davey MD or gangrene 10/10/2019 K56.609 Unspecified intestinal obstruction, Kellendenita Staples EYE CARE PROFESSIONAL unspecified as to partial versus complete obstruction 10/10/2019 F03.91 Unspecified dementia with behavioral Kellen Staples EYE CARE PROFESSIONAL disturbance 10/10/2019 N39.0 Urinary tract infection, site not Kellen Staples EYE CARE PROFESSIONAL specified 10/10/2019 B96.20 Unspecified Escherichia coli [E. [...] Hayden 10/08/2019 K43.2 Incisional hernia without obstruction Vidal Davey MD or gangrene 10/08/2019 K56.609 Unspecified intestinal obstruction, [place] [...] Hayden 10/07/2019 K43.2 Incisional hernia without obstruction Vidal Davey MD or gangrene 10/07/2019 K56.609 Unspecified intestinal obstruction, Nellie [...] without gangrene 10/01/2019 K56.609 Unspecified intestinal obstruction, Michelle Timmons D.O. unspecified as to partial versus complete obstruction 10/01/2019 K42.0 Umbilical hernia with obstruction, Travis Abbasi PA-C without gangrene 10/01/2019 I10 Essential (primary) hypertension Michelle Timmons D.O. 09/30/2019 K56.609 Unspecified intestinal obstruction, Michelle Timmons, D.O. unspecified as to partial versus complete obstruction 09/30/2019 K42.0 Umbilical hernia with obstruction, Vidal Davey MD without gangrene 09/30/2019 I10 Essential (primary) hypertension Michelle Timmons, D.O. 09/30/2019 K57.30 Diverticulosis of large intestine Vidal Davey MD without perforation or abscess without bleeding 09/30/2019 F03.90 Unspecified dementia without Michellealicia Timmons, D.O. behavioral disturbance 09/30/2019 R19.7 Diarrhea, unspecified Vidal Davey MD 2019 R41.3 Other amnesia Dell Cope M.D. 2019 R25.1 Tremor, unspecified Dell Cope M.D. 2019 R29.6 Repeated falls Dell Cope M.D. Plan of Treatment Future Appointment(s):02/20/2020 8:15 am - Dell Cope M.D. at [facility]2019 - Dell Cope M.D.R41.3 Other amnesiaNew Medication:Donepezil HCL 5 mg - 1 tablet twice a dayDonepezil HCL 10 mg - 1 by mouth every dayNew Therapy:Physical TherapyFollow up:Follow up in 3 monthsRecommendations:The plan is to increase her her Donepezil to 10mg once a day. Use your walker AT ALL ZIQRXR30.1 Tremor, unspecifiedNew Therapy:Physical IxtgttsI16.6 Repeated falls Functional Status Description No Information Available Mental Status Description No Information Available Referrals Refer to Reason for Referral Status Appt Date [facility] [address] [place] [address] [phone]
--- OUTSIDE RECORDS SUMMARY | 2019-11-20 12:02 | XMS REPORT | Continuity of Care Document ---
:1930 External Reference #:[id number] Author Name Nellie Webb M.D. (transmitted by agent of provider Alexa Hernandez) Address [address] [place] [address] Care Team Providers Name Role Phone Other Physician Practices Care Team Information Marketing Production Specialist Unavailable Marcel Salinas D.O. - Family Medicine Care Team Information Marketing Production Specialist Problems Active Problems Provider Date Amnesia Dell [...] one by mouth Unknown Carb-Cholecalciferol twice daily [id number] Tablets Citalopram Hydrobromide 1 by mouth Unknown [...] Result H/L Range Note CBC Auto 04/25/2019 [facility] White Blood 4.0 10^3/uL Normal 3.5-10.[address] [place] [address] [phone] Red Blood Count 3.76 10^6/uL Normal 3.70-4.87 [...] Blood Cells % 0.1 Comp Metabolic 04/25/2019 [facility] Sodium 135 mmol/L Normal 135-[address] [place] [address] [phone] Potassium 4.2 mmol/L Normal 3.5-5.0 Chloride 100 [...] Egfr 100.5 >60 1 Laboratory test 04/25/2019 [facility] Erythrocyte Sed 52 mm/Hr High 0-29 [address] [place] [address] [phone] C Reactive Protein 1.14 mg/L Normal <8.01 3 Vitamin B12 04/25/2019 [facility] Vitamin B12 334 pg/mL Normal 180-914 [address] [place] [address] [phone] Folic Acid (Folate) 8.88 ng/mL >3.99 5 Laboratory 04/25/2019 [facility] TSH (Thyroid 1.32 Normal 0.34 -5.60 6 test finding [address] Stim Horm) mcIU/[place] [address] [phone] Free T4 (Free Thyroxine) 0.66 ng/dL Normal [...] dialysis) 2 Copy Result to: MARCEL SALINAS ([id number]) 3 Copy Result to: MARCEL SALINAS ([id number]) 4 Normal Range 180 to 914 Indeterminate Range 145 to 180 Deficient Range <145 5 Copy Result to: MARCEL SALINAS ([id number]) 6 Copy Result to: MARCEL SALINAS ([id number]) 7 Copy Result to: MARCEL SALINAS ([id number]) 8 ADDITIONAL INFORMATION This test was developed and its performance characteristics determined by [facility] in a manner consistent with CLIA requirements. This test has not been cleared or approved by the U.S. Food and Drug Administration. Test Performed by: [facility] - [facility] [address] [place] [address] Oil Exploration Engineer: Hieu Cohn M.D. Ph.D.; CLIA# [id number] REFERENCE VALUE 20.0 - 51.0 Test Performed by: [facility] [address] [place] [address] Oil Exploration Engineer: Hieu Cohn M.D. Ph.D.; CLIA# [id number] Procedures Date Code Description Status 10/08/2019 72493 ECHO Transthorasic Realtime 2D W Doppler & Color Flow Hosp Completed Medical Devices Description No Information Available Encounters Type Date Location Provider Dx Diagnosis Office Visit 10/12/2019 [facility] Rosa Elena Dixon NP N39.0 Urinary tract 12:59p Assoc,pc infection, site Hospitalists not specified B96.20 Unsp Escherichia coli as the cause of diseases classd elswhr 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 I10 Essential (primary) hypertension Office Visit 10/11/2019 12:58p [facility] K56.609 Unsp intestnl Ass[place] mo NP obst, unsp as Hospitalists to partial versus complete obst 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 N39.0 Urinary tract infection, site not specified B96.20 Unsp Escherichia coli as the cause of diseases classd elswhr Office Visit 10/10/2019 12:58p [facility] K56.609 Unsp intestnl Assflora mo NP obst, unsp as Hospitalists to partial versus complete obst 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 N39.0 Urinary tract infection, site not specified B96.20 Unsp Escherichia coli as the cause of diseases classd elswhr Office Visit 10/09/2019 [facility] K56.609 Unsp intestnl 12:57p Assoc,pc [place] Simpson obst, unsp as Hospitalists to partial versus complete obst 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 N39.0 Urinary tract infection, site not specified B96.20 Unsp Escherichia coli as the cause of diseases classd elswhr R19.7 Diarrhea, unspecified Office Visit 10/08/2019 [facility] Nickie K56.609 Unsp intestnl 12:57p Assoc,[place], unsp as Hospitalists to partial versus complete obst B96.20 Unsp Escherichia coli as the cause of diseases classd elswhr N39.0 Urinary tract infection, site not specified R19.7 Diarrhea, unspecified I10 Essential (primary) hypertension Office Visit 10/07/2019 12:57p [facility] Nellie Webb, K56.609 Unsp intestnl [place],flora rothman, unsp as Hospitalists to partial versus complete obst R11.2 Nausea with vomiting, unspecified R19.7 Diarrhea, unspecified I10 Essential (primary) hypertension Office Visit 10/03/2019 [facility] Nellie Webb, K56.609 Unsp intestnl 1:10p [place] mo M.D., unsp as Hospitalists to partial versus complete obst Office Visit 10/02/2019 [facility] Nellie Webb, K56.609 Unsp intestnl 1:10p flora Zimmer M.D., unsp as Hospitalists to partial versus complete obst Office Visit 10/02/2019 [facility] Travis Muñoz K42.0 Umbilical 7:00a [facility] Abb[facility] PA-C hernia with obstruction, without gangrene Office Visit 10/01/2019 [facility] Michelle Timmons K56.609 Unsp intestnl 1:10p Assocflora D.O., unsp as Hospitalists to partial versus complete obst I10 Essential (primary) hypertension Office Visit 10/01/2019 Surgical Travis Muñoz K42.0 Umbilical hernia 7:00a [facility] Abb[facility] PA-C with obstruction, without gangrene Office Visit 09/30/2019 [facility] Michelle K56.609 Unsp intestnl 1:09p Assocflora D.O. obst, unsp as to Hospitalists partial versus complete obst I10 Essential (primary) hypertension F03.90 Unspecified dementia without behavioral disturbance Office Visit 09/30/2019 Surgical VidalRyan K42.0 Umbilical hernia 7:00a [facility] MD Petar with obstruction, [facility] without gangrene K57.30 Dvrtclos of lg int w/o perforation or abscess w/o bleeding R19.7 Diarrhea, unspecified Office Visit 2019 3:45p [facility] Dell Cope, R41.3 Other amnesia [facility] Hay R25.1 Tremor, unspecified R29.6 Repeated falls Office Visit 04/25/2019 1:30p [facility] Manan Flavio, R41.3 Other amnesia [facility] N.PAnthony R53.83 Other fatigue R25.1 Tremor, unspecified Assessments Date Code Description Provider 10/13/2019 K56.609 Unspecified intestinal obstruction, Rosa Elena Zack, PRINT CONTROLLER unspecified as to partial versus complete obstruction 10/13/2019 N39.0 Urinary tract infection, site not Rosa Elena Zack, PRINT CONTROLLER specified 10/13/2019 B96.20 Unspecified Escherichia coli [E. coli] as Rosa Elena Zack, PRINT CONTROLLER the cause of diseases classified elsewhere 10/13/2019 F03.91 Unspecified dementia with behavioral Rosa Elena Zack, PRINT CONTROLLER disturbance 10/12/2019 N39.0 Urinary tract infection, site not Rosa Elena Zack, PRINT CONTROLLER specified 10/12/2019 B96.20 Unspecified Escherichia coli [E. coli] as Rosa Elena Zack, PRINT CONTROLLER the cause of diseases classified elsewhere 10/12/2019 F03.91 Unspecified dementia with behavioral Rosa Elena Zack, PRINT CONTROLLER disturbance 10/12/2019 I10 Essential (primary) hypertension Rosa Elena Zack, PRINT CONTROLLER 10/11/2019 K56.609 Unspecified intestinal obstruction, Kellendenita Staples PRINT CONTROLLER unspecified as to partial versus complete obstruction 10/11/2019 F03.91 Unspecified dementia with behavioral Kellen Touchton, PRINT CONTROLLER disturbance 10/11/2019 N39.0 Urinary tract infection, site not Kellen Touchton, PRINT CONTROLLER specified 10/11/2019 B96.20 Unspecified Escherichia coli [E. coli] as Kellen Staples NP the cause of diseases classified elsewhere 10/10/2019 K56.609 Unspecified intestinal obstruction, Kellen Bel, PRINT CONTROLLER unspecified as to partial versus complete obstruction 10/10/2019 F03.91 Unspecified dementia with behavioral Kellen Staples NP disturbance 10/10/2019 N39.0 Urinary tract infection, site not Kellen Staples NP specified 10/10/2019 B96.20 Unspecified Escherichia coli [E. [...] William PeresO. 09/30/2019 K56.609 Unspecified intestinal obstruction, William PeresOAnthony unspecified as to partial versus complete obstruction 09/30/2019 K42.0 Umbilical hernia with obstruction, without Vidal Davey MD gangrene 09/30/2019 I10 Essential (primary) hypertension Netta Peres.O. 09/30/2019 K57.30 Diverticulosis of large intestine without Vidal Davey MD perforation or abscess without bleeding 09/30/2019 F03.90 Unspecified dementia without behavioral William PeresO. disturbance 09/30/2019 R19.7 Diarrhea, unspecified Vidal Davey MD 2019 R41.3 Other amnesia Dell Cope M.D. 2019 R25.1 Tremor, unspecified Dell Cope M.D. 2019 R29.6 Repeated falls Dell Cope M.D. 04/25/2019 R41.3 Other amnesia Manan Muniz, N.P. 04/25/2019 R53.83 Other fatigue Manan Muniz, N.P. 04/25/2019 R25.1 Tremor, unspecified Manan Muniz, N.P. Plan of Treatment Future Appointment(s):10/22/2019 3:00 pm - Vidal Davey MD at [facility]02/20/2020 8:15 am - Dell Cope M.D. at [facility]2019 - Dell Cope M.D.R41.3 Other amnesiaNew Medication:Donepezil HCL 5 mg - 1 tablet twice a dayDonepezil HCL 10 mg - 1 by mouth every dayNew Therapy:Physical TherapyFollow up:Follow up in 3 monthsRecommendations:The plan is to increase her her Donepezil to 10mg once a day. Use your walker AT ALL DSTTXR90.1 Tremor, unspecifiedNew Therapy:Physical HqxzcrfL17.6 Repeated falls Functional Status Description No Information Available Mental Status Description No Information Available Referrals Refer to Reason for Referral Status Appt Date [facility] [address] [place] [address] [phone]
--- OUTSIDE RECORDS SUMMARY | 2019-11-20 12:02 | XMS REPORT | Continuity of Care Document ---
:1930 External Reference #:[id number] Author Name Vidal Davey MD (transmitted by agent of provider Zara Kate) Address [address] [place] [address] Care Team Providers Name Role Phone Other Physician Practices Care Team Information Hardware Sales Assistant Unavailable Marcel Salinas D.O. - Family Medicine Care Team Information Hardware Sales Assistant Problems Active Problems Provider Date Amnesia Dell [...] one by mouth Unknown Carb-Cholecalciferol twice daily [id number] Tablets Citalopram Hydrobromide 1 by mouth Unknown [...] Result H/L Range Note CBC Auto 04/25/2019 [facility] White Blood 4.0 10^3/uL Normal 3.5-10.[address] [place] [address] [phone] Red Blood Count 3.76 10^6/uL Normal 3.70-4.87 [...] Blood Cells % 0.1 Comp Metabolic 04/25/2019 [facility] Sodium 135 mmol/L Normal 135-[address] [place] [address] [phone] Potassium 4.2 mmol/L Normal 3.5-5.0 Chloride 100 [...] Egfr 100.5 >60 1 Laboratory test 04/25/2019 [facility] Erythrocyte Sed 52 mm/Hr High 0-29 [address] [place] [address] [phone] C Reactive Protein 1.14 mg/L Normal <8.01 3 Vitamin B12 04/25/2019 [facility] Vitamin B12 334 pg/mL Normal 180-914 4 And Folate [address] [place] [address] [phone] Folic Acid (Folate) 8.88 ng/mL >3.99 5 Laboratory 04/25/2019 [facility] TSH (Thyroid 1.32 Normal 0.34 -5.60 6 test finding [address] Stim Horm) mcIU/[place] [address] [phone] Free T4 (Free Thyroxine) 0.66 ng/dL Normal [...] dialysis) 2 Copy Result to: MARCEL SALINAS ([id number]) 3 Copy Result to: MARCEL SALINAS ([id number]) 4 Normal Range 180 to 914 Indeterminate Range 145 to 180 Deficient Range <145 5 Copy Result to: MARCEL SALINAS ([id number]) 6 Copy Result to: MARCEL SALINAS ([id number]) 7 Copy Result to: MARCEL SALINAS ([id number]) 8 ADDITIONAL INFORMATION This test was developed and its performance characteristics determined by [facility] in a manner consistent with CLIA requirements. This test has not been cleared or approved by the U.S. Food and Drug Administration. Test Performed by: [facility] [address] [place] [address] Line Welder: Hieu Cohn M.D. Ph.D.; CLIA# [id number] REFERENCE VALUE 20.0 - 51.0 Test Performed by: [facility] [address] [place] [address] Line Welder: Hieu Cohn M.D. 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 Office Visit 10/12/2019 12:59p [facility] Rosa Elena Zack, N39.0 Urinary tract Assoc,pc RETAIL DELIVERY DRIVER infection, site Hospitalists not specified B96.20 Unsp Escherichia coli as the cause of diseases classd elswhr 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 I10 Essential (primary) hypertension Office Visit 10/11/2019 12:58p [facility] K56.609 Unsp intestnl Assoc,pc Touchsven, RETAIL DELIVERY DRIVER obst, unsp as Hospitalists to partial versus complete obst 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 N39.0 Urinary tract infection, site not specified B96.20 Unsp Escherichia coli as the cause of diseases classd elswhr Office Visit 10/10/2019 12:58p [facility] K56.609 Unsp intestnl Assoc,pc Touchsven, RETAIL DELIVERY DRIVER obst, unsp as Hospitalists to partial versus complete obst 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 N39.0 Urinary tract infection, site not specified B96.20 Unsp Escherichia coli as the cause of diseases classd elswhr Office Visit 10/10/2019 Surgical Vidal Matias K43.2 Incisional 7:00a [facility] Davey MD hernia without obstruction or gangrene Office Visit 10/09/2019 [facility] K56.609 Unsp intestnl 12:57p Assflora mo PA obst, unsp as to Hospitalists partial versus complete obst 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 N39.0 Urinary tract infection, site not specified B96.20 Unsp Escherichia coli as the cause of diseases classd elswhr R19.7 Diarrhea, unspecified Office Visit 10/08/2019 [facility] K56.609 Unsp intestnl 12:57p Ass[place] mo PA obst, unsp as Hospitalists to partial versus complete obst B96.20 Unsp Escherichia coli as the cause of diseases classd elswhr N39.0 Urinary tract infection, site not specified R19.7 Diarrhea, unspecified I10 Essential (primary) hypertension Office Visit 10/08/2019 Surgical Vidal Matias K43.2 Incisional 7:00a [facility] Davey MD hernia without obstruction or gangrene Office Visit 10/07/2019 [place] K43.2 Incisional 7:00a [facility] Davey MD hernia without obstruction or gangrene Office Visit 10/07/2019 [facility] Nellie Webb K56.609 Unsp intestnl 12:57p flora Zimmer M.D. obst, unsp as to Hospitalists partial versus complete obst R11.2 Nausea with vomiting, unspecified R19.7 Diarrhea, unspecified I10 Essential (primary) hypertension Office Visit 10/03/2019 [facility] Nellie Webb K56.609 Unsp intestnl 1:10p flora Zimmer M.D., unsp as Hospitalists to partial versus complete obst Office Visit 10/02/2019 [facility] Nellie Webb K56.609 Unsp intestnl 1:10p flora Zimmer M.D. obst, unsp as Hospitalists to partial versus complete obst Office Visit 10/02/2019 Surgical Travis Muñoz K42.0 Umbilical 7:00a [facility] FIDELINA Abbasi hernia with obstruction, without gangrene Office Visit 10/01/2019 [facility] Michelle Timmons K56.609 Uns intestnl 1:10p Assoc,flora Walker obst, unsp as Hospitalists to partial versus complete obst I10 Essential (primary) hypertension Office Visit 10/01/2019 Surgical Travis Muñoz K42.0 Umbilical hernia 7:00a [facility] FIDELINA Abbasi with obstruction, without gangrene Office Visit 09/30/2019 [facility] Michelle K56.609 Uns intestnl 1:09p Assoc,flora Timmons D.O. 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, [facility] without gangrene K57.30 Dvrtclos of lg int w/o perforation or abscess w/o bleeding R19.7 Diarrhea, unspecified Office Visit 2019 3:45p [facility] Dell Cope R41.3 Other amnesia [facility] Hay R25.1 Tremor, unspecified R29.6 Repeated falls Office Visit 04/25/2019 1:30p [facility] Manan Muniz R41.3 Other am[facility]ia [facility] N.PAnthony R53.83 Other fatigue R25.1 Tremor, unspecified Assessments Date Code Description Provider 10/13/2019 K43.2 Incisional hernia without obstruction or Sagar Mccoy PA-C gangrene 10/13/2019 K56.609 Unspecified intestinal obstruction, Rosa Elena Zack, RETAIL DELIVERY DRIVER unspecified as to partial versus complete obstruction 10/13/2019 N39.0 Urinary tract infection, site not Rosa Elena Zack, RETAIL DELIVERY DRIVER specified 10/13/2019 B96.20 Unspecified Escherichia coli [E. coli] Rosa Elena Zack, RETAIL DELIVERY DRIVER as the cause of diseases classified elsewhere 10/13/2019 F03.91 Unspecified dementia with behavioral Rosa Elena Zack, RETAIL DELIVERY DRIVER disturbance 10/12/2019 N39.0 Urinary tract infection, site not Rosa Elena Zack, RETAIL DELIVERY DRIVER specified 10/12/2019 B96.20 Unspecified Escherichia coli [E. coli] Rosa Elena Zack, RETAIL DELIVERY DRIVER as the cause of diseases classified elsewhere 10/12/2019 F03.91 Unspecified dementia with behavioral Rosa Elena Zack, RETAIL DELIVERY DRIVER disturbance 10/12/2019 I10 Essential (primary) hypertension Rosa Elena Zack, RETAIL DELIVERY DRIVER 10/11/2019 K56.609 Unspecified intestinal obstruction, Kellen Touchton, RETAIL DELIVERY DRIVER unspecified as to partial versus complete obstruction 10/11/2019 F03.91 Unspecified dementia with behavioral Kellen Touchton, RETAIL DELIVERY DRIVER disturbance 10/11/2019 N39.0 Urinary tract infection, site not Kellen Touchton, RETAIL DELIVERY DRIVER specified 10/11/2019 B96.20 Unspecified Escherichia coli [E. coli] Kellen Staples RETAIL DELIVERY DRIVER as the cause of diseases classified elsewhere 10/10/2019 K43.2 Incisional hernia without obstruction or Vidal Davey MD gangrene 10/10/2019 K56.609 Unspecified intestinal obstruction, Kellen Touchsven, RETAIL DELIVERY DRIVER unspecified as to partial versus complete obstruction 10/10/2019 F03.91 Unspecified dementia with behavioral Kellen Touchsven, RETAIL DELIVERY DRIVER disturbance 10/10/2019 N39.0 Urinary tract infection, site not Kellen Touchton, RETAIL DELIVERY DRIVER specified 10/10/2019 B96.20 Unspecified Escherichia coli [E. coli] Kellen Staples RETAIL DELIVERY DRIVER as the cause of diseases classified elsewhere [...] 10/01/2019 K56.609 Unspecified intestinal obstruction, Michelle Timmons D.OAnthony unspecified as to partial versus complete obstruction 10/01/2019 K42.0 Umbilical hernia with obstruction, Travis Abbasi PA-C without gangrene 10/01/2019 I10 Essential (primary) hypertension Michelle Timmons D.O. 09/30/2019 K56.609 Unspecified intestinal obstruction, Michelle Timmons [...] 8:15 am - Dell Cope M.D. at [facility]2019 - Dell Cope M.D.R41.3 Other amnesiaNew Medication:Donepezil HCL 5 mg - 1 tablet twice a dayDonepezil HCL 10 mg - 1 by mouth every dayNew Therapy:Physical TherapyFollow up:Follow up in 3 monthsRecommendations:The plan is to increase her her Donepezil to 10mg once a day. Use your walker AT ALL SJTEYP77.1 Tremor, unspecifiedNew Therapy:Physical SgfumnaB08.6 Repeated falls Functional Status Description No Information Available Mental Status Description No Information Available Referrals Refer to Reason for Referral Status Appt Date [facility] [address] [place] [address] [phone]
--- OUTSIDE RECORDS SUMMARY | 2019-11-20 12:03 | XMS REPORT | Continuity of Care Document ---
:1930 External Reference #:[id number] Author Name ORLANDO Hayden (transmitted by agent of provider Alexa Hernandez) Address [address] [place] [address] Care Team Providers Name Role Phone Other Physician Practices Care Team Information Account Services Analyst Unavailable Marcel Salinas D.O. - Family Medicine Care Team Information Account Services Analyst Problems Active Problems Provider Date Amnesia Dell [...] one by mouth Unknown Carb-Cholecalciferol twice daily [id number] Tablets Citalopram Hydrobromide 1 by mouth Unknown [...] Result H/L Range Note CBC Auto 04/25/2019 [facility] White Blood 4.0 10^3/uL Normal 3.5-10.[address] [place] [address] [phone] Red Blood Count 3.76 10^6/uL Normal 3.70-4.87 [...] Blood Cells % 0.1 Comp Metabolic 04/25/2019 [facility] Sodium 135 mmol/L Normal 135-[address] [place] [address] [phone] Potassium 4.2 mmol/L Normal 3.5-5.0 Chloride 100 [...] Egfr 100.5 >60 1 Laboratory test 04/25/2019 [facility] Erythrocyte Sed 52 mm/Hr High 0-29 [address] [place] [address] [phone] C Reactive Protein 1.14 mg/L Normal <8.01 3 Vitamin B12 04/25/2019 [facility] Vitamin B12 334 pg/mL Normal 180-914 [address] [place] [address] [phone] Folic Acid (Folate) 8.88 ng/mL >3.99 5 Laboratory 04/25/2019 [facility] TSH (Thyroid 1.32 Normal 0.34 -5.60 6 test finding [address] Stim Horm) mcIU/[place] [address] [phone] Free T4 (Free Thyroxine) 0.66 ng/dL Normal [...] dialysis) 2 Copy Result to: MARCEL SALINAS ([id number]) 3 Copy Result to: MARCEL SALINAS ([id number]) 4 Normal Range 180 to 914 Indeterminate Range 145 to 180 Deficient Range <145 5 Copy Result to: MARCEL SALINAS ([id number]) 6 Copy Result to: MARCEL SALINAS ([id number]) 7 Copy Result to: MARCEL SALINAS ([id number]) 8 ADDITIONAL INFORMATION This test was developed and its performance characteristics determined by [facility] in a manner consistent with CLIA requirements. This test has not been cleared or approved by the U.S. Food and Drug Administration. Test Performed by: [facility] [address] [place] [address] Yarn Dry Room Worker: Hieu Cohn M.D. Ph.D.; CLIA# [id number] REFERENCE VALUE 20.0 - 51.0 Test Performed by: [facility] [address] [place] [address] Yarn Dry Room Worker: Hieu Cohn M.D. Ph.D.; CLIA# [id number] Procedures Date Code Description Status 10/08/2019 39505 ECHO Transthorasic Realtime 2D W Doppler & Color Flow Hosp Completed Medical Devices Description No Information Available Encounters Type Date Location Provider Dx Diagnosis Office Visit 10/10/2019 [facility] Kellen Staples, K56.609 Unsp intestnl 12:58p [place] mo NP obst, unsp as to Hospitalists partial versus complete obst 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 N39.0 Urinary tract infection, site not specified B96.20 Unsp Escherichia coli as the cause of diseases classd elswhr [facility]609 [facility]sp intestnl 12:57p [place] mo PA obst, unsp as Hospitalists to partial versus complete obst 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 N39.0 Urinary tract infection, site not specified B96.20 Unsp Escherichia coli as the cause of diseases classd elswhr R19.7 Diarrhea, unspecified [facility] K[facility].609 Unsp intestnl 12:57p [place] mo PA obst, unsp as Hospitalists to partial versus complete obst B96.20 Unsp Escherichia coli as the cause of diseases classd elswhr N39.0 Urinary tract infection, site not specified R19.7 Diarrhea, unspecified I10 Essential (primary) hypertension Office Visit 10/03/2019 [facility] Nellie Webb, K56.609 Unsp intestnl 1:10p Assoc,pc M.D. obst, unsp as Hospitalists to partial versus complete obst Office Visit 10/02/2019 [facility] Nellie Jon K56.609 Uns intestnl 1:10p flora Zimmer M.D. obst, unsp as Hospitalists to partial versus complete obst Office Visit 10/02/2019 Surgical Travis Muñoz K42.0 Umbilical 7:00a [facility] FIDELINA Abbasi hernia with obstruction, without gangrene Office Visit 10/01/2019 [facility] Michelle Timmons K56.609 Uns intestnl 1:10p [place] mo D.O. obst, unsp as Hospitalists to partial versus complete obst I10 Essential (primary) hypertension Office Visit 10/01/2019 [facility] Travis Muñoz K42.0 Umbilical hernia 7:00a [facility] FIDELINA Abbasi with obstruction, without gangrene Office Visit 09/30/2019 [facility] Michelle K56.609 Uns intestnl 1:09p Assocflora D.O. 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, Cellulose Insulation Helper without gangrene K57.30 Dvrtclos of lg int w/o perforation or abscess w/o bleeding R19.7 Diarrhea, unspecified Office Visit 2019 3:45p [facility] Dell Cope, R41.3 Other amnesia Services [facility] Hay R25.1 Tremor, unspecified R29.6 Repeated falls Office Visit 04/25/2019 1:30p [facility] Manan Muniz R41.3 Other amnesia Services [facility] N.PAnthony R53.83 Other fatigue R25.1 Tremor, unspecified Assessments Date Code Description Provider 10/10/2019 K56.609 Unspecified intestinal obstruction, Kellen Staples NP unspecified as to partial versus complete obstruction [...] gangrene 10/01/2019 I10 Essential (primary) hypertension William PeresOAnthony 09/30/2019 K56.609 Unspecified intestinal obstruction, William PeresOAnthony unspecified as to partial versus complete obstruction 09/30/2019 K42.0 Umbilical hernia with obstruction, without Vidal Davey MD gangrene 09/30/2019 I10 Essential (primary) hypertension William PeresOAnthony 09/30/2019 K57.30 Diverticulosis of large intestine without [...] Vidal Davey MD at [facility]02/20/2020 8:15 am - Dell Cope M.D. at [facility]2019 - Dell Cope M.D.R41.3 Other amnesiaNew Medication:Donepezil HCL 5 mg - 1 tablet twice a dayDonepezil HCL 10 mg - 1 by mouth every dayNew Therapy:Physical TherapyFollow up:Follow up in 3 monthsRecommendations:The plan is to increase her her Donepezil to 10mg once a day. Use your walker AT ALL YBCWWG86.1 Tremor, unspecifiedNew Therapy:Physical GdwflkbO43.6 Repeated falls Functional Status Description No Information Available Mental Status Description No Information Available Referrals Refer to Reason for Referral Status Appt Date [facility] [address] [place] [address] [phone]
--- OUTSIDE RECORDS SUMMARY | 2019-11-20 12:03 | XMS REPORT | Continuity of Care Document ---
:1930 External Reference #:[id number] Author Name Marya Guerra M.D. (transmitted by agent of provider Ita Magana) Address [address] [place] [address] Care Team Providers Name Role Phone Other Physician Practices Care Team Information Frame Opener Unavailable Marcel Salinas D.O. - Family Medicine Care Team Information Frame Opener [phone] Problems Active Problems Provider Date Amnesia Dell [...] one by mouth Unknown Carb-Cholecalciferol twice daily [id number] Tablets Citalopram Hydrobromide 1 by mouth Unknown [...] 1 tab po qd for 30tabs Dell Anaotliy, 06/18/2019 - 5mg 30 days then M.D. [...] Result H/L Range Note CBC Auto 04/25/2019 [facility] White Blood 4.0 10^3/uL Normal 3.5-10.[address] [place] [address] [phone] Red Blood Count 3.76 10^6/uL Normal 3.70-4.87 [...] Blood Cells % 0.1 Comp Metabolic 04/25/2019 [facility] Sodium 135 mmol/L Normal 135-[address] [place] [address] [phone] Potassium 4.2 mmol/L Normal 3.5-5.0 Chloride 100 [...] Egfr 100.5 >60 1 Laboratory test 04/25/2019 [facility] Erythrocyte Sed 52 mm/Hr High 0-29 [address] [place] [address] [phone] C Reactive Protein 1.14 mg/L Normal <8.01 3 Vitamin B12 04/25/2019 [facility] Vitamin B12 334 pg/mL Normal 180-914 4 And Folate [address] [place] [address] [phone] Folic Acid (Folate) 8.88 ng/mL >3.99 5 Laboratory 04/25/2019 [facility] TSH (Thyroid 1.32 Normal 0.34 -5.60 6 test finding [address] Stim Horm) mcIU/[place] [address] [phone] Free T4 (Free Thyroxine) 0.66 ng/dL Normal [...] dialysis) 2 Copy Result to: MARCEL SALINAS ([id number]) 3 Copy Result to: MARCEL SALINAS ([id number]) 4 Normal Range 180 to 914 Indeterminate Range 145 to 180 Deficient Range <145 5 Copy Result to: MARCEL SALINAS ([id number]) 6 Copy Result to: MARCEL SALINAS ([id number]) 7 Copy Result to: MARCEL SALINAS ([id number]) 8 ADDITIONAL INFORMATION This test was developed and its performance characteristics determined by [facility] in a manner consistent with CLIA requirements. This test has not been cleared or approved by the U.S. Food and Drug Administration. Test Performed by: [facility] [address] [place] [address] Cost Consultant: Hieu Cohn M.D. Ph.D.; CLIA# [id number] REFERENCE VALUE 20.0 - 51.0 Test Performed by: [facility] [address] [place] [address] Cost Consultant: Hieu Cohn M.D. Ph.D.; CLIA# [id number] Procedures Date Code Description Status 10/08/2019 41964 ECHO Transthorasic Realtime 2D W Doppler & Color Flow Hosp Completed Medical Devices Description No Information Available Encounters Type Date Location Provider Dx Diagnosis Office Visit 10/02/2019 [facility] Travis Muñoz K42.0 Umbilical hernia 7:00a Of Huang Abbasi PA-C with obstruction, without gangrene Office Visit 10/01/2019 [facility] Michelle Timmons K56.609 Unsp intestnl 1:10p Assoc,pc D.O. obst, unsp as to Hospitalists partial versus complete obst I10 Essential (primary) hypertension Office Visit 10/01/2019 7:00a Surgical Travis Muñoz K42.0 Umbilical hernia [facility] Huang Abbasi PA-C with obstruction, without gangrene Office Visit 09/30/2019 7:00a Surgical Vidal Matias K42.0 Umbilical hernia [facility] MD Petar with obstruction, without gangrene K57.30 Dvrtclos of lg int w/o perforation or abscess w/o bleeding R19.7 Diarrhea, unspecified Office Visit 2019 3:45p [facility] Dell Cope R41.3 Other amnesia Services Of Huang Guido R25.1 Tremor, unspecified R29.6 Repeated falls Office Visit 04/25/2019 1:30p [facility] Manan Muniz R41.3 Other amnesia [facility] N.PAnthony R53.83 Other fatigue R25.1 Tremor, unspecified Assessments Date Code Description Provider 10/08/2019 R94.31 Abnormal electrocardiogram [ECG] [EKG] Marya Guerra M.D. 10/02/2019 K42.0 Umbilical hernia with obstruction, without Travis Abbasi PA-C gangrene 10/01/2019 K56.609 Unspecified intestinal obstruction, Michelle Timmons D.OAnthony unspecified as to partial versus complete obstruction 10/01/2019 K42.0 Umbilical hernia with obstruction, without Travis Abbasi PA-C gangrene 10/01/2019 I10 Essential (primary) hypertension Michelle Timmons D.O. 09/30/2019 K42.0 Umbilical hernia with obstruction, without Vidal Davey MD gangrene 09/30/2019 K57.30 Diverticulosis of large intestine without Vidal Davey MD perforation or abscess without bleeding 09/30/2019 R19.7 Diarrhea, unspecified Vidal Davey MD [...] Vidal Davey MD at [facility]02/20/2020 8:15 am - Dell Cope M.D. at [facility]2019 - Dell Cope M.D.R41.3 Other amnesiaNew Medication:Donepezil HCL 5 mg - 1 tablet twice a dayDonepezil HCL 10 mg - 1 by mouth every dayNew Therapy:Physical TherapyFollow up:Follow up in 3 monthsRecommendations:The plan is to increase her her Donepezil to 10mg once a day. Use your walker AT ALL CPHZAT81.1 Tremor, unspecifiedNew Therapy:Physical DlwdansX83.6 Repeated falls Functional Status Description No Information Available Mental Status Description No Information Available Referrals Refer to Reason for Referral Status Appt Date [facility] at [facility] [address] [place] [address] [phone]
--- OUTSIDE RECORDS SUMMARY | 2019-11-20 12:03 | XMS REPORT | Continuity of Care Document ---
:1930 External Reference #:[id number] Author Name Travis Abbasi PA-C (transmitted by agent of provider Zara Kate) Address [address] [facility] [address] [place] [address] Care Team Providers Name Role Phone Other Physician Practices Care Team Information Interrelated Special Education Teacher Unavailable Marcel Salinas D.O. - Family Medicine Care Team Information Interrelated Special Education Teacher Problems Active Problems Provider Date Amnesia Dell [...] one by mouth Unknown Carb-Cholecalciferol twice daily [id number] Tablets Citalopram Hydrobromide 1 by mouth Unknown [...] Result H/L Range Note CBC Auto 04/25/2019 [facility] White Blood 4.0 10^3/uL Normal 3.5-10.[address] [place] [address] [phone] Red Blood Count 3.76 10^6/uL Normal 3.70-4.87 [...] Blood Cells % 0.1 Comp Metabolic 04/25/2019 [facility] Sodium 135 mmol/L Normal 135-[address] [place] [address] [phone] Potassium 4.2 mmol/L Normal 3.5-5.0 Chloride 100 [...] Egfr 100.5 >60 1 Laboratory test 04/25/2019 [facility] Erythrocyte Sed 52 mm/Hr High 0-29 [address] [place] [address] [phone] C Reactive Protein 1.14 mg/L Normal <8.01 3 Vitamin B12 04/25/2019 [facility] Vitamin B12 334 pg/mL Normal 180-914 4 And Folate [address] [place] [address] [phone] Folic Acid (Folate) 8.88 ng/mL >3.99 5 Laboratory 04/25/2019 [facility] TSH (Thyroid 1.32 Normal 0.34 -5.60 6 test finding [address] Stim Horm) mcIU/[place] [address] [phone] Free T4 (Free Thyroxine) 0.66 ng/dL Normal [...] dialysis) 2 Copy Result to: MARCEL SALINAS ([id number]) 3 Copy Result to: MARCEL SALINAS ([id number]) 4 Normal Range 180 to 914 Indeterminate Range 145 to 180 Deficient Range <145 5 Copy Result to: MARCEL SALINAS ([id number]) 6 Copy Result to: MARCEL SALINAS ([id number]) 7 Copy Result to: MARCEL SALINAS ([id number]) 8 ADDITIONAL INFORMATION This test was developed and its performance characteristics determined by [facility] in a manner consistent with CLIA requirements. This test has not been cleared or approved by the U.S. Food and Drug Administration. Test Performed by: [facility] [address] [place] [address] Hold Worker: Hieu Cohn M.D. Ph.D.; CLIA# [id number] REFERENCE VALUE 20.0 - 51.0 Test Performed by: [facility] [address] [place] [address] Hold Worker: Hieu Cohn M.D. Ph.D.; CLIA# [id number] Procedures Description No Information Available Medical Devices Description No Information Available Encounters Type Date Location Provider Dx Diagnosis Office Visit 10/02/2019 [facility] Travis Muñoz K42.0 Umbilical hernia 7:00a Of Huang Abbasi PA-C with obstruction, without gangrene Office Visit 10/01/2019 [facility] Travis Muñoz K42.0 Umbilical hernia 7:00a Of Huang Abbasi PA-C with obstruction, without gangrene Office Visit 09/30/2019 [facility] Vidal Matias K42.0 Umbilical hernia 7:00a Of Huang Davey MD with obstruction, without gangrene K57.30 Dvrtclos of lg int w/o perforation or abscess w/o bleeding R19.7 Diarrhea, unspecified Office Visit 2019 3:45p [facility] Dell Cope, R41.3 Other amnesia Services [facility] Hay R25.1 Tremor, unspecified R29.6 Repeated falls Office Visit 04/25/2019 1:30p [facility] Manan Muniz, R41.3 Other amnesia [facility] N.PAnthony R53.83 Other fatigue R25.1 Tremor, unspecified Assessments Date Code Description Provider 10/02/2019 K42.0 Umbilical hernia with obstruction, without Travis Abbasi PA-C gangrene 10/01/2019 K42.0 Umbilical hernia with obstruction, without Travis Abbasi PA-C gangrene 09/30/2019 K42.0 Umbilical hernia with obstruction, without [...] Vidal Davey MD at [facility]02/20/2020 8:15 am - Dell Cope M.D. at [facility]2019 - Dell Cope M.D.R41.3 Other amnesiaNew Medication:Donepezil HCL 5 mg - 1 tablet twice a dayDonepezil HCL 10 mg - 1 by mouth every dayNew Therapy:Physical TherapyFollow up:Follow up in 3 monthsRecommendations:The plan is to increase her her Donepezil to 10mg once a day. Use your walker AT ALL SRKYUD62.1 Tremor, unspecifiedNew Therapy:Physical XvefyguP64.6 Repeated falls Functional Status Description No Information Available Mental Status Description No Information Available Referrals Refer to Reason for Referral Status Appt Date [facility] [address] [place] [address] [phone]
--- OUTSIDE RECORDS SUMMARY | 2019-11-20 12:03 | XMS REPORT | Continuity of Care Document ---
:1930 External Reference #:[id number] Author Name Kellen Staples NP (transmitted by agent of provider Alexa Hernandez) Address [address] [address] Care Team Providers Name Role Phone Other Physician Practices Care Team Information Senior Marketing Data Analyst Unavailable Marcel Salinas D.O. - Family Medicine Care Team Information Senior Marketing Data Analyst Problems Active Problems Provider Date Amnesia [...] one by mouth Unknown Carb-Cholecalciferol twice daily [id number] Tablets Citalopram Hydrobromide 1 by mouth Unknown [...] Result H/L Range Note CBC Auto 04/25/2019 [facility] White Blood 4.0 10^3/uL Normal 3.5-10.[address] [place] [address] [phone] Red Blood Count 3.76 10^6/uL Normal 3.70-4.87 [...] Blood Cells % 0.1 Comp Metabolic 04/25/2019 [facility] Sodium 135 mmol/L Normal 135-[address] [place] [address] [phone] Potassium 4.2 mmol/L Normal 3.5-5.0 Chloride 100 [...] Egfr 100.5 >60 1 Laboratory test 04/25/2019 [facility] Erythrocyte Sed 52 mm/Hr High 0-29 [address] [place] [address] [phone] C Reactive Protein 1.14 mg/L Normal <8.01 3 Vitamin B12 04/25/2019 [facility] Vitamin B12 334 pg/mL Normal 180-914 [address] [place] [address] [phone] Folic Acid (Folate) 8.88 ng/mL >3.99 5 Laboratory 04/25/2019 [facility] TSH (Thyroid 1.32 Normal 0.34 -5.60 6 test finding [address] Stim Horm) mcIU/[place] [address] [phone] Free T4 (Free Thyroxine) 0.66 ng/dL Normal [...] dialysis) 2 Copy Result to: MARCEL SALINAS ([id number]) 3 Copy Result to: MARCEL SALINAS ([id number]) 4 Normal Range 180 to 914 Indeterminate Range 145 to 180 Deficient Range <145 5 Copy Result to: MARCEL SALINAS ([id number]) 6 Copy Result to: MARCEL SALINAS ([id number]) 7 Copy Result to: MARCEL SALINAS ([id number]) 8 ADDITIONAL INFORMATION This test was developed and its performance characteristics determined by [facility] in a manner consistent with CLIA requirements. This test has not been cleared or approved by the U.S. Food and Drug Administration. Test Performed by: [facility] - [facility] [address] [place] [address] President & Ceo: Hieu Cohn M.D. Ph.D.; CLIA# [id number] REFERENCE VALUE 20.0 - 51.0 Test Performed by: [facility] - [facility] [address] [place] [address] President & Ceo: Hieu Cohn M.D. 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 I10 Essential (primary) hypertension Office Visit 10/11/2019 12:58p [facility] K56.609 Unsp intestnl Assoc,flora Staples NP obst, unsp as Hospitalists to partial versus complete obst 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 N39.0 Urinary tract infection, site not specified B96.20 Unsp Escherichia coli as the cause of diseases classd elswhr Office Visit 10/10/2019 12:58p [facility] K56.609 Unsp intestnl Assoc,flora Staples NP obst, unsp as Hospitalists to partial versus complete obst 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 N39.0 Urinary tract infection, site not specified B96.20 Unsp Escherichia coli as the cause of diseases classd elsr Office Visit 10/09/2019 [facility] Nickie K56.609 Unsp intestnl 12:57p Assoc,pc [place] Simpson obst, unsp as Hospitalists to partial versus complete obst 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 N39.0 Urinary tract infection, site not specified B96.20 Unsp Escherichia coli as the cause of diseases classd elswhr R19.7 Diarrhea, unspecified Office Visit 10/08/2019 [facility] Nickie K56.609 Unsp intestnl 12:57p Assoc,ORLANDO Nowak, unsrin as Hospitalists to partial versus complete obst B96.20 Unsp Escherichia coli as the cause of diseases classd elswhr N39.0 Urinary tract infection, site not specified R19.7 Diarrhea, unspecified I10 Essential (primary) hypertension Office Visit 10/03/2019 [facility] Jon, K56.609 Unsp intestnl 1:10p Assoc,flora Guido obst, unsp as Hospitalists to partial versus complete obst [facility] K56.609 Unsp intestnl 1:10p Assoc,flora rothman, unsp as Hospitalists to partial versus complete obst Office Visit 10/02/2019 [facility] Travis Muñoz K42.0 Umbilical 7:00a [facility] Abbasi PA-C hernia with obstruction, without gangrene Office Visit 10/01/2019 [facility] Michelle Timmons K56.609 Unsp intestnl 1:10p Assoc,flora rothman, unsp as Hospitalists to partial versus complete obst I10 Essential (primary) hypertension Office Visit 10/01/2019 [facility] Travis Muñoz K42.0 Umbilical hernia 7:00a [facility] Abbasi PA-C with obstruction, without gangrene Office Visit 09/30/2019 [facility] Michelle K56.609 Unsp intestnl 1:09p Assoc,Denise Clarke, unsp as to Hospitalists partial versus complete obst I10 Essential (primary) hypertension F03.90 Unspecified dementia without behavioral disturbance Office Visit 09/30/2019 [facility] Vidal Matias K42.0 Umbilical hernia 7:00a [facility] with obstruction, Credit Card Clerk without gangrene K57.30 Dvrtclos of lg int w/o perforation or abscess w/o bleeding R19.7 Diarrhea, unspecified Office Visit 2019 3:45p [facility] Christopher Anatoliy, R41.3 Other amnesia [facility] Hay R25.1 Tremor, unspecified R29.6 Repeated falls Office Visit 04/25/2019 1:30p [facility] Manan Flavio, R41.3 Other amnesia [facility] Inderjit R53.83 Other fatigue R25.1 Tremor, unspecified Assessments Date Code Description Provider 10/13/2019 K56.609 Unspecified intestinal obstruction, Rosa Elena Zack, GLOVE BOARDER unspecified as to partial versus complete obstruction 10/13/2019 N39.0 Urinary tract infection, site not Rosa Elena Zack, GLOVE BOARDER specified 10/13/2019 B96.20 Unspecified Escherichia coli [E. coli] as Rosa Elena Zack, GLOVE BOARDER the cause of diseases classified elsewhere 10/13/2019 F03.91 Unspecified dementia with behavioral Rosa Elena Zack, GLOVE BOARDER disturbance 10/12/2019 N39.0 Urinary tract infection, site not Rosa Elena Zack, GLOVE BOARDER specified 10/12/2019 B96.20 Unspecified Escherichia coli [E. coli] as Rosa Elena Zack, GLOVE BOARDER the cause of diseases classified elsewhere 10/12/2019 F03.91 Unspecified dementia with behavioral Rosa Elena Zack, GLOVE BOARDER disturbance 10/12/2019 I10 Essential (primary) hypertension Rosa Elena Zack, GLOVE BOARDER 10/11/2019 K56.609 Unspecified intestinal obstruction, Kellen Touchsven, GLOVE BOARDER unspecified as to partial versus complete obstruction 10/11/2019 F03.91 Unspecified dementia with behavioral Kellen Touchton, GLOVE BOARDER disturbance 10/11/2019 N39.0 Urinary tract infection, site not Kellen Touchton, GLOVE BOARDER specified 10/11/2019 B96.20 Unspecified Escherichia coli [E. coli] as Kellen Touchton , GLOVE BOARDER the cause of diseases classified elsewhere 10/10/2019 K56.609 Unspecified intestinal obstruction, Kellen Touchton, GLOVE BOARDER unspecified as to partial versus complete obstruction 10/10/2019 F03.91 Unspecified dementia with behavioral Kellen Touchton, GLOVE BOARDER disturbance 10/10/2019 N39.0 Urinary tract infection, site not Kellen Touchton, GLOVE BOARDER specified 10/10/2019 B96.20 Unspecified Escherichia coli [E. coli] as Kellen Touchsven , GLOVE BOARDER the cause of diseases classified elsewhere 10/09/2019 [...] 10/02/2019 K42.0 Umbilical hernia with obstruction, without ORLANDO Langston-C gangrene 10/01/2019 K56.609 Unspecified intestinal obstruction, William [...] Vidal Davey MD at [facility]02/20/2020 8:15 am - Dell Cope M.D. at [facility]2019 - Dell Cope M.D.R41.3 Other amnesiaNew Medication:Donepezil HCL 5 mg - 1 tablet twice a dayDonepezil HCL 10 mg - 1 by mouth every dayNew Therapy:Physical TherapyFollow up:Follow up in 3 monthsRecommendations:The plan is to increase her her Donepezil to 10mg once a day. Use your walker AT ALL TADDUG95.1 Tremor, unspecifiedNew Therapy:Physical WgvtnntQ99.6 Repeated falls Functional Status Description No Information Available Mental Status Description No Information Available Referrals Refer to Reason for Referral Status Appt Date [facility] [address] [place] [address] [phone]
--- OUTSIDE RECORDS SUMMARY | 2019-11-20 12:03 | XMS REPORT | Continuity of Care Document ---
:1930 External Reference #:[id number] Author Name Michelle Timmons D.O. (transmitted by agent of provider Alexa Hernandez) Address [address] [place] [address] Care Team Providers Name Role Phone Other Physician Practices Care Team Information Audit Manager Unavailable Marcel Salinas D.O. - Family Medicine Care Team Information Audit Manager Problems Active Problems Provider Date Amnesia Dell [...] one by mouth Unknown Carb-Cholecalciferol twice daily [id number] Tablets Citalopram Hydrobromide 1 by mouth Unknown [...] Result H/L Range Note CBC Auto 04/25/2019 [facility] White Blood 4.0 10^3/uL Normal 3.5-10.[address] [place] [address] [phone] Red Blood Count 3.76 10^6/uL Normal 3.70-4.87 [...] Blood Cells % 0.1 Comp Metabolic 04/25/2019 [facility] Sodium 135 mmol/L Normal 135-[address] [place] [address] [phone] Potassium 4.2 mmol/L Normal 3.5-5.0 Chloride 100 [...] Egfr 100.5 >60 1 Laboratory test 04/25/2019 [facility] Erythrocyte Sed 52 mm/Hr High 0-29 [address] [place] [address] [phone] C Reactive Protein 1.14 mg/L Normal <8.01 3 Vitamin B12 04/25/2019 [facility] Vitamin B12 334 pg/mL Normal 180-914 4 And Folate [address] [place] [address] [phone] Folic Acid (Folate) 8.88 ng/mL >3.99 5 Laboratory 04/25/2019 [facility] TSH (Thyroid 1.32 Normal 0.34 -5.60 6 test finding [address] Stim Horm) mcIU/[place] [address] [phone] Free T4 (Free Thyroxine) 0.66 ng/dL Normal [...] dialysis) 2 Copy Result to: MARCEL SALINAS ([id number]) 3 Copy Result to: MARCEL SALINAS ([id number]) 4 Normal Range 180 to 914 Indeterminate Range 145 to 180 Deficient Range <145 5 Copy Result to: MARCEL SALINAS ([id number]) 6 Copy Result to: MARCEL SALINAS ([id number]) 7 Copy Result to: MARCEL SALINAS ([id number]) 8 ADDITIONAL INFORMATION This test was developed and its performance characteristics determined by [facility] in a manner consistent with CLIA requirements. This test has not been cleared or approved by the U.S. Food and Drug Administration. Test Performed by: [facility] - [facility] [address] [place] [address] Gas Fitter Apprentice: Hieu Cohn M.D. Ph.D.; CLIA# [id number] 9 REFERENCE VALUE 20.0 - 51.0 Test Performed by: [facility] - [facility] [address] [place] [address] Gas Fitter Apprentice: Hieu Cohn M.D. Ph.D.; CLIA# [id number] Procedures Date Code Description Status 10/08/2019 69466 ECHO Transthorasic Realtime 2D W Doppler & Color Flow Hosp Completed Medical Devices Description No Information Available Encounters Type Date Location Provider Dx Diagnosis Office Visit 10/10/2019 [facility] Kellen Staples, K56.609 Unsp intestnl 12:58p flora Zimmer NP obst, unsp as to Hospitalists partial versus complete obst 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 N39.0 Urinary tract infection, site not specified B96.20 Unsp Escherichia coli as the cause of diseases classd elswhr [facility]sp [facility] 12:57p flora Zimmer PA obst, unsp as Hospitalists to partial versus complete obst 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 N39.0 Urinary tract infection, site not specified B96.20 Unsp Escherichia coli as the cause of diseases classd elswhr R19.7 Diarrhea, unspecified [facility]609 Unsp intestnl 12:57p flora Zimmer PA obst, unsp as Hospitalists to partial versus complete obst B96.20 Unsp Escherichia coli as the cause of diseases classd elswhr N39.0 Urinary tract infection, site not specified R19.7 Diarrhea, unspecified I10 Essential (primary) hypertension Office Visit 10/03/2019 [facility] Nellie Webb, K56.609 Unsp intestnl 1:10p flora Zimmer M.D. obst, unsp as Hospitalists to partial versus complete obst Office Visit 10/02/2019 [facility] Nellie Jon K56.609 Uns intestnl 1:10p flora Zimmer M.D. obst, unsp as Hospitalists to partial versus complete obst Office Visit 10/02/2019 Surgical Travis Muñoz K42.0 Umbilical 7:00a [facility] FIDELINA Abbasi hernia with obstruction, without gangrene Office Visit 10/01/2019 [facility] Michelle Timmons K56.609 Uns intestnl 1:10p Assflora mo D.O. obst, unsp as Hospitalists to partial versus complete obst I10 Essential (primary) hypertension Office Visit 10/01/2019 Surgical Travis Muñoz K42.0 Umbilical hernia 7:00a [facility] FIDELINA Abbasi with obstruction, without gangrene Office Visit 09/30/2019 [facility] Michelle K56.609 Uns intestnl 1:09p Assflora mo D.O. 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 K57.30 Dvrtclos of lg int w/o perforation or abscess w/o bleeding R19.7 Diarrhea, unspecified Office Visit 2019 3:45p [facility] Dell Cope, R41.3 Other amnesia [facility] Hay R25.1 Tremor, unspecified R29.6 Repeated falls Office Visit 04/25/2019 1:30p [facility] Manan Muniz R41.3 Other amnesia [facility] N.PAnthony R53.83 Other fatigue R25.1 Tremor, unspecified [...] William PeresOAnthony 09/30/2019 K56.609 Unspecified intestinal obstruction, Michelle Timmons [...] Vidal Davey MD at [facility]02/20/2020 8:15 am - Dell Cope M.D. at [facility]2019 - Dell Cope M.D.R41.3 Other amnesiaNew Medication:Donepezil HCL 5 mg - 1 tablet twice a dayDonepezil HCL 10 mg - 1 by mouth every dayNew Therapy:Physical TherapyFollow up:Follow up in 3 monthsRecommendations:The plan is to increase her her Donepezil to 10mg once a day. Use your walker AT ALL BEORTZ79.1 Tremor, unspecifiedNew Therapy:Physical WhgbgvrX67.6 Repeated falls Functional Status Description No Information Available Mental Status Description No Information Available Referrals Refer to Reason for Referral Status Appt Date [facility] at [facility] [address] [place] [address] [phone]
--- OUTSIDE RECORDS SUMMARY | 2019-11-20 12:03 | XMS REPORT | Continuity of Care Document ---
:1930 External Reference #:[id number] Author Name ORLANDO Hayden (transmitted by agent of provider Alexa Hernandez) Address [address] [place] [address] Care Team Providers Name Role Phone Other Physician Practices Care Team Information Oil Heat Technician Unavailable Marcel Salinas D.O. - Family Medicine Care Team Information Oil Heat Technician Problems Active Problems Provider Date Amnesia Dell [...] one by mouth Unknown Carb-Cholecalciferol twice daily [id number] Tablets Citalopram Hydrobromide 1 by mouth Unknown [...] Result H/L Range Note CBC Auto 04/25/2019 [facility] White Blood 4.0 10^3/uL Normal 3.5-10.[address] [place] [address] [phone] Red Blood Count 3.76 10^6/uL Normal 3.70-4.87 [...] Blood Cells % 0.1 Comp Metabolic 04/25/2019 [facility] Sodium 135 mmol/L Normal 135-[address] [place] [address] [phone] Potassium 4.2 mmol/L Normal 3.5-5.0 Chloride 100 [...] Egfr 100.5 >60 1 Laboratory test 04/25/2019 [facility] Erythrocyte Sed 52 mm/Hr High 0-29 [address] [place] [address] [phone] C Reactive Protein 1.14 mg/L Normal <8.01 3 Vitamin B12 04/25/2019 [facility] Vitamin B12 334 pg/mL Normal 180-914 4 And Folate [address] [place] [address] [phone] Folic Acid (Folate) 8.88 ng/mL >3.99 5 Laboratory 04/25/2019 [facility] TSH (Thyroid 1.32 Normal 0.34 -5.60 6 test finding [address] Stim Horm) mcIU/[place] [address] [phone] Free T4 (Free Thyroxine) 0.66 ng/dL Normal [...] dialysis) 2 Copy Result to: MARCEL SALINAS ([id number]) 3 Copy Result to: MARCEL SALINAS ([id number]) 4 Normal Range 180 to 914 Indeterminate Range 145 to 180 Deficient Range <145 5 Copy Result to: MARCEL SALINAS ([id number]) 6 Copy Result to: MARCEL SALINAS ([id number]) 7 Copy Result to: MARCEL SALINAS ([id number]) 8 ADDITIONAL INFORMATION This test was developed and its performance characteristics determined by [facility] in a manner consistent with CLIA requirements. This test has not been cleared or approved by the U.S. Food and Drug Administration. Test Performed by: [facility] - [facility] [address] [place] [address] Medical Assistant Supervisor: Hieu Cohn M.D. Ph.D.; CLIA# [id number] REFERENCE VALUE 20.0 - 51.0 Test Performed by: [facility] - [facility] [place] [address] [place] [address] Medical Assistant Supervisor: Hieu Cohn M.D. Ph.D.; CLIA# [id number] Procedures Date Code Description Status 10/08/2019 14669 ECHO Transthorasic Realtime 2D W Doppler & Color Flow Hosp Completed Medical Devices Description No Information Available Encounters Type Date Location Provider Dx Diagnosis Office Visit 10/10/2019 [facility] Kellen Staples, K56.609 Unsp intestnl 12:58p Assflora mo NP obst, unsp as to Hospitalists partial versus complete obst 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 N39.0 Urinary tract infection, site not specified B96.20 Unsp Escherichia coli as the cause of diseases classd elswhr [facility]609 Unsp intestnl 12:57p Assflora mo PA obst, unsp as Hospitalists to partial versus complete obst 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 N39.0 Urinary tract infection, site not specified B96.20 Unsp Escherichia coli as the cause of diseases classd elswhr R19.7 Diarrhea, unspecified [facility] K[facility]609 Unsp intestnl 12:57p Assflora mo PA obst, unsp as Hospitalists to partial versus complete obst B96.20 Unsp Escherichia coli as the cause of diseases classd elswhr N39.0 Urinary tract infection, site not specified R19.7 Diarrhea, unspecified I10 Essential (primary) hypertension Office Visit 10/03/2019 [facility] Nellie Webb, K56.609 Unsp intestnl 1:10p Assoc,pc M.D. obst, unsp as Hospitalists to partial versus complete obst Office Visit 10/02/2019 [facility] Nellie Jon K56.609 Uns intestnl 1:10p flora Zimmer M.D. obst, unsp as Hospitalists to partial versus complete obst Office Visit 10/02/2019 Surgical Travis Muñoz K42.0 Umbilical 7:00a [facility] FIDELINA Abbasi hernia with obstruction, without gangrene Office Visit 10/01/2019 [facility] Michelle Timmons K56.609 Uns intestnl 1:10p Assflora mo D.O. obst, unsp as Hospitalists to partial versus complete obst I10 Essential (primary) hypertension Office Visit 10/01/2019 Surgical Travis Muñoz K42.0 Umbilical hernia 7:00a [facility] FIDELINA Abbasi with obstruction, without gangrene Office Visit 09/30/2019 [facility] Michelle K56.609 Uns intestnl 1:09p Assocflora D.O. 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, Contract Modeler without gangrene K57.30 Dvrtclos of lg int w/o perforation or abscess w/o bleeding R19.7 Diarrhea, unspecified Office Visit 2019 3:45p [facility] Dell Cope, R41.3 Other amnesia [facility] Hay R25.1 Tremor, unspecified R29.6 Repeated falls Office Visit 04/25/2019 1:30p [facility] Manan Muniz R41.3 Other amnesia [facility] N.PAnthony R53.83 Other fatigue R25.1 [...] Vidal Davey MD at [facility]/20[facility]2020 8:15 am - Dell Cope M.D. at [facility]2019 - Dell Cope M.D.R41.3 Other amnesiaNew Medication:Donepezil HCL 5 mg - 1 tablet twice a dayDonepezil HCL 10 mg - 1 by mouth every dayNew Therapy:Physical TherapyFollow up:Follow up in 3 monthsRecommendations:The plan is to increase her her Donepezil to 10mg once a day. Use your walker AT ALL YNQMFI67.1 Tremor, unspecifiedNew Therapy:Physical YagojoyL05.6 Repeated falls Functional Status Description No Information Available Mental Status Description No Information Available Referrals Refer to Reason for Referral Status Appt Date [facility] at [facility] [address] [place] [address] [phone]
--- OUTSIDE RECORDS SUMMARY | 2019-11-20 12:03 | XMS REPORT | Continuity of Care Document ---
:1930 External Reference #:[id number] Author Name Vidal Davey MD (transmitted by agent of provider Zara Kate) Address [address] [place] [address] Care Team Providers Name Role Phone Other Physician Practices Care Team Information Manager Shipping Unavailable Marcel Salinas D.O. - Family Medicine Care Team Information Manager Shipping Problems Active Problems Provider Date Amnesia Dell [...] one by mouth Unknown Carb-Cholecalciferol twice daily [id number] Tablets Citalopram Hydrobromide 1 by mouth Unknown [...] Result H/L Range Note CBC Auto 04/25/2019 [facility] White Blood 4.0 10^3/uL Normal 3.5-10.[address] [place] [address] [phone] Red Blood Count 3.76 10^6/uL Normal 3.70-4.87 [...] Blood Cells % 0.1 Comp Metabolic 04/25/2019 [facility] Sodium 135 mmol/L Normal 135-[address] [place] [address] [phone] Potassium 4.2 mmol/L Normal 3.5-5.0 Chloride 100 [...] Egfr 100.5 >60 1 Laboratory test 04/25/2019 [facility] Erythrocyte Sed 52 mm/Hr High 0-29 [address] [place] [address] [phone] C Reactive Protein 1.14 mg/L Normal <8.01 3 Vitamin B12 04/25/2019 [facility] Vitamin B12 334 pg/mL Normal 180-914 [address] F[address] [place] [address] [phone] Folic Acid (Folate) 8.88 ng/mL >3.99 5 Laboratory 04/25/2019 [facility] TSH (Thyroid 1.32 Normal 0.34 -5.60 6 test finding [address] Stim Horm) mcIU/[place] [address] [phone] Free T4 (Free Thyroxine) 0.66 ng/dL Normal [...] dialysis) 2 Copy Result to: MARCEL SALINAS ([id number]) 3 Copy Result to: MARCEL SALINAS ([id number]) 4 Normal Range 180 to 914 Indeterminate Range 145 to 180 Deficient Range <145 5 Copy Result to: MARCEL SALINAS ([id number]) 6 Copy Result to: MARCEL SALINAS ([id number]) 7 Copy Result to: MARCEL SALINAS ([id number]) 8 ADDITIONAL INFORMATION This test was developed and its performance characteristics determined by [facility] in a manner consistent with CLIA requirements. This test has not been cleared or approved by the U.S. Food and Drug Administration. Test Performed by: [facility] - [facility] [address] [place] [address] Ship'S Engineer: Hieu Cohn M.D. Ph.D.; CLIA# [id number] REFERENCE VALUE 20.0 - 51.0 Test Performed by: [facility] - [facility] [address] [place] [address] Ship'S Engineer: Hieu Cohn M.D. Ph.D.; CLIA# [id number] Procedures Description No Information Available Medical Devices Description No Information Available Encounters Type Date Location Provider Dx Diagnosis Office Visit [facility] Travis Muñoz K42.0 Umbilical hernia 7:00a Of Huang Abbasi PA-C with obstruction, without gangrene Office Visit 09/30/2019 [facility] Vidal Matias K42.0 Umbilical hernia 7:00a Of Huang Davey MD with obstruction, without gangrene K57.30 Dvrtclos of lg int w/o perforation or abscess w/o bleeding R19.7 Diarrhea, unspecified Office Visit 2019 3:45p [facility] Dell Cope, R41.3 Other amnesia Services [facility] Hay R25.1 Tremor, unspecified R29.6 Repeated falls Office Visit 04/25/2019 1:30p [facility] Manan Muniz, R41.3 Other amnesia Services Of [facility] N.PAnthony R53.83 Other fatigue R25.1 [...] Vidal Davey MD at [facility]02/20/2020 8:15 am - Dell Cope M.D. at [facility]2019 - Dell Cope M.D.R41.3 Other amnesiaNew Medication:Donepezil HCL 5 mg - 1 tablet twice a dayDonepezil HCL 10 mg - 1 by mouth every dayNew Therapy:Physical TherapyFollow up:Follow up in 3 monthsRecommendations:The plan is to increase her her Donepezil to 10mg once a day. Use your walker AT ALL CNBMPF97.1 Tremor, unspecifiedNew Therapy:Physical LhzyggaK29.6 Repeated falls Functional Status Description No Information Available Mental Status Description No Information Available Referrals Refer to Dr Reason for Referral Status Appt Date [facility] [address] [place] [address] [phone]
--- OUTSIDE RECORDS SUMMARY | 2019-11-20 12:03 | XMS REPORT | Continuity of Care Document ---
:1930 External Reference #:[id number] Author Name Nellie Webb M.D. (transmitted by agent of provider Alexa Hernandez) Address [address] [address] Care Team Providers Name Role Phone Other Physician Practices Care Team Information Water Resources Business Segment Leader Unavailable Marcel Salinas D.O. - Family Medicine Care Team Information Water [employer] Business Segment Leader [phone] Problems Active Problems Provider Date Amnesia Dell [...] one by mouth Unknown Carb-Cholecalciferol twice daily [id number]-Ltqh Tablets Citalopram Hydrobromide 1 by mouth Unknown [...] Result H/L Range Note CBC Auto 04/25/2019 [facility] White Blood 4.0 10^3/uL Normal 3.5-10.[address] [place] [address] [phone] Red Blood Count 3.76 10^6/uL Normal 3.70-4.87 [...] Blood Cells % 0.1 Comp Metabolic 04/25/2019 [facility] Sodium 135 mmol/L Normal 135-[address] [place] [address] [phone] Potassium 4.2 mmol/L Normal 3.5-5.0 Chloride 100 [...] Egfr 100.5 >60 1 Laboratory test 04/25/2019 [facility] Erythrocyte Sed 52 mm/Hr High 0-29 [address] [place] [address] [phone] C Reactive Protein 1.14 mg/L Normal <8.01 3 Vitamin B12 04/25/2019 [facility] Vitamin B12 334 pg/mL Normal 180-914 4 [address] Folate [address] [place] [address] [phone] Folic Acid (Folate) 8.88 ng/mL >3.99 5 Laboratory 04/25/2019 [facility] TSH (Thyroid 1.32 Normal 0.34 -5.60 6 test finding [address] Stim Horm) mcIU/[place] [address] [phone] Free T4 (Free Thyroxine) 0.66 ng/dL Normal [...] dialysis) 2 Copy Result to: MARCEL SALINAS ([id number]) 3 Copy Result to: MARCEL SALINAS ([id number]) 4 Normal Range 180 to 914 Indeterminate Range 145 to 180 Deficient Range <145 5 Copy Result to: MARCEL SALINAS ([id number]) 6 Copy Result to: MARCEL SALINAS ([id number]) 7 Copy Result to: MARCEL SALINAS ([id number]) 8 ADDITIONAL INFORMATION This test was developed and its performance characteristics determined by [facility] in a manner consistent with CLIA requirements. This test has not been cleared or approved by the U.S. Food and Drug Administration. Test Performed by: [facility] [address] [place] [address] Engineer Intern: Hieu Cohn M.D. Ph.D.; CLIA# [id number] REFERENCE VALUE 20.0 - 51.0 Test Performed by: [facility] - [address] [address] Engineer Intern: Hieu Cohn M.D. Ph.D.; CLIA# [id number] Procedures Date Code Description Status 10/08/2019 49147 ECHO Transthorasic Realtime 2D W Doppler & Color Flow Hosp Completed Medical Devices Description No Information Available Encounters Type Date Location Provider Dx Diagnosis Office Visit 10/10/2019 [facility] Kellen Staples, K56.609 Unsp intestnl 12:58p [place] mo NP obst, unsp as to Hospitalists partial versus complete obst 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 N39.0 Urinary tract infection, site not specified B96.20 Unsp Escherichia coli as the cause of diseases classd elswhr [facility] 12:57p flora Zimmer PA obst, unsp as Hospitalists to partial versus complete obst 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 N39.0 Urinary tract infection, site not specified B96.20 Unsp Escherichia coli as the cause of diseases classd elswhr R19.7 Diarrhea, unspecified [facility]609 [facility]sp intestnl 12:57p [place] mo PA obst, unsp as Hospitalists to partial versus complete obst B96.20 Unsp Escherichia coli as the cause of diseases classd elswhr N39.0 Urinary tract infection, site not specified R19.7 Diarrhea, unspecified I10 Essential (primary) hypertension Office Visit 10/03/2019 [facility] Nellie Webb, K56.609 Unsp intestnl 1:10p flora Zimmer M.D. obst, unsp as Hospitalists to partial versus complete obst Office Visit 10/02/2019 [facility] Nellie Jon K56.609 Uns intestnl 1:10p [place] mo M.D. obst, unsp as Hospitalists to partial versus complete obst Office Visit 10/02/2019 [facility] Travis Muñoz K42.0 Umbilical 7:00a [facility] FIDELINA Abbasi hernia with obstruction, without gangrene Office Visit 10/01/2019 [facility] Michelle Timmons K56.609 Uns intestnl 1:10p Assoc[place] D.O. obst, unsp as Hospitalists to partial versus complete obst I10 Essential (primary) hypertension Office Visit 10/01/2019 [facility] Travis Muñoz K42.0 Umbilical hernia 7:00a [facility] [address] [facility] FIDELINA Abbasi with obstruction, without gangrene Office Visit 09/30/2019 [facility] Michelle K56.609 Uns intestnl 1:09p Assoc,flora Timmons D.O. 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, [facility] [address] without gangrene K57.30 Dvrtclos of lg int w/o perforation or abscess w/o bleeding R19.7 Diarrhea, unspecified Office Visit 2019 3:45p [facility] Dell Cope, R41.3 Other amnesia Services [facility] [address] Hay R25.1 Tremor, unspecified R29.6 Repeated falls Office Visit 04/25/2019 1:30p [facility] Manan Muniz R41.3 Other amnesia [facility] [address] N.PAnthony R53.83 Other fatigue R25.1 Tremor, unspecified [...] 10/02/2019 K42.0 Umbilical hernia with obstruction, without Yonas Elroy, PA-C gangrene 10/01/2019 K56.609 Unspecified intestinal obstruction, [...] Vidal Davey MD at [facility] [address]/20/2020 8:15 am - Dell Cope M.D. at [facility] [address]2019 - Dell Cope M.D.R41.3 Other amnesiaNew Medication:Donepezil HCL 5 mg - 1 tablet twice a dayDonepezil HCL 10 mg - 1 by mouth every dayNew Therapy:Physical TherapyFollow up:Follow up in 3 monthsRecommendations:The plan is to increase her her Donepezil to 10mg once a day. Use your walker AT ALL EACHYA99.1 Tremor, unspecifiedNew Therapy:Physical MztlxwiQ76.6 Repeated falls Functional Status Description No Information Available Mental Status Description No Information Available Referrals Refer to Reason for Referral Status Appt Date [facility] [address] [place] [address] [phone]
--- OUTSIDE RECORDS SUMMARY | 2019-11-20 12:03 | XMS REPORT | Continuity of Care Document ---
:1930 External Reference #:[id number] Author Name Nellie Webb M.D. (transmitted by agent of provider Alexa Hernandez) Address [address] [place] [address] Care Team Providers Name Role Phone Other Physician Practices Care Team Information Cell Geneticist Unavailable Marcel Salinas D.O. - Family Medicine Care Team Information Cell Geneticist Problems Active Problems Provider Date Amnesia Dell [...] one by mouth Unknown Carb-Cholecalciferol twice daily [id number]-Jjkh Tablets Citalopram Hydrobromide 1 by mouth Unknown [...] Result H/L Range Note CBC Auto 04/25/2019 [facility] White Blood 4.0 10^3/uL Normal 3.5-10.[address] [place] [address] [phone] Red Blood Count 3.76 10^6/uL Normal 3.70-4.87 [...] Blood Cells % 0.1 Comp Metabolic 04/25/2019 [facility] Sodium 135 mmol/L Normal 135-[address] [place] [address] [phone] Potassium 4.2 mmol/L Normal 3.5-5.0 Chloride 100 [...] Egfr 100.5 >60 1 Laboratory test 04/25/2019 [facility] Erythrocyte Sed 52 mm/Hr High 0-29 [address] [place] [address] [phone] C Reactive Protein 1.14 mg/L Normal <8.01 3 Vitamin B12 04/25/2019 [facility] Vitamin B12 334 pg/mL Normal 180-914 4 And Folate [address] [place] [address] [phone] Folic Acid (Folate) 8.88 ng/mL >3.99 5 Laboratory 04/25/2019 [facility] TSH (Thyroid 1.32 Normal 0.34 -5.60 6 test finding [address] Stim Horm) mcIU/[place] [address] [phone] Free T4 (Free Thyroxine) 0.66 ng/dL Normal [...] dialysis) 2 Copy Result to: MARCEL SALINAS ([id number]) 3 Copy Result to: MARCEL SALINAS ([id number]) 4 Normal Range 180 to 914 Indeterminate Range 145 to 180 Deficient Range <145 5 Copy Result to: MARCEL SALINAS ([id number]) 6 Copy Result to: MARCEL SALINAS ([id number]) 7 Copy Result to: MARCEL SALINAS ([id number]) 8 ADDITIONAL INFORMATION This test was developed and its performance characteristics determined by [facility] in a manner consistent with CLIA requirements. This test has not been cleared or approved by the U.S. Food and Drug Administration. Test Performed by: [facility] [address] [place] [address] Wheat Grower: Hieu Cohn M.D. Ph.D.; CLIA# [id number] REFERENCE VALUE 20.0 - 51.0 Test Performed by: [facility] - [address] [address] Wheat Grower: Hieu Cohn M.D. Ph.D.; CLIA# [id number] Procedures Date Code Description Status 10/08/2019 78303 ECHO Transthorasic Realtime 2D W Doppler & Color Flow Hosp Completed Medical Devices Description No Information Available Encounters Type Date Location Provider Dx Diagnosis Office Visit 10/10/2019 [facility] Kellen Staples, K56.609 Unsp intestnl 12:58p [place] mo NP obst, unsp as to Hospitalists partial versus complete obst 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 N39.0 Urinary tract infection, site not specified B96.20 Unsp Escherichia coli as the cause of diseases classd elswhr [facility] 12:57p flora Zimmer PA obst, unsp as Hospitalists to partial versus complete obst 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 N39.0 Urinary tract infection, site not specified B96.20 Unsp Escherichia coli as the cause of diseases classd elswhr R19.7 Diarrhea, unspecified [facility] Unsp intestnl 12:57p [place] mo PA obst, unsp as Hospitalists to partial versus complete obst B96.20 Unsp Escherichia coli as the cause of diseases classd elswhr N39.0 Urinary tract infection, site not specified R19.7 Diarrhea, unspecified I10 Essential (primary) hypertension Office Visit 10/03/2019 [facility] Nellie Webb, K56.609 Unsp intestnl 1:10p flora Zimmer M.D. obst, unsp as Hospitalists to partial versus complete obst Office Visit 10/02/2019 [facility] Nellie Jon K56.609 Uns intestnl 1:10p [place] mo M.D. obst, unsp as Hospitalists to partial versus complete obst Office Visit 10/02/2019 [facility] Travis Muñoz K42.0 Umbilical 7:00a [facility] FIDELINA Abbasi hernia with obstruction, without gangrene Office Visit 10/01/2019 [facility] Michelle Timmons K56.609 Uns intestnl 1:10p Assocflora D.O. obst, unsp as Hospitalists to partial versus complete obst I10 Essential (primary) hypertension Office Visit 10/01/2019 [facility] Travis Muñoz K42.0 Umbilical hernia 7:00a [facility] FIDELINA Abbasi with obstruction, without gangrene Office Visit 09/30/2019 [facility] Michelle K56.609 Uns intestnl 1:09p Assoc,flora Timmons D.O. 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, [facility] without gangrene K57.30 Dvrtclos of lg int w/o perforation or abscess w/o bleeding R19.7 Diarrhea, unspecified Office Visit 2019 3:45p [facility] Dell Cope, R41.3 Other amnesia Services [facility] Hay R25.1 Tremor, unspecified R29.6 Repeated falls Office Visit 04/25/2019 1:30p [facility] Manan Muniz R41.3 Other amnesia Services [facility] N.PAnthony R53.83 Other fatigue R25.1 Tremor, unspecified [...] Vidal Davey MD at [facility]/20/2020 8:15 am - Dell Cope M.D. at [facility]2019 - Dell Cope M.D.R41.3 Other amnesiaNew Medication:Donepezil HCL 5 mg - 1 tablet twice a dayDonepezil HCL 10 mg - 1 by mouth every dayNew Therapy:Physical TherapyFollow up:Follow up in 3 monthsRecommendations:The plan is to increase her her Donepezil to 10mg once a day. Use your walker AT ALL KECMXM10.1 Tremor, unspecifiedNew Therapy:Physical GrtvaxgR12.6 Repeated falls Functional Status Description No Information Available Mental Status Description No Information Available Referrals Refer to Reason for Referral Status Appt Date [facility] at [facility] [address] [place] [address] [phone]
--- OUTSIDE RECORDS SUMMARY | 2019-11-20 12:03 | XMS REPORT | Continuity of Care Document ---
:1930 External Reference #:[id number] Author Name Rosa Elena Dixon NP (transmitted by agent of provider Alexa Hernandez) Address [address] [place] [address] Care Team Providers Name Role Phone Other Physician Practices Care Team Information Molder Pipe Covering Unavailable Marcel Salinas D.O. - Family Medicine Care Team Information Molder Pipe Covering [phone] Problems Active Problems Provider Date Amnesia Dell [...] one by mouth Unknown Carb-Cholecalciferol twice daily [id number] Tablets Citalopram Hydrobromide 1 by mouth Unknown [...] Result H/L Range Note CBC Auto 04/25/2019 [facility] White Blood 4.0 10^3/uL Normal 3.5-10.[address] [place] [address] [phone] Red Blood Count 3.76 10^6/uL Normal 3.70-4.87 [...] Blood Cells % 0.1 Comp Metabolic 04/25/2019 [facility] Sodium 135 mmol/L Normal 135-[address] [place] [address] [phone] Potassium 4.2 mmol/L Normal 3.5-5.0 Chloride 100 [...] Egfr 100.5 >60 1 Laboratory test 04/25/2019 [facility] Erythrocyte Sed 52 mm/Hr High 0-29 [address] [place] [address] [phone] C Reactive Protein 1.14 mg/L Normal <8.01 3 Vitamin B12 04/25/2019 [facility] Vitamin B12 334 pg/mL Normal 180-914 [address] [place] [address] [phone] Folic Acid (Folate) 8.88 ng/mL >3.99 5 Laboratory 04/25/2019 [facility] TSH (Thyroid 1.32 Normal 0.34 -5.60 6 test finding [address] Stim Horm) mcIU/[place] [address] [phone] Free T4 (Free Thyroxine) 0.66 ng/dL Normal [...] dialysis) 2 Copy Result to: MARCEL SALINAS ([id number]) 3 Copy Result to: MARCEL SALINAS ([id number]) 4 Normal Range 180 to 914 Indeterminate Range 145 to 180 Deficient Range <145 5 Copy Result to: MARCEL SALINAS ([id number]) 6 Copy Result to: MARCEL SALINAS ([id number]) 7 Copy Result to: MARCEL SALINAS ([id number]) 8 ADDITIONAL INFORMATION This test was developed and its performance characteristics determined by [facility] in a manner consistent with CLIA requirements. This test has not been cleared or approved by the U.S. Food and Drug Administration. Test Performed by: [facility] - [facility] [address] [place] [address] Car Distributor: Hieu Cohn M.D. Ph.D.; CLIA# [id number] REFERENCE VALUE 20.0 - 51.0 Test Performed by: [facility] - [facility] [address] [place] [address] Car Distributor: Hieu Cohn M.D. 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 I10 Essential (primary) hypertension Office Visit 10/11/2019 12:58p [facility] K56.609 Unsp intestnl Assoc,flora Staples NP obst, unsp as Hospitalists to partial versus complete obst 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 N39.0 Urinary tract infection, site not specified B96.20 Unsp Escherichia coli as the cause of diseases classd elswhr Office Visit 10/10/2019 12:58p [facility] K56.609 Unsp intestnl Assoc,flora Staples NP obst, unsp as Hospitalists to partial versus complete obst 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 N39.0 Urinary tract infection, site not specified B96.20 Unsp Escherichia coli as the cause of diseases classd elswhr Office Visit 10/09/2019 [facility] Nickie K56.609 Unsp intestnl 12:57p Assoc,pc [place] obst, unsp as Hospitalists to partial versus complete obst 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 N39.0 Urinary tract infection, site not specified B96.20 Unsp Escherichia coli as the cause of diseases classd elswhr R19.7 Diarrhea, unspecified Office Visit 10/08/2019 [facility] Nickie K56.609 Unsp intestnl 12:57p Assoc,[place], unsp as Hospitalists to partial versus complete obst B96.20 Unsp Escherichia coli as the cause of diseases classd elswhr N39.0 Urinary tract infection, site not specified R19.7 Diarrhea, unspecified I10 Essential (primary) hypertension Office Visit 10/03/2019 [facility] Jon, K56.609 Unsp intestnl 1:10p Assoc,flora rothman, unsp as Hospitalists to partial versus complete obst [facility], K56.609 Unsp intestnl 1:10p Asschepe,flora rothman, unsp as Hospitalists to partial versus complete obst Office Visit 10/02/2019 [facility] Travis Muñoz K42.0 Umbilical 7:00a [facility] Huang Abbasi PA-C hernia with obstruction, without gangrene Office Visit 10/01/2019 [facility] Michelle Timmons K56.609 Unsp intestnl 1:10p Assoc,flora rothman, unsp as Hospitalists to partial versus complete obst I10 Essential (primary) hypertension Office Visit 10/01/2019 [facility] Travis Muñoz K42.0 Umbilical hernia 7:00a [facility] Huang Abbasi PA-C with obstruction, without gangrene Office Visit 09/30/2019 [facility] Michelle K56.609 Unsp intestnl 1:09p Assoc,Denise Clarke, unsp as to Hospitalists partial versus complete obst I10 Essential (primary) hypertension F03.90 Unspecified dementia without behavioral disturbance Office Visit 09/30/2019 [facility] Vidal Matias K42.0 Umbilical hernia 7:00a [facility] 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609 Unspecified intestinal obstruction, Rosa Elena Zack, POACHER WRINGER OPERATOR unspecified as to partial versus complete obstruction 10/13/2019 N39.0 Urinary tract infection, site not Rosa Elena Zack, POACHER WRINGER OPERATOR specified 10/13/2019 B96.20 Unspecified Escherichia coli [E. coli] as Rosa Elena Zack, POACHER WRINGER OPERATOR the cause of diseases classified elsewhere 10/13/2019 F03.91 Unspecified dementia with behavioral Rosa Elena Zack, POACHER WRINGER OPERATOR disturbance 10/12/2019 N39.0 Urinary tract infection, site not Rosa Elena Zack, POACHER WRINGER OPERATOR specified 10/12/2019 B96.20 Unspecified Escherichia coli [E. coli] as Rosa Elena Zack, POACHER WRINGER OPERATOR the cause of diseases classified elsewhere 10/12/2019 F03.91 Unspecified dementia with behavioral Rosa Elena Zack, POACHER WRINGER OPERATOR disturbance 10/12/2019 I10 Essential (primary) hypertension Rosa Elena Zack, POACHER WRINGER OPERATOR 10/11/2019 K56.609 Unspecified intestinal obstruction, Kellen Touchton, POACHER WRINGER OPERATOR unspecified as to partial versus complete obstruction 10/11/2019 F03.91 Unspecified dementia with behavioral Kellen Touchton, POACHER WRINGER OPERATOR disturbance 10/11/2019 N39.0 Urinary tract infection, site not Kellen Touchton, POACHER WRINGER OPERATOR specified 10/11/2019 B96.20 Unspecified Escherichia coli [E. coli] as Kellen Touchton , POACHER WRINGER OPERATOR the cause of diseases classified elsewhere 10/10/2019 K56.609 Unspecified intestinal obstruction, Kellen Touchton, POACHER WRINGER OPERATOR unspecified as to partial versus complete obstruction 10/10/2019 F03.91 Unspecified dementia with behavioral Kellen Touchton, POACHER WRINGER OPERATOR disturbance 10/10/2019 N39.0 Urinary tract infection, site not Kellen Touchton, POACHER WRINGER OPERATOR specified 10/10/2019 B96.20 Unspecified Escherichia coli [E. coli] as Kellen Touchton , POACHER WRINGER OPERATOR the cause of diseases classified elsewhere 10/09/2019 [...] 09/30/2019 F03.90 Unspecified dementia without behavioral William PeresOAnthony disturbance 09/30/2019 R19.7 Diarrhea, unspecified Vidal Davey [...] 8:15 am - Dell Cope M.D. at [facility] [address]2019 - Dell Cope M.D.R41.3 Other amnesiaNew Medication:Donepezil HCL 5 mg - 1 tablet twice a dayDonepezil HCL 10 mg - 1 by mouth every dayNew Therapy:Physical TherapyFollow up:Follow up in 3 monthsRecommendations:The plan is to increase her her Donepezil to 10mg once a day. Use your walker AT ALL GFVDHR29.1 Tremor, unspecifiedNew Therapy:Physical VxtpcjtD39.6 Repeated falls Functional Status Description No Information Available Mental Status Description No Information Available Referrals Refer to Reason for Referral Status Appt Date [facility] [address] [place] [address] [phone]
--- OUTSIDE RECORDS SUMMARY | 2019-11-20 12:03 | XMS REPORT | Continuity of Care Document ---
:1930 External Reference #:[id number] Author Name Michelle Timmons D.O. (transmitted by agent of provider Alexa Hernandez) Address [address] [place] [address] Care Team Providers Name Role Phone Other Physician Practices Care Team Information Heating Engineer Unavailable Marcel Salinas D.O. - Family Medicine Care Team Information Heating Engineer Problems Active Problems Provider Date Amnesia Dell [...] one by mouth Unknown Carb-Cholecalciferol twice daily [id number] Tablets Citalopram Hydrobromide 1 by mouth Unknown [...] Result H/L Range Note CBC Auto 04/25/2019 [facility] White Blood 4.0 10^3/uL Normal 3.5-10.[address] [place] [address] [phone] Red Blood Count 3.76 10^6/uL Normal 3.70-4.87 [...] Blood Cells % 0.1 Comp Metabolic 04/25/2019 [facility] Sodium 135 mmol/L Normal 135-[address] [place] [address] [phone] Potassium 4.2 mmol/L Normal 3.5-5.0 Chloride 100 [...] Egfr 100.5 >60 1 Laboratory test 04/25/2019 [facility] Erythrocyte Sed 52 mm/Hr High 0-29 [address] [place] [address] [phone] C Reactive Protein 1.14 mg/L Normal <8.01 3 Vitamin B12 04/25/2019 [facility] Vitamin B12 334 pg/mL Normal 180-914 4 And Folate [address] [place] [address] [phone] Folic Acid (Folate) 8.88 ng/mL >3.99 5 Laboratory 04/25/2019 [facility] TSH (Thyroid 1.32 Normal 0.34 -5.60 6 test finding [address] Stim Horm) mcIU/[place] [address] [phone] Free T4 (Free Thyroxine) 0.66 ng/dL Normal [...] dialysis) 2 Copy Result to: MARCEL SALINAS ([id number]) 3 Copy Result to: MARCEL SALINAS ([id number]) 4 Normal Range 180 to 914 Indeterminate Range 145 to 180 Deficient Range <145 5 Copy Result to: MARCEL SALINAS ([id number]) 6 Copy Result to: MARCEL SALINAS ([id number]) 7 Copy Result to: MARCEL SALINAS ([id number]) 8 ADDITIONAL INFORMATION This test was developed and its performance characteristics determined by [facility] in a manner consistent with CLIA requirements. This test has not been cleared or approved by the U.S. Food and Drug Administration. Test Performed by: [facility] - [facility] [address] [place] [address] Jute Bag Sewer: Hieu Cohn M.D. Ph.D.; CLIA# [id number] REFERENCE VALUE 20.0 - 51.0 Test Performed by: [facility] - [facility] [address] [place] [address] Jute Bag Sewer: Hieu Cohn M.D. Ph.D.; CLIA# [id number] Procedures Description No Information Available Medical Devices Description No Information Available Encounters Type Date Location Provider Dx Diagnosis Office Visit 10/02[facility]2019 [facility] Travis Muñoz K42.0 Umbilical hernia 7:00a Of Huang Abbasi PA-C with obstruction, without gangrene Office Visit 10/01/2019 [facility] Michelle Timmons, K56.609 Unsp intestnl 1:10p Assoc,pc D.O. obst, unsp as to Hospitalists partial versus complete obst I10 Essential (primary) hypertension Office Visit 10/01/2019 7:00a Surgical Travis Muñoz K42.0 Umbilical hernia [facility] Huang Abbasi PA-C with obstruction, without gangrene Office Visit 09/30/2019 7:00a Surgical Vidal Matias K42.0 Umbilical hernia [facility] MD Petar with obstruction, without gangrene K57.30 Dvrtclos of lg int w/o perforation or abscess w/o bleeding R19.7 Diarrhea, unspecified Office Visit 2019 3:45p [facility] Dell Cope R41.3 Other amnesia Services [facility] Hay R25.1 Tremor, unspecified R29.6 Repeated falls Office Visit 04/25/2019 1:30p [facility] Manan Muniz R41.3 Other amnesia Services [facility] N.PAnthony R53.83 Other fatigue R25.1 Tremor, unspecified Assessments Date Code Description Provider 10/02/2019 K42.0 Umbilical hernia with obstruction, without Travis Abbasi PA-C gangrene 10/01/2019 K56.609 Unspecified intestinal obstruction, Netta Peres.OAnthony unspecified [...] Vidal Davey MD at [facility]02/20/2020 8:15 am - Dell Cope M.D. at [facility]2019 - Dell Cope M.D.R41.3 Other amnesiaNew Medication:Donepezil HCL 5 mg - 1 tablet twice a dayDonepezil HCL 10 mg - 1 by mouth every dayNew Therapy:Physical TherapyFollow up:Follow up in 3 monthsRecommendations:The plan is to increase her her Donepezil to 10mg once a day. Use your walker AT ALL EVABSW65.1 Tremor, unspecifiedNew Therapy:Physical TrxsrqaJ31.6 Repeated falls Functional Status Description No Information Available Mental Status Description No Information Available Referrals Refer to Reason for Referral Status Appt Date [facility] [address] [place] [address] [phone]
--- OUTSIDE RECORDS SUMMARY | 2019-11-20 12:03 | XMS REPORT | Continuity of Care Document ---
:1930 External Reference #:[id number] Author Name Kellen Staples NP (transmitted by agent of provider Alexa Hernandez) Address [address] [place] [address] Care Team Providers Name Role Phone Other Physician Practices Care Team Information Oven Loader Unavailable Marcel Salinas D.O. - Family Medicine Care Team Information Oven Loader [phone] Problems Active Problems Provider Date Amnesia Dell [...] one by mouth Unknown Carb-Cholecalciferol twice daily [id number] Tablets Citalopram Hydrobromide 1 by mouth Unknown [...] Result H/L Range Note CBC Auto 04/25/2019 [facility] White Blood 4.0 10^3/uL Normal 3.5-10.[address] [place] [address] [phone] Red Blood Count 3.76 10^6/uL Normal 3.70-4.87 [...] Blood Cells % 0.1 Comp Metabolic 04/25/2019 [facility] Sodium 135 mmol/L Normal 135-[address] [place] [address] [phone] Potassium 4.2 mmol/L Normal 3.5-5.0 Chloride 100 [...] Egfr 100.5 >60 1 Laboratory test 04/25/2019 [facility] Erythrocyte Sed 52 mm/Hr High 0-29 [address] [place] [address] [phone] C Reactive Protein 1.14 mg/L Normal <8.01 3 Vitamin B12 04/25/2019 [facility] Vitamin B12 334 pg/mL Normal 180-914 4 And Folate [address] [place] [address] [phone] Folic Acid (Folate) 8.88 ng/mL >3.99 5 Laboratory 04/25/2019 [facility] TSH (Thyroid 1.32 Normal 0.34 -5.60 6 test finding [address] Stim Horm) mcIU/[place] [address] [phone] Free T4 (Free Thyroxine) 0.66 ng/dL Normal [...] dialysis) 2 Copy Result to: MARCEL SALINAS ([id number]) 3 Copy Result to: MARCEL SALINAS ([id number]) 4 Normal Range 180 to 914 Indeterminate Range 145 to 180 Deficient Range <145 5 Copy Result to: MARCEL SALINAS ([id number]) 6 Copy Result to: MARCEL SALINAS ([id number]) 7 Copy Result to: MARCEL SALINAS ([id number]) 8 ADDITIONAL INFORMATION This test was developed and its performance characteristics determined by [facility] in a manner consistent with CLIA requirements. This test has not been cleared or approved by the U.S. Food and Drug Administration. Test Performed by: [facility] - [facility] [address] [place] [address] Internet Sales Representative: Hieu Cohn M.D. Ph.D.; CLIA# [id number] REFERENCE VALUE 20.0 - 51.0 Test Performed by: [facility] - [facility] [address] [place] [address] Internet Sales Representative: Hieu Cohn M.D. Ph.D.; CLIA# [id number] Procedures Date Code Description Status 10/08/2019 06766 ECHO Transthorasic Realtime 2D W Doppler & Color Flow Hosp Completed Medical Devices Description No Information Available Encounters Type Date Location Provider Dx Diagnosis Office Visit 10/10/2019 [facility] Kellen Staples, K56.609 Unsp intestnl 12:58p Assflora mo NP obst, unsp as to Hospitalists partial versus complete obst 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 N39.0 Urinary tract infection, site not specified B96.20 Unsp Escherichia coli as the cause of diseases classd elswhr [facility] K[facility]609 [facility]sp intestnl 12:57p Assflora mo PA obst, unsp as Hospitalists to partial versus complete obst 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 N39.0 Urinary tract infection, site not specified B96.20 Unsp Escherichia coli as the cause of diseases classd elswhr R19.7 Diarrhea, unspecified [facility] K[facility].609 Unsp intestnl 12:57p Assflora mo PA obst, unsp as Hospitalists to partial versus complete obst B96.20 Unsp Escherichia coli as the cause of diseases classd elswhr N39.0 Urinary tract infection, site not specified R19.7 Diarrhea, unspecified I10 Essential (primary) hypertension Office Visit 10/03/2019 [facility] Nellie Webb, K56.609 Unsp intestnl 1:10p flora Zimmer M.D. obst, unsp as Hospitalists to partial versus complete obst Office Visit 10/02/2019 [facility] Nellie Jon K56.609 Uns intestnl 1:10p Assflora mo M.D. obst, unsp as Hospitalists to partial versus complete obst Office Visit 10/02/2019 Surgical Travis Muñoz K42.0 Umbilical 7:00a [facility] FIDELINA Abbasi hernia with obstruction, without gangrene Office Visit 10/01/2019 [facility] Michelle Timmons K56.609 Uns intestnl 1:10p Assocflora D.O. obst, unsp as Hospitalists to partial versus complete obst I10 Essential (primary) hypertension Office Visit 10/01/2019 Surgical Travis Muñoz K42.0 Umbilical hernia 7:00a [facility] FIDELINA Abbasi with obstruction, without gangrene Office Visit 09/30/2019 [facility] Michelle K56.609 Unsp intestnl 1:09p Assocflora D.O. 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 at [facility]2019 - Dell Cope M.D.R41.3 Other amnesiaNew Medication:Donepezil HCL 5 mg - 1 tablet twice a dayDonepezil HCL 10 mg - 1 by mouth every dayNew Therapy:Physical TherapyFollow up:Follow up in 3 monthsRecommendations:The plan is to increase her her Donepezil to 10mg once a day. Use your walker AT ALL NGEOFD28.1 Tremor, unspecifiedNew Therapy:Physical CrkwqasB16.6 Repeated falls Functional Status Description No Information Available Mental Status Description No Information Available Referrals Refer to Reason for Referral Status Appt Date [facility] at [facility] [address] [place] [address] [phone]
--- OUTSIDE RECORDS SUMMARY | 2019-11-20 12:03 | XMS REPORT | Continuity of Care Document ---
:1930 External Reference #:[id number] Author Name Travis Abbasi PA-C (transmitted by agent of provider Zara Kate) Address [address] [facility] [place] [address] Care Team Providers Name Role Phone Other Physician Practices Care Team Information Ortho Tech Unavailable Marcel Salinas D.O. - Family Medicine Care Team Information Ortho Tech [phone] Problems Active Problems Provider Date Amnesia Dell [...] one by mouth Unknown Carb-Cholecalciferol twice daily [id number] Tablets Citalopram Hydrobromide 1 by mouth Unknown [...] Result H/L Range Note CBC Auto 04/25/2019 [facility] White Blood 4.0 10^3/uL Normal 3.5-10.[address] [place] [address] [phone] Red Blood Count 3.76 10^6/uL Normal 3.70-4.87 [...] Blood Cells % 0.1 Comp Metabolic 04/25/2019 [facility] Sodium 135 mmol/L Normal 135-[address] [place] [address] [phone] Potassium 4.2 mmol/L Normal 3.5-5.0 Chloride 100 [...] Egfr 100.5 >60 1 Laboratory test 04/25/2019 [facility] Erythrocyte Sed 52 mm/Hr High 0-29 [address] [place] [address] [phone] C Reactive Protein 1.14 mg/L Normal <8.01 3 Vitamin B12 04/25/2019 [facility] Vitamin B12 334 pg/mL Normal 180-914 [address] F[address] [place] [address] [phone] Folic Acid (Folate) 8.88 ng/mL >3.99 5 Laboratory 04/25/2019 [facility] TSH (Thyroid 1.32 Normal 0.34 -5.60 6 test finding [address] Stim Horm) mcIU/[place] [address] [phone] Free T4 (Free Thyroxine) 0.66 ng/dL Normal [...] dialysis) 2 Copy Result to: MARCEL SALINAS ([id number]) 3 Copy Result to: MARCEL SALINAS ([id number]) 4 Normal Range 180 to 914 Indeterminate Range 145 to 180 Deficient Range <145 5 Copy Result to: MARCEL SALINAS ([id number]) 6 Copy Result to: MARCEL SALINAS ([id number]) 7 Copy Result to: MARCEL SALINAS ([id number]) 8 ADDITIONAL INFORMATION This test was developed and its performance characteristics determined by [facility] in a manner consistent with CLIA requirements. This test has not been cleared or approved by the U.S. Food and Drug Administration. Test Performed by: [facility] - [facility] [address] [place] [address] Auto Damage Estimator: Hieu Cohn M.D. Ph.D.; CLIA# [id number] 9 REFERENCE VALUE 20.0 - 51.0 Test Performed by: [facility] - [facility] [address] [place] [address] Auto Damage Estimator: Hieu Cohn M.D. Ph.D.; CLIA# [id number] Procedures Description No Information Available Medical Devices [...] R19.7 Diarrhea, unspecified Office Visit 2019 3:45p [facility] Dell Cope, R41.3 Other amnesia [facility] Hay R25.1 Tremor, unspecified R29.6 Repeated falls Office Visit 04/25/2019 1:30p [facility] Manan Muniz, R41.3 Other amnesia [facility] N.PAnthony R53.83 Other fatigue R25.1 Tremor, [...] Vidal Davey MD at [facility]02/20/2020 8:15 am - Dell Cope M.D. at [facility]2019 - Dell Cope M.D.R41.3 Other amnesiaNew Medication:Donepezil HCL 5 mg - 1 tablet twice a dayDonepezil HCL 10 mg - 1 by mouth every dayNew Therapy:Physical TherapyFollow up:Follow up in 3 monthsRecommendations:The plan is to increase her her Donepezil to 10mg once a day. Use your walker AT ALL SLBUBA09.1 Tremor, unspecifiedNew Therapy:Physical FatweytO29.6 Repeated falls Functional Status Description No Information Available Mental Status Description No Information Available Referrals Refer to Reason for Referral Status Appt Date [facility] [address] [place] [address] [phone]
[2019-11-20 14:48] VITALS: BP 184/83
== END 2019-11-20 14:50 | disposition home or self-care (01) ==
LOC: ED 11:00
DX: S62.306A Unspecified fracture of fifth metacarpal bone, right hand, initial encounter for closed fracture (principal); M54.9 Dorsalgia, unspecified; M79.641 Pain in right hand; M25.512 Pain in left shoulder; M25.552 Pain in left hip; W19.XXXA Unspecified fall, initial encounter; Y92.9 Unspecified place or not applicable; Z88.0 Allergy status to penicillin; Z88.6 Allergy status to analgesic agent; Z87.891 Personal history of nicotine dependence
CPT/HCPCS: 70450; 72110; 72125; 99283; A9270-GY